=== PATIENT | female | born 1940 | race Two or more races ===

== ENCOUNTER 2020-02-27 10:01 | Outpatient (REF) | payer MEDICARE, SELFPAY ==
[2020-02-27 10:39] LABS: COVID-19 Test Negative (Negative)
== END 2020-02-27 10:02 | disposition home or self-care (01) ==
LOC: HO.LAB 10:01
PROVIDERS: PCP Internal Medicine; Visit Provider Internal Medicine
DX: Z20.828 Contact with and (suspected) exposure to other viral communicable diseases (principal)
CPT/HCPCS: 87635

== ENCOUNTER → 2020-04-20 08:21 | Outpatient (BNVA) | payer MEDICARE, SELFPAY | PROVIDERS: PCP Internal Medicine; Visit Provider Physician Assistant | DX: K21.9 Gastro-esophageal reflux disease without esophagitis (principal) | CPT/HCPCS: 99212 ==

== ENCOUNTER → 2020-04-23 10:04 | Outpatient (BNVA) | payer MEDICARE, SELFPAY | PROVIDERS: PCP Internal Medicine; Visit Provider Hospitalist | DX: J45.909 Unspecified asthma, uncomplicated (principal); G47.33 Obstructive sleep apnea (adult) (pediatric); K44.9 Diaphragmatic hernia without obstruction or gangrene; Z99.89 Dependence on other enabling machines and devices | CPT/HCPCS: 99212 ==

== ENCOUNTER 2020-05-01 11:32 | Outpatient (REF) | payer MEDICARE, SELFPAY | END 2020-05-01 11:33 | disposition home or self-care (01) | LOC: HO.LAB 11:32 | PROVIDERS: Visit Provider Internal Medicine | DX: Z20.828 Contact with and (suspected) exposure to other viral communicable diseases (principal) | CPT/HCPCS: C9803; U0003 ==

== ENCOUNTER 2020-06-09 09:08 | Outpatient (REF) | payer MEDICARE, SELFPAY ==
--- NOTE | 2020-06-09 09:17 | FL_ITS ---
EXAMINATION: FL BARIUM SWALLOW CLINICAL INFORMATION: Dysphagia. Gastroesophageal reflux. COMPARISON: None TECHNIQUE: Barium swallow examination is performed using fluoroscopic evaluation in addition to multiple fluoroscopic spot views. The patient is imaged both upright and prone and using both thick and thin sulfate along with effervescent granules. Fluoroscopy time: 1.9 minutes DAP: 10.89 Gycm2 Images: 55 FINDINGS: Following oral administration of thick barium, barium coated turkey in upright view and thin barium in prone lying position, there is normal propagation of bolus from the oral cavity through the pharynx, esophagus into stomach without any evidence of obstruction, narrowing, or stricture. There is a small indentation seen along the anterior cervical esophagus likely is a small web without any obstruction. Suspect a small hiatal hernia. There is no gastroesophageal reflux seen. 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 No hiatal hernia. The rest of the barium swallow is unremarkable.
== END 2020-06-09 09:09 | disposition home or self-care (01) ==
LOC: HO.XRAY 09:08
PROVIDERS: Visit Provider Physician Assistant
DX: K21.9 Gastro-esophageal reflux disease without esophagitis (principal)
CPT/HCPCS: 74220

== ENCOUNTER 2020-07-09 13:21 | Outpatient (REF) | payer MEDICARE, SELFPAY ==
--- NOTE | ~2020-07-09 | XR_ITS ---
EXAMINATION: XR CHEST CLINICAL INFORMATION: Asthma COMPARISON: 07/17/2019 TECHNIQUE: 2 views of the chest were obtained. FINDINGS: Stable cardiac and mediastinal silhouette. Mild central bronchial wall thickening. No focal consolidation, effusion, edema or pneumothorax. Thoracic spine degeneration. XR/XR chest 2V IMPRESSION: Mild bronchial wall thickening. No focal consolidation.
== END 2020-07-09 13:22 | disposition home or self-care (01) ==
LOC: HO.XRAY 13:21
PROVIDERS: PCP Internal Medicine; Visit Provider Hospitalist
DX: J45.909 Unspecified asthma, uncomplicated (principal)
CPT/HCPCS: 71046

== ENCOUNTER 2020-07-15 13:23 | Outpatient (REF) | payer MEDICARE, SELFPAY | END 2020-07-15 13:24 | disposition home or self-care (01) | LOC: HO.LAB 13:23 | PROVIDERS: Visit Provider Internal Medicine | DX: Z20.822 Contact with and (suspected) exposure to COVID-19 (principal) | CPT/HCPCS: 36415; C9803; U0003; U0005 ==

== ENCOUNTER → 2020-07-23 10:52 | Outpatient (BNVA) | payer MEDICARE, SELFPAY | PROVIDERS: PCP Internal Medicine; Visit Provider Hospitalist | DX: K44.9 Diaphragmatic hernia without obstruction or gangrene (principal); K21.9 Gastro-esophageal reflux disease without esophagitis; G47.33 Obstructive sleep apnea (adult) (pediatric); J45.40 Moderate persistent asthma, uncomplicated; Z91.09 Other allergy status, other than to drugs and biological substances; Z99.89 Dependence on other enabling machines and devices | CPT/HCPCS: 99212 ==

== ENCOUNTER → 2020-08-05 14:10 | Outpatient (BNVA) | payer MEDICARE, SELFPAY | PROVIDERS: PCP Internal Medicine; Visit Provider Physician Assistant | DX: R13.10 Dysphagia, unspecified (principal); D64.9 Anemia, unspecified | CPT/HCPCS: 99212 ==

== ENCOUNTER 2020-08-06 14:02 | Outpatient (REF) | payer MEDICARE, SELFPAY ==
[2020-08-06 14:40] LABS: MANUAL DIFF FLAG NO
[2020-08-06 14:45] LABS: Basophils Absolute Auto 0.1 X10*3/uL (0.0-0.2); Basophils Percent Auto 0.8 % (0-2); Eosinophils Absolute Auto 0.4 X10*3/uL (0.0-0.4); Eosinophils Percent Auto 5.7 % (0-4); Imm Gran Abs Auto 0.02 X10*3/uL (0.00-0.03); Imm Gran Pct Auto 0.3 % (0.0-0.4); Lymphocytes Absolute Auto 2.6 X10*3/uL (1.2-4.9); Lymphocytes Percent Auto 35.2 % (20-40); Mean Corpuscular HGB Conc 30.3 g/dl (31.0-35.0); Mean Corpuscular Hemoglobin 26.3 pg (27.0-33.0); Mean Corpuscular Volume 86.8 fL (80-98); Mean Platelet Volume 10.8 fL (9.4-12.3); Monocytes Absolute Auto 0.7 X10*3/uL (0.1-1.2); Monocytes Percent Auto 9.2 % (2-11); Neutrophils Absolute Auto 3.6 X10*3/uL (2.0-8.3); Neutrophils Percent Auto 48.8 % (45-73); Platelet Count 303 X10*3/uL (160-400); Red Cell Distribution Width 13.6 % (11.0-16.0); White Blood Count 7.4 X10*3/uL (4.8-10.8)
[2020-08-06 15:07] LABS: Iron 37 mcg/dL (30-160); Percent Iron Saturation 9 % (15-50); Total Iron Binding Capacity 434 mcg/dL (228-428); Unsaturated Iron Binding 397 ug/dL
[2020-08-06 15:29] LABS: Ferritin 14 ng/mL (10-250)
== END 2020-08-06 14:03 | disposition home or self-care (01) ==
LOC: HO.LAB 14:02
PROVIDERS: PCP Internal Medicine; Visit Provider Physician Assistant
DX: R74.01 Elevation of levels of liver transaminase levels (principal); D64.9 Anemia, unspecified
CPT/HCPCS: 36415; 82728; 83540; 85025

== ENCOUNTER → 2020-08-12 14:04 | Outpatient (REF) | payer MEDICARE, SELFPAY | LOC: HO.SL 14:04 | PROVIDERS: PCP Internal Medicine; Visit Provider Hospitalist | DX: G47.33 Obstructive sleep apnea (adult) (pediatric) (principal); Z99.89 Dependence on other enabling machines and devices | CPT/HCPCS: 95806 ==

== ENCOUNTER → 2020-08-24 15:12 | Outpatient (BNVA) | payer MEDICARE, SELFPAY | PROVIDERS: PCP Internal Medicine; Visit Provider Hospitalist | DX: J45.40 Moderate persistent asthma, uncomplicated (principal); K55.9 Vascular disorder of intestine, unspecified; G47.33 Obstructive sleep apnea (adult) (pediatric); Z99.89 Dependence on other enabling machines and devices; Z91.09 Other allergy status, other than to drugs and biological substances | CPT/HCPCS: 99212 ==

== ENCOUNTER 2020-09-08 11:37 | Day surgery (SDC) | payer MEDICARE, SELFPAY ==
[2020-09-08 12:19] VITALS: BP 138/63; PULSE 62; RESP 18; TEMP 36.2; O2SAT 98; BMI 35.6
[2020-09-08] MEDS: Lactated Ringers 1,000 ML 50 ML IV (12:39)
--- NOTE | 2020-09-08 12:52 | MHC.SHP ---
Pre-Procedural Eval Section B Chief Complaint: Anemia Details of Present Illness: TROUBLE SWALLOWING, ? CERVICAL WEB. Relevant Family History (Specify if Yes): No Relevant Social History: None Present Medications: see Short Stay Collaborative assessment Medical History: Significant History (ASTHMA, KERON,ALLERGIES, ANEMIA) History of Previous Operations: Relevant previous surgery/procedure and date(s) (EGD--2011--iNCREASED PERIGLOTTIC TISSUE--HH; 2019-MULTIPLE POLYPS:SERRATED/TUBULAR ADEMONAS) Allergies: Allergies Allergy/AdvReac Type Severity Reaction Status Date / Time latex [Latex] Allergy Severe DIFFICULTY Verified 09/08/20 12:15 BREATHING RELATED TO EXACERBATION OF ASTHMA Cameron Inhibitors Allergy Severe cough Uncoded 08/05/20 14:25 From PERCOCET Allergy Severe RASH Uncoded 08/05/20 14:25 Review of Systems Sugical H&P ROS: Negative: Constitution and Cardiovascular and Yes, Specify: Respiratory (FOLLOWS WITH VIOLET. KERON USES CPAP), Neurological (SMALL CVA>10 YR-NO RSIDUAL) and Gastrointestinal (SEE hpi) Exam Surgical H&P Exam: Normal: HEENT, Normal: Lungs and Normal: Abdomen Plan Diagnosis/Plan: Unchanged I have reviewed the history and physical and performed a pertinent physical examination on my patient. No changes have occurred unless specified.YES
--- NOTE | 2020-09-08 13:21 | PM.OP ---
Brief Operative Note Date of Service: 09/08/20 Pre-op diagnosis: DYSPHAGIA WITH LIQUIDS--NO WEIGHT CHANGE Post-op diagnosis: other (SMALL HIATAL HERNIA) Procedure: EGD NO BX, NO DILATION Implants: NONE Surgeon: Tatiana English MD Anesthesia: MAC (MD SADE/Kofi MUKHERJEE MD) Estimated blood loss (mL): 0 Pathology: none sent Condition: stable Disposition: PACU
[2020-09-08 13:22] VITALS: BP 123/68; PULSE 67; RESP 16; TEMP 36.3; O2SAT 96
--- NOTE | 2020-09-08 13:27 | W.PM.OPN ---
Operative Note Operative Note Date of Service: 09/08/20 Narrative: PRE-op diagnosis: DYSPHAGIA WITH LIQUIDS--NO WEIGHT CHANGE Post-op diagnosis: SMALL HIATAL HERNIA; Hx of dysphagia Procedure: EGD NO BX, NO DILATION Implants: NONE Surgeon: Tatiana English MD Anesthesia: MAC (MD SADE/Kofi MUKHERJEE MD) FINDINGS: Videoendoscope was introduced with out difficulty and entered esophagus easily. Esophageal mucosa was normal. Small hiatal hernia. Stomach: Normal looking mucosa, no erythema. Duodenal bulb and duodenum were normal. Scope withdrawn Brief view of Arytenoid cartilages showed some flattening and edema. No involvement of the cords. There was not a good look @ the posterior pharynx due to increased secretions. Estimated blood loss (mL): 0 Pathology: none sent Condition: stable Disposition: PACU Plan--Patient to be reseen in the office. Might benefit BID dosing for acid blockade--May have some oropharyngeal motility issue or coordination problem.
[2020-09-08 13:37] VITALS: BP 132/64; PULSE 63; RESP 17; TEMP 36.6; O2SAT 99
== END 2020-09-08 14:49 | disposition home or self-care (01) ==
PROVIDERS: PCP Internal Medicine; Visit Provider Internal Medicine Gastroenterology
PROC: 0DJ08ZZ Inspection of Upper Intestinal Tract, Via Natural or Artificial Opening Endoscopic (ICD-10-PCS; CPT 43235; principal; 2020-09-08 11:20)
DX: R13.10 Dysphagia, unspecified (principal); D64.9 Anemia, unspecified; K21.9 Gastro-esophageal reflux disease without esophagitis; K44.9 Diaphragmatic hernia without obstruction or gangrene; J45.909 Unspecified asthma, uncomplicated; I10 Essential (primary) hypertension; G47.33 Obstructive sleep apnea (adult) (pediatric); Z79.51 Long term (current) use of inhaled steroids; Z79.82 Long term (current) use of aspirin; Z79.899 Other long term (current) drug therapy; Z99.89 Dependence on other enabling machines and devices; Z90.49 Acquired absence of other specified parts of digestive tract; Z88.8 Allergy status to other drugs, medicaments and biological substances; Z91.040 Latex allergy status
CPT/HCPCS: 43235

== ENCOUNTER 2020-10-08 13:26 | Outpatient (REF) | payer MEDICARE, SELFPAY ==
--- NOTE | ~2020-10-08 | XR_ITS ---
EXAMINATION: XR CERVICAL SPINE CLINICAL INFORMATION: Cervical degenerative COMPARISON: None TECHNIQUE: 6 views of the cervical spine, inclusive of flexion and extension views, were obtained. FINDINGS: There is normal cervical lordosis. The vertebral heights, alignment and disc heights are normal. The neural foramina are patent bilaterally. No visible acute fracture, dislocation or lytic process seen. XR/XR cervical spine min 6V IMPRESSION: Unremarkable cervical spine exam.
== END 2020-10-08 13:27 | disposition home or self-care (01) ==
LOC: HO.XRAY 13:26
PROVIDERS: PCP Internal Medicine; Visit Provider Internal Medicine
DX: M54.2 Cervicalgia (principal)
CPT/HCPCS: 72052

== ENCOUNTER 2020-11-06 15:04 | Outpatient (REF) | payer MEDICARE, SELFPAY ==
--- NOTE | ~2020-11-06 | MM_ITS ---
EXAMINATION: MM SCREENING DIGITAL BREAST TOMOSYNTHESIS, BILATERAL CLINICAL INFORMATION: Screening. Asymptomatic. The lifetime risk of breast cancer based on the Tyrer-Cuzick Model is 1.4%. COMPARISON: Mammography: March 07, 2019 and studies dating back to April 09, 2013 TECHNIQUE: Digital breast tomosynthesis is performed in both the craniocaudal and mediolateral oblique views along with computer-aided detection (CAD). Synthesized 2D images are generated from the tomosynthesis. FINDINGS: There are scattered areas of fibroglandular density (ACR BI-RADS breast composition Category b). There are no significant masses, abnormal calcifications, or other abnormalities. MM/MM tomosynthesis screening BI IMPRESSION: There are no significant changes from prior study. ASSESSMENT: BI-RADS 1: Negative RECOMMENDATION: Routine annual mammography screening. This patient's information was entered into a reminder system with a target due date for their next mammogram.
== END 2020-11-06 15:05 | disposition home or self-care (01) ==
LOC: HO.MAMMO 15:04
PROVIDERS: Visit Provider Internal Medicine
DX: Z12.31 Encounter for screening mammogram for malignant neoplasm of breast (principal)
CPT/HCPCS: 77063; 77067

== ENCOUNTER 2020-11-11 07:55 | Outpatient (REF) | payer MEDICARE, SELFPAY ==
--- NOTE | ~2020-11-11 | XR_ITS ---
EXAMINATION: XR SHOULDER, RIGHT CLINICAL INFORMATION: Right shoulder pain. COMPARISON: 11/30/2017 TECHNIQUE: Three views of the right shoulder. FINDINGS: No acute fracture or dislocation is evident. Previously noted calcific tendinitis is not definitely identified on the provided images. There is some mild elevation of the humeral head consistent with rotator cuff injury. There is some spurring about the acromioclavicular joint. Glenohumeral joint appears unremarkable. XR/XR shoulder RT min 2V IMPRESSION: Previous calcification of calcific tendinitis not definitely identified on today's study. No acute fracture or dislocation.
== END 2020-11-11 07:56 | disposition home or self-care (01) ==
LOC: HO.HOSX 07:55
PROVIDERS: Visit Provider Physician Assistant
DX: M19.011 Primary osteoarthritis, right shoulder (principal); M75.101 Unspecified rotator cuff tear or rupture of right shoulder, not specified as traumatic
CPT/HCPCS: 20610; 73030; 99212; J1040

== ENCOUNTER → 2020-11-27 12:46 | Outpatient (BNVA) | payer MEDICARE, SELFPAY | PROVIDERS: PCP Internal Medicine; Visit Provider Hospitalist | DX: J45.40 Moderate persistent asthma, uncomplicated (principal); K44.9 Diaphragmatic hernia without obstruction or gangrene; G47.33 Obstructive sleep apnea (adult) (pediatric); Z99.89 Dependence on other enabling machines and devices; Z91.09 Other allergy status, other than to drugs and biological substances | CPT/HCPCS: 99212 ==

== ENCOUNTER → 2021-02-23 13:11 | Outpatient (BNVA) | payer MEDICARE, SELFPAY | PROVIDERS: PCP Internal Medicine; Visit Provider Hospitalist | DX: J45.40 Moderate persistent asthma, uncomplicated (principal); G47.33 Obstructive sleep apnea (adult) (pediatric); R41.3 Other amnesia; K44.9 Diaphragmatic hernia without obstruction or gangrene; Z99.89 Dependence on other enabling machines and devices; Z91.09 Other allergy status, other than to drugs and biological substances | CPT/HCPCS: 99212 ==

== ENCOUNTER → 2021-07-27 12:50 | Outpatient (BNVA) | payer MEDICARE, SELFPAY | PROVIDERS: PCP Internal Medicine; Visit Provider Hospitalist | DX: J45.40 Moderate persistent asthma, uncomplicated (principal); K44.9 Diaphragmatic hernia without obstruction or gangrene; Z91.09 Other allergy status, other than to drugs and biological substances | CPT/HCPCS: 99212 ==

== ENCOUNTER 2021-08-09 15:06 | Emergency (ER) | payer MEDICARE, SELFPAY | END 2021-08-09 22:31 | disposition left against medical advice (07) | PROVIDERS: Emergency Provider Emergency Medicine; PCP Internal Medicine | DX: M54.2 Cervicalgia (principal) ==

== ENCOUNTER 2021-08-10 07:56 | Outpatient (REF) | payer MEDICARE, SELFPAY | END 2021-08-10 07:57 | disposition home or self-care (01) | LOC: HO.MDS 07:56 | PROVIDERS: PCP Internal Medicine; Visit Provider Internal Medicine Medical Oncology | DX: D50.9 Iron deficiency anemia, unspecified (principal) | CPT/HCPCS: 96365; 96366; J1200; J1750; Q0163 ==

== ENCOUNTER → 2021-09-13 08:47 | Outpatient (BNVA) | payer MEDICARE, SELFPAY | PROVIDERS: PCP Internal Medicine; Visit Provider Physician Assistant | DX: S46.812A Strain of other muscles, fascia and tendons at shoulder and upper arm level, left arm, initial encounter (principal) | CPT/HCPCS: 99212 ==

== ENCOUNTER 2021-11-01 12:57 | Outpatient (REF) | payer OTHER, SELFPAY ==
--- NOTE | ~2021-11-01 | XR_ITS ---
EXAMINATION: XR SHOULDER, LEFT CLINICAL INFORMATION: Left shoulder pain COMPARISON: Left shoulder x-ray on 11/30/2017 TECHNIQUE: AP external rotation, Grashey, scapular Y, and axillary views of the left shoulder. FINDINGS: There is moderate acromioclavicular osteoarthritis. Glenohumeral joint is well preserved. No fracture. Alignment is anatomic. Mild calcific tendinopathy. XR/XR shoulder LT min 2V IMPRESSION: Moderate left shoulder arthritis.
== END 2021-11-01 12:58 | disposition home or self-care (01) ==
LOC: HO.XRAY 12:57
PROVIDERS: PCP Internal Medicine; Visit Provider Internal Medicine
DX: M25.512 Pain in left shoulder (principal)
CPT/HCPCS: 73030

== ENCOUNTER 2022-01-07 08:27 | Outpatient (REF) | payer OTHER, SELFPAY ==
--- NOTE | ~2022-01-07 | XR_ITS ---
EXAMINATION: XR BOTH KNEES AP STANDING XR RIGHT KNEE, 2 VIEWS CLINICAL INFORMATION: Pain in the right knee. COMPARISON: 01/19/2017. TECHNIQUE: Standing AP view of both knees and lateral and sunrise views of the right knee. FINDINGS: LEFT KNEE: Cmtf-wn-[id number] medial compartment osteoarthritis with nonuniform joint space narrowing and marginal osteophytes. Slight varus angulation at the knee. Calcified densities overlying the medial femoral condyle/medial metaphysis may correspond to loose bodies in the posterior recess. These measure up to 1.5 cm in diameter. Soft tissues are unremarkable. RIGHT KNEE: Constrained right total knee arthroplasty is unchanged in alignment as compared to prior. No periprosthetic fracture or lucency. Previously seen effusion or synovitis in the suprapatellar pouch is improved as compared to prior. A small amount of heterotopic bone is noted in the region of the quadriceps tendon insertion. Mild soft tissue swelling in the prepatellar soft tissues, more pronounced medially. No acute osseous abnormalities are identified. XR/XR knee RT 2V IMPRESSION: Appropriate alignment of the right total knee arthroplasty without evidence of complications. 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 [id number] medial compartment osteoarthritis in the left knee with probable osseous loose bodies.
--- NOTE | ~2022-01-07 | XR_ITS ---
EXAMINATION: XR BOTH KNEES AP STANDING XR RIGHT KNEE, 2 VIEWS CLINICAL INFORMATION: Pain in the right knee. COMPARISON: 01/19/2017. TECHNIQUE: Standing AP view of both knees and lateral and sunrise views of the right knee. FINDINGS: LEFT KNEE: [id number] medial compartment osteoarthritis with nonuniform joint space narrowing and marginal osteophytes. Slight varus angulation at the knee. Calcified densities overlying the medial femoral condyle/medial metaphysis may correspond to loose bodies in the posterior recess. These measure up to 1.5 cm in diameter. Soft tissues are unremarkable. RIGHT KNEE: Constrained right total knee arthroplasty is unchanged in alignment as compared to prior. No periprosthetic fracture or lucency. Previously seen effusion or synovitis in the suprapatellar pouch is improved as compared to prior. A small amount of heterotopic bone is noted in the region of the quadriceps tendon insertion. Mild soft tissue swelling in the prepatellar soft tissues, more pronounced medially. No acute osseous abnormalities are identified. XR/XR knee standing BI IMPRESSION: Appropriate alignment of the right total knee arthroplasty without evidence of complications. 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 [id number] medial compartment osteoarthritis in the left knee with probable osseous loose bodies.
== END 2022-01-07 08:28 | disposition home or self-care (01) ==
LOC: HO.HOSX 08:27
PROVIDERS: Visit Provider Physician Assistant
DX: M19.012 Primary osteoarthritis, left shoulder (principal); Z96.651 Presence of right artificial knee joint; M25.562 Pain in left knee
CPT/HCPCS: 20610; 73560; 73565; 99212; J1040

== ENCOUNTER 2022-01-13 13:31 | Outpatient (REF) | payer OTHER, SELFPAY ==
--- NOTE | ~2022-01-13 | XR_ITS ---
EXAMINATION: XR HIP, LEFT CLINICAL INFORMATION: Pain COMPARISON: Previous x-ray May 2007 TECHNIQUE: Two views of the left hip. FINDINGS: Bone alignment is normal. No fracture or dislocation is seen. The left hip joint is normal. There is faint soft tissue calcification or ossification adjacent to the lateral left inferior pubic ramus new from 2008 exam. There is mild atherosclerotic disease. XR/XR hip LT min 2V IMPRESSION: Normal left hip. New faint soft tissue calcification or ossification adjacent to the lateral left inferior pubic ramus.
--- NOTE | ~2022-01-13 | XR_ITS ---
EXAMINATION: XR SHOULDER, LEFT CLINICAL INFORMATION: Pain COMPARISON: Previous x-ray most recent October 2021 TECHNIQUE: AP external rotation, Grashey, scapular Y, and axillary views of the left shoulder. FINDINGS: Bone alignment is normal. No fracture or dislocation is seen. The glenohumeral joint is normal. There is arthritis at the acromioclavicular joint. There are degenerative changes of the greater tuberosity and faint adjacent soft tissue calcification. XR/XR shoulder LT min 2V IMPRESSION: Stable degenerative changes.
== END 2022-01-13 13:32 | disposition home or self-care (01) ==
LOC: HO.XRAY 13:31
PROVIDERS: Absent Provider Internal Medicine; PCP Internal Medicine; Visit Provider Family Medicine
DX: M25.512 Pain in left shoulder (principal); M25.552 Pain in left hip
CPT/HCPCS: 73030; 73502

== ENCOUNTER 2022-01-24 13:26 | Outpatient (REF) | payer OTHER, SELFPAY ==
--- NOTE | ~2022-01-24 | XR_ITS ---
EXAMINATION: XR PELVIS CLINICAL INFORMATION: Pain COMPARISON: Previous x-ray most recent 01/13/2022 TECHNIQUE: AP view of the pelvis. FINDINGS: Bone alignment is normal. No acute fracture or dislocation is seen. There is faint soft tissue calcification adjacent to the lateral left inferior pubic ramus. This is similar to recent exam. Bones of the pelvis are otherwise normal. The right hip joint is normal. XR/XR pelvis 1-2V IMPRESSION: Stable faint soft tissue calcification or ossification adjacent to the lateral left inferior pubic ramus from recent exam.
== END 2022-01-24 13:27 | disposition home or self-care (01) ==
LOC: HO.XRAY 13:26
PROVIDERS: Absent Provider Internal Medicine; PCP Internal Medicine; Visit Provider Family Medicine
DX: M25.552 Pain in left hip (principal)
CPT/HCPCS: 72170

== ENCOUNTER 2022-02-23 10:31 | Outpatient (REF) | payer OTHER, SELFPAY ==
--- NOTE | ~2022-02-23 | CT_ITS ---
EXAMINATION: CT PELVIS WITHOUT CONTRAST CLINICAL INFORMATION: Soft tissue calcification COMPARISON: None TECHNIQUE: Helical scanning was performed with submillimeter collimation through the pelvis. Sagittal and coronal multiplanar 2-D reconstructions were obtained. This CT examination was performed using dose optimization techniques as appropriate, variously including the following: *Automated exposure control *Adjustment of mA and/or kV according to patient size (this includes techniques or standardized protocols for targeted exams where dose is matched to indication/reason for exam; i.e. extremities or head) *Use of iterative reconstruction technique DLP: 756 mGy-cm FINDINGS: PELVIS: There is scattered stool, diverticula and gas seen throughout the colon without distention. Appendix and ileocecal junction are normal. No free air or free fluid seen. The urinary bladder is nondistended. The uterus is not visualized likely surgically removed. OSSEOUS STRUCTURES: Degenerative changes with vacuum disc phenomena L4-L5 disc level. No aggressive lytic or sclerotic process seen. CT/CT pelvis wo IV con IMPRESSION: Unremarkable CT pelvis.
== END 2022-02-23 10:32 | disposition home or self-care (01) ==
LOC: HO.CT 10:31
PROVIDERS: PCP Internal Medicine; Visit Provider Family Medicine
DX: R93.7 Abnormal findings on diagnostic imaging of other parts of musculoskeletal system (principal)
CPT/HCPCS: 72192

== ENCOUNTER 2022-03-21 14:24 | Emergency (ER) | payer OTHER, SELFPAY ==
--- NOTE | 2022-03-21 15:07 | ED_ITS ---
HPI - Chest Pain General Chief Complaint: Abdominal Pain Stated Complaint: chest pain sob Related Data Home Medications Medication Instructions Recorded Confirmed loratadine 10 mg tablet (Claritin) 10 mg PO DAILY PRN Allergies 04/20/20 07/22/21 omeprazole 20 mg capsule,delayed 20 mg PO DAILY 04/20/20 07/22/21 release aspirin 81 mg tablet,delayed 81 mg PO DAILY 04/23/20 07/22/21 release verapamil 120 mg 24 hr 120 mg PO DAILY 11/27/20 07/22/21 capsule,extended release acetaminophen 325 mg PO Q6-8H PRN pain/fever 07/22/21 07/22/21 docusate sodium 100 mg tablet 100 mg PO BID 07/22/21 07/22/21 dorzolamide 22.3 mg-timolol 6.8 ml ophthalmic (eye) 07/27/21 mg/mL eye drops azithromycin 250 mg tablet 250 mg PO DIRECTED 09/13/21 Previous Rx's Medication Instructions Recorded albuterol sulfate 90 mcg/actuation 2 inh inhalation Q6H PRN shortness 08/21/20 aerosol inhaler of breath or wheezing 30 days #18 grams compr.stocking,thigh,reg,x-lrg #2 ea 11/27/20 gabapentin 300 mg capsule 600 mg PO BEDTIME 30 days #60 caps 07/27/21 Breo Ellipta 200 mcg-25 mcg/dose 1 ea inhalation DAILY #60 ea 08/12/21 powder for inhalation (fluticasone furoate-vilanterol) montelukast 10 mg tablet 10 mg PO QPM #30 tabs 08/12/21 celecoxib 200 mg capsule (Celebrex) 200 mg PO BID 30 days #60 caps 01/07/22 Allergies Allergy/AdvReac Type Severity Reaction Status Date / Time latex [Latex] Allergy Severe DIFFICULTY Verified 03/21/22 13:26 BREATHING RELATED TO EXACERBATION OF ASTHMA Cameron Inhibitors Allergy Severe cough Uncoded 07/27/21 13:00 From PERCOCET Allergy Severe RASH Uncoded 07/27/21 13:00 PMFSH Past Medical History Medical History Abnormal colonoscopy (~01/2019) Acid reflux Anemia Asthma Dysphagia Environmental allergies Hiatal hernia History of eye prosthesis HTN (hypertension) Limb swelling Memory loss Murmur KERON on CPAP Surgical History History of cholecystectomy History of colonoscopy History of hysterectomy History of throat surgery History of total right knee replacement (TKR) Social History Social History Household Members: Spouse, Family and Children Alcohol intake: never Patient Tobacco Use Status: Never used Tobacco Advance Directives: No Advance Directives Information Provided: No Current occupational status: retired 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 handed Physical Exam Vital Signs: Vital Signs: Last Vital Signs Temp 98.3 F 03/21/22 15:09 Pulse 70 03/21/22 15:09 Resp 18 03/21/22 15:09 BP 124/73 03/21/22 15:09 Pulse Ox 99 03/21/22 15:09 O2 Del Method 03/21/22 15:09 BMI result Body Mass Index 34.4 Course Course Course Narrative: Patient had a RME by me but was never seen Reevaluation(s) Reevaluation #1: During a primary care visit she developed chest and epigastric pain. patient with fatigue and abdominal pain. Patient with fatty liver disease. She was sent to the ED for fatigue and weakness. Elderly female in no acute distress. Time: 15:12 MDM - Chest Pain Lab Data Result diagrams: 03/21/22 15:41 03/21/22 15:41 Labs: Lab Results 03/21/22 03/21/22 03/21/22 Range/Units 15:41 15:41 15:41 WBC 9.7 (4.8-10.8) X10*3/uL RBC 3.89 L (4.20-5.50) X10*6/uL Hgb 11.3 L D (12.0-16.0) g/dl Hct 35.6 L (37.0-47.0) % MCV 91.5 (80.0-98.0) fL MCH 29.0 (27.0-33.0) pg MCHC 31.7 (31.0-35.0) g/dl RDW 12.5 (11.0-16.0) % Plt Count 251 (160-400) X10*3/uL MPV 11.1 (9.4-12.3) fL Immature Gran % (Auto) 0.4 (0.0-0.4) % Neut % (Auto) 65.0 (45-73) % Lymph % (Auto) 25.8 (20-40) % [place] % (Auto) 6.4 (2-11) % Eos % (Auto) 1.7 (0-4) % Baso % (Auto) 0.7 (0-2) % Lymph # (Auto) 2.5 (1.2-4.9) X10*3/uL [place] # (Auto) 0.6 (0.1-1.2) X10*3/uL Eos # (Auto) 0.2 (0.0-0.4) X10*3/uL Baso # (Auto) 0.1 (0.0-0.2) X10*3/uL Abs Immat Gran (auto) 0.04 H (0.00-0.03) X10*3/uL Absolute Neuts (auto) 6.3 (2.0-8.3) x10*3/uL Absolute Nucleated RBC 0.000 (0.0-0.012) X10*3/uL Nucleated RBC % (auto) 0.0 (0.0-0.2) /100WBC Sodium 143 (135-145) mmol/L Potassium 4.3 (3.3-5.1) mmol/L Chloride 104 (96-108) mmol/L Carbon Dioxide 27 (22-29) mmol/L Anion Gap 16 (12-20) BUN 17 H (9-16) mg/dL Creatinine 0.80 (0.5-1.4) mg/dL Estim Creat Clear Calc 53.7 Estimated GFR > 60 Random Glucose 95 (60-115) mg/dL Calcium 9.6 (8.4-10.2) mg/dL Total Bilirubin 0.9 (0.0-1.0) mg/dL Direct Bilirubin 0.3 (0.0-0.5) mg/dL AST 19 (5-31) U/L ALT 20 (0-31) U/L Alkaline Phosphatase 108 (39-117) U/L Troponin I High Sens < 3.5 (<3.5-17.0) ng/L Total Protein 7.8 (6.5-8.0) g/dL Albumin 4.5 (3.5-5.0) g/dL Lipase < 4 L (8-78) U/L Urine Color Urine Appearance Urine pH (5.0-9.0) Ur Specific [place] (1.005-1.025) Urine Protein (Neg-Trace) mg/dL Urine Glucose (UA) (Negative) mg/dL Urine Ketones (Negative) mg/dL Urine Blood (Negative) Urine Nitrite (Negative) Ur Leukocyte Esterase (Negative) Urine RBC (0-2) /HPF Urine WBC (0-5) /HPF Ur Squamous Epith Cells (0-2) /HPF Urine Bacteria (None Seen) Hyaline Casts (0-2) /LPF 03/21/22 Range/Units 15:41 WBC (4.8-10.8) X10*3/uL RBC (4.20-5.50) X10*6/uL Hgb (12.0-16.0) g/dl Hct (37.0-47.0) % MCV (80.0-98.0) fL MCH (27.0-33.0) pg MCHC (31.0-35.0) g/dl RDW (11.0-16.0) % Plt Count (160-400) X10*3/uL MPV (9.4-12.3) fL Immature Gran % (Auto) (0.0-0.4) % Neut % (Auto) (45-73) % Lymph % (Auto) (20-40) % [place] % (Auto) (2-11) % Eos % (Auto) (0-4) % Baso % (Auto) (0-2) % Lymph # (Auto) (1.2-4.9) X10*3/uL [place] # (Auto) (0.1-1.2) X10*3/uL Eos # (Auto) (0.0-0.4) X10*3/uL Baso # (Auto) (0.0-0.2) X10*3/uL Abs Immat Gran (auto) (0.00-0.03) X10*3/uL Absolute Neuts (auto) (2.0-8.3) x10*3/uL Absolute Nucleated RBC (0.0-0.012) X10*3/uL Nucleated RBC % (auto) (0.0-0.2) /100WBC Sodium (135-145) mmol/L Potassium (3.3-5.1) mmol/L Chloride (96-108) mmol/L Carbon Dioxide (22-29) mmol/L Anion Gap (12-20) BUN (9-16) mg/dL Creatinine (0.5-1.4) mg/dL Estim Creat Clear Calc Estimated GFR Random Glucose (60-115) mg/dL Calcium (8.4-10.2) mg/dL Total Bilirubin (0.0-1.0) mg/dL Direct Bilirubin (0.0-0.5) mg/dL AST (5-31) U/L ALT (0-31) U/L Alkaline Phosphatase (39-117) U/L Troponin I High Sens (<3.5-17.0) ng/L Total Protein (6.5-8.0) g/dL Albumin (3.5-5.0) g/dL Lipase (8-78) U/L Urine Color Yellow Urine Appearance Clear Urine pH 7.0 (5.0-9.0) Ur Specific [place] 1.015 (1.005-1.025) Urine Protein Negative (Neg-Trace) mg/dL Urine Glucose (UA) Negative (Negative) mg/dL Urine Ketones Negative (Negative) mg/dL Urine Blood Negative (Negative) Urine Nitrite Negative (Negative) Ur Leukocyte Esterase Small (1+) H (Negative) Urine RBC 0-2 (0-2) /HPF Urine WBC 6-10 H (0-5) /HPF Ur Squamous Epith Cells 0-2 (0-2) /HPF Urine Bacteria None Seen (None Seen) Hyaline Casts 0-2 (0-2) /LPF Discharge Plan Discharge Clinical Impression: Abdominal pain Patient Disposition: Elopement Prescriptions: No Action albuterol sulfate 90 mcg/actuation HFA aerosol inhaler 2 inh inhalation Q6H PRN (Reason: shortness of breath or wheezing) 30 Days Qty: 18 12RF Breo Ellipta 200-25 mcg/dose blister with device 1 ea inhalation DAILY Qty: 60 9RF montelukast 10 mg tablet 10 mg PO QPM Qty: 30 10RF docusate sodium 100 mg Tablet 100 mg PO BID acetaminophen 325 mg PO Q6-8H PRN (Reason: pain/fever) omeprazole 20 mg capsule,delayed release(DR/EC) 20 mg PO DAILY loratadine [Claritin] 10 mg tablet 10 mg PO DAILY PRN (Reason: Allergies) (DME) compr.stocking,thigh,reg,x-lrg Misc See Rx Instructions .ROUTE .MEDSUPPLY Qty: 2 0RF Rx Instructions: 15-20cm dorzolamide-timolol 22.3-6.8 mg/mL drops ophthalmic (eye) gabapentin 300 mg capsule 600 mg PO BEDTIME 30 Days Qty: 60 11RF aspirin 81 mg tablet,delayed release (DR/EC) 81 mg PO DAILY verapamil 120 mg capsule,ext rel. pellets 24 hr 120 mg PO DAILY azithromycin 250 mg tablet 250 mg PO DIRECTED celecoxib [Celebrex] 200 mg capsule 200 mg PO BID 30 Days Qty: 60 3RF Discharge Date/Time: 03/21/22 21:14
[2022-03-21 15:09] VITALS: BP 124/73; PULSE 70; RESP 18; TEMP 36.8; O2SAT 99; BMI 34.4
--- NOTE | 2022-03-21 15:12 | ECG_ITS ---
Test Reason : CHEST PAIN Blood Pressure : / mmHG Vent. Rate : 063 BPM Atrial Rate : 063 BPM P-R Int : 186 ms QRS Dur : 102 ms QT Int : 436 ms P-R-T Axes : 033 -48 042 degrees QTc Int : 446 ms Normal sinus rhythm Left anterior fascicular block Moderate voltage criteria for LVH, may be normal variant ( R in aVL , Martin product ) Nonspecific T wave abnormality Abnormal ECG When compared with ECG of 15-JUN-2019 01:55, Premature atrial complexes are no longer Present Nonspecific T wave abnormality has replaced inverted T waves in Inferior leads Referred By: Goldy Gomez Electronically Signed By:ERNIE MOSS MD
[2022-03-21 15:52] LABS: MANUAL DIFF FLAG NO
[2022-03-21 15:57] LABS: Basophils Absolute Auto 0.1 X10*3/uL (0.0-0.2); Basophils Percent Auto 0.7 % (0-2); Eosinophils Absolute Auto 0.2 X10*3/uL (0.0-0.4); Eosinophils Percent Auto 1.7 % (0-4); Hematocrit 35.6 % (37.0-47.0); Hemoglobin 11.3 g/dl (12.0-16.0); Imm Gran Abs Auto 0.04 X10*3/uL (0.00-0.03); Imm Gran Pct Auto 0.4 % (0.0-0.4); Lymphocytes Absolute Auto 2.5 X10*3/uL (1.2-4.9); Lymphocytes Percent Auto 25.8 % (20-40); Mean Corpuscular HGB Conc 31.7 g/dl (31.0-35.0); Mean Corpuscular Volume 91.5 fL (80.0-98.0); Mean Platelet Volume 11.1 fL (9.4-12.3); Monocytes Absolute Auto 0.6 X10*3/uL (0.1-1.2); Monocytes Percent Auto 6.4 % (2-11); Neutrophils Absolute Auto 6.3 x10*3/uL (2.0-8.3); Platelet Count 251 X10*3/uL (160-400); Red Blood Count 3.89 X10*6/uL (4.20-5.50); Red Cell Distribution Width 12.5 % (11.0-16.0); White Blood Count 9.7 X10*3/uL (4.8-10.8)
[2022-03-21 15:58] LABS: Appearance Urine Clear; Color Urine Yellow; Glucose Urine UA Negative (Negative); Leukocyte Esterase Urine Small (1+) (Negative); Nitrite Urine Negative (Negative); Specific Gravity - Urine 1.015 (1.005-1.025); UMIC TRIGGER UACC YES; Urine Blood Negative (Negative); Urine Ketones Negative (Negative); Urine Protein Negative (Neg-Trace)
[2022-03-21 16:00] LABS: Bacteria Urine None Seen (None Seen); Hyaline Casts Urine 0-2 /LPF (0-2); RBC Urine 0-2 /HPF (0-2); Squamous Epithelial Cell Urine 0-2 /HPF (0-2); UACC Culture Trigger YES
[2022-03-21 16:18] LABS: Alanine Aminotransferase 20 U/L (0-31); Albumin Level 4.5 g/dL (3.5-5.0); Alkaline Phosphatase 108 U/L (39-117); Anion Gap 16 (12-20); Aspartate Amino Transferase 19 U/L (5-31); Bilirubin Direct 0.3 mg/dL (0.0-0.5); Bilirubin Total 0.9 mg/dL (0.0-1.0); Blood Urea Nitrogen 17 mg/dL (9-16); Calcium 9.6 mg/dL (8.4-10.2); Carbon Dioxide 27 mmol/L (22-29); Chloride 104 mmol/L (96-108); Creatinine Clr Calc Pharmacy 53.7; Estimated Glomerular Filt Rate > 60; Glucose Random 95 mg/dL (60-115); Lipase < 4 U/L (8-78); Potassium 4.3 mmol/L (3.3-5.1); Sodium 143 mmol/L (135-145); Total Protein 7.8 g/dL (6.5-8.0); Troponin-I High Sensitivity < 3.5 ng/L (<3.5-17.0)
--- OUTSIDE RECORDS SUMMARY | 2022-03-21 21:16 | XMS_ITS ---
:1940 External Reference #:[id number] Author Care Team Providers Name Role Phone EUSEBIO BELCHER MD Primary Care Provider [phone] Allergies Code Code System Name Reaction Severity Status Onset NKDA ? Medications Name Status Start Date Stop Date ? ? acetaminophen 325 mg tablet Active ? Not available TAKE 2 TABLETS BY MOUTH EVERY 6 HOURS NEEDED FOR PAIN OR FOR FEVER albuterol sulfate 2.5 mg/3 mL (0.083 %) solution for Completed ? 12/20/2018 nebulization amoxicillin 500 mg capsule Completed ? 02/12 amoxicillin 500 mg tablet Completed ? 2018 amoxicillin 875 mg tablet Completed ? 2020 aspirin 81 mg tablet,delayed release Active ? Not available TAKE 1 TABLET BY MOUTH EVERY MORNING atorvastatin 20 mg tablet Active ? Not av ailable azithromycin 250 mg tablet Completed ? 03/21 azithromycin 500 mg tablet Completed ? 12/20 bisacodyl 5 mg tablet,delayed release Completed ? 12/09/2020 Breo Ellipta 100 mcg-25 mcg/dose powder for inhalation Completed ? 12/09/2020 Breo Ellipta 200 mcg-25 mcg/dose powder for inhalation Active ? Not available cephalexin 500 mg capsule Active ? Not av ailable cetirizine 10 mg tablet Completed ? 12/10/19 21 dextromethorphan-guaifenesin 10 mg-100 mg/5 mL oral Active ? Not available syrup Diovan 80 mg tablet Completed ? 12/09/2020 docusate sodium 100 mg capsule Active ? N ot available dorzolamide 22.3 mg-timolol 6.8 mg/mL eye drops Active ? Not available erythromycin 5 mg/gram (0.5 %) eye ointment Completed ? 12/20/2018 fluticasone propionate 50 mcg/actuation nasal Active ? Not available spray,suspension gabapentin 300 mg capsule Active ? Not av ailable Gavilax 17 gram/dose oral powder Completed ? 12/09/2020 GaviLyte-N 420 gram oral solution Completed ? 12/20/2018 ibuprofen 800 mg tablet Completed ? 03/21/20 19 loratadine 10 mg tablet Active ? Not avai lable TAKE 1 TABLET BY MOUTH DAILY losartan 50 mg tablet Active ? Not availa ble methylprednisolone 4 mg tablets in a dose pack Completed ? 12/09/2020 Mi-Acid Gas Relief (simethicone) 80 mg chewable tablet Active ? Not available CHEW 1 TABLET BY MOUTH THREE TIMES DAILY BEFORE MEALS NEEDED FOR GAS montelukast 10 mg tablet Active ? Not derek ilable naproxen 375 mg tablet Completed ? 1 naproxen 500 mg tablet Completed ? 9 omeprazole 20 mg capsule,delayed release Active ? Not available oseltamivir 75 mg capsule Completed ? 2020 oxycodone-acetaminophen 5 mg-325 mg tablet Completed ? 12/09/2020 prednisolone sodium phosphate 5 mg base/5 mL (6.7 mg/5 mL) o ral soln Completed ? 12/09/2020 TAKE 5ML BY MOUTH TWICE A DAY,GARGLE AND SWALLOW prednisone 20 mg tablet Completed ? 12/10/19 21 Robafen 100 mg/5 mL oral liquid Completed ? 12/20/2018 Senna Laxative 8.6 mg tablet Active ? Not available tramadol 50 mg tablet Completed ? 12/09/2020 TAKE 1 TO 2 TABLETS BY MOUTH EVERY TWEL VE HOURS NEEDED FOR SEVERE PAIN (7-10 PAIN SCALE) Ventolin HFA 90 mcg/actuation aerosol inhaler Active ? Not available INHALE 2 PUFFS EVERY 6 HOURS NEEDED FOR WHEEZING OR SHORTNES S OF BREATH verapamil ER (SR) 120 mg tablet,extended release Active ? Not available Problems Name Status Onset Date Source ? Onychomycosis Active 06/07/2016 ? Corns and Callus Active 06/07/2016 ? Pain in Toe Active 06/07/2016 ? Pain in Both Feet Active 06/07/2016 ? Tibialis Posterior Tendinitis Active 12/06/2016 ? Peroneal Tendinitis Active 12/06/2016 ? Procedures Date Name Performed by ? 08/30/2016 XR, Ankle, 3 or More View [facility] [address] [address] (Work Place) Results Lab Results None recorded. Past Encounters 12/09/2020 Corns and Callus; Pain in Toe; Onychomyc osis Lester Jc Ortega, DPM: [address], [place] [address], Ph. 09/23/2020 Corns and Callus; Pain in Toe; Onychomyc osis Lester Hosea Ortega, DPM: [address], [place] [address], Ph. Social History Tobacco Smoking Status Never Smoker Vaccine List Vaccine Type influenza, injectable, quadrivalent 01/25/2016 Plan of Care Reminders Provider Appointments None recorded. ? ? Lab None recorded. ? ? Referral None recorded. ? ? Procedures None recorded. ? ? Surgeries None recorded. ? ? Imaging None recorded. ? ? Vitals 12/09/2020 10:30AM ESTABLISHED PATIENT 15 Height 5 ft 2 in 09/23/2020 10:30AM ESTABLISHED PATIENT 15 Height Weight BMI Blood Pressure 5 ft 2 in 186 lbs 34 kg/m2 118/62 mm[Hg] 07/16/2020 02:30PM ESTABLISHED PATIENT 15 Height Weight BMI Blood Pressure 5 ft 2 in 186 lbs 34 kg/m2 122/64 mm[Hg] 04/27/2020 11:15AM ESTABLISHED PATIENT 15 Height Weight BMI Blood Pressure 5 ft 2 in 186 lbs 34 kg/m2 120/64 mm[Hg] 02/13/2020 11:15AM ESTABLISHED PATIENT 15 Height Weight BMI 5 ft 2 in 186 lbs 34 kg/m2 11/28/2019 11:30AM ESTABLISHED PATIENT 15 Height Weight BMI 5 ft 2 in 186 lbs 34 kg/m2 08/29/2019 11:30AM ESTABLISHED PATIENT 15 Height Weight BMI 5 ft 2 in 186 lbs 34 kg/m2 06/13/2019 01:15PM ESTABLISHED PATIENT 15 Height Weight BMI 5 ft 2 in 186 lbs 34 kg/m2 03/21/2019 01:30PM ESTABLISHED PATIENT 15 Height Weight BMI 5 ft 2 in 186 lbs 34 kg/m2 12/20/2018 01:15PM ESTABLISHED PATIENT 15 Height Weight BMI 5 ft 2 in 186 lbs 34 kg/m2 10/04/2018 01:30PM ESTABLISHED PATIENT 15 Height Weight BMI 5 ft 2 in 186 lbs 34 kg/m2 07/26/2018 09:00AM ESTABLISHED PATIENT 15 Height Weight BMI 5 ft 2 in 186 lbs 34 kg/m2 05/03/2018 09:00AM ESTABLISHED PATIENT 15 Height Weight BMI 5 ft 2 in 186 lbs 34 kg/m2 02/12/2018 09:00AM ESTABLISHED PATIENT 15 Height Weight BMI 5 ft 2 in 186 lbs 34 kg/m2 08/15/2017 02:00PM ESTABLISHED PATIENT 15 Height Weight BMI 5 ft 2 in 186 lbs 34 kg/m2 05/23/2017 02:15PM ESTABLISHED PATIENT 15 Height Weight BMI Blood Pressure 5 ft 2 in 186 lbs 34 kg/m2 122/64 mm[Hg] 02/28/2017 02:00PM ESTABLISHED PATIENT 15 Height Weight BMI Blood Pressure 5 ft 2 in 186 lbs 34 kg/m2 122/60 mm[Hg] 12/06/2016 01:30PM ESTABLISHED PATIENT 15 Height Weight BMI Blood Pressure 5 ft 2 in 186 lbs 34 kg/m2 124/84 mm[Hg] 08/30/2016 02:00PM FOLLOW UP 15 Height Weight BMI Blood Pressure 5 ft 2 in 186 lbs 34 kg/m2 122/60 mm[Hg] 06/07/2016 02:00PM FOLLOW UP 15 Height Weight BMI Blood Pressure 5 ft 2 in 186 lbs 34 kg/m2 120/60 mm[Hg]
--- OUTSIDE RECORDS SUMMARY | 2022-03-21 21:16 | XMS_ITS ---
:1940 Author Care Team Providers Name Role Phone JUSTEN RAJPUT - 2ND FLOOR OTHER [phone] Allergies Code Code System Name Reaction Severity Status Onset 0790422 RxNorm Latex Wheezing ? Active ? 7804 RxNorm Oxycodone Rash ? Active ? Medications Notes: Medications reviewed in note. R efer to MAR for complete list Problems Name Status Onset Date Source ? Hypercholesterolemia Active 10/31/2016 ? Mixed Hyperlipidemia Unknown 10/31/2016 ? Anemia Due to Blood Loss Active 10/31/2016 ? Obstructive Sleep Apnea Syndrome Active 10/31/2016 ? Glaucoma Active 10/31/2016 ? Blindness of One Eye Active 10/31/2016 ? Essential Hypertension Active 10/31/2016 ? Chronic Bronchitis Active 10/31/2016 ? Asthma Active 10/31/2016 ? Gastroesophageal Reflux Disease Active 10/31/2016 ? Osteoarthritis of Knee Active 10/31/2016 ? Headache Active 10/31/2016 ? Murmur Active 10/31/2016 ? Environmental Allergy Active 11/01/2016 ? Generalized Anxiety Disorder Active 11/02/2016 ? Procedures Notes: Excision skin lesions on neck, cholecystedctomy, Bilateral oophorectomy, excision cyst right hand, EGD, Right TKR Results Lab Results None recorded. Past Encounters None recorded. Social History Tobacco Smoking Status Never Smoker Vaccine List Vaccine Type influenza, unspecified formulation 03/09/2018 Plan of Care Reminders Provider Appointments None recorded. ? ? Lab None recorded. ? ? Referral None recorded. ? ? Procedures None recorded. ? ? Surgeries None recorded. ? ? Imaging None recorded. ? ? Vitals None recorded.
== END 2022-03-21 21:14 | disposition left against medical advice (07) ==
PROVIDERS: Emergency Provider Emergency Medicine; PCP Internal Medicine
DX: R10.13 Epigastric pain (principal); R53.1 Weakness; R53.83 Other fatigue
CPT/HCPCS: 36415; 80048; 80076; 81001; 83690; 84484; 85025; 87086; 93005; 99212; 99283

== ENCOUNTER → 2022-09-22 13:54 | Outpatient (BNVA) | payer OTHER, SELFPAY | PROVIDERS: PCP Internal Medicine; Visit Provider Hospitalist | DX: J45.40 Moderate persistent asthma, uncomplicated (principal); J01.90 Acute sinusitis, unspecified; K44.9 Diaphragmatic hernia without obstruction or gangrene; Z91.09 Other allergy status, other than to drugs and biological substances | CPT/HCPCS: 99212 ==

== ENCOUNTER 2022-12-26 08:39 | Outpatient (REF) | payer OTHER, SELFPAY ==
[2022-12-26 11:46] LABS: MANUAL DIFF FLAG NO
[2022-12-26 12:03] LABS: Basophils Absolute Auto 0.1 X10*3/uL (0.0-0.2); Basophils Percent Auto 0.9 % (0-2); Eosinophils Absolute Auto 0.2 X10*3/uL (0.0-0.4); Eosinophils Percent Auto 3.5 % (0-4); Hematocrit 35.4 % (37.0-47.0); Hemoglobin 10.8 g/dl (12.0-16.0); Imm Gran Abs Auto 0.01 X10*3/uL (0.00-0.03); Imm Gran Pct Auto 0.1 % (0.0-0.4); Lymphocytes Absolute Auto 2.2 X10*3/uL (1.2-4.9); Lymphocytes Percent Auto 31.3 % (20-40); Mean Corpuscular HGB Conc 30.5 g/dl (31.0-35.0); Mean Corpuscular Hemoglobin 27.6 pg (27.0-33.0); Mean Corpuscular Volume 90.5 fL (80.0-98.0); Mean Platelet Volume 11.9 fL (9.4-12.3); Monocytes Absolute Auto 0.5 X10*3/uL (0.1-1.2); Monocytes Percent Auto 7.7 % (2-11); Neutrophils Absolute Auto 3.9 x10*3/uL (2.0-8.3); Neutrophils Percent Auto 56.5 % (45-73); Platelet Count 303 X10*3/uL (160-400); Red Blood Count 3.91 X10*6/uL (4.20-5.50); Red Cell Distribution Width 13.3 % (11.0-16.0); White Blood Count 6.9 X10*3/uL (4.8-10.8)
[2022-12-26 12:48] LABS: Cholesterol 142 mg/dL; HDL Cholesterol 55 mg/dL; LDL Cholesterol Calculated 65 mg/dl; Triglycerides 112 mg/dL
[2022-12-26 12:51] LABS: Alanine Aminotransferase 13 U/L (0-31); Alkaline Phosphatase 101 U/L (39-117); Anion Gap 11 (12-20); Aspartate Amino Transferase 16 U/L (5-31); Bilirubin Direct 0.3 mg/dL (0.0-0.5); Bilirubin Total 0.8 mg/dL (0.0-1.0); Blood Urea Nitrogen 13 mg/dL (9-16); Calcium 9.6 mg/dL (8.4-10.2); Carbon Dioxide 27 mmol/L (22-29); Chloride 109 mmol/L (96-108); Estimated Glomerular Filt Rate > 60; Glucose Random 103 mg/dL (60-115); Sodium 143 mmol/L (135-145); Total Protein 7.8 g/dL (6.5-8.0)
[2022-12-26 18:04] LABS: Reflex LDLD? No
== END 2022-12-26 08:40 | disposition home or self-care (01) ==
LOC: HO.HHCL 08:39
PROVIDERS: Visit Provider Internal Medicine
DX: I10 Essential (primary) hypertension (principal)
CPT/HCPCS: 36415; 80048; 80061; 80076; 85025

== ENCOUNTER 2023-04-25 05:53 | Emergency (ER) | payer OTHER, SELFPAY ==
--- NOTE | ~2023-04-25 | XR_ITS ---
EXAMINATION: XR CHEST CLINICAL INFORMATION: Shortness of breath COMPARISON: 07/09/2020 TECHNIQUE: 2 views of the chest were obtained. FINDINGS: Normal symmetric lung volumes. No parenchymal consolidation. No pleural effusion. No pneumothorax. Cardiomediastinal silhouette and pulmonary vascularity are within normal limits. Aorta is tortuous and atherosclerotic. No acute osseous abnormalities. XR/XR chest 2V IMPRESSION: Diffuse mild bronchial thickening as can be seen with bronchitis, chronic airways disease and asthma. No focal consolidation.
[2023-04-25 06:05] VITALS: BP 165/68; PULSE 69; RESP 20; TEMP 36.1; O2SAT 98; BMI 34.8
[2023-04-25 06:32] LABS: Hematocrit 31.7 % (37.0-47.0); Mean Corpuscular HGB Conc 31.5 g/dl (31.0-35.0); Mean Corpuscular Hemoglobin 28.3 pg (27.0-33.0); Mean Corpuscular Volume 89.8 fL (80.0-98.0); Platelet Count 269 X10*3/uL (160-400); Red Blood Count 3.53 X10*6/uL (4.20-5.50); Red Cell Distribution Width 12.7 % (11.0-16.0)
--- NOTE | 2023-04-25 06:34 | ED.URI ---
HPI - URI/Sore Throat General Chief Complaint: Upper Respiratory Symptoms Stated Complaint: Cough Time Seen by Provider: 04/25/23 06:34 Source: patient and RN notes reviewed Mode of arrival: ambulatory Limitations: no limitations History of Present Illness HPI Narrative: This is an 82-year-old female, with a history of anemia, asthma, hypertension, murmur, history of KERON no longer on CPAP, who presents to the emergency department with complaints of headache, cough, chills, body aches x 1 week. Patient reports that, the course of this last week, patient has had a productive cough with yellow-colored sputum, and the cough has been keeping her up at night. She also endorses headaches, nasal congestion. She has been using her albuterol inhaler which has provided her without any relief. No recent sick contacts. She has been using her albuterol inhaler which has provided her without any relief. No fevers or chills. Denies any chest pain or shortness of breath.No other complaints or concerns at this time. MD elicited complaint: cough and nasal congestion Pertinent past history: asthma Onset (ago): week(s) Consistency: constant Description of mucous: yellow Able to tolerate fluids by mouth: Yes Exacerbating factors: nothing Relieving factors: nothing Associated symptoms: headache, rhinorrhea, nasal congestion and cough Treatments prior to arrival: none Related Data Home Medications Medication Instructions Recorded Confirmed loratadine 10 mg tablet (Claritin) 10 mg PO DAILY PRN Allergies 04/20/20 07/22/21 omeprazole 20 mg capsule,delayed 20 mg PO DAILY 04/20/20 07/22/21 release aspirin 81 mg tablet,delayed 81 mg PO DAILY 04/23/20 07/22/21 release verapamil 120 mg 24 hr 120 mg PO DAILY 11/27/20 07/22/21 capsule,extended release acetaminophen 325 mg PO Q6-8H PRN pain/fever 07/22/21 07/22/21 docusate sodium 100 mg tablet 100 mg PO BID 07/22/21 07/22/21 dorzolamide 22.3 mg-timolol 6.8 ml ophthalmic (eye) 07/27/21 mg/mL eye drops Previous Rx's Medication Instructions Recorded albuterol sulfate 90 mcg/actuation 2 inh inhalation Q6H PRN shortness 08/21/20 aerosol inhaler of breath or wheezing 30 days #18 grams compr.stocking,thigh,reg,x-lrg #2 ea 11/27/20 montelukast 10 mg tablet 10 mg PO QPM #30 tabs 07/07/22 gabapentin 300 mg capsule 600 mg (2 x 300 mg) PO BEDTIME #60 08/04/22 caps doxycycline hyclate 100 mg capsule 100 mg PO BID 10 days #20 caps 09/22/22 celecoxib 200 mg capsule 200 mg PO Q12H #60 caps 11/30/22 fluticasone furoate 200 1 ea inhalation DAILY #60 ea 03/22/23 mcg-vilanterol 25 mcg/dose inhalation powder (Breo Ellipta) benzonatate 200 mg capsule 200 mg PO TID PRN cough 5 days #15 04/25/23 caps guaifenesin 200 mg tablet 200 mg PO Q4H PRN cough 3 days #20 04/25/23 tabs prednisone 20 mg tablet 40 mg (2 x 20 mg) PO DAILY 5 days 04/25/23 #10 tabs Allergies Allergy/AdvReac Type Severity Reaction Status Date / Time latex [Latex] Allergy Severe DIFFICULTY Verified 09/22/22 14:03 BREATHING RELATED TO EXACERBATION OF ASTHMA Cameron Inhibitors Allergy Severe cough Uncoded 09/22/22 14:03 From PERCOCET Allergy Severe RASH Uncoded 09/22/22 14:03 Review of Systems Review of Systems: Yes all other systems are reviewed and are negative Constitutional: Constitutional: Reports as per [facility] Past Medical History Medical History Abnormal colonoscopy (~01/2019) Acid reflux Anemia Asthma Dysphagia Environmental allergies Hiatal hernia History of eye prosthesis HTN (hypertension) Limb swelling Memory loss Murmur KERON on CPAP Surgical History History of cholecystectomy History of colonoscopy History of hysterectomy History of throat surgery History of total right knee replacement (TKR) Social History Social History Household Members: Spouse, Family and Children Alcohol intake: never Patient Tobacco Use Status: Never used Tobacco Smoked in Last 30 Days: No Use of substances other than those prescribed or required for medical reasons: No Advance Directives: No Advance Directives Information Provided: Yes Current occupational status: retired 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 handed Physical Exam Vital Signs: Vital Signs: Last Vital Signs Temp 97.0 F 04/25/23 06:05 Pulse 69 04/25/23 06:05 Resp 20 04/25/23 06:05 BP 165/68 H 04/25/23 06:05 Pulse Ox 98 04/25/23 06:05 O2 Del Method Room Air 04/25/23 06:05 BMI result Body Mass Index 34.8 Const: General: cooperative, comfortable and no acute distress Orientation/consciousness: patient oriented x3 Limitations: no limitations HEENT: Head: Yes normal to inspection, Yes normocephalic and Yes atraumatic Ears: hearing grossly normal bilaterally General nose exam: Normal external nose present Face and sinus: Yes normal facial exam Mouth: Normal oral and palatal mucosa present, oropharynx normal and moist mucous membranes Throat: Yes posterior oropharynx normal Eyes: General: appearance normal, both eyes and all related structures Eyelids: Yes eyelids normal Conjunctivae: conjunctivae normal Sclerae: sclerae normal Pupils: Equal, round and reactive pupils present EOM: EOMs intact bilaterally Neck: Neck: Yes normal visual inspection, Yes full ROM and Yes no lymphadenopathy Lymphatic: no lymphadenopathy noted Chest: Chest palpation & inspection: normal inspection of the chest Resp: Effort & Inspection: normal respiratory effort and able to speak in complete sentences Auscultation: clear to auscultation bilaterally, no crackles, no rales, no rhonchi and no wheezes Cardio: Rate: regular rate Rhythm: regular rhythm Heart sounds: S1 normal heart sound present and S2 normal heart sound present GI: Inspection: Yes normal to inspection Skin: General skin exam: no rashes or lesions noted Trauma: no lacerations or abrasions Wounds: no wounds Neuro: General: patient oriented x3 and moves all extremities Cranial nerves: Yes Equal, round and reactive pupils present Extrem: General: Yes normal to inspection Right upper extremity: normal to inspection Left upper extremity: normal to inspection Right lower extremity: normal to inspection Left lower extremity: normal to inspection Course Reevaluation(s) Reevaluation #1: Patient tested negative for COVID, RSV, and flu. Symptoms consistent with bronchitis. Will treat with prednisone, Tessalon and guafenisen. Advised to follow-up with modern languages professor as needed. Given patient has been afebrile, vital signs within normal limits, no evidence or indication for antibiotics at this time. Given return precautions. Patient understands agrees with plan. Patient stable for discharge. Time: 07:24 Medical Decision Making Medical Decision Making [facility] Narrative: This is a 82-year-old female, history of anemia, asthma, hypertension, murmur, history of KERON no longer on CPAP, department for evaluation of productive cough x 1 week. On arrival, blood pressure 165/68, patient is nontoxic appearing, lungs clear to auscultation bilaterally, vital signs within normal limits. Patient has no lower extremity edema. Differential diagnoses includes bronchitis, pneumonia, upper respiratory infection, sinusitis, COVID, viral illness. Lungs are clear to auscultation bilaterally. Heart regular rate and rhythm. Chest x-ray with findings concerning for bronchitis. Laboratory workup revealing normocytic anemia with a hemoglobin and hematocrit at 10/31.7, consistent with her chronic anemia, this is around her baseline. Plan: Labs, chest x-ray, viral swabs Differential Diagnosis Differential Diagnoses: The differential diagnosis associated with the presentation includes Bronchitis, pneumonia, upper respiratory infection, sinusitis, COVID Admission/Observation Consideration of admission/observation: Escalation of care including admission/observation considered Patient would have been admitted to the hospital had her work up had any findings where hospital admission was appropriate and her clinical presentation warranted hospital admission. Lab Data [facility] Lab Attestation statement: I reviewed the patient's lab results. See [facility] 04/25/23 06:22 04/25/23 06:22 Labs: Lab Results 04/25/23 04/25/23 Range/Units 06:21 06:22 WBC 9.0 (4.8-10.8) X10*3/uL RBC 3.53 L (4.20-5.50) X10*6/uL Hgb 10.0 L (12.0-16.0) g/dl Hct 31.7 L (37.0-47.0) % MCV 89.8 (80.0-98.0) fL MCH 28.3 (27.0-33.0) pg MCHC 31.5 (31.0-35.0) g/dl RDW 12.7 (11.0-16.0) % Plt Count 269 (160-400) X10*3/uL MPV 11.0 (9.4-12.3) fL Absolute Nucleated RBC 0.000 (0.0-0.012) X10*3/uL Nucleated RBC % (auto) 0.0 (0.0-0.2) /100WBC Sodium 143 (135-145) mmol/L Potassium 4.1 (3.3-5.1) mmol/L Chloride 109 H (96-108) mmol/L Carbon Dioxide 26 (22-29) mmol/L Anion Gap 12 (12-20) BUN 14 (9-16) mg/dL Creatinine 0.80 (0.5-1.4) mg/dL Estim Creat Clear Calc 53.0 Estimated GFR > 60 Random Glucose 114 (60-115) mg/dL Calcium 9.8 (8.4-10.2) mg/dL Total Bilirubin 0.6 (0.0-1.0) mg/dL AST 17 (5-31) U/L ALT 13 (0-31) U/L Alkaline Phosphatase 103 (39-117) U/L Total Protein 7.8 (6.5-8.0) g/dL Albumin 4.1 (3.5-5.0) g/dL Influenza Type A (PCR) NEGATIVE (Negative) Influenza Type B (PCR) NEGATIVE (Negative) RSV RNA Qual (PCR) NEGATIVE (Negative) SARS-CoV-2 RNA (RT-PCR) NEGATIVE (Negative) Radiology Impression Discussion of test interpretation with radiology: I have reviewed the radiologist's reading. Radiologist Impression: EXAMINATION: XR CHEST CLINICAL INFORMATION: Shortness of breath COMPARISON: 07/09/2020 TECHNIQUE: 2 views of the chest were obtained. FINDINGS: Normal symmetric lung volumes. No parenchymal consolidation. No pleural effusion. No pneumothorax. Cardiomediastinal silhouette and pulmonary vascularity are within normal limits. Aorta is tortuous and atherosclerotic. No acute osseous abnormalities. XR/XR chest 2V IMPRESSION: Diffuse mild bronchial thickening as can be seen with bronchitis, chronic airways disease and asthma. No focal consolidation. Dictated By: Rene Lester MD Discharge Plan Discharge Clinical Impression: Bronchitis Patient Disposition: Home, Self-Care Instructions: Acute Bronchitis (ED) Additional Instructions: You presented to the emergency department due to a cough. You tested negative for flu, RSV, and COVID. Chest x-ray revealed evidence of bronchitis. Please take prescribed medication as directed. Prednisone is a steroid that helps with the inflammation in your lungs. Tessalon Perles help suppress the cough. Guaifenesin to help thin the mucus that your coughing up. It is very important to stay well hydrated. If you develop dizziness, discontinue this medication. It is very important to stay well hydrated and get plenty of rest. Hot tea with honey, throat lozenges, and warm soups can also help with your symptoms. Continue taking nebulizer and albuterol as needed for shortness of breath. Follow-up with modern languages professor. If any new or worsening symptoms occur including but not limited to chest pain, shortness a breath, fevers, chills, please return for re-evaluation. Se present? en urgencias por tos. Las pruebas de gripe, VRS y COVID dieron negativo. La radiograf?a de t?rax revel? evidencia de bronquitis. [place] los medicamentos recetados seg?n las indicaciones. Guaifenesina para ayudar a diluir la mucosidad que expulsa la tos. Es muy importante mantenerse joanna hidratado. Si presenta mareos, suspenda alysha medicamento. La prednisona es un esteroide que ayuda con la inflamaci?n de los pulmones. Tessalon Perles ayuda a suprimir la tos. Es muy importante mantenerse joanna hidratado y descansar lo suficiente. El t? caliente con miel, pastillas para la garganta y sopas calientes tambi?n pueden ayudar con david s?ntomas. Contin?e tomando el nebulizador y el albuterol seg?n sea necesario para la dificultad para respirar. Seguimiento con neum?logo. Si se presenta alg?n s?ntoma nuevo o que empeora, incluidos, entre otros, dolor en el pecho, dificultad para respirar, fiebre, escalofr?os, regrese para alina nueva evaluaci?n. Prescriptions: New prednisone 20 mg tablet 40 mg PO DAILY 5 Days Qty: 10 0RF benzonatate 200 mg capsule 200 mg PO TID PRN (Reason: cough) 5 Days Qty: 15 0RF guaifenesin 200 mg tablet 200 mg PO Q4H PRN (Reason: cough) 3 Days Qty: 20 0RF No Action albuterol sulfate 90 mcg/actuation HFA aerosol inhaler 2 inh inhalation Q6H PRN (Reason: shortness of breath or wheezing) 30 Days Qty: 18 12RF montelukast 10 mg tablet 10 mg PO QPM Qty: 30 10RF gabapentin 300 mg capsule 600 mg PO BEDTIME Qty: 60 11RF celecoxib 200 mg capsule 200 mg PO Q12H Qty: 60 3RF Breo Ellipta 200-25 mcg/dose blister with device 1 ea inhalation DAILY Qty: 60 9RF docusate sodium 100 mg Tablet 100 mg PO BID acetaminophen 325 mg PO Q6-8H PRN (Reason: pain/fever) omeprazole 20 mg capsule,delayed release(DR/EC) 20 mg PO DAILY loratadine [Claritin] 10 mg tablet 10 mg PO DAILY PRN (Reason: Allergies) (DME) compr.stocking,thigh,reg,x-lrg Misc See Rx Instructions .ROUTE .MEDSUPPLY Qty: 2 0RF Rx Instructions: 15-20cm dorzolamide-timolol 22.3-6.8 mg/mL drops ophthalmic (eye) aspirin 81 mg tablet,delayed release (DR/EC) 81 mg PO DAILY verapamil 120 mg capsule,ext rel. pellets 24 hr 120 mg PO DAILY doxycycline hyclate 100 mg capsule 100 mg PO BID 10 Days Qty: 20 0RF Referrals: [facility] [place] Pulmonology Services [Provider Group] Interventions: ED Discharge Assessment Last Done: 04/25/23 07:51 Discharge Date/Time: 04/25/23 07:53 Print Language: Ukrainian
--- OUTSIDE RECORDS SUMMARY | 2023-04-25 06:39 | XMS_ITS | Continuity of Care Document ---
Author Name Unknown Organization [facility] Address [address] [place] [address]- Care Team Providers Care Histotechnologist Name Role Phone Pedro Ingram MD Primary Care Physi bruce Encounter [facility] Date(s): 12/11/22 - 12/12/[address] [address]- Discharge Disposition: A-D/C Home Attending Physician: Mk Painter DO Admitting Physician: Mk Painter DO Referring Physician: Not on Staff, Referring MD Allergies, Adverse Reactions, Alerts No Known Allergies Medications Aspir 81 = 81 mg, By Mouth, Daily, 0 Refills, Maintenance, 03/07/14 22:20:20 Start Date: 03/07/14 Status: Ordered Breo Ellipta 200 mcg-25 mcg/inh inhalation powder 1 puffs, Inhalation, Daily, 0 Refills, Maintenance, 06/20/19 9:17:00 EST, Powder Start Date: 06/20/19 Status: Ordered Breo Ellipta 200 mcg-25 mcg/inh inhalation powder INHALE 1 PUFF EVERY DAY Start Date: 06/20/19 Status: Ordered Colace Capsule 100 mg, By Mouth, 2 times a day, Maintenance, 04/30/15 10:32:09 Start Date: 04/30/15 Status: Ordered Cosopt 2.23%-0.68% ophthalmic solution See Instructions, 1 drops Eye, left 2 times a day, 0 Refills, Maintenance, 04/30/15 10:32:37, Solution Start Date: 04/30/15 Status: Ordered Diovan 80 mg oral tablet 1 tablet = 80 mg, By Mouth, Daily, # 30 tablet, 0 Refills, Maintenance, 04/30/15 10:30:36, Tablet Start Date: 04/30/15 Status: Ordered Lipitor 20 mg oral tablet 1 tablet = 20 mg, By Mouth, Daily, # 30 tablet, 0 Refills, Maintenance, 04/30/15 10:31:58, Tablet Start Date: 04/30/15 Status: Ordered omeprazole 20 mg oral enteric coated capsule TAKE 1 CAPSULE TWICE DAILY IN THE MORNING AND IN THE EVENING BEFORE MEALS Start Date: 06/20/19 Status: Ordered Prilosec 20 mg oral enteric coated capsule 1 capsule = 20 mg, By Mouth, Daily, # 30 capsule, 0 Refills, Maintenance, 04/30/15 10:30:51, EC Capsule Start Date: 04/30/15 Status: Ordered Senna-gen 8.6 mg oral tablet 2 tablet = 17.2 mg, By Mouth, Daily at bedtime, PRN for constipation, # 100 tablet, 0 Refills, Maintenance, 04/30/15 10:31:02, Tablet Start Date: 04/30/15 Status: Ordered verapamil 120 mg oral capsule, extended release 1 capsule = 120 mg, By Mouth, Daily, # 30 capsule, 0 Refills, Maintenance, 03/07/14 22:20:12, CR Capsule Start Date: 03/07/14 Status: Ordered ZyrTEC 10 mg oral tablet 1 tablet = 10 mg, By Mouth, Daily, # 30 tablet, 0 Refills, Maintenance, 04/30/15 10:31:38, Tablet Start Date: 04/30/15 Status: Ordered Problem List Condition Confirmation Course Effective Dates Status Health St atus Informant Obese class I Confirmed Active Results Radiology Reports * Exam Date Time Procedure Performing Provider Status 12/12/22 12:[address] Head/Brain W/O Contrast Terrie Hudson; Auth (Verified) Notes: (CT Head/Brain W/O Contrast) Reason For Exam: Neuro deficit, acute, stroke suspected;Other: RESULT: CT Head/Brain W/O Contrast CT Head/Brain W/O Contrast CLINICAL INDICATION: Headache. PRIOR EXAMS: No prior examination. TECHNIQUE: Head CT was performed without intravenous contrast, using axial technique and reconstructed in axial and coronal plane. Iterative reconstruction techniques are used to optimize dose and image quality. CTDIvol Head: 48.37 mGy, DLP Head: 793 mGy*cm. FINDINGS: BRAIN: There is no infarct. There is no intracerebral hemorrhage. There is no mass. VENTRICLES, SULCI, AND CISTERNS: The ventricles and sulci are symmetrical and normal for age. WHITE MATTER: Moderate white matter abnormality to be due to small vessel disease. EXTRA AXIAL SPACES: There is no abnormal epidural, subdural, or subarachnoid blood or fluid. SKULL: There is no skull fracture.. PARANASAL SINUSES: Clear. TEMPORAL BONES: The mastoid air cells are clear, as are the middle ear cavities. IMPRESSION: 1. No acute intracranial abnormality. 2. No explanation for the patient's headache. WSN: [id number] Ordering Physician: Mk Painter Dictated By: Christoph Celestin MD Dictated Date/Time: 12/12/22 11:59 a Reviewed By: Christoph Celestin MD Signed By: Christoph Celestin MD Signed Date/Time: 12/12/22 11:59 am Transcribed By: JENNIFER Transcribed Date/Time: 12/12/22 11:56 am * Exam Date Time Procedure Performing Provider Status 12/12/22 12:[address] Angio Neck Terrie Hudson; Auth (Verified) Notes: (CT Angio Neck) Reason For Exam: Aneurysm, neck vessel(s);Other: RESULT: CT Angio Neck CT Angio Head, CT Angio Neck Hx of Present Illness: Pt c o headache x4 days that radiates down to neck shoulders and down back. Pt denies injury trauma. Pt took OTC pain medication that helped a little, pt states that she has been told she has arthritis.; Reason: Other:; Neuro deficit, acute, stroke suspected; Clinical Question(s): Other:; Hematoma Aneurysm / Other: TECHNIQUE: CT angiogram of the head and neck was performed after bolus administration of intravenous contrast. 100 mL of Omnipaque 300 was administered intravenously. Coronal and sagittal MIP reformatted images were obtained. Additional 3-D images were created on a separate workstation under concurrent supervision by the attending radiologist. All stenoses are measured using NASCET criteria. Weight-based protocol using automatic tube modulation was used to optimize exposure parameters. RADIATION DOSE PARAMETERS: CTDIvol Body: 11.61 mGy, DLP Body: 489 mGy*cm. COMPARISON: Noncontrast CT head performed concurrently. FINDINGS: CTA OF THE NECK: Arch: There is a three vessel aortic arch. The origins of the supra aortic vessels are patent. Right carotid system: The common carotid and cervical internal carotid arteries are patent. No stenosis (0%) by NASCET criteria. There is no dissection or aneurysm. Left carotid system: Minimal calcified plaque is present at the bifurcation without stenosis. There is a right-dominant vertebral artery system. Right vertebral: There is limited visualization of the right vertebral artery origin due to streak artifact but the remainder of the vessel is normal. Left vertebral: No significant stenosis. No evidence of dissection or aneurysm. Other: Soft tissues and bones: No evidence of lymphadenopathy or mass. CTA OF THE HEAD: Anterior circulation: There is minor calcification of the intracranial internal carotid arteries without significant stenosis. The anterior middle cerebral arteries are normal. Posterior circulation: The vertebral, basilar, superior cerebellar and posterior cerebral arteries are normal. Veins: Major dural venous sinuses are patent. Other: Soft tissues and bones: No midline shift or effacement of the basal cisterns. No space-occupying hemorrhage. No territorial loss of kaiser-white matter differentiation. An apparent prosthesis is present in the right orbit. IMPRESSION: No evidence of occlusion or significant stenosis involving the arteries of the head or neck. A similar preliminary report was provided by [facility]. WSN: [id number] Ordering Physician: Mk Painter Dictated By: Kenny Gallo MD Dictated Date/Time: 12/12/22 9:36 am Reviewed By: Kenny Gallo MD Signed By: Kenny Gallo MD Signed Date/Time: 12/12/22 9:36 am Transcribed By: JENNIFER Transcribed Date/Time: 12/12/22 9:23 am * Exam Date Time Procedure Performing Provider Status 12/12/22 12:[address] Angio Head Terrie Hudson; Auth (Verified) Notes: (CT Angio Head) Reason For Exam: Neuro deficit, acute, stroke suspected;Other: RESULT: CT Angio Head CT Angio Head, CT Angio Neck Hx of Present Illness: Pt c o headache x4 days that radiates down to neck shoulders and down back. Pt denies injury trauma. Pt took OTC pain medication that helped a little, pt states that she has been told she has arthritis.; Reason: Other:; Neuro deficit, acute, stroke suspected; Clinical Question(s): Other:; Hematoma Aneurysm / Other: TECHNIQUE: CT angiogram of the head and neck was performed after bolus administration of intravenous contrast. 100 mL of Omnipaque 300 was administered intravenously. Coronal and sagittal MIP reformatted images were obtained. Additional 3-D images were created on a separate workstation under concurrent supervision by the attending radiologist. All stenoses are measured using NASCET criteria. Weight-based protocol using automatic tube modulation was used to optimize exposure parameters. RADIATION DOSE PARAMETERS: CTDIvol Body: 11.61 mGy, DLP Body: 489 mGy*cm. COMPARISON: Noncontrast CT head performed concurrently. FINDINGS: CTA OF THE NECK: Arch: There is a three vessel aortic arch. The origins of the supra aortic vessels are patent. Right carotid system: The common carotid and cervical internal carotid arteries are patent. No stenosis (0%) by NASCET criteria. There is no dissection or aneurysm. Left carotid system: Minimal calcified plaque is present at the bifurcation without stenosis. There is a right-dominant vertebral artery system. Right vertebral: There is limited visualization of the right vertebral artery origin due to streak artifact but the remainder of the vessel is normal. Left vertebral: No significant stenosis. No evidence of dissection or aneurysm. Other: Soft tissues and bones: No evidence of lymphadenopathy or mass. CTA OF THE HEAD: Anterior circulation: There is minor calcification of the intracranial internal carotid arteries without significant stenosis. The anterior middle cerebral arteries are normal. Posterior circulation: The vertebral, basilar, superior cerebellar and posterior cerebral arteries are normal. Veins: Major dural venous sinuses are patent. Other: Soft tissues and bones: No midline shift or effacement of the basal cisterns. No space-occupying hemorrhage. No territorial loss of kaiser-white matter differentiation. An apparent prosthesis is present in the right orbit. IMPRESSION: No evidence of occlusion or significant stenosis involving the arteries of the head or neck. A similar preliminary report was provided by [facility]. WSN: [id number] Ordering Physician: Mk Painter Dictated By: Kenny Gallo MD Dictated Date/Time: 12/12/22 9:36 am Reviewed By: Kenny Gallo MD Signed By: Kenny Gallo MD Signed Date/Time: 12/12/22 9:36 am Transcribed By: JENNIFER Transcribed Date/Time: 12/12/22 9:23 am Vital Signs Most recent to oldest [Reference Range]: 1 2 3 Height 163 cm (12/11/22 11:57 PM) 163 cm (12/11/22 8:33 PM) 163 cm (12/11/22 5:21 PM) Weight 82 kg (12/11/22 11:57 PM) 82 kg (12/11/22 8:33 PM) 82 kg (12/11/22 5:21 PM) Oxygen Saturation [94-100 %] 95 % (12/12/22 1:53 AM) 95 % (12/11/22 11:57 PM) 97 % (12/11/22 8:33 PM) Pulse Rate [55-90 bpm] 62 bpm (12/12/22 1:53 AM) 56 bpm (12/11/22 11:57 PM) 51 bpm *L* (12/11/22 8:33 PM) Body Mass Index [18.5-24.99 kg/m2] 30.86 kg/m2 *>HHI* (12/11/22 11:57 PM) 30.86 kg/m2 *>HHI* (12/11/22 8:33 PM) Blood Pressure [90-138/55-84 mm Hg] 144/66mm Hg *H* (12/12/22 1:53 AM) 137/67mm Hg (12/11/22 11:57 PM) 163/80mm Hg *H* (12/11/22 8:33 PM) Respiratory Rate [16-30 br/min] 18 br/min (12/12/22 1:53 AM) 18 br/min (12/11/22 11:57 PM) 22 br/min (12/11/22 8:33 PM) Temperature [96.8-100.4 DegF] 97.2 DegF (12/11/22 5:21 PM) Liters per Minute 0 L/min (12/11/22 11:57 PM) 0 L/min (12/11/22 8:33 PM) Mode of Delivery (Oxygen) Room air (12/12/22 1:53 AM) Room air (12/11/22 11:57 PM) Room air (12/11/22 8:33 PM) Blood pressure sites Arm, left (12/11/22 11:57 PM) Arm, left (12/11/22 8:33 PM) Arm, right (12/11/22 5:21 PM) Temperature Route Temporal (12/11/22 5:21 PM) Dry Weight 82 kg (12/11/22 11:57 PM) 82 kg (12/11/22 8:33 PM) 82 kg (12/11/22 5:21 PM) Dry Weight Obtained Via Patient/family s tated (12/11/22 5:21 PM) Note * Mk Painter DO: PERFORM Event Display: Patient Education Leaflets Authored Date: [id number] Headache, Unspecified ?? [id number] Dolor de jef no espec??fico Hay muchas cosas que pueden causar allegra de jef. La causa de alonzo dolor de jef no es sierra. Trevon, no parece ser alina se??al de ninguna enfermedad grave. El dolor de jef afecta a julissa todas las personas en alg??n momento de alonzo mariah. Es el motivo m??s com??n por el que las personas faltan al trabajo o a la escuela. Puede que tenga un dolor de jef tensional o un dolor de jef por migra??a. El estr??s puede causar un dolor de jef tensional. [place] puede ocurrir si tensa los m??sculos de los hombros, del john y el cuero cabelludo sin darse cuenta. Si el estr??s dura el tiempo suficiente, puede desarrollar un dolor de jef tensional. No est?? osmel por qu?? ocurren las migra??as, trevon existen determinadas cosas llamadas ???desencadenantes?? que pueden aumentar el riesgo de sufrir un ataque de migra??a. Los desencadenantes de migra??as pueden incluir el estr??s emocional o la depresi??n, o los cambios hormonales que se producendurante el ciclo menstrual. Otros desencadenantes incluyen las pastillas anticonceptivas y otros medicamentos, las bebidas alcoh??licas o la cafe??na, los alimentos con tiramina (yasir el queso o el vino estacionados), la fatiga ocular, los cambios clim??ticos, saltearse comidas y la falta de maximiilano??oo dormir demasiadas horas. Otras cosas que pueden causar un dolor de jef son las siguientes: ??? Enfermedad viral con fiebre livia ??? Lesi??n en la jef con conmoci??n ??? Infecci??n de los senos paranasales, de los o??dos o de la garganta ??? Dolor dental y mandibular (JONATHAN) Otras causas m??s graves, trevon menos comunes que producen dolor de jef incluyen ataques o derrames cerebrales, hemorragias cerebrales, tumores cerebrales, meningitis y encefalitis. Cuidados en el hogar Siga estos consejos para cuidarse en el hogar: ??? No conduzca hasta alonzo casa si le dieron medicamentos analg??sicos para alonzo dolor de jef. Coordine para que otra persona lo lleve a casa. Cuando llegue a casa, intente dormir. Se sentir?? mucho mejor cuando despierte. ??? Aplique calor en la parte posterior de alonzo john para aliviar un espasmo muscular del john. En nika de dolor de jef por migra??a, p??ngase alina compresa de hielo sobre la frente o en la base del cr??naresh. ??? Si tiene n??useas o v??mitos, siga alina dieta liviana hasta tanto el dolor de jef se alivie. ??? Si tiene un dolor de jef por migra??a, use lentes de carmelo cuando salga a la shena del d??a o se encuentre en lugares interiores con iluminaci??n brillante, hasta que david s??ntomas se alivien. La shena sierra y muy brillante puede empeorar alysha tipo de dolor de jef. ?? Seguimiento Asista a los controles con alonzo proveedor de atenci??n m??dica o mitch lo que le hayan indicado. Hablecon alonzo proveedor si tiene allegra de jef frecuentes. El proveedor puede ayudarle con un plan de tratamiento. Si conoce los primeros signos del dolor de jef y comienza el tratamiento de inmediato, quiz??s pueda detener el dolor usted mismo. ?? Cu??ndo buscar atenci??n m??dica Llame a alonzo proveedor de atenci??n m??dica de inmediato ante cualquiera de las siguientes situaciones: ??? Alonzo dolor de jef empeora repentinamente despu??s de las relaciones sexuales o las actividades extenuantes. ??? Alonzo dolor de jef no se kamlesh en un plazo de 24??horas ??? No puede retener los l??quidos en el est??kyra (tiene v??jaison persistente) ??? Fiebre de 100.4?F??(38?C) o m??s livia, o seg??n se lo indique alonzo proveedor de atenci??n m??dica ??? John r??gido ??? Miguelina somnolencia, confusi??n o desmayos ??? Mareos o mareos con sensaci??n de que todo da vueltas (v??rtigo) ??? Debilidad en un brazo o alina pierna, o en un lado de la thom ??? Tiene dificultades para hablar o rikki ?? Last Reviewed Date: 2015 ?? 8008-1540 [employer]. All rights reserved. This information is not intended as a substitute for professional medical care. Always follow your healthcare professional's instructions. ?? Patient Care team information Care Team Personnel Name: Paula Tony RN Position: [facility] RN Supv Member Role: Primary Care Nurse Name: Nataly NAILS, Pedro Farias Position: [facility] Outreach Member Role: PCP Address: Address: [address] [place] [place] [id number]- Name: Kavon RN, Garrett Lutz Position: [facility] RN Member Role: Primary Care Nurse Name: Jayden Galarza RN Position: [facility] ED RN W/OE and Tasks Member Role: Patient Care Provider Name: Mk Painter DO Position: [facility] ED Medicine MD Member Role: ED Attending Physician Address: Address: [address] [place] [address] [place] [address]- [place] Name: Shaye Reyez Position: [facility] ED TA [facility] Member Role: Vocational Rehabilitation Counselor Care Team Related Persons Name: OTTONIEL SCHNEIDER Address: [address] [address]
[2023-04-25 06:42] LABS: Alanine Aminotransferase 13 U/L (0-31); Albumin Level 4.1 g/dL (3.5-5.0); Alkaline Phosphatase 103 U/L (39-117); Anion Gap 12 (12-20); Aspartate Amino Transferase 17 U/L (5-31); Bilirubin Total 0.6 mg/dL (0.0-1.0); Blood Urea Nitrogen 14 mg/dL (9-16); Calcium 9.8 mg/dL (8.4-10.2); Carbon Dioxide 26 mmol/L (22-29); Chloride 109 mmol/L (96-108); Estimated Glomerular Filt Rate > 60; Glucose Random 114 mg/dL (60-115); Potassium 4.1 mmol/L (3.3-5.1); Sodium 143 mmol/L (135-145); Total Protein 7.8 g/dL (6.5-8.0)
[2023-04-25 07:04] LABS: Influenza A PCR NEGATIVE (Negative); Influenza B PCR NEGATIVE (Negative); Resp Syncy Virus RNA Qual PCR NEGATIVE (Negative); SARS COV2 PCR INHOUSE NEGATIVE (Negative)
== END 2023-04-25 07:53 | disposition home or self-care (01) ==
PROVIDERS: Emergency Provider Internal Medicine; PCP Internal Medicine
DX: J40 Bronchitis, not specified as acute or chronic (principal); Z20.822 Contact with and (suspected) exposure to COVID-19; Z20.828 Contact with and (suspected) exposure to other viral communicable diseases; Z79.899 Other long term (current) drug therapy
CPT/HCPCS: 0241U; 71046; 80053; 85027; 99283; 99284

== ENCOUNTER 2023-06-19 22:55 | Emergency (ER) | payer OTHER, SELFPAY ==
--- NOTE | ~2023-06-19 | XR_ITS ---
EXAMINATION: XR CHEST CLINICAL INFORMATION: Cough for one month. COMPARISON: 04/25/2023. TECHNIQUE: 2 views of the chest were obtained. FINDINGS: The cardiomediastinal silhouette is stable. There is no focal lung consolidation or pleural effusion. The bony structures and soft tissues are unremarkable XR/XR chest 2V IMPRESSION: No acute cardiopulmonary process.
[2023-06-19 22:57] VITALS: BP 141/56; PULSE 63; RESP 18; TEMP 36.9; O2SAT 97; BMI 34.2
[2023-06-19 23:39] LABS: IDNOW Serial# 6674DD1D; Strep A Nucleic Acid Negative (Negative)
[2023-06-19 23:49] LABS: COVID-19 Test Negative (Negative); IDNOW Serial# 08D9AD1C; IDNOW Serial# 152EDE1D; Influenza A Negative (Negative); Influenza B2 Negative (Negative)
--- NOTE | 2023-06-19 23:59 | ED_ITS ---
HPI - URI/Sore Throat General Chief Complaint: Upper Respiratory Symptoms Stated Complaint: Cough Time Seen by Provider: 06/19/23 23:58 Source: patient and family Mode of arrival: ambulatory Limitations: no limitations History of Present Illness HPI Narrative: Patient has been coughing with body aches low-grade fever nausea for last 1 month, getting worse with mucopurulent phlegm no other family member sick does have history of asthma Related Data Home Medications Medication Instructions Recorded Confirmed loratadine 10 mg tablet (Claritin) 10 mg PO DAILY PRN Allergies 04/20/20 07/22/21 omeprazole 20 mg capsule,delayed 20 mg PO DAILY 04/20/20 07/22/21 release aspirin 81 mg tablet,delayed 81 mg PO DAILY 04/23/20 07/22/21 release verapamil 120 mg 24 hr 120 mg PO DAILY 11/27/20 07/22/21 capsule,extended release acetaminophen 325 mg PO Q6-8H PRN pain/fever 07/22/21 07/22/21 docusate sodium 100 mg tablet 100 mg PO BID 07/22/21 07/22/21 dorzolamide 22.3 mg-timolol 6.8 ml ophthalmic (eye) 07/27/21 mg/mL eye drops Previous Rx's Medication Instructions Recorded albuterol sulfate 90 mcg/actuation 2 inh inhalation Q6H PRN shortness 08/21/20 aerosol inhaler of breath or wheezing 30 days #18 grams compr.stocking,thigh,reg,x-lrg #2 ea 11/27/20 gabapentin 300 mg capsule 600 mg (2 x 300 mg) PO BEDTIME #60 08/04/22 caps doxycycline hyclate 100 mg capsule 100 mg PO BID 10 days #20 caps 09/22/22 celecoxib 200 mg capsule 200 mg PO Q12H #60 caps 11/30/22 fluticasone furoate 200 1 ea inhalation DAILY #60 ea 03/22/23 mcg-vilanterol 25 mcg/dose inhalation powder (Breo Ellipta) benzonatate 200 mg capsule 200 mg PO TID PRN cough 5 days #15 04/25/23 caps guaifenesin 200 mg tablet 200 mg PO Q4H PRN cough 3 days #20 04/25/23 tabs prednisone 20 mg tablet 40 mg (2 x 20 mg) PO DAILY 5 days 04/25/23 #10 tabs montelukast 10 mg tablet 10 mg PO QPM #30 tabs 06/02/23 albuterol sulfate 90 mcg/actuation 2 puff inhalation Q4-6H PRN 06/20/23 aerosol inhaler (ProAir HFA) shortness of breath or wheezing #8.5 grams cefuroxime axetil 500 mg tablet 500 mg PO BID 10 days #20 tabs 06/20/23 codeine 10 mg-guaifenesin 100 mg/5 10 ml PO Q6H PRN cough #237 mL 06/20/23 mL oral liquid prednisone 20 mg tablet 40 mg (2 x 20 mg) PO DAILY #10 tabs 06/20/23 Allergies Allergy/AdvReac Type Severity Reaction Status Date / Time latex [Latex] Allergy Severe DIFFICULTY Verified 09/22/22 14:03 BREATHING RELATED TO EXACERBATION OF ASTHMA Cameron Inhibitors Allergy Severe cough Uncoded 09/22/22 14:03 From PERCOCET Allergy Severe RASH Uncoded 09/22/22 14:03 Review of Systems Review of Systems: Yes all other systems are reviewed and are negative [facility] Past Medical History Medical History Memory loss Limb swelling History of eye prosthesis Murmur Anemia Dysphagia Hiatal hernia KERON on CPAP Asthma Abnormal colonoscopy (~01/2019) Environmental allergies HTN (hypertension) Acid reflux Surgical History History of throat surgery History of total right knee replacement (TKR) History of colonoscopy History of cholecystectomy History of hysterectomy Social History Social History Household Members: Spouse, Family and Children Alcohol intake: never Patient Tobacco Use Status: Never used Tobacco Advance Directives: No Advance Directives Information Provided: No Current occupational status: retired 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 handed Physical Exam Vital Signs: Vital Signs: Last Vital Signs Temp 98.4 F 06/19/23 22:57 Pulse 64 06/20/23 00:42 Resp 14 06/20/23 00:42 BP 141/56 H 06/19/23 22:57 Pulse Ox 97 06/19/23 22:57 O2 Del Method Room Air 06/19/23 22:57 BMI result Body Mass Index 34.2 Appearance: Alert. Oriented X3. No acute distress. ENT: Pharynx normal. Oral Mucosa moist Neck: Normal inspection. Neck supple. CVS: Normal heart rate and rhythm. Pulses normal. Respiratory: No respiratory distress. Equal air entry bilateral, prolonged expiration with bilateral rhonchi Abdomen: Soft and nontender. Bowel sounds are present, Skin: Skin warm and dry. Normal skin color. Normal skin turgor. Extremities: No lower extremity edema. No calf tenderness Neuro: Oriented X 3. Medications Administered Discontinued Medications Generic Name Dose Route Start Last Admin Trade Name Freq PRN Reason Stop Dose Admin Amoxicillin/Clavulanate Potassium 875 mg 06/20/23 00:30 06/20/23 00:50 Amoxicillin/Potassium Clav 875 Mg Tablet PO 06/20/23 00:31 875 mg ONCE ONE Administration Albuterol Sulfate 2.5 mg/ 0 mg 06/20/23 00:29 06/20/23 00:41 Albuterol/Ipratropium 3 ml INHALE 06/20/23 00:30 5 dose ONCE ONE Administration Dexamethasone 10 mg 06/20/23 00:29 06/20/23 00:50 Dexamethasone 2 Mg Tablet PO 06/20/23 00:30 10 mg ONCE ONE Administration Guaifenesin/Codeine Phosphate 10 ml 06/20/23 00:29 06/20/23 00:50 Guaifen/Codeine Sf 200/20/10ml 10 Ml Liquid PO 06/20/23 00:30 10 ml ONCE ONE Administration Medical Decision Making Medical Decision Making [facility] Narrative: Patient's asthma with increased cough chest x-ray negative COVID flu strep negative as patient has been sick for a month will give a course of prednisone antibiotics and rescue inhaler Differential Diagnosis Differential Diagnoses: The differential diagnosis associated with the presentation includes Bronchitis/asthma/viral pneumonia Lab Data [facility] Lab Attestation statement: I reviewed the patient's lab results. Labs: Lab Results 06/19/23 Range/Units 23:27 COVID-19 (MADI) Negative (Negative) COVID-19 Clin Com See Note Influenza Type A (NANCY) Negative (Negative) Influenza Type B (NANCY) Negative (Negative) Influenza A & B Note See Note S. pyogenes GrpA NANCY Negative (Negative) Independent Interpretation I performed an independent interpretation of an: Plain X-Ray Radiology Impression Discussion of test interpretation with radiology: I have reviewed the radiologist's reading. Discharge Plan Discharge Clinical Impression: Acute asthmatic bronchitis Patient Disposition: Home, Self-Care Instructions: Acute Bronchitis (ED) Additional Instructions: Continue Breo inhaler Albuterol 2 puffs every 4-6 hours as needed Cough drops and antibiotics as prescribed Follow-up with PCP if not better Continuar inhalador Breo Albuterol 2 inhalaciones cada 4-6 horas seg?n sea necesario Pastillas para la tos y antibi?ticos seg?n lo prescrito Seguimiento con PCP si no mejora Prescriptions: New prednisone 20 mg tablet 40 mg PO DAILY Qty: 10 0RF codeine-guaifenesin 10-100 mg/5 mL liquid 10 ml PO Q6H PRN (Reason: cough) Qty: 237 0RF cefuroxime axetil 500 mg tablet 500 mg PO BID 10 Days Qty: 20 0RF albuterol sulfate [ProAir HFA] 90 mcg/actuation HFA aerosol inhaler 2 puff inhalation Q4-6H PRN (Reason: shortness of breath or wheezing) Qty: 8.5 0RF No Action albuterol sulfate 90 mcg/actuation HFA aerosol inhaler 2 inh inhalation Q6H PRN (Reason: shortness of breath or wheezing) 30 Days Qty: 18 12RF gabapentin 300 mg capsule 600 mg PO BEDTIME Qty: 60 11RF celecoxib 200 mg capsule 200 mg PO Q12H Qty: 60 3RF Breo Ellipta 200-25 mcg/dose blister with device 1 ea inhalation DAILY Qty: 60 9RF montelukast 10 mg tablet 10 mg PO QPM Qty: 30 10RF docusate sodium 100 mg Tablet 100 mg PO BID acetaminophen 325 mg PO Q6-8H PRN (Reason: pain/fever) prednisone 20 mg tablet 40 mg PO DAILY 5 Days Qty: 10 0RF benzonatate 200 mg capsule 200 mg PO TID PRN (Reason: cough) 5 Days Qty: 15 0RF guaifenesin 200 mg tablet 200 mg PO Q4H PRN (Reason: cough) 3 Days Qty: 20 0RF omeprazole 20 mg capsule,delayed release(DR/EC) 20 mg PO DAILY loratadine [Claritin] 10 mg tablet 10 mg PO DAILY PRN (Reason: Allergies) (DME) compr.stocking,thigh,reg,x-lrg Misc See Rx Instructions .ROUTE .MEDSUPPLY Qty: 2 0RF Rx Instructions: 15-20cm dorzolamide-timolol 22.3-6.8 mg/mL drops ophthalmic (eye) aspirin 81 mg tablet,delayed release (DR/EC) 81 mg PO DAILY verapamil 120 mg capsule,ext rel. pellets 24 hr 120 mg PO DAILY doxycycline hyclate 100 mg capsule 100 mg PO BID 10 Days Qty: 20 0RF Discharge Date/Time: 06/20/23 01:00 Print Language: Italian
[2023-06-20] MEDS: Albuterol Sulfate 2.5 MG, Albuterol/Iprat 2.5/0.5MG 3 ML 3 ML INHALE (00:41)
[2023-06-20 00:42] VITALS: PULSE 64; RESP 14; O2SAT 97
[2023-06-20] MEDS: Amoxicillin/Potassium Clav 875 MG TABLET PO (00:50)
[2023-06-20] MEDS: dexAMETHasone 2 MG TABLET 10 MG PO (00:50)
[2023-06-20] MEDS: guaiFEN/Codeine SF 200/20/10ML 10 ML LIQUID PO (00:50)
== END 2023-06-20 01:00 | disposition home or self-care (01) ==
PROVIDERS: Emergency Provider Internal Medicine; PCP Internal Medicine
DX: J45.909 Unspecified asthma, uncomplicated (principal); R05.9 Cough, unspecified; R11.2 Nausea with vomiting, unspecified; Z79.899 Other long term (current) drug therapy; Z11.52 Encounter for screening for COVID-19
CPT/HCPCS: 71046; 87502; 87635; 87651; 94640; 99283; 99284; J8540

== ENCOUNTER 2023-09-08 12:03 | Outpatient (REF) | payer OTHER, SELFPAY ==
--- NOTE | ~2023-09-08 | XR_ITS ---
EXAMINATION: XR CHEST CLINICAL INFORMATION: Cough COMPARISON: Previous chest x-ray most recent June 2023 TECHNIQUE: 2 views of the chest were obtained. FINDINGS: The cardiac and mediastinal contours are stable. The lungs are clear. No pleural effusion or pneumothorax. Degenerative changes of the spine. XR/XR chest 2V IMPRESSION: No evidence for acute disease in the chest.
== END 2023-09-08 12:04 | disposition home or self-care (01) ==
LOC: HO.HHCX 12:03
PROVIDERS: Visit Provider Family Medicine
DX: R05.3 Chronic cough (principal)
CPT/HCPCS: 71046

== ENCOUNTER 2023-09-18 13:53 | Outpatient (REF) | payer OTHER, SELFPAY ==
--- NOTE | ~2023-09-18 | MM_ITS ---
EXAMINATION: MM DIAGNOSTIC DIGITAL BREAST TOMOSYNTHESIS, BILATERAL US BREAST LIMITED, RIGHT MAMMOGRAPHY: CLINICAL INFORMATION: 82-year-old female complaining of palpable abnormality in lower lateral right axilla, which has been marked by the technologist. Patient also due for bilateral screening. COMPARISON: Mammography: 11/06/2020, 03/07/2019, 03/01/2018, 08/15/2016, and dating back to 2012. TECHNIQUE: Digital breast tomosynthesis is performed in both the craniocaudal and mediolateral oblique views along with computer-aided detection (CAD). Synthesized 2D images are generated from the tomosynthesis. In addition, full-field right ML views were obtained x2, as well as a full-field right exaggerated lateral CC 3-D projection. FINDINGS: There are scattered areas of fibroglandular density (ACR BI-RADS breast composition Category b). BB marker has been placed in the far outer upper right breast by the technologist, indicating the area of palpable concern. There is no underlying mammographic mass or other abnormality. There are bilateral dense vascular calcifications. There are a few small parenchymal nodules which have been stable for several years in both breasts. There are bilateral dermal lesions again seen overlying the posterior inferior medial breasts. There are no suspicious masses, suspicious grouped calcifications, or areas of architectural distortion in either breast. The parenchymal pattern is stable from prior exams. ULTRASOUND: CLINICAL INFORMATION: As above. COMPARISON: No prior relevant ultrasound. TECHNIQUE: Targeted sonographic evaluation was performed using a high frequency linear transducer. Attention to the upper outer quadrant right breast was given. Selected archived documentation. FINDINGS: RIGHT BREAST: There is a mixture of fatty and fibroglandular tissue. No suspicious mass is seen. There is no pathologic acoustic shadowing. No cystic abnormalities. In the right axilla there are 4-5 normal-appearing axillary lymph nodes without evidence of cortical thickening, hyperemia, or loss of fatty haley. They have normal toy morphology. These may be what the patient is palpating. MM/MM tomosynthesis diagnostic BI IMPRESSION: -There are no findings suspicious for malignancy in either breast. -Area of palpable concern in the right axillary region likely relates to 4-5 small benign-appearing lymph nodes, none with pathologic characteristics. -There are stable benign findings in both breasts. OVERALL ASSESSMENT: Mammography: BI-RADS 2 - Benign Findings Ultrasound: BI-RADS 2 - Benign Findings RECOMMENDATION: 1 year F/U This patient's information was entered into a reminder system with a target due date for their next mammogram.
== END 2023-09-18 13:54 | disposition home or self-care (01) ==
LOC: HO.MAMMO 13:53
PROVIDERS: PCP Internal Medicine; Visit Provider Family Medicine
DX: R22.31 Localized swelling, mass and lump, right upper limb (principal); R92.1 Mammographic calcification found on diagnostic imaging of breast
CPT/HCPCS: 76642; 77062; 77063; 77066; 77067

== ENCOUNTER → 2023-09-18 14:30 | Outpatient (BNV) | payer OTHER, SELFPAY | PROVIDERS: PCP Internal Medicine; Visit Provider Radiology Diagnostic Radiology | DX: Z12.31 Encounter for screening mammogram for malignant neoplasm of breast (principal); N63.31 Unspecified lump in axillary tail of the right breast | CPT/HCPCS: 76642; 77063; 77067 ==

== ENCOUNTER 2023-09-28 08:51 | Outpatient (AMB) | payer OTHER, SELFPAY ==
--- NOTE | 2023-09-28 08:52 | MHC.OFFVIS ---
Vital Signs 09/28/23 08:58 Height 5 ft 1 in Weight 181 lb BMI 34.2 BP 122/70 Blood Pressure Location Lt brachial Pulse 75 Pulse Oximetry (%) 98 Oxygen Delivery Method Room Air Intake Visit Reasons: Axillary Lump on rt Intake Note: This patient presents for an assessment for right axillary lump. Patient c/o; reports right axillary lump, reports no pain. Instructional Technology Facilitator Required: Yes Instructional Technology Facilitator Language: Avionics Systems Technician Name: Jose Elias Information Interpreted: non-clinical & clinical Accompanied by: Self / Same As Patient Allergies latex [Latex] Allergy (Severe, Verified 09/28/23 08:59) DIFFICULTY BREATHING RELATED TO EXACERBATION OF ASTHMA Cameron Inhibitors Allergy (Severe, Uncoded 09/28/23 08:59) cough From PERCOCET Allergy (Severe, Uncoded 09/28/23 08:59) RASH Medication List - Last Reconciled 09/28/23 by Bandar Lopez MD [acetaminophen 325 mg PO Q6-8H PRN] albuterol sulfate 90 mcg/actuation (ProAir HFA) 2 puffs inhalation Q4-6H PRN albuterol sulfate 90 mcg/actuation 2 inhalations inhalation Q6H PRN 30 days aspirin 81 mg PO DAILY benzonatate 200 mg PO TID PRN 5 days cefuroxime axetil 500 mg PO BID 10 days celecoxib 200 mg PO Q12H codeine-guaifenesin 10-100 mg/5 mL 10 mL PO Q6H PRN compr.stocking,thigh,reg,x-lrg 15-20cm docusate sodium 100 mg PO BID dorzolamide-timolol 22.3-6.8 mg/mL mL ophthalmic (eye) doxycycline hyclate 100 mg PO BID 10 days fluticasone furoate-vilanterol 200-25 mcg/dose (Breo Ellipta) 1 ea inhalation DAILY gabapentin 600 mg (2 x 300 mg) PO BEDTIME guaifenesin 200 mg PO Q4H PRN 3 days loratadine (Claritin) 10 mg PO DAILY PRN montelukast 10 mg PO QPM omeprazole 20 mg PO DAILY prednisone 40 mg (2 x 20 mg) PO DAILY prednisone 40 mg (2 x 20 mg) PO DAILY 5 days verapamil ER 120 mg PO DAILY HPI HPI Axillary Lump on rt: Details: 83-year-old female referred for a question of an axillary lump. She says that she thinks she has a lump on her right armpit. She had a mammogram last week showing small nonpathologic lymph nodes in the axilla but no mass. She has chronic pain on the right upper arm and shoulder and worried that this is secondary to a ?mass?. She denies any other new complaints otherwise. She says she has asthma and is being followed closely by a laminating machine operator helper. [facility], [facility] Medical History (Updated 09/28/23 @ 09:29 by Bandar Lopez MD) Axillary mass Memory loss Limb swelling History of eye prosthesis Murmur Anemia Dysphagia Hiatal hernia KERON on CPAP Asthma Abnormal colonoscopy (~01/2019) Environmental allergies HTN (hypertension) Acid reflux Surgical History History of throat surgery History of total right knee replacement (TKR) History of colonoscopy History of cholecystectomy History of hysterectomy Social History Household Members: Spouse, Family and Children Alcohol intake: never Patient Tobacco Use Status: Never used Tobacco Current occupational status: retired 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 handed Review of Systems Const Denies chills and Denies fever(s) Card Denies chest pain, Denies dyspnea and Denies dyspnea on exertion Resp Details: Has asthma Denies cough, Denies dyspnea and Denies dyspnea on exertion GI Denies hematochezia and Denies change in bowel habits Denies hematuria Musc Reports abnormal gait, Reports back pain, Reports arthralgias and Reports limited range of motion Neuro Reports abnormal gait, Denies focal weakness and Denies convulsions Psych Denies depression and Denies mood swings Physical Exam Vital Signs: Last Vital Signs Pulse 75 09/28/23 08:58 BP 122/70 09/28/23 08:58 Pulse Ox 98 09/28/23 08:58 Oxygen Delivery Method Room Air 09/28/23 08:58 BMI result Body Mass Index 34.2 Const Other: Walks with a cane General: comfortable and no acute distress Orientation/consciousness: patient oriented x3 Neck Neck: Yes no lymphadenopathy Chest Other: No palpable mass on the axilla even on the right side. She points to the lateral border of the latissimus has the ?mass?; there were no palpable lymph nodes; there were no breast masses Resp Auscultation: clear to auscultation bilaterally Cardio Rhythm: regular rhythm GI Palpation (GI): Soft to palpation, nontender and no guarding Neuro General: patient oriented x3 Assessment & Plan Assessment & Plan (1) Axillary mass: Code(s): R22.30 - Localized swelling, mass and lump, unspecified upper limb Category: Medical Plan: She actually points to the lateral edge of the latissimus dorsi muscle as the ?mass?. I do not feel any actual mass in the area. There were no large lymph nodes I assured her that at this time, there is no mass seen on her mammogram or with examination. She does not require any surgical intervention. I told her that her pain on the upper arm is likely due to other etiologies including arthritis. Coding Level of Care Code New Pt Level 3 (73608) Diagnoses Axillary mass R22.30
[2023-09-28 08:58] VITALS: BP 122/70; PULSE 75; O2SAT 98; BMI 34.2
== END 2023-09-28 09:31 | disposition home or self-care (01) ==
PROVIDERS: PCP Internal Medicine; Visit Provider Surgery
DX: R22.30 Localized swelling, mass and lump, unspecified upper limb (principal)
CPT/HCPCS: 99203

== ENCOUNTER → 2023-09-28 08:51 | Outpatient (BNVA) | payer OTHER, SELFPAY | PROVIDERS: PCP Internal Medicine; Visit Provider Surgery | DX: R22.30 Localized swelling, mass and lump, unspecified upper limb (principal) | CPT/HCPCS: 99202 ==

== ENCOUNTER 2023-12-04 10:27 | Outpatient (REF) | payer OTHER, SELFPAY ==
[2023-12-04 11:47] LABS: Alanine Aminotransferase 15 U/L (0-31); Albumin Level 4.1 g/dL (3.5-5.0); Alkaline Phosphatase 104 U/L (39-117); Anion Gap 13 (12-20); Aspartate Amino Transferase 17 U/L (5-31); Bilirubin Total 0.9 mg/dL (0.0-1.0); Blood Urea Nitrogen 11 mg/dL (9-16); Calcium 9.5 mg/dL (8.4-10.2); Carbon Dioxide 26 mmol/L (22-29); Chloride 108 mmol/L (96-108); Estimated Glomerular Filt Rate > 60; Glucose Random 103 mg/dL (60-115); Potassium 3.9 mmol/L (3.3-5.1); Sodium 143 mmol/L (135-145); Total Protein 7.4 g/dL (6.5-8.0)
== END 2023-12-04 10:28 | disposition home or self-care (01) ==
LOC: HO.HHCL 10:27
PROVIDERS: Visit Provider Internal Medicine
DX: I10 Essential (primary) hypertension (principal)
CPT/HCPCS: 36415; 80053

== ENCOUNTER 2024-02-04 22:06 | Emergency (ER) | payer OTHER, SELFPAY ==
--- NOTE | ~2024-02-04 | XR_ITS ---
EXAMINATION: XR CHEST, 2 VIEWS CLINICAL INFORMATION: Shortness of breath, cough. Right upper back pain. COMPARISON: 02/04/2024 TECHNIQUE: PA and lateral views of the chest were obtained. FINDINGS: Lungs are clear. No consolidation, pneumothorax, or pleural effusion. Mild tortuosity of the thoracic aorta. Cardiac and mediastinal contours are otherwise normal. Pulmonary vasculature is unremarkable. Trachea is midline. 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 Surgical clips in the upper abdomen. XR/XR chest 2V IMPRESSION: No acute pulmonary findings. Electronically signed by: Jacoby Kay MD 02/04/2024 10:40 PM EDT
[2024-02-04 22:15] VITALS: BP 149/63; PULSE 67; RESP 20; TEMP 36.3; O2SAT 97; BMI 33.6
[2024-02-04 22:47] LABS: Hematocrit 32.9 % (37.0-47.0); Hemoglobin 10.2 g/dl (12.0-16.0); Mean Corpuscular Hemoglobin 26.8 pg (27.0-33.0); Mean Corpuscular Volume 86.4 fL (80.0-98.0); Mean Platelet Volume 10.5 fL (9.4-12.3); Platelet Count 262 X10*3/uL (160-400); Red Blood Count 3.81 X10*6/uL (4.20-5.50); Red Cell Distribution Width 13.7 % (11.0-16.0); White Blood Count 8.2 X10*3/uL (4.8-10.8)
[2024-02-04 23:01] LABS: Alanine Aminotransferase 16 U/L (0-31); Albumin Level 4.3 g/dL (3.5-5.0); Alkaline Phosphatase 119 U/L (39-117); Anion Gap 14 (12-20); Aspartate Amino Transferase 19 U/L (5-31); Bilirubin Total 0.7 mg/dL (0.0-1.0); Blood Urea Nitrogen 14 mg/dL (9-16); Calcium 9.7 mg/dL (8.4-10.2); Carbon Dioxide 25 mmol/L (22-29); Chloride 108 mmol/L (96-108); Estimated Glomerular Filt Rate 53; Glucose Random 110 mg/dL (60-115); Potassium 3.9 mmol/L (3.3-5.1); Sodium 143 mmol/L (135-145); Total Protein 7.9 g/dL (6.5-8.0)
[2024-02-04 23:23] LABS: Influenza A PCR NEGATIVE (Negative); Influenza B PCR NEGATIVE (Negative); Resp Syncy Virus RNA Qual PCR NEGATIVE (Negative); SARS COV2 PCR INHOUSE NEGATIVE (Negative)
--- NOTE | 2024-02-04 23:24 | PC.NURSE ---
Pt a&ox4, no signs of distress. Pt reports pain with urination x1 wk. and LUQ pain that started yesterday. Pt reports a cough d/u asthma Family at bedside. Plan of care ongoing.
--- NOTE | 2024-02-04 23:56 | PC.NURSE ---
Provider with pt Plan of care ongoing.
--- NOTE | 2024-02-05 00:10 | ED_ITS ---
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 ? Patient reports a dry cough, generalized body, right flank pain, burning with urination. She states that her symptoms have been present for ?a long time. ? She denies any fevers, chills She reports she is status post cholecystectomy. She states that her right side hurts if she raises her arm over her head During my evaluation the patient states ?I just want to go home now. Related Data Home Medications ?Medication ?Instructions ?Recorded ?Confirmed loratadine 10 mg tablet (Claritin) 10 mg PO DAILY PRN Allergies 04/20/20 09/28/23 omeprazole 20 mg capsule,delayed 20 mg PO DAILY 04/20/20 09/28/23 release aspirin 81 mg tablet,delayed 81 mg PO DAILY 04/23/20 09/28/23 release verapamil 120 mg 24 hr 120 mg PO DAILY 11/27/20 09/28/23 capsule,extended release acetaminophen 325 mg PO Q6-8H PRN pain/fever 07/22/21 09/28/23 docusate sodium 100 mg tablet 100 mg PO BID 07/22/21 09/28/23 dorzolamide 22.3 mg-timolol 6.8 ml ophthalmic (eye) 07/27/21 09/28/23 mg/mL eye drops Previous Rx's ?Medication ?Instructions ?Recorded albuterol sulfate 90 mcg/actuation 2 inh inhalation Q6H PRN shortness 08/21/20 aerosol inhaler of breath or wheezing 30 days #18 grams compr.stocking,thigh,reg,x-lrg #2 ea 11/27/20 doxycycline hyclate 100 mg capsule 100 mg PO BID 10 days #20 caps 09/22/22 celecoxib 200 mg capsule 200 mg PO Q12H #60 caps 11/30/22 benzonatate 200 mg capsule 200 mg PO TID PRN cough 5 days #15 04/25/23 caps guaifenesin 200 mg tablet 200 mg PO Q4H PRN cough 3 days #20 04/25/23 tabs prednisone 20 mg tablet 40 mg (2 x 20 mg) PO DAILY 5 days 04/25/23 #10 tabs montelukast 10 mg tablet 10 mg PO QPM #30 tabs 06/02/23 albuterol sulfate 90 mcg/actuation 2 puff inhalation Q4-6H PRN 06/20/23 aerosol inhaler (ProAir HFA) shortness of breath or wheezing #8.5 grams cefuroxime axetil 500 mg tablet 500 mg PO BID 10 days #20 tabs 06/20/23 codeine 10 mg-guaifenesin 100 mg/5 10 ml PO Q6H PRN cough #237 mL 06/20/23 mL oral liquid prednisone 20 mg tablet 40 mg (2 x 20 mg) PO DAILY #10 tabs 06/20/23 gabapentin 300 mg capsule 600 mg (2 x 300 mg) PO BEDTIME #60 07/31/23 caps fluticasone furoate 200 1 ea inhalation DAILY #60 ea 01/16/24 mcg-vilanterol 25 mcg/dose inhalation powder (Breo Ellipta) Allergies Allergy/AdvReac Type Severity Reaction Status Date / Time latex [Latex] Allergy Severe DIFFICULTY Verified 02/04/24 22:21 BREATHING RELATED TO EXACERBATION OF ASTHMA Caemron Inhibitors Allergy Severe cough Uncoded 02/04/24 22:21 From PERCOCET Allergy Severe RASH Uncoded 02/04/24 22:21 Review of Systems 2 Constitutional: Constitutional: Reports body ache(s), Reports chills, Denies fever(s), Denies frequent falls, Denies headache(s), Reports malaise and Reports weakness Eyes: Eyes: Denies blurry vision and Denies irritation ENT: Denies headache(s) and Denies sore throat Cardiovascular: Cardiovascular: Denies chest pain and Denies dyspnea Respiratory: Respiratory: Reports cough and Denies dyspnea Gastrointestinal: Gastrointestinal: Denies abdominal pain, Denies nausea and Denies vomiting Genitourinary: Genitourinary: Reports dysuria Musculoskeletal: Musculoskeletal: Reports back pain Integumentary/Breasts: Skin/Breast: Denies rash Neurologic: Denies frequent falls, Denies headache(s) and Reports weakness PMFSH Past Medical History Medical History (Updated 09/23/24 @ 00:11 by Jason Livingston) Axillary mass Memory loss Limb swelling History of eye prosthesis Murmur Anemia Dysphagia Hiatal hernia KERON on CPAP Asthma Abnormal colonoscopy (~01/2019) Environmental allergies HTN (hypertension) Acid reflux Surgical History History of throat surgery History of total right knee replacement (TKR) History of colonoscopy History of cholecystectomy History of hysterectomy Social History Social History Household Members: Spouse, Family and Children Alcohol intake: never Patient Tobacco Use Status: Never used Tobacco Smoked in Last 30 Days: No Use of substances other than those prescribed or required for medical reasons: No Advance Directives: No Advance Directives Information Provided: No Current occupational status: retired 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 handed Physical Exam ED Vital Signs: Vital Signs - 24 hr 02/04/24 22:15 Temperature 97.4 F Pulse Rate 67 Respiratory Rate 20 Blood Pressure 149/63 H Pulse Oximetry 97 Oxygen Delivery Method Room Air BMI result Body Mass Index 33.6 Const General: healthy appearing, comfortable, no acute distress, alert and awake Nutritional Appearance: well nourished Orientation/consciousness: patient oriented x3 HENMT Head: Yes normocephalic and Yes atraumatic Throat: Yes posterior oropharynx normal Eyes Eyelids: Yes eyelids normal Conjunctivae: conjunctivae normal Sclerae: sclerae normal Corneas: corneas normal Pupils: Equal, round and reactive pupils present EOM: EOMs intact bilaterally Neck Neck: Yes full ROM Resp Effort & Inspection: normal respiratory effort, able to speak in complete sentences, no audible wheezes and not labored Auscultation: clear to auscultation bilaterally Cardio Rate: regular rate Rhythm: regular rhythm GI Inspection: No distended Palpation (GI): Soft to palpation, not firm, nontender, no guarding and not rigid Skin General skin exam: no rashes or lesions noted and elasticity normal Neuro General: patient oriented x3 Cranial nerves: Yes CN's II-XII intact bilaterally, Yes Equal, round and reactive pupils present and Yes Bilaterally intact EOM present Cognition (Neuro): normal cognition Extrem Other: Moving all extremities well without any obvious deformities Medical Decision Making Medical Decision Making MDM Narrative: 83-year-old male presents for evaluation of multiple complaints. She complains of a cough, shortness of breath, her lungs are clear to auscultation, vital signs are stable, she is not hypoxic, chest x-ray is clear, no evidence of pneumonia or CHF. Her right flank pain is reproducible on exam, most likely musculoskeletal in origin. The patient has thus far not given us a urinalysis. She requested to be discharged. I encouraged her to wait for 30 minutes she is able to give us a urine sample and she is unwilling to do so. She states that she will call her primary doctor tomorrow to schedule an outpatient urinalysis. The patient is not septic, she is well-appearing, I feel this is appropriate at this time. Differential Diagnosis Differential Diagnoses: The differential diagnosis associated with the presentation includes Abdominal pain Constipation UTI Pyelonephritis Viral Obstructive uropathy Pneumonia CHF Lab Data MDM Lab Attestation statement: I reviewed the patient's lab results. No leukocytosis. The patient does have a chronic anemia consistent with a baseline. Normal platelet count. No electrolyte abnormalities. 02/04/24 22:43 02/04/24 22:43 Labs: Lab Results 02/04/24 Range/Units 22:43 WBC 8.2 (4.8-10.8) X10*3/uL RBC 3.81 L (4.20-5.50) X10*6/uL Hgb 10.2 L (12.0-16.0) g/dl Hct 32.9 L (37.0-47.0) % MCV 86.4 (80.0-98.0) fL MCH 26.8 L (27.0-33.0) pg MCHC 31.0 (31.0-35.0) g/dl RDW 13.7 (11.0-16.0) % Plt Count 262 (160-400) X10*3/uL MPV 10.5 (9.4-12.3) fL Absolute Nucleated RBC 0.000 (0.0-0.012) X10*3/uL Nucleated RBC % (auto) 0.0 (0.0-0.2) /100WBC Sodium 143 (135-145) mmol/L Potassium 3.9 (3.3-5.1) mmol/L Chloride 108 (96-108) mmol/L Carbon Dioxide 25 (22-29) mmol/L Anion Gap 14 (12-20) BUN 14 (9-16) mg/dL Creatinine 1.00 (0.5-1.4) mg/dL Estim Creat Clear Calc 41.0 Estimated GFR 53 Random Glucose 110 (60-115) mg/dL Calcium 9.7 (8.4-10.2) mg/dL Total Bilirubin 0.7 (0.0-1.0) mg/dL AST 19 (5-31) U/L ALT 16 (0-31) U/L Alkaline Phosphatase 119 H (39-117) U/L Total Protein 7.9 (6.5-8.0) g/dL Albumin 4.3 (3.5-5.0) g/dL Influenza Type A (PCR) NEGATIVE (Negative) Influenza Type B (PCR) NEGATIVE (Negative) RSV RNA Qual (PCR) NEGATIVE (Negative) SARS-CoV-2 RNA (RT-PCR) NEGATIVE (Negative) Independent Interpretation I performed an independent interpretation of an: Plain X-Ray Interpretation: Agree with Radiology interpretation, no focal infiltrates Radiology Impression Discussion of test interpretation with radiology: I have reviewed the radiologist's reading. Radiologist Impression: FINDINGS: Lungs are clear. No consolidation, pneumothorax, or pleural effusion. Mild tortuosity of the thoracic aorta. Cardiac and mediastinal contours are otherwise normal. Pulmonary vasculature is unremarkable. Trachea is midline. 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 Surgical clips in the upper abdomen. XR/XR chest 2V IMPRESSION: No acute pulmonary findings. Discharge Plan Discharge Clinical Impression: Acute right flank pain Patient Disposition: Home, Self-Care Instructions: Flank Pain (ED) Additional Instructions: Your pain is reproducible and may be musculoskeletal in origin. Use ibuprofen/Tylenol as needed for pain However you did not wish to stay to give a urine sample to check for urinary tract infection I recommend you call your doctor to schedule a urinalysis assessment Return for new or worsening symptoms Prescriptions: No Action albuterol sulfate 90 mcg/actuation HFA aerosol inhaler 2 inh inhalation Q6H PRN (Reason: shortness of breath or wheezing) 30 Days Qty: 18 12RF celecoxib 200 mg capsule 200 mg PO Q12H Qty: 60 3RF montelukast 10 mg tablet 10 mg PO QPM Qty: 30 10RF gabapentin 300 mg capsule 600 mg PO BEDTIME Qty: 60 11RF Breo Ellipta 200-25 mcg/dose blister with device 1 ea inhalation DAILY Qty: 60 9RF docusate sodium 100 mg Tablet 100 mg PO BID acetaminophen 325 mg PO Q6-8H PRN (Reason: pain/fever) prednisone 20 mg tablet 40 mg PO DAILY Qty: 10 0RF codeine-guaifenesin 10-100 mg/5 mL liquid 10 ml PO Q6H PRN (Reason: cough) Qty: 237 0RF cefuroxime axetil 500 mg tablet 500 mg PO BID 10 Days Qty: 20 0RF albuterol sulfate [ProAir HFA] 90 mcg/actuation HFA aerosol inhaler 2 puff inhalation Q4-6H PRN (Reason: shortness of breath or wheezing) Qty: 8.5 0RF prednisone 20 mg tablet 40 mg PO DAILY 5 Days Qty: 10 0RF benzonatate 200 mg capsule 200 mg PO TID PRN (Reason: cough) 5 Days Qty: 15 0RF guaifenesin 200 mg tablet 200 mg PO Q4H PRN (Reason: cough) 3 Days Qty: 20 0RF omeprazole 20 mg capsule,delayed release(DR/EC) 20 mg PO DAILY loratadine [Claritin] 10 mg tablet 10 mg PO DAILY PRN (Reason: Allergies) (DME) compr.stocking,thigh,reg,x-lrg Misc See Rx Instructions .ROUTE .MEDSUPPLY Qty: 2 0RF Rx Instructions: 15-20cm dorzolamide-timolol 22.3-6.8 mg/mL drops ophthalmic (eye) aspirin 81 mg tablet,delayed release (DR/EC) 81 mg PO DAILY verapamil 120 mg capsule,ext rel. pellets 24 hr 120 mg PO DAILY doxycycline hyclate 100 mg capsule 100 mg PO BID 10 Days Qty: 20 0RF Print Language: Brazilian
[2024-02-05 00:25] VITALS: BP 0/0; PULSE 0; RESP 16; TEMP -17.7; TEMP 0
--- NOTE | 2024-02-05 00:25 | PC.NURSE ---
T/w at bedside for discharge. Pt refusing to give a UA at this time, plans to go to the clinic to have her urine evaluated.
== END 2024-02-05 00:30 | disposition home or self-care (01) ==
PROVIDERS: Emergency Provider Emergency Medicine; PCP Internal Medicine
DX: M79.10 Myalgia, unspecified site (principal); K59.00 Constipation, unspecified; M79.601 Pain in right arm; R10.9 Unspecified abdominal pain; Z79.899 Other long term (current) drug therapy; Z03.818 Encounter for observation for suspected exposure to other biological agents ruled out
CPT/HCPCS: 0241U; 71046; 80053; 85027; 99284

== ENCOUNTER 2024-04-05 09:47 | Outpatient (REF) | payer OTHER, SELFPAY ==
--- NOTE | ~2024-04-05 | XR_ITS ---
EXAMINATION: XR CHEST CLINICAL INFORMATION: R/o consolidation COMPARISON: Most recent chest radiograph dated 02/04/2024. TECHNIQUE: 2 views of the chest were obtained. FINDINGS: No airspace consolidation. No pleural effusion or pneumothorax. Stable cardiomediastinal silhouette. Right upper quadrant surgical clips. XR/XR chest 2V IMPRESSION: No acute cardiopulmonary findings. Electronically signed by: Michael Fleming MD 04/05/2024 12:03 PM [facility] [place]
[2024-04-05 13:07] LABS: MANUAL DIFF FLAG NO
[2024-04-05 13:15] LABS: Basophils Percent Auto 0.4 % (0-2); Eosinophils Absolute Auto 0.1 X10*3/uL (0.0-0.4); Eosinophils Percent Auto 0.6 % (0-4); Hematocrit 33.1 % (37.0-47.0); Hemoglobin 10.2 g/dl (12.0-16.0); Imm Gran Abs Auto 0.14 X10*3/uL (0.00-0.03); Imm Gran Pct Auto 1.4 % (0.0-0.4); Lymphocytes Absolute Auto 4.1 X10*3/uL (1.2-4.9); Mean Corpuscular HGB Conc 30.8 g/dl (31.0-35.0); Mean Corpuscular Hemoglobin 26.6 pg (27.0-33.0); Mean Corpuscular Volume 86.4 fL (80.0-98.0); Mean Platelet Volume 11.4 fL (9.4-12.3); Monocytes Absolute Auto 0.9 X10*3/uL (0.1-1.2); Monocytes Percent Auto 9.2 % (2-11); Neutrophils Absolute Auto 4.7 x10*3/uL (2.0-8.3); Neutrophils Percent Auto 47.4 % (45-73); Platelet Count 323 X10*3/uL (160-400); Red Blood Count 3.83 X10*6/uL (4.20-5.50); Red Cell Distribution Width 13.7 % (11.0-16.0); White Blood Count 9.9 X10*3/uL (4.8-10.8)
[2024-04-05 13:57] LABS: Ferritin 23 ng/mL (10-250)
== END 2024-04-05 09:48 | disposition home or self-care (01) ==
LOC: HO.HHCX 09:47
PROVIDERS: Visit Provider Registered Nurse
DX: D64.9 Anemia, unspecified (principal); R05.1 Acute cough
CPT/HCPCS: 36415; 71046; 82728; 85025

== ENCOUNTER 2024-04-05 10:49 | Outpatient (REF) | payer OTHER, SELFPAY | END 2024-04-05 10:50 | disposition home or self-care (01) | LOC: HO.HHCL 10:49 | PROVIDERS: Visit Provider Registered Nurse | DX: Z13.89 Encounter for screening for other disorder (principal) ==

== ENCOUNTER 2024-05-02 09:59 | Outpatient (REF) | payer OTHER, SELFPAY ==
[2024-05-02 11:20] LABS: MANUAL DIFF FLAG NO
[2024-05-02 11:29] LABS: Basophils Absolute Auto 0.1 X10*3/uL (0.0-0.2); Eosinophils Absolute Auto 0.2 X10*3/uL (0.0-0.4); Eosinophils Percent Auto 3.5 % (0-4); Hematocrit 30.5 % (37.0-47.0); Hemoglobin 9.4 g/dl (12.0-16.0); Imm Gran Abs Auto 0.07 X10*3/uL (0.00-0.03); Lymphocytes Absolute Auto 2.5 X10*3/uL (1.2-4.9); Mean Corpuscular HGB Conc 30.8 g/dl (31.0-35.0); Mean Corpuscular Hemoglobin 26.5 pg (27.0-33.0); Mean Corpuscular Volume 85.9 fL (80.0-98.0); Mean Platelet Volume 11.4 fL (9.4-12.3); Monocytes Absolute Auto 0.6 X10*3/uL (0.1-1.2); Monocytes Percent Auto 8.5 % (2-11); Neutrophils Absolute Auto 3.5 x10*3/uL (2.0-8.3); Platelet Count 291 X10*3/uL (160-400); Red Blood Count 3.55 X10*6/uL (4.20-5.50); Red Cell Distribution Width 13.8 % (11.0-16.0)
[2024-05-02 12:27] LABS: Alanine Aminotransferase 16 U/L (0-31); Albumin Level 3.7 g/dL (3.5-5.0); Alkaline Phosphatase 110 U/L (39-117); Anion Gap 9 (12-20); Aspartate Amino Transferase 22 U/L (5-31); Bilirubin Total 0.9 mg/dL (0.0-1.0); Blood Urea Nitrogen 9 mg/dL (9-16); Calcium 8.9 mg/dL (8.4-10.2); Carbon Dioxide 29 mmol/L (22-29); Chloride 111 mmol/L (96-108); Cholesterol 127 mg/dL (<200); Estimated Glomerular Filt Rate > 60; Glucose Random 94 mg/dL (60-115); HDL Cholesterol 51 mg/dL (>40); LDL Cholesterol Calculated 58 mg/dL (<100); Potassium 3.9 mmol/L (3.3-5.1); Sodium 145 mmol/L (135-145); Triglycerides 92 mg/dL (<150)
== END 2024-05-02 10:00 | disposition home or self-care (01) ==
LOC: HO.HHCL 09:59
PROVIDERS: Visit Provider Internal Medicine
DX: K21.9 Gastro-esophageal reflux disease without esophagitis (principal); E78.2 Mixed hyperlipidemia; I10 Essential (primary) hypertension
CPT/HCPCS: 36415; 80053; 80061; 85025

== ENCOUNTER 2024-05-24 14:36 | Outpatient (AMB) | payer OTHER, SELFPAY ==
--- NOTE | 2024-05-24 14:52 | A.OFFVIS_ITS ---
Vital Signs 05/24/24 15:07 Height 5 ft 1 in Weight 180 lb BMI 34.0 BP 133/66 Blood Pressure Location Lt radial Position Sitting Pulse 57 Intake Visit Reasons: GERD/Brittani pt Intake Note: Mickie presents in the office as a Brittani patient for GERD. CC: She is here with her daughter. She has constipation at times so she takes her colace. She has some concerns with her acid reflux - she gets pains in her stomach and states she has a hernia as well. Electronics Specialist Required: Yes Electronics Specialist Name: litaer Allergies latex [Latex] Allergy (Severe, Verified 05/24/24 15:07) DIFFICULTY BREATHING RELATED TO EXACERBATION OF ASTHMA Cameron Inhibitors Allergy (Severe, Uncoded 05/24/24 15:07) cough From PERCOCET Allergy (Severe, Uncoded 05/24/24 15:07) RASH HPI Comments Details: 83-year-old female with past medical history of GERD, dysphagia, polyps, who is presenting today to reestablish care. Main complaint are reflux, and worsening constipation. Reports 2-3 bowel movements per week. Has to strain considerably. Takes daily senna and occasional MiraLax. No blood in stool Previous colonoscopy 01/29/2019: Total of 4 polyps removed including 15 mm polyp in transverse colon. x2 SSL, x2 TA. Repeat recommended in 2021, however patient lost to follow-up. Noted on lab is normocytic anemia, which has been gradually worsening over the last 2 years. In addition, patient also reports heartburn and epigastric pain. Happens at least 2 to 3 times a week. Reports no improvement with the omeprazole. Beatrice brandt, on questioning, she has been taking this with food. [facility] Medical History Axillary mass Memory loss Limb swelling History of eye prosthesis Murmur Anemia Dysphagia Hiatal hernia KERON on CPAP Asthma Abnormal colonoscopy (~01/2019) Environmental allergies HTN (hypertension) Acid reflux Surgical History History of throat surgery History of total right knee replacement (TKR) History of colonoscopy History of cholecystectomy History of hysterectomy Social History Household Members: Spouse, Family and Children Alcohol intake: never Patient Tobacco Use Status: Never used Tobacco Current occupational status: retired 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 handed Review of Systems Const All systems reviewed & are unremarkable except as noted in HPI and below Physical Exam Vital Signs: Last Vital Signs Pulse 57 05/24/24 15:07 BP 133/66 05/24/24 15:07 BMI result Body Mass Index 34.0 No apparent distress Multiple seborrheic keratosis noted on neck Nonicteric Abdomen soft, nondistended Alert and oriented x3, uses cane to ambulate Assessment & Plan Assessment & Plan (1) Chronic constipation: Code(s): K59.09 - Other constipation Category: Medical (2) History of colon polyps: Code(s): Z86.010 - Personal history of colon polyps Category: Medical (3) Acid reflux: Code(s): K21.9 - Gastro-esophageal reflux disease without esophagitis Category: Medical Qualifiers: Esophagitis presence: without esophagitis Qualified Code(s): K21.9 - Gastro-esophageal reflux disease without esophagitis (4) Hiatal hernia: Code(s): K44.9 - Diaphragmatic hernia without obstruction or gangrene Category: Medical (5) Normochromic normocytic anemia: Code(s): D64.9 - Anemia, unspecified Category: Medical Plan 1. Chronic idiopathic constipation: Reviewed that likely in the setting of a combination of advancing age with weakness of pelvic floor, lack of fiber and hydration and diet. Plan: -improve hydration -add fiber supplementation -take MiraLax daily -can take senna p.r.n. on top if unable to have a bowel movement for 2 days -elevated legs while having a bowel movement, can use step stool 2. GERD: Reviewed avoidance of trigger food. No dysphagia, regurgitation noted. PPI likely ineffective due to inappropriate administration. Educated on current we of taking this. Plan: -omeprazole 20 mg refilled. To be taken on an empty stomach, avoid eating for 30-40 minutes after -can take Pepcid or Tums p.r.n. for breakthrough symptoms -keep head of the bed elevated at sleep time -avoid laying now within 60 minutes of meals 3. Normocytic anemia Noted on chart review. Has previous history of iron-deficiency, however anemia is normocytic. RDW normal. Plan: -check updated iron, B12 and folate Follow-up in 3 months Orders: Orders Vitamin B12 and Folate Today D64.9 - Anemia, unspecified IRON PROFILE Today D64.9 - Anemia, unspecified Ferritin Today D64.9 - Anemia, unspecified Medications: New psyllium mix into at least 8 oz of water or juice before administering 1 tbsp PO DAILY 300 grams 0RF Discontinued guaifenesin Discontinued Reason: Patient no longer taking 200 mg PO Q4H 3 days PRN 20 tabs 0RF cough prednisone Discontinued Reason: Patient no longer taking 40 mg (2 x 20 mg) PO DAILY 10 tabs 0RF prednisone Discontinued Reason: Duplicate 40 mg (2 x 20 mg) PO DAILY 5 days 10 tabs 0RF codeine-guaifenesin 10-100 mg/5 mL Discontinued Reason: Patient no longer taking 10 mL PO Q6H PRN 237 mL 0RF cough Patient Instructions: for constipation: - improve hydration - add fiber supplementaion - take miralax daily - elevate legs while having BM for reflux: - make sure you take omeprazole 20 daily on EMPTY stomach - wait 30 - 40 mins before you eat something after taking this for blood work: - can be done anytime today or next week. no fasting needed. Coding Level of Care Code New Pt Level 4 (23954) Complex EM visit Add On G2211 Diagnoses Chronic constipation K59.09 History of colon polyps Z86.010 Gastroesophageal reflux disease without esophagitis K21.9 Esophagitis presence: without esophagitis Hiatal hernia K44.9 Normochromic normocytic anemia D64.9
[2024-05-24 15:07] VITALS: BP 133/66; PULSE 57; BMI 34.0
== END 2024-05-24 15:56 | disposition home or self-care (01) ==
PROVIDERS: PCP Internal Medicine; Visit Provider Internal Medicine
DX: K59.09 Other constipation (principal); Z86.0100 Personal history of colon polyps, unspecified; K21.9 Gastro-esophageal reflux disease without esophagitis; K44.9 Diaphragmatic hernia without obstruction or gangrene; D64.9 Anemia, unspecified
CPT/HCPCS: 99204; G2211

== ENCOUNTER → 2024-05-24 14:36 | Outpatient (BNVA) | payer OTHER, SELFPAY | PROVIDERS: PCP Internal Medicine; Visit Provider Internal Medicine | DX: K59.09 Other constipation (principal); K21.9 Gastro-esophageal reflux disease without esophagitis; K44.9 Diaphragmatic hernia without obstruction or gangrene; D64.9 Anemia, unspecified; Z86.0100 Personal history of colon polyps, unspecified | CPT/HCPCS: 99202 ==

== ENCOUNTER 2024-05-27 15:04 | Outpatient (REF) | payer OTHER, SELFPAY ==
[2024-05-27 18:22] LABS: Iron 25 mcg/dL (30-160); Percent Iron Saturation 7 % (15-50); Total Iron Binding Capacity 359 mcg/dL (228-428); Unsaturated Iron Binding 334 ug/dL
[2024-05-27 18:32] LABS: Ferritin 15 ng/mL (10-250)
[2024-05-27 19:25] LABS: Folate 11.8 ng/mL (> or = 4.0); Vitamin B12 580 pg/mL (200-900)
== END 2024-05-27 15:05 | disposition home or self-care (01) ==
LOC: HO.HHCL 15:04
PROVIDERS: Visit Provider Internal Medicine
DX: D64.9 Anemia, unspecified (principal)
CPT/HCPCS: 36415; 82607; 82728; 82746; 83540

== ENCOUNTER 2024-07-01 09:37 | Inpatient (IN) | payer OTHER, SELFPAY ==
[2024-07-01] VITALS (9 sets, daily range): BP systolic 112–150; BP diastolic 58–80; PULSE 56–93; RESP 14–20; TEMP 36.6–38.3; O2SAT 88–98; BMI 33.3
--- NOTE | ~2024-07-01 | XR_ITS ---
CLINICAL HISTORY: cough, fevers 1 view chest x-ray Comparison: 04/05/2024 Findings: No consolidation or effusion. No significant change in cardiomediastinal silhouette. No acute fracture. IMPRESSION: 1. No acute findings. This document has been electronically signed by: Katia Sales MD on 07/01/2024 10:44:24
--- NOTE | 2024-07-01 09:45 | ED.WEAKNESS ---
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 ) History of Present Illness ED Provider: TYREL HPI Narrative: 83 yo female with PMH of arthritis, anemia, KERON on CPAP, asthma, GERD, HLD, HTN here with c/o cough on and off and mucous x 6 months and nothing helps. She denies any recent change or illness. She denies sick contacts. She is very unclear about her medications it looks like she was following with Dr. Multani but then states the office stopped calling her. She states she takes an AM inhaler which I see is Breo filled 07/07/24. She denies change in sputum, no n/v/d, no fevers or chills. Complaint: generalized weakness (cough) Onset (ago): month(s) (6) Duration: progressively worsening Location: generalized Migration: none Severity: moderate Quality: dull Relieving factors: rest Exacerbating factors: movement Associated symptoms: loss of appetite, shortness of breath and other (cough) Related Data Home Medications ?Medication ?Instructions ?Recorded ?Confirmed loratadine 10 mg tablet (Claritin) 10 mg PO DAILY PRN Allergies 04/20/20 09/28/23 omeprazole 20 mg capsule,delayed 20 mg PO DAILY 04/20/20 09/28/23 release aspirin 81 mg tablet,delayed 81 mg PO DAILY 04/23/20 09/28/23 release verapamil 120 mg 24 hr 120 mg PO DAILY 11/27/20 09/28/23 capsule,extended release dorzolamide 22.3 mg-timolol 6.8 ml ophthalmic (eye) 07/27/21 09/28/23 mg/mL eye drops atorvastatin 20 mg tablet 20 mg PO DAILY 05/24/24 docusate sodium 100 mg capsule 100 mg PO BID 05/24/24 losartan 100 mg tablet 100 mg PO DAILY 05/24/24 simethicone 80 mg chewable tablet mg PO 05/24/24 Previous Rx's ?Medication ?Instructions ?Recorded albuterol sulfate 90 mcg/actuation 2 inh inhalation Q6H PRN shortness 08/21/20 aerosol inhaler of breath or wheezing 30 days #18 grams compr.stocking,thigh,reg,x-lrg #2 ea 11/27/20 doxycycline hyclate 100 mg capsule 100 mg PO BID 10 days #20 caps 09/22/22 celecoxib 200 mg capsule 200 mg PO Q12H #60 caps 11/30/22 benzonatate 200 mg capsule 200 mg PO TID PRN cough 5 days #15 04/25/23 caps montelukast 10 mg tablet 10 mg PO QPM #30 tabs 06/02/23 albuterol sulfate 90 mcg/actuation 2 puff inhalation Q4-6H PRN 06/20/23 aerosol inhaler (ProAir HFA) shortness of breath or wheezing #8.5 grams cefuroxime axetil 500 mg tablet 500 mg PO BID 10 days #20 tabs 06/20/23 gabapentin 300 mg capsule 600 mg (2 x 300 mg) PO BEDTIME #60 07/31/23 caps fluticasone furoate 200 1 ea inhalation DAILY #60 ea 01/16/24 mcg-vilanterol 25 mcg/dose inhalation powder (Breo Ellipta) psyllium 1 tbsp PO DAILY #300 grams 05/24/24 ferrous fumarate 325 mg (106 mg 325 mg PO DAILY #90 tabs 05/28/24 iron) tablet Allergies Allergy/AdvReac Type Severity Reaction Status Date / Time latex [Latex] Allergy Severe DIFFICULTY Verified 07/01/24 09:54 BREATHING RELATED TO EXACERBATION OF ASTHMA Cameron Inhibitors Allergy Severe cough Uncoded 07/01/24 09:54 From PERCOCET Allergy Severe RASH Uncoded 07/01/24 09:54 Review of Systems Review of Systems: Constitutional : No Fever, No Chills ENT/Mouth : No Hoarseness, No sore throat, No Rhinorrhea Eyes: No Redness, No Discharge, No Vision Changes Cardiovascular : No Chest Pain, positive SOB, positive Dyspnea on Exertion, No Edema Respiratory : positive Cough, pos Sputum, positive Wheezing, Gastrointestinal : No Nausea, No Vomiting, No Diarrhea, No abdominal Pain Genitourinary : No Dysuria, No Hematuria Musculoskeletal : No joint pain, No Myalgias Skin : No rash Neuro : No Weakness, No Numbness, No Headache Psych : No anxiety, depression All other systems reviewed and are negative PMFSH Past Medical History Attestation statement: The following information was validated with the patient. Source: old records reviewed Medical History Axillary mass Memory loss Limb swelling History of eye prosthesis Murmur Anemia Dysphagia Hiatal hernia KERON on CPAP Asthma Abnormal colonoscopy (~01/2019) Environmental allergies HTN (hypertension) Acid reflux Surgical History History of throat surgery History of total right knee replacement (TKR) History of colonoscopy History of cholecystectomy History of hysterectomy Social History Social History Household Members: Spouse, Family and Children Alcohol intake: never Patient Tobacco Use Status: Never used Tobacco Smoked in Last 30 Days: No Use of substances other than those prescribed or required for medical reasons: No Advance Directives: No Advance Directives Information Provided: Yes Do you have a plan to hurt others: No Plan Current occupational status: retired 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 handed Physical Exam Vital Signs: Vital Signs: Last Vital Signs Temp 100.9 F H 07/01/24 09:52 Pulse 78 07/01/24 10:13 Resp 18 07/01/24 10:13 BP 116/58 L 07/01/24 09:52 Pulse Ox 94 07/01/24 12:12 O2 Del Method Nasal Cannula 07/01/24 12:12 O2 Flow Rate 2 07/01/24 12:12 BMI result Body Mass Index 33.3 Appearance: Alert. Oriented X3. No acute distress. Eyes: L pupils reactive 3mm, R eye is prosthetic ENT: Pharynx normal. Neck: Normal inspection. Neck supple. CVS: Normal heart rate and rhythm. Pulses normal. Respiratory: No respiratory distress. Breath sounds dry cough, productive cough Abdomen: Soft and nontender. Skin: Skin warm and dry. Normal skin color. Normal skin turgor. Extremities: No lower extremity edema. No calf ttp Neuro: Oriented X 3. No motor deficit. No sensory deficit. CN2-12 intact Course Course Course Narrative: started on tamiflu Medications Administered Discontinued Medications Generic Name Dose Route Start Last Admin Trade Name Freq PRN Reason Stop Dose Admin Acetaminophen 650 mg 07/01/24 09:56 07/01/24 10:35 Acetaminophen 325 Mg Tablet PO 07/01/24 09:57 650 mg ONCE ONE Administration Albuterol/Ipratropium 3 ml 07/01/24 10:08 07/01/24 10:13 Albuterol/Iprat 2.5/0.5mg 3 Ml Ampul.Neb INHALE 07/01/24 10:09 3 ml ONCE ONE Administration Azithromycin 500 mg/ Sodium 250 mls @ 125 mls/hr 07/01/24 09:56 07/01/24 10:35 Chloride IV 07/01/24 11:55 125 mls/hr ONCE ONE Administration Methylprednisolone Sodium Succinate 60 mg 07/01/24 09:56 07/01/24 10:35 Methylprednisolone Sod Succ 125 Mg/2 Ml Vial IVPUSH 07/01/24 09:57 60 mg ONCE ONE Administration Medical Decision Making Medical Decision Making [facility] Narrative: 83 yo female with PMH of arthritis, anemia, KERON on CPAP, asthma, GERD, HLD, HTN here with c/o 6 months of asthma/breathing issues along with ?lack of understanding of inhalers. At this time I am going to obtain labs, cultures, CXR, viral panel, start on steroids/azithromycin. Suspect bronchitis, mass, pneumonia, viral syndrome Differential Diagnosis Differential Diagnoses: The differential diagnosis associated with the presentation includes bronchitis, mass, pneumonia, viral syndrome Admission/Observation Consideration of admission/observation: Escalation of care including admission/observation considered hypoxic 88% flu A - at this time given O2 demands will admit for further management Consult Healthcare Provider Management of the patient was discussed with: Hospitalist (will admit) Lab Data [facility] Lab Attestation statement: I reviewed the patient's lab results. 07/01/24 10:26 07/01/24 10:26 Labs: Lab Results 07/01/24 07/01/24 07/01/24 Range/Units 10:26 10:27 10:32 WBC 4.6 L (4.8-10.8) X10*3/uL RBC 3.89 L (4.20-5.50) X10*6/uL Hgb 10.7 L (12.0-16.0) g/dl Hct 33.8 L (37.0-47.0) % MCV 86.9 (80.0-98.0) fL MCH 27.5 (27.0-33.0) pg MCHC 31.7 (31.0-35.0) g/dl RDW 17.0 H (11.0-16.0) % Plt Count 203 D (160-400) X10*3/uL MPV 11.0 (9.4-12.3) fL Immature Gran % (Auto) 0.4 (0.0-0.4) % Neut % (Auto) 65.7 (45-73) % Lymph % (Auto) 14.4 L (20-40) % Sevier % (Auto) 16.6 H (2-11) % Eos % (Auto) 2.0 (0-4) % Baso % (Auto) 0.9 (0-2) % Lymph # (Auto) 0.7 L (1.2-4.9) X10*3/uL Sevier # (Auto) 0.8 (0.1-1.2) X10*3/uL Eos # (Auto) 0.1 (0.0-0.4) X10*3/uL Baso # (Auto) 0.0 (0.0-0.2) X10*3/uL Abs Immat Gran (auto) 0.02 (0.00-0.03) X10*3/uL Absolute Neuts (auto) 3.0 (2.0-8.3) x10*3/uL Absolute Nucleated RBC 0.000 (0.0-0.012) X10*3/uL Nucleated RBC % (auto) 0.0 (0.0-0.2) /100WBC VBG pH 7.41 (7.32-7.43) VBG pCO2 41 mmHg VBG pO2 45 mmHg VBG HCO3 26 (22-26) mmol/L VBG O2 Saturation 70.0 % VBG Base Excess 1.8 mmol/L Sodium 142 (135-145) mmol/L Potassium 3.6 (3.3-5.1) mmol/L Chloride 110 H (96-108) mmol/L Carbon Dioxide 24 (22-29) mmol/L Anion Gap 12 (12-20) BUN 5 L (9-16) mg/dL Creatinine 0.74 (0.5-1.4) mg/dL Estim Creat Clear Calc 55.1 Estimated GFR > 60 Random Glucose 97 (60-115) mg/dL Lactic Acid 1.0 (0.5-2.0) mmol/L Calcium 9.4 (8.4-10.2) mg/dL Magnesium 2.1 (1.6-2.6) mg/dL Total Bilirubin 0.6 (0.0-1.0) mg/dL Direct Bilirubin 0.3 (0.0-0.5) mg/dL AST 38 H (5-31) U/L ALT 22 (0-31) U/L Alkaline Phosphatase 102 (39-117) U/L Troponin I High Sens 17.0 (<3.5-17.0) ng/L B-Natriuretic Peptide 157 H (<100) pg/mL Total Protein 7.7 (6.5-8.0) g/dL Albumin 4.0 (3.5-5.0) g/dL Lipase 6 L (8-78) U/L Influenza Type A (PCR) POSITIVE A (Negative) Influenza Type B (PCR) NEGATIVE (Negative) RSV RNA Qual (PCR) NEGATIVE (Negative) SARS-CoV-2 RNA (RT-PCR) NEGATIVE (Negative) Independent Interpretation I performed an independent interpretation of an: EKG and Plain X-Ray (no pneumonia) Interpretation: Rate: 80 Rhythm: NSR [place]: left, LVH Normal P waves. Normal STEFF. Normal QRS complex. ST T wave : no ARMAAN, artifact lateral leads qTC: 415 prior studies: no acute ischemia The study has been interpreted contemporaneously by me. . Radiology Impression Discussion of test interpretation with radiology: I have reviewed the radiologist's reading. Independent Historian Clinical information obtained from an independent historian. History obtained from or confirmed by: EMS External Record Review External record reviewed: Outpatient record Discharge Plan Discharge Clinical Impression: Asthma, Hypoxia, Influenza A Patient Disposition: Admitted As Inpatient Print Language: Peruvian
--- NOTE | 2024-07-01 09:59 | ECG_ITS ---
Test Reason : DYSPNEA Blood Pressure : */* mmHG Vent. Rate : 80 BPM Atrial Rate : 81 BPM P-R Int : 214 ms QRS Dur : 100 ms QT Int : 360 ms P-R-T Axes : 49 -47 42 degrees QTcB Int : 415 ms Normal sinus rhythm Left anterior fascicular block Moderate voltage criteria for LVH, may be normal variant ( R in aVL , [place] product ) Nonspecific ST and T wave abnormality Abnormal ECG When compared with ECG of 21-Mar-2022 15:28, No significant changes seen Referred By: Hannah Downs Electronically Signed By: NORMAN NGUYỄN
--- OUTSIDE RECORDS SUMMARY | 2024-07-01 10:02 | XMS_ITS | Clinical Summary ---
Author Organization [facility] Address [address] [place] [address] Care Team Providers Care Visitor Services Specialist Name Role Phone Pedro Ingram MD Primary Care Provide r Unavailable Allergies Active Allergy Reactions Severity Noted Date Comments Thsc Lisinopril Cough 07/07/2011 Medications Medication Sig Dispensed Refills Start Date End Date Status simvastatin (ZOCOR) 10 MG tablet Take 10 mg by mouth at bedtime. 0 Active hydrochlorothiazide (MICROZIDE) 12.5 MG capsule Take 12.5 mg by mouth daily. 0 Active Verapamil HCl 100 MG CP24 Take 100 mg by mouth daily. 0 Active aspirin (SB LOW DOSE ASA EC) 81 MG EC tablet Take 81 mg by mouth daily. 0 Active Pantoprazole Sodium (PROTONIX OR) Take by mouth. 0 Active VENTOLIN HFA 108 (90 BASE) MCG/ACT Aero Soln Inhale 2 Puffs into the lungs every 6 hours. 0 2018 Active atorvastatin (LIPITOR) 20 MG tablet Take 1 Tab by mouth at bedtime. 0 09/20/2018 Active cetirizine (ZYRTEC) 10 MG tablet Take 1 Tab by mouth daily. 0 08/22/2018 Active omeprazole (PRILOSEC) 20 MG capsule Take 1 Cap by mouth daily. 0 08/22/2018 Active valsartan (DIOVAN) 80 MG tablet Take 1 Tab by mouth at bedtime. 0 08/22/2018 Active verapamil (CALAN-SR) 120 MG CR tablet Take 1 Tab by mouth daily. 0 08/22/2018 Active montelukast (SINGULAIR) 10 MG tablet Take 1 Tab by mouth at bedtime for 30 days. 30 Tab 11 10/11/2018 Active fluticasone (FLONASE) 50 MCG/ACT nasal spray 2 Sprays by Nasal route daily for 30 days. 1 Bottle 11 10/11/2018 Active dorzolamide-timolol (COSOPT) 22.3-6.8 MG/ML ophthalmic solution apply 1 Drop to the eye 2 times daily. Into affected eye(s) 0 Active Active Problems Problem Noted Date Allergic rhinitis 11/19/2018 Hyperlipidemia 11/19/2018 KERON (obstructive sleep apnea) 11/19/2018 Glaucoma 11/19/2018 GERD (gastroesophageal reflux disease) 0 11/19/2018 CAD (coronary artery disease) 11/19/2018 Fatty liver 11/19/2018 Asthma 10/11/2018 Chronic rhinitis 10/11/2018 Hypertension 07/07/2011 Osteoarthritis 07/07/2011 Anemia 07/07/2011 Cervical radiculopathy 07/07/2011 Resolved Problems Problem Noted Date Resolved Date LBBB (left bundle branch block) 07/07/2011 11/19/2018 Social History Tobacco Use Types Packs/Day Years Used Date Smoking Tobacco: Never Smokeless Tobacco: Never Alcohol Use Standard Drinks/Week Comments No 0 (1 standard drink = 0.6 oz pur e alcohol) Sex Assigned at Date Recorded Not on file Last Filed Vital Signs Vital Sign Reading Time Taken Comments Blood Pressure 128/74 12/06/2018 2:24 PM EDT Pulse 68 12/06/2018 2:24 PM EDT Temperature - - Respiratory Rate 17 12/06/2018 2:24 PM EDT Oxygen Saturation 98% 12/06/2018 2:24 PM EDT Inhaled Oxygen Concentration - - Weight 83 kg (183 lb) 12/06/2018 2:24 PM EDT Height 154.9 cm (5' 1 ) 12/06/2018 2:24 PM EDT Body Mass Index 34.58 12/06/2018 2:24 PM EDT Plan of Treatment Health Maintenance Due Date Last Done Comments Covid-19 Vaccine (#1) 03/27/1941 DTAP/TDAP/TD (1 - Tdap) 09/25/1959 CHOLESTEROL SCREENING 1960 MAMMOGRAM 1980 SHINGLES VACCINE (1 of 2) 1990 BONE DENSITY SCREENING 2005 PNEUMOCOCCAL VACCINE (1 - PCV) 2005 INFLUENZA (#1) 2024 BMI CHECK/ADVISE 05/15/2024 Care Teams Visitor Services Specialist Relationship Specialty Start Date End Date Pedro Ingram MD PCP - General 11/23/09
--- OUTSIDE RECORDS SUMMARY | 2024-07-01 10:02 | XMS_ITS | Encounter Summary ---
Author Organization [employer] Address [address] [facility] [address] [place] [address] Care Team Providers Care Packing Line Operator Name Role Phone Pedro Braxton MD Primary Care Provide r Encounter Details Date Type Department Care Team (Late Contact Info) Description 12/06/2022 Orders Only [facility] PEDS [address] [place] [address] Sylvia Valentino LPN Social History Tobacco Use Types Packs/Day Years Used Date Smoking Tobacco: Never Passive Smoke Exposure: Never Smokeless Tobacco: Never PHQ-2 Answer Date Recorded Patient Health Questionnaire-2 Score 0 05/24/2022 Depression Answer Date Recorded Patient Health Questionnaire-2 Score 0 05/24/2022 Comments Unknown Sex and Gender Information Value Date Recorded Sex Assigned at Female 03/14/2022 10:14 AM EDT Legal Sex Female 10:14 AM EDT Gender Identity Female 03/14/2022 10:14 AM EDT Sexual Orientation Straight 03/14/2022 10 :14 AM EDT documented as of this encounter Plan of Treatment Upcoming Encounters Date Type Department Care Team (Late Contact Info) Description 07/30/2024 1:15 PM EDT Office Visit [facility] MEDICINE [address] [place] [address] Pedro Braxton MD [address] [place] [address] documented as of this encounter Visit Diagnoses Not on filedocumented in this encounter Care Teams Packing Line Operator Relationship Specialty Start Date End Date Pedro Braxton MD [address] [place] [address] PCP - General Internal Medicine 03/15/13 documented as of this encounter
--- OUTSIDE RECORDS SUMMARY | 2024-07-01 10:02 | XMS_ITS | Clinical Summary ---
Author Organization [employer] Address [address] [facility] [address] [place] [address] Care Team Providers Care Cheese Cook Name Role Phone Pedro Braxton MD Primary Care Provide r Allergies Active Allergy Reactions Criticality Noted Date Comments Cameron Inhibitors Cough 06/02/2010 Medications Fluticasone Furoate-Vilanter ol (Breo Ellipta) 200-25 MCG/ACT aerosol powder Inhale 1 puff at bed time. 03/20/20 20 Active selenium sulfide (Selsun) 2.5 % shampoo Apply topically if needed each day for dandruff. Use twice a week 118 mL 2 01/27/20 23 Active clobetasol (Temovate) 0.05 % ointment Apply topically 2 times daily. 15 g 01/27/20 23 Active losartan (Cozaar) 50 MG tablet TAKE 1 TABLET BY MOUTH AT BEDTIME 90 tablet 3 09/01/19 24 Active Diclofenac Sodium 1 % gelIndications:O ther headache syndrome APPLY 2 GRAMS TOPICALLY TO AFFECTED AREA(S) TWICE DAILY 100 g 2 10/04/19 24 Active Aspirin Adult Low Strength 81 MG EC tablet TAKE 1 TABLET BY MOUTH EVERY MORNING 90 tablet 3 11/28/19 24 Active atorvastatin (Lipitor) 20 MG tablet TAKE 1 TABLET BY MOUTH AT BEDTIME 90 tablet 3 11/28/19 24 Active cetirizine (ZyrTEC) 10 MG tablet Take 1 tablet (10 mg) by mouth Once daily as needed for allergies. 30 tablet 12/22/19 24 Active albuterol 108 (90 Base) MCG/ACT inhalerIndicatio ns:Moderate persistent asthma without complication INHALE 2 PUFFS BY MOUTH EVERY 6 HOURS NEEDED FOR WHEEZING OR SHORTNESS OF BREATH 18 g 01/25/20 24 Active verapamil SR (Calan SR) 120 MG ER tablet TAKE 1 TABLET BY MOUTH EVERY MORNING 90 tablet 1 02/20/20 24 Active simethicone (Mylicon) 80 MG chewable tabletIndication s:Flatulence CHEW AND SWALLOW 1 TABLET THREE TIMES DAILY BEFORE MEALS NEEDED FOR GAS 90 tablet 3 03/14/20 24 Active linaCLOtide (Linzess) 72 MCG capsuleIndicatio ns:Constipation, unspecified constipation type Take 1 capsule (72 mcg) by mouth before breakfast. Do not crush or chew. 14 capsule 03/19/20 24 025 Active glycerin (Adult) 2 g suppositoryIndic ations:Constipat ion, unspecified constipation type Insert 1 suppository (2 g) into the rectum if needed in the morning and at bedtime for constipation. 30 suppository 1 03/19/20 24 Active omeprazole (PriLOSEC) [address] capsuleIndicatio ns:Dyspepsia Take 1 capsule (20 mg) by mouth before breakfast and before evening meal. Do not crush or chew. 60 capsule 11 04/05/20 24 025 Active guaiFENesin (Mucinex) 600 MG 12 hr tabletIndication s:Acute cough Take 1 tablet (600 mg) by mouth 2 times daily. Do not crush, chew, or split. 60 tablet 11 04/05/20 24 025 Active senna (Senokot) 8.6 MG tabletIndication s:Constipation, unspecified constipation type TAKE 2 TABLETS BY MOUTH EVERY DAY AT BEDTIME NEEDED 180 tablet 04/16/20 24 Active docusate sodium (Colace) 100 MG capsuleIndicatio ns:Constipation, unspecified constipation type TAKE 1 CAPSULE BY MOUTH TWICE DAILY IN THE MORNING AND IN THE EVENING NEEDED 60 capsule 5 05/20/19 25 Active fluticasone (Flonase) 50 MCG/ACT nasal spray INSTILL 2 SPRAYS IN EACH NOSTRIL ONCE DAILY ONCE DAILY SHAKE GENTLY 16 g 3 05/20/19 25 Active Active Problems Problem Noted Date Diagnosed Date Constipation 03/19/2024 Assessment & Plan (04/30/2024 2:19 PM EST): Referred to GI Has appointment with GI 05/24/2024 Assessment & Plan (03/19/2024 9:36 AM EST): No BM x4 days. No abdominal pain. Levar stool ball on rectal digital exam. No evidence of SBO. Abdomen soft, non-tender. 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 -ER precautions discussed. Class 1 obesity 01/26/2023 Assessment & Plan (04/30/2024 2:18 PM EST): Patient has been counseled and educated about diet and exercise. 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 Pt was treated with toradol with good results Acquired skin tag 09/20/2022 Assessment & Plan (09/20/2022 2:24 PM EDT): Pt with a small pedunculated skin tag posterior neck Plan: Derm for excision Seasonal allergies 09/20/2022 Assessment & Plan (09/20/2022 2:31 PM EDT): Has done well with Claritin in the past Flatulence 09/20/2022 Assessment & Plan (09/20/2022 2:31 PM EDT): Simethicone prescribed effective in the past Chronic anemia 05/24/2022 Assessment & Plan (05/24/2022 5:16 PM EST): Pt with chronic anemia. Seen by employment law specialist Dr Osiel Ye at [facility] last seen on 07/22/2021. GI work up included a EGD 2020 and Colonoscopy 2006. Moderate persistent asthma without complication 05/24/2022 Assessment & Plan (11/28/2023 2:41 PM EDT): She has chronic cough, described as dry and intermittent wheezing. 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 Pt was unable to complete PFTs under the care of Dr Silva ( Airplane Mechanic Apprentice ) thinks she has Mod persistent asthma On Montelukast, Breo Elipa 100/25 chest x-ray 07/17/2019 Normal pt will continue to follow with him, last seen September 2022 Assessment & Plan (12/22/2022 11:15 AM EDT): She has chronic cough, described as dry and intermittent wheezing. 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 Pt was unable to complete PFTs under the care of Dr Silva ( Airplane Mechanic Apprentice ) thinks she has Mod persistent asthma On Montelukast, Breo Elipa 100/25 chest x-ray 07/17/2019 Normal pt will continue to follow with him, last seen September 2022 Assessment & Plan (05/24/2022 5:15 PM EST): She has chronic cough, described as dry and intermittent wheezing. 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 Pt was unable to complete PFTs under the care of Dr Silva ( Airplane Mechanic Apprentice ) thinks she has Mod persistent asthma On Montelukast, Breo Elipa 100/25 chest x-ray 07/17/2019 Normal pt will continue to follow with him, last seen 07/27/2021 Stress incontinence of urine 05/24/2022 Left hip pain 05/24/2022 Assessment & Plan (05/24/2022 5:08 PM EST): Hx of fall, CT 02/23/2022 was negative for fracture No further work up Pt not complaining at the moment Hx of total knee replacement, right 05/24/2022 Assessment & Plan (05/24/2022 5:17 PM EST): Pt with OA right knee, now s/p Right TKR 10/28/2016 Doing well postoperatively Preventative health care 05/24/2022 Assessment & Plan (04/30/2024 2:19 PM EST): Mammo 09/18/2023 IMPRESSION: -There are no findings suspicious for malignancy in either breast. -Area of palpable concern in the right axillary region likely relates to 4-5 small benign-appearing lymph nodes, none with pathologic characteristics. -There are stable benign findings in both breasts. OVERALL ASSESSMENT: Mammography: BI-RADS 2 - Benign Findings Ultrasound: BI-RADS 2 - Benign Findings RECOMMENDATION: 1 year F/U Paps wnl 2002, 2003 and 2005 with h/o KIRIT/BSO for fibroids and no h/o abnormal paps, no need for further pap screening DEXA wnl October 2009 Colonoscopy 01/29/2019 5 year f/u recommended, Has appointment with GI 05/24/2024 Assessment & Plan (05/24/2022 5:19 PM EST): Mammo 11/06/2020 Normal Paps wnl 2003, 2004 and 2006 with h/o KIRIT/BSO for fibroids and no h/o abnormal paps, no need for further pap screening DEXA wnl October 2009 Colonoscopy 01/29/2019 5 year f/u recommended Senile hyperkeratosis 09/29/2017 Essential hypertension 03/24/2015 Overview (07/05/2022): -Continues with verapamil 120mg QAM -Continues with losartan 50mg at bedtime -Reports home BP readings vary throughout the day, and usually less well controlled during the afternoons Assessment & Plan (04/30/2024 2:09 PM EST): Pt here for a f/u BP is controlled, She is on a regimen of: Verelan ER 120 mg po daily by cardiology and Losartan 50 mg po daily For now will continue with current medical regimen. Most recent electrolytes, Bun and Creatinine done on: Lab Results Component Value Date NA 143 02/04/2024 NA 143 12/04/2023 K 3.9 02/04/2024 K 3.9 12/04/2023 CL 108 02/04/2024 CL 108 12/04/2023 BUN 14 02/04/2024 BUN 11 12/04/2023 CREATININE 1.00 02/04/2024 CREATININE 0.80 12/04/2023 Were wnl. patient advised to adhere to a low sodium diet, encouraged about medication compliance, counseled about weight loss. Assessment & Plan (11/28/2023 2:34 PM EDT): Pt here for a f/u BP is controlled, She is on a regimen of: Verelan ER 120 mg po daily by cardiology and Losartan 50 mg po daily For now will continue with current medical regimen. Most recent electrolytes, Bun and Creatinine done on: 04/25/2023 were wnl.Will repeat. patient advised to adhere to a low sodium diet, encouraged about medication compliance, counseled about weight loss. Assessment & Plan (12/22/2022 11:15 AM EDT): Pt here for a f/u BP is controlled, She is on a regimen of: Verelan ER 120 mg po daily by cardiology and Losartan 50 mg po daily For now will continue with current medical regimen. Most recent electrolytes, Bun and Creatinine done on: 05/31/2022 were wnl. patient advised to adhere to a low sodium diet, encouraged about medication compliance, counseled about weight loss. Assessment & Plan (09/20/2022 2:16 PM EDT): Pt here for a f/u BP is controlled, She is on a regimen of: Verelan ER 120 mg po daily by cardiology and Losartan 50 mg po daily For now will continue with current medical regimen. Most recent electrolytes, Bun and Creatinine done on: 05/31/2022 were wnl. patient advised to adhere to a low sodium diet, encouraged about medication compliance, counseled about weight loss. Assessment & Plan (07/05/2022 10:18 AM EST): -24 hour BP monitor ordered -EKG -Called Hat Braider, will plan for follow up appt in 1-2 months -ED precautions reviewed Assessment & Plan (05/24/2022 4:33 PM EST): Pt here for a f/u BP is controlled, She is on a regimen of: Verelan ER 120 mg po daily by cardiology and Diovan 80 mg po daily (she had been on Hctz before but this was Dced by [facility]) For now will continue with current medical regimen. Most recent electrolytes, Bun and Creatinine done on: 03/21/2022 were wnl. patient advised to adhere to a low sodium diet, encouraged about medication compliance, counseled about weight loss. Allergic rhinitis 09/30/2013 Steatosis of liver 09/30/2013 Obstructive sleep apnea syndrome 06/21/2012 Assessment & Plan (05/24/2022 5:16 PM EST): Reports compliance with cpap machine. Pt's sleep study done on 04/03/12 showed moderate KERON, titration study was done on 07/19/2012 and pt had successfully treatment with cpap device. with a pressure of 11 cm using a full face mask of medium size, and a heated humidification unit Atherosclerosis of coronary artery 02/13/2012 Assessment & Plan (05/24/2022 5:17 PM EST): denies any chest pain cont current med regimen Risk Factor modification f/u with cardiology annually. Last seen 05/11/2018 Cervical radiculopathy 02/13/2012 Gastroesophageal reflux disease 02/13/2012 Assessment & Plan (04/30/2024 2:19 PM EST): Here for a f/u EGD 09/08/2020 showed: Videoendoscope was introduced with out difficulty and entered esophagus easily. Esophageal mucosa was normal. Small hiatal hernia. Stomach: Normal looking mucosa, no erythema. Duodenal bulb and duodenum were normal. Scope withdrawn Brief view of Arytenoid cartilages showed some flattening and edema. No involvement of the cords. Advised to continue PPI BID, Has appointment with GI 05/24/2024 Assessment & Plan (11/28/2023 2:37 PM EDT): Here for a f/u had EGD 09/08/2020 that showed: FINDINGS: Videoendoscope was introduced with out difficulty and entered esophagus easily. Esophageal mucosa was normal. Small hiatal hernia. Stomach: Normal looking mucosa, no erythema. Duodenal bulb and duodenum were normal. Scope withdrawn Brief view of Arytenoid cartilages showed some flattening and edema. No involvement of the cords. Advised to continue PPI BID Assessment & Plan (05/24/2022 5:10 PM EST): Here for a f/u Under the care of GI had EGD 09/08/2020 that showed: FINDINGS: Videoendoscope was introduced with out difficulty and entered esophagus easily. Esophageal mucosa was normal. Small hiatal hernia. Stomach: Normal looking mucosa, no erythema. Duodenal bulb and duodenum were normal. Scope withdrawn Brief view of Arytenoid cartilages showed some flattening and edema. No involvement of the cords. Advised to continue PPI BID Continue to follow with GI, last seen March 2022 Glaucoma 02/13/2012 Assessment & Plan (12/22/2022 11:21 AM EDT): Evaluated in the past by Dr Guardado Hyperlipidemia 02/13/2012 Assessment & Plan (04/30/2024 2:11 PM EST): Pt here for a f/u Patient with elevated lipids. Most recent lipid profile from: Lab Results Component Value Date TRIG 112 12/26/2022 TRIG 100 05/31/2022 CHOL 142 12/26/2022 LDLCHOLCAL 65 12/26/2022 HDL 55 12/26/2022 Currently on a regimen of: Lipitor 20mg po qhs . For now will continue with current regimen, will repeat Lipid profile advised to try to adhere to a low cholesterol diet, counseled and educated about diet and exercise, Patient encouraged to come up with a personal goal for weight loss. Assessment & Plan (05/24/2022 5:14 PM EST): Pt here for a f/u Patient with elevated lipids. Most recent lipid profile from: 02/11/2022 shows a total cholesterol of: 221 triglycerides of: 124 HDL of: 69 and LDL of: 129 Currently on a regimen of: Lipitor 20mg po qhs . For now will continue with current regimen advised to try to adhere to a low cholesterol diet, counseled and educated about diet and exercise, Patient encouraged to come up with a personal goal for weight loss. Osteoarthritis 02/13/2012 Resolved Problems Problem Noted Date Diagnosed Date Resolved Date Ulcer of left ankle 01/26/2023 04/30/20 24 Assessment & Plan (01/26/2023 9:37 AM EDT): No evidence of superinfection. Unclear if it is dermatitis versuse other. Referral to dental laboratory assistant. ER precautions given. Encounters Date Type Department Care Team Description 06/06/2024 Telephone [facility] [address] [place] [phone] Pedro Braxton MD Med Refill 05/17/2024 Refill [facility] [address] [place] [address] Vanessa Amor MD 05/17/2024 Refill [facility] [address] [place] [address] Pedro Braxton MD Constipation, unspecified constipation type 04/30/2024 2:00 PM EST Office Visit [facility] [address] [place] [phone] Pedro Braxton MD Essential hypertension (Primary Dx); Constipation, unspecified constipation type; Gastroesophageal reflux disease without esophagitis; Mixed hyperlipidemia; Preventative health care; Class 1 obesity 04/30/2024 Travel 04/24/2024 Telephone [facility] [address] [place] [address] Pedro Braxton MD Chart Prep 04/14/2024 Refill [facility] [address], [place] [phone] Pedro Braxton MD Constipation, unspecified constipation type 04/09/2024 Telephone [facility] [address] [place] [address] RiceEleonora FNP 04/05/2024 9:00 AM EST Office Visit [facility] [address] [place] [address] [place] [address] Eleonora Mcdonald, TRACK PRODUCTION ENGINEER Acute cough (Primary Dx); Chronic anemia; Melena; Dyspepsia 04/05/2024 Telephone [facility] [address] [place] [address] Elizabeth Neal RN Results 04/03/2024 Telephone [facility] [address] [place] [address] Pedro Braxton MD ER Follow-up 04/01/2024 Orders Only [facility] [address] [place] [address] ProviderZulay MD from Last 3 Months Immunizations Name Administration Dates Next Due Influenza High-dose Quadriva lent Preservative Free 02/03/2022 Influenza injectable quadriv alent IIV4 with preservative 01/25/2016,03/24/2015 Influenza injectable quadriv alent preservative free 05/03/2021,05/29/2018,04/25/2016 Influenza, IIV3, injectable 04/04/2011 Influenza, Split (incl. mike fied surface antigen) 02/21/2013,02/13/2012 Moderna Covid-19 Vaccine 12+ 07/14/2021,07/25/19 21,06/26/2020 Pneumococcal Conjugate PCV 13 03/24/2015 Pneumococcal Polysaccharide PPSV23 06/03/2008 Tdap 12/16/2014 Zoster, live 12/16/2014 Social History Tobacco Use Types Packs/Day Years Used Date Smoking Tobacco: Never Passive Smoke Exposure: Never Smokeless Tobacco: Never Tobacco Cessation:Counseling Given: Not Answered Depression Answer Date Recorded Patient Health Questionnaire-9 Score 3 11/28/2023 Patient Health Questionnaire-9 Score 3 11/28/2023 Last PHQ-9: Questionnaire Data Not on file 0 11/28/2023 Housing Stability Answer Date Recorded What is your housing situation today? I have claire britton 11/17/[address] you li ve. Do you have problems with any of the following? None of the above 11/17/2023 Food Insecurity Answer Date Recorded Within the past 12 months, y ou worried that your food would run out before you got money to buy more: Never True 11/17/2023 Within the past 12 months,th e food you bought just didn't last and you didn't have enough money to get more: Never True 09/2023 Transportation Answer Date Recorded In the past 12 months, has l ack of transportation kept you from medical appts, meetings, work or from getting things needed for daily living? No 11/17/2023 Utilities Answer Date Recorded In the past 12 months, has t he electric, gas, oil or water company threatened to shut off services in your home? No 11/17/2023 Depression Answer Date Recorded Patient Health Questionnaire-2 Score 2 11/28/2023 Internet Access Answer Date Recorded Internet Access Q1 Yes 01/13/2024 Internet Access Q2 Not on file 01/13/2024 Comments Unknown Sex and Gender Information Value Date Recorded Sex Assigned at Female 03/14/2022 10:14 AM EDT Legal Sex Female 10:14 AM EDT Gender Identity Female 03/14/2022 10:14 AM EDT Sexual Orientation Straight 03/14/2022 10 :14 AM EDT Last Filed Vital Signs Vital Sign Reading Time Taken Comments Blood Pressure 138/69 04/30/2024 1:54 PM EST Pulse 57 04/30/2024 1:54 PM EST Temperature 35.9 ??C (96.6 ??F) 04/30/2024 1:54 PM ES T Respiratory Rate 20 04/30/2024 1:54 PM EST Oxygen Saturation 96% 04/30/2024 1:54 PM EST Inhaled Oxygen Concentration - - Weight 77.7 kg (171 lb 6.4 oz) 04/30/2024 1:54 P M EST Height 154.9 cm (5' 1 ) 04/30/2024 1:54 PM EST Body Mass Index 32.39 04/30/2024 1:54 PM EST Plan of Treatment Upcoming Encounters Date Type Department Care Team (Late st Contact Info) Description 07/30/2024 1:15 PM EDT Office Visit [facility] [address] [place] [address] Pedro Braxton MD [address] [place] [address] Health Maintenance Due Date Last Done Comments Hepatitis A Vaccines (1 of 2 - Risk 2-dose series) 09/25/1959 Hepatitis B Vaccines (1 of 3 - Risk 3-dose series) 2000 Zoster Vaccines (2 of 3) 02/10/2015 12/16/2014 RSV Patients and Patients Aged 60 years or older (1 - 1-dose 75+ series) 09/25/2015 COVID-19 Vaccine ( season) 2024 07/14/2021, 07/24/2020, 06/26/2020 Influenza Vaccine (#1) 2024 2, 05/03/2021, 05/29/2018, Additional history exists Mammogram 09/17/2024 09/18/2023, 10/2023, 11/06/2020, Additional history exists SDOH Screening 11/16/2024 11/17/2023 Depression Screening 11/27/2024 11/28/2023, 11/28/19 24 DTaP/Tdap/Td Vaccines (2 - Td or Tdap) 12/16/2024 12/16/2014 Alcohol/Substance Use Screening 04/30/2025 04/30/2024 Tobacco Screening 04/30/2025 04/30/2024 Lipid Panel 05/02/2029 05/02/2024, 12/13, 05/31/2022, Additional history exists Pneumococcal Vaccine: 50+ Years Completed 03/24/2015, 06/03/2008 HIB Vaccines Aged Out No longer eligi ble based on patient's age to complete this topic HPV Vaccines Aged Out No longer eligi ble based on patient's age to complete this topic IPV Vaccines Aged Out No longer eligi ble based on patient's age to complete this topic Meningococcal Vaccine Aged Out No rich brayden eligible based on patient's age to complete this topic RSV under 20 months Aged Out No longe r eligible based on patient's age to complete this topic Rotavirus Vaccines Aged Out No longer eligible based on patient's age to complete this topic Procedures Procedure Name Priority Date/Time Associated Diagnosis Comments CBC WITH AUTO DIFFERENTIAL Routine 05/02/2024 10:01 AM EST Gastroesophageal reflux disease without esophagitis COMPREHENSIVE METABOLIC PANEL Routine 05/02/2024 10:01 AM EST Essential hypertension LIPID PANEL, STANDARD Routine 05/02/2024 10:01 AM EST Mixed hyperlipidemia FERRITIN Routine 04/05/2024 10:52 AM EST Chronic anemia CBC WITH AUTO DIFFERENTIAL Routine 04/05/2024 10:52 AM EST Chronic anemia XR CHEST 2 VIEWS Routine 04/05/2024 9:48 AM EST Acute cough POCT COVID-19 AG KAYE ID NOW Routine 04/05/2024 9:28 AM EST Acute cough POCT INFLUENZA A (ID NOW RAPID MOLECULAR) Routine 04/05/2024 9:28 AM EST Acute cough POCT INFLUENZA B (ID NOW RAPID MOLECULAR) Routine 04/05/2024 9:28 AM EST Acute cough BI MAMMOGRAM SCREENING TOMOSYNTHESIS BILATERAL Routine 09/18/2023 2:30 PM EDT from Last 3 Months or Most Recently Relevant to Health Maintenance Results * (ABNORMAL) CBC auto differential (05/02/2024 10:01 AM EST) Only the most recent of2 resultswithin the time period is included. White Blood Count 7.0 4.8 - 10.8 X10*3/uL [facility] Red Blood Count 3.55(L) 4.20 - 5.50 X10*6/uL [facility] Hemoglobin 9.4(L) 12.0 - 16.0 g/dl [facility] Hematocrit 30.5(L) 37.0 - 47.0 % [facility] Mean Corpuscular Volume 85.9 80.0 - 98.0 fL [facility] Mean Corpuscular Hemoglobin 26.5(L) 27.0 - 33.0 pg [facility] Mean Corpuscular HGB Conc 30.8(L) 31.0 - 35.0 g/dl [facility] Red Cell Distribution Width 13.8 11.0 - 16.0 % [facility] Platelet Count 291 160 - 400 X10*3/uL [facility] Mean Platelet Volume 11.4 9.4 - 12.3 fL [facility] Neutrophils Percent Auto 50.0 45 - 73 % [facility] Imm Gran Pct Auto 1.0(H) 0.0 - 0.4 % [facility] Lymphocytes Percent Auto 36.0 20 - 40 % [facility] Monocytes Percent Auto 8.5 2 - 11 % [facility] Eosinophils Percent Auto 3.5 0 - 4 % [facility] Basophils Percent Auto 1.0 0 - 2 % [facility] NRBC Pct Auto 0.0 0.0 - 0.2 /100WBC [facility] Neutrophils Absolute Auto 3.5 2.0 - 8.3 x10*3/uL [facility] Imm Gran Abs Auto 0.07(H) 0.00 - 0.03 X10*3/uL [facility] Lymphocytes Absolute Auto 2.5 1.2 - 4.9 X10*3/uL [facility] Monocytes Absolute Auto 0.6 0.1 - 1.2 X10*3/uL [facility] Eosinophils Absolute Auto 0.2 0.0 - 0.4 X10*3/uL [facility] Basophils Absolute Auto 0.1 0.0 - 0.2 X10*3/uL [facility] NRBC Abs Auto 0.000 0.0 - 0.012 X10*3/uL [facility] Blood Venous blood specimen / Unknown 05/02/2024 10:01 AM EST 05/02/2024 11:15 AM EST us Pedro Leiva MD LAB BLOOD ORDERABLES Final Result [facility] [address] [place] [phone] [phone] * Lipid Panel, Standard (05/02/2024 10:01 AM EST) Triglycerides 92 <150 mg/dL [facility] Comment:Desirable Triglyceri de: less than 150 mg/dLBorderline High Triglyceride 150-199 mg/dLHigh Triglyceride: 200-499 mg/dLVery High Triglyceride: greater than or equal to 5OO mg/dL Cholesterol 127 <200 mg/dL [facility] Comment:Desirable Cholestero l: less than 200 mg/dLBorderline High Cholesterol: 200-239 mg/dLHigh Cholesterol: greater than 239 mg/dL LDL Cholesterol Calculated 58 <100 mg/dL [facility] Comment:Desirable LDL: less than 100 mg/dLNear Optimal/Above Optimal LDL: 110- 129 mg/dLBorderline High LDL: 130-159 mg/dLHigh LDL: 160-189 mg/dLVery High LDL: greater than or equal to 190 mg/dL HDL Cholesterol 51 >40 mg/dL [facility] Comment:Desirable HDL: great er than 40 mg/dL Note: This HDL assay may give artificially low results in patients with liver disease. Blood Venous blood specimen / Unknown 05/02/2024 10:01 AM EST 05/02/2024 11:15 AM EST us Pedro Leiva MD LAB BLOOD ORDERABLES Final Result [facility] [address], [place] [phone] * (ABNORMAL) Comprehensive Metabolic Panel (05/02/2024 10:01 AM EST) Sodium 145 135 - 145 mmol/L [facility] Potassium 3.9 3.3 - 5.1 mmol/L [facility] Chloride 111(H) 96 - 108 mmol/L [facility] Carbon Dioxide 29 22 - 29 mmol/L [facility] Anion Gap 9(L) 12 - 20 [facility] Urea Nitrogen (BUN) 9 9 - 16 mg/dL [facility] Creatinine, Serum 0.79 0.5 - 1.4 mg/dL [facility] Estimated Glomerular Filt Rate >60 [facility] Comment:Chronic Kidney Disea se: Estimated GFR < 60 mL/min/[id number] Kidney Disease: Estimated GFR < 15 mL/min/1.73m2 Glucose 94 60 - 115 mg/dL [facility] Calcium 8.9 8.4 - 10.2 mg/dL [facility] Bilirubin, Total 0.9 0.0 - 1.0 mg/dL [facility] Aspartate Amino Transferase 22 5 - 31 U/L [facility] Alanine Aminotransferase 16 0 - 31 U/L [facility] Total Protein 7.0 6.5 - 8.0 g/dL [facility] Albumin Level 3.7 3.5 - 5.0 g/dL [facility] Alkaline Phosphatase 110 39 - 117 U/L [facility] Blood Venous blood specimen / Unknown 05/02/2024 10:01 AM EST 05/02/2024 11:15 AM EST Pedro Leiva MD LAB BLOOD ORDERABLES Final Result Performing Organization Address City/[facility]/ZIP Co de Phone Number [facility] [address] [place] [phone] * Ferritin (04/05/2024 10:52 AM EST) Ferritin 23 10 - 250 ng/mL [facility] Blood Venous blood specimen / Unknown 04/05/2024 10:52 AM EST 04/05/2024 1:07 PM EST [facility] TRACK PRODUCTION ENGINEER LAB BLOOD ORDERABLES Final Re sult Performing Organization Address City/[facility] Co de Phone Number [facility] [address] [place] [phone] * XR Chest 2 Views (04/05/2024 9:48 AM EST) Anatomical Region Laterality Modality Chest Radiographic Christina ging 04/05/2024 9:48 AM EST Narrative 04/05/2024 12:06 PM EST ?[facility] ?[address] ?[place] [address] ?XRay Report ? Signed ? Patient: Hopper,Mickie ?MR#: [id number] ?? 27 ? : 1940 ?Acct:[id number] ? Age/Sex: 83 / F ?ADM Date: 04/05/24 ? Loc: HO.HHCX ? Attending Dr: Eleonora Mcdonald TRACK PRODUCTION ENGINEER ? Ordering Physician: Eleonora Mcdonald ?? Date of Service: 04/05/24 ?? Procedure(s): XR chest 2V ?? Accession Number(s): [id number] ? cc: Eleonora Mcdonald TRACK PRODUCTION ENGINEER ? EXAMINATION: ?? XR CHEST ? CLINICAL INFORMATION: ?? R/o consolidation ? COMPARISON: ?? Most recent chest radiograph dated 02/04/2024. ? TECHNIQUE: ?? 2 views of the chest were obtained. ? FINDINGS: ?? No airspace consolidation. No pleural effusion or pneumothorax. Stable ?? cardiomediastinal silhouette. Right upper quadrant surgical clips. ? XR/XR chest 2V ?? IMPRESSION: ?? No acute cardiopulmonary findings. ? Electronically signed by: ??Michael Fleming MD ??04/05/2024 12:03 PM EST ? Dictated By: ?Michael Fleming MD ? Signed By: ?<Electronically signed by Michael Fleming MD in OV> ?04/05/24 1203 ? DD/ 0948 ? TD/TT: 04/05/24 1000 ? Csw: SR ? Procedure Note Jocelyn Juarez - 04/05/[address] [address] XRay Report Signed Patient: Mickie HopperMR#: [id number] [birth year] : 1Acct:[id number] Age/Sex: 83 / FADM Date: 04/05/24 Loc: HO.HHCX Attending Dr: Eleonora Mcdonald TRACK PRODUCTION ENGINEER Ordering Physician: Eleonora Mcdonald Date of Service: 04/05/24 Procedure(s): XR chest 2V Accession Number(s): [id number] cc: [facility] EXAMINATION: XR CHEST CLINICAL INFORMATION: R/o consolidation COMPARISON: Most recent chest radiograph dated 02/04/2024. TECHNIQUE: 2 views of the chest were obtained. FINDINGS: No airspace consolidation. No pleural effusion or pneumothorax. Stable cardiomediastinal silhouette. Right upper quadrant surgical clips. XR/XR chest 2V IMPRESSION: No acute cardiopulmonary findings. Electronically signed by: Michael Fleming MD 04/05/2024 12:03 PM EST RP Dictated By: Michael Fleming MD Signed By: <Electronically signed by Michael Fleming MD in OV> 04/05/24 1203 DD/ 0948 TD/TT: 04/05/24 1000 Csw: SR Result [facility] IMG XR PROCEDURES Final Resul t * Influenza B (ID NOW Rapid Molecular) (04/05/2024 9:28 AM EST) Influenza B Negative Negative, Indeterminate [facility] Swab 04/05/2024 9:28 AM EST Result [facility] POINT OF CARE TEST ENTER/EDIT ORDERABLES Final Result Performing Organization Address [facility] Co de Phone Number [facility] [address] [place] [phone] * Influenza A (ID NOW Rapid Molecular) (04/05/2024 9:28 AM EST) Influenza A Negative Negative, Indeterminate [facility] Swab 04/05/2024 9:28 AM EST Result [facility] POINT OF CARE TEST ENTER/EDIT ORDERABLES Final Result Performing Organization Address [facility] Co de Phone Number [facility] [address] [place] [phone] * POCT COVID-19 Ag Kaye ID NOW (04/05/2024 9:28 AM EST) Coronavirus Antigen PCR Negative Negative, Indeterminate, None Detected, Invalid, Specimen unsatisfactory for evaluation, Weakly Positive Swab 04/05/2024 9:28 AM EST [facility] TRACK PRODUCTION ENGINEER POINT OF CARE TEST ENTER/EDIT ORDERABLES Final Result * BI Mammogram Screening Tomosynthesis Bilateral (09/18/2023 2:30 PM EDT) Anatomical Region Laterality Modality Breast Bilateral Mammography 09/18/2023 2:30 PM EDT Narrative 09/18/2023 4:18 PM EDT ? [facility] [place] ? [address] ?[place] [address] ? Mammography Report ? Signed ? Patient: Hopper,Mickie ?MR#: [id number] ?? 27 ? : 1940 ?Acct:[id number] ? Age/Sex: 82 / F ?ADM Date: 09/18/23 ? Loc: HO.MAMMO ? Attending Dr: Sylvia Lennon DO ? Ordering Physician: Sylvia Lennon DO ?Results: 2B ?? enign Findings ? Date of Service: 09/18/23 ?Follow Up: 1 Year From Orig ?? inal Mammogram ? Procedure(s): MM tomosynthesis screening BI ?? Accession Number(s): [id number] ? cc: Pedro Ingram MD; Sylvia Lennon DO ? EXAMINATION: ?? MM DIAGNOSTIC DIGITAL BREAST TOMOSYNTHESIS, BILATERAL ?? US BREAST LIMITED, RIGHT ? MAMMOGRAPHY: ?? CLINICAL INFORMATION: ? 82-year-old female complaining of palpable abnormality in lower lateral ?? right axilla, which has been marked by the technologist. Patient also ?? due for bilateral screening. ? COMPARISON: ?? Mammography: 11/06/2020, 03/07/2019, 03/01/2018, 08/15/2016, and dating ?? back to 2012. ? TECHNIQUE: ?? Digital breast tomosynthesis is performed in both the craniocaudal and ?? mediolateral oblique views along with computer-aided detection (CAD). ?? Synthesized 2D images are generated from the tomosynthesis. In ?? addition, full-field right ML views were obtained x2, as well as a ?? full-field right exaggerated lateral CC 3-D projection. ? FINDINGS: ?? There are scattered areas of fibroglandular density (ACR BI-RADS breast ?? composition Category b). ? BB marker has been placed in the far outer upper right breast by the ?? technologist, indicating the area of palpable concern. There is no ?? underlying mammographic mass or other abnormality. There are bilateral ?? dense vascular calcifications. There are a few small parenchymal ?? nodules which have been stable for several years in both breasts. There ?? are bilateral dermal lesions again seen overlying the posterior ?? inferior medial breasts. There are no suspicious masses, suspicious ?? grouped calcifications, or areas of architectural distortion in either ?? breast. The parenchymal pattern is stable from prior exams. ? ULTRASOUND: ?? CLINICAL INFORMATION: ?? As above. ? COMPARISON: ?? No prior relevant ultrasound. ? TECHNIQUE: ?? Targeted sonographic evaluation was performed using a high frequency ?? linear transducer. Attention to the upper outer quadrant right breast ?? was given. Selected archived documentation. ? FINDINGS: ? RIGHT BREAST: There is a mixture of fatty and fibroglandular tissue. ?? No suspicious mass is seen. ??There is no pathologic acoustic shadowing. ?? No cystic abnormalities. ? In the right axilla there are 4-5 normal-appearing axillary lymph nodes ?? without evidence of cortical thickening, hyperemia, or loss of fatty ?? haley. They have normal toy morphology. These may be what the patient ?? is palpating. ? MM/MM tomosynthesis screening BI ?? IMPRESSION: ?? -There are no findings suspicious for malignancy in either breast. ? -Area of palpable concern in the right axillary region likely relates ?? to 4-5 small benign-appearing lymph nodes, none with pathologic ?? characteristics. ? -There are stable benign findings in both breasts. ? OVERALL ASSESSMENT: ?? Mammography: BI-RADS 2 - Benign Findings ?? Ultrasound: BI-RADS 2 - Benign Findings ? RECOMMENDATION: ?? 1 year F/U ? This patient's information was entered into a reminder system with a ?? target due date for their next mammogram. ? Dictated By: ?Jacoby Benavides MD ? Signed By: ?<Electronically signed by Jacoby Benavides MD in OV> ?05/06/24 1614 ? DD/ 1430 ? TD/TT: ? Csw: ? Procedure Note Jocelyn Juarez - 09/18/2023 [place] [facility] [address] [place] [address] Mammography Report Signed Patient: Mickie HopperMR#: [id number] [birth year] : 1Acct:[id number] Age/Sex: 82 / FADM Date: 09/18/23 Loc: HO.MAMMO Attending Dr: Sylvia Lennon DO Ordering Physician: Sylvia Lennonults: 2B enign Findings Date of Service: 09/18/23Follow Up: 1 Year From Orig inal Mammogram Procedure(s): MM tomosynthesis screening BI Accession Number(s): [id number] cc: Pedro Ingram MD; Jurcsak,Sylvia A DO EXAMINATION: MM DIAGNOSTIC DIGITAL BREAST TOMOSYNTHESIS, BILATERAL US BREAST LIMITED, RIGHT MAMMOGRAPHY: CLINICAL INFORMATION: 82-year-old female complaining of palpable abnormality in lower lateral right axilla, which has been marked by the technologist. Patient also due for bilateral screening. COMPARISON: Mammography: 11/06/2020, 03/07/2019, 03/01/2018, 08/15/2016, and dating back to 2012. TECHNIQUE: Digital breast tomosynthesis is performed in both the craniocaudal and mediolateral oblique views along with computer-aided detection (CAD). Synthesized 2D images are generated from the tomosynthesis. In addition, full-field right ML views were obtained x2, as well as a full-field right exaggerated lateral CC 3-D projection. FINDINGS: There are scattered areas of fibroglandular density (ACR BI-RADS breast composition Category b). BB marker has been placed in the far outer upper right breast by the technologist, indicating the area of palpable concern. There is no underlying mammographic mass or other abnormality. There are bilateral dense vascular calcifications. There are a few small parenchymal nodules which have been stable for several years in both breasts. There are bilateral dermal lesions again seen overlying the posterior inferior medial breasts. There are no suspicious masses, suspicious grouped calcifications, or areas of architectural distortion in either breast. The parenchymal pattern is stable from prior exams. ULTRASOUND: CLINICAL INFORMATION: As above. COMPARISON: No prior relevant ultrasound. TECHNIQUE: Targeted sonographic evaluation was performed using a high frequency linear transducer. Attention to the upper outer quadrant right breast was given. Selected archived documentation. FINDINGS: RIGHT BREAST: There is a mixture of fatty and fibroglandular tissue. No suspicious mass is seen. There is no pathologic acoustic shadowing. No cystic abnormalities. In the right axilla there are 4-5 normal-appearing axillary lymph nodes without evidence of cortical thickening, hyperemia, or loss of fatty haley. They have normal toy morphology. These may be what the patient is palpating. MM/MM tomosynthesis screening BI IMPRESSION: -There are no findings suspicious for malignancy in either breast. -Area of palpable concern in the right axillary region likely relates to 4-5 small benign-appearing lymph nodes, none with pathologic characteristics. -There are stable benign findings in both breasts. OVERALL ASSESSMENT: Mammography: BI-RADS 2 - Benign Findings Ultrasound: BI-RADS 2 - Benign Findings RECOMMENDATION: 1 year F/U This patient's information was entered into a reminder system with a target due date for their next mammogram. Dictated By: Jacoby Benavides MD Signed By: <Electronically signed by Jacoby Benavides MD in OV> 09/18/23 1614 DD/ 1430 TD/TT: Csw: us Sylvia Lennon DO IMG BI PROCEDURES Final Resu lt from Last 3 Months or Most Recently Relevant to Health Maintenance [place] [address] [place] [address] - [employer] Care Teams Cheese Cook Relationship Specialty Start Date End Date Pedro Braxton MD [address] [place] [phone] PCP - General Internal Medicine 03/15/13
--- OUTSIDE RECORDS SUMMARY | 2024-07-01 10:02 | XMS_ITS | Encounter Summary ---
Author Organization [employer] Address [address] [facility] [address] [place] [address] Care Team Providers Care Plastic Technician Name Role Phone Pedro Braxton MD Primary Care Provide r Encounter Details Date Type Department Care Team ([facility] st Contact Info) Description 04/01/2024 Orders Only [facility] [address] [place] [address] ProviderZulay MD Social History Tobacco Use Types Packs/Day Years Used Date Smoking Tobacco: Never Passive Smoke Exposure: Never Smokeless Tobacco: Never Depression Answer Date Recorded Patient Health Questionnaire-9 [...] Description 07/30/2024 1:15 PM EDT Office Visit [facility] [address] [place], [place] [phone] Pedro Braxton MD [address] [place], [place] [phone] documented as of this encounter Procedures Procedure Name Priority Date/Time Associated Diagnosis Comments CT CHEST ABDOMEN PLEVIS W CONTRAST Routine 03/30/2024 3:[address] HEAD W AND WO CONTRAST Routine 03/30/2024 3:20 PM EST documented in this encounter Results * CT Chest abd pel w con (03/30/2024 3:26 PM EST) Anatomical Region Laterality Modality Body, Chest Computed Tomogra phy Historical Provider MD FELIX CT PROCEDURES Final R esult * CT Head w/ and w/o Contrast (03/30/2024 3:20 PM EST) Anatomical Region Laterality Modality Head, Neck Computed Tomogra phy Historical Provider MD FELIX CT PROCEDURES Final R esult documented in this encounter Visit Diagnoses Not on filedocumented in this encounter Additional Health Concerns Assessment Noted Time PHQ-9 Depression Total Score: 3 11/28/19 24 2:27 PM EDT documented as of this encounter Care Teams Plastic Technician Relationship Specialty Start Date End Date Pedro Braxton MD [address] [place], [place] [phone] PCP - General Internal Medicine 03/15/13 documented as of this encounter
--- OUTSIDE RECORDS SUMMARY | 2024-07-01 10:02 | XMS_ITS | Encounter Summary ---
Author Organization [employer] Address [address] [facility] [address] [place] [address] Care Team Providers Care Male Infertility Specialist Name Role Phone Pedro Braxton MD Primary Care Provide r Encounter Details Date Type Department Care Team ([facility] Contact Info) Description 09/27/2022 Orders Only [facility] [address] [place], [place] [phone] Sylvia Valentino LPN Social History Tobacco Use [...] Orientation Straight 03/14/2022 10 :14 AM EDT COVID-19 Exposure Response Date Recorded In the last 10 days, have yo u been in contact with someone who was confirmed or suspected to have Coronavirus/COVID-19? No / Unsure 09/20/2022 1:57 PM EDT documented as of this encounter Plan of Treatment Upcoming Encounters Date Type Department Care Team ([facility] Contact Info) Description 07/30/2024 1:15 PM EDT Office Visit [facility] MED[facility]INE [address] [place], [place] [phone] Pedro Braxton MD [address] [place], [place] [phone] documented as of this encounter Visit Diagnoses Not on filedocumented in this encounter Care Teams Male Infertility Specialist Relationship Specialty Start Date End Date Pedro Braxton MD [address] [place] [phone] PCP - General Internal Medicine 03/15/13 documented as of this encounter
--- OUTSIDE RECORDS SUMMARY | 2024-07-01 10:02 | XMS_ITS | Continuity of Care Document ---
Author Organization 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 I have reviewed and agree with the Assessment and Plan as documented by the Sports Physical Therapist. We discussed the diagnostic uncertainty of home visits and the risk associated with this. In this case I felt this to be an acceptable and reasonable amount of risk given the benefit of avoiding an ED visit. The patient given the opportunity to ask questions. Advised close follow-up with PCP at the beginning of next week, if develops CP/severe SOB/turning blue/uncontrolle d n/v/d or black/bloody emesis or stool/ AMS/severe headache, new focal weakness or numbness, speech or vision changes or uncontrolled dizziness/syncop e/ hi fever to call 911-she and family verbalized understanding of instructions to the medic [email or web address] Not available 06/08/2024 03:36:06 Plan of Treatment Reminders Order Date Submit Date Provider Last Modified By Organization Details Last Modified Time Details Appointments None recorded. Lab rapid SARS CoV 2 Ag, QL [place], respiratory specimen 2024 025 [email or web address] 0 [facility], [address] [place] [address], [phone], 14:48:13 rapid flu (A+B) 2024 025 [email or web address] 0 [facility], [address] [place] [address], [phone], 5 14:48:13 BMP, serum or plasma 2024 025 [email or web address] 0 [facility], [address] [place] [address], [phone], 5 14:49:41 rapid strep group A, throat 2024 025 [email or web address] 0 [facility], [address] [place] [address], [phone], 5 14:48:13 Referral None recorded. Procedures None recorded. Surgeries None recorded. Imaging None recorded. Medication Orders meclizine 25 mg tablet 2024 025 [email or web address] 0 [id number], [address] [place], [place], [phone], 5 14:48:13 meclizine 12.5 mg tablet 2024 025 [id number], [address] [place], [place], [phone], 5 14:48:21 doxycycline hyclate 100 mg tablet 2024 025 [email or web address] 0 [id number], [address], [place], [id number], 5 14:48:12 doxycycline hyclate 100 mg capsule 2024 025 [id number], [address], [place], [phone], 5 14:48:18 Patient TargetsNo targets recorded. Patient InstructionsNo instructions recorded. Reason for Referral None Reported. Results Created Date Observation Date Name Description Value Unit Range Abnormal Flag Note LastModifiedBy Organization Detail LastModifiedTime 06/07/19 25 06/07/2024 rapid strep group A, throa t Strep negati ve Not Available [facility] ed [address] [place], [phone], 06/07/2024 14:10:26 06/07/19 25 06/07/2024 rapid SARS CoV 2 Ag, QL IA, respi rator y speci men rapid SARS CoV 2 Ag, QL IA, respiratory specimen negati ve Not Available [facility] ed [address] [place] [address], [phone], 06/07/2024 14:10:19 06/07/19 25 06/07/2024 rapid flu (A+B) Flu negati ve Not Available [facility] ed [address] [place] [address], [phone], 06/07/2024 14:10:20 Result Notes None recorded. Medical Equipment None Reported. Allergies No known drug allergies Medications Name Sig Start Date Stop Date Status Note LastModified by Organization Details LastModified Time medbox status USE DIRECTED active Not Available Not Available No t Available mm-pullups [id number] active Not Available Not Available Not Available verapamil ER (SR) 120 mg tablet,exten ded release TAKE 1 TABLET BY MOUTH EVERY MORNING active Not Available Not Available No t Available losartan 50 mg tablet TAKE 1 TABLET BY MOUTH AT BEDTIME active Not Available Not Available No t Available celecoxib 200 mg capsule TAKE 1 CAPSULE BY MOUTH EVERY TWELVE HOURS active Not Available Not Available No t Available doxycycline hyclate 100 mg capsule TAKE 1 CAPSULE BY MOUTH TWICE DAILY FOR 9 DAYS active Not Available Not Available No t Available atorvastatin 20 mg tablet TAKE 1 TABLET BY MOUTH EVERY EVENING active Not Available Not Available No t Available cetirizine 10 mg tablet TAKE 1 TABLET BY MOUTH EVERY MORNING active Not Available Not Available No t Available benzonatate 200 mg capsule TAKE 1 CAPSULE BY MOUTH THREE TIMES DAILY FOR 10 DAYS NEEDED active Not Available Not Available No t Available senna 8.6 mg tablet TAKE 2 TABLETS BY MOUTH EVERY DAY AT BEDTIME NEEDED active Not Available Not Available No t Available prednisone 20 mg tablet TAKE 3 TABLETS BY MOUTH ONE TIME EACH DAY FOR 5 DAYS. SEE INSTRUCTION S active Not Available Not Available No t Available meclizine 12.5 mg tablet TAKE 1 TABLET BY MOUTH THREE TIMES DAILY active Not Available Not Available Not Available aspirin 81 mg tablet,delay ed release TAKE 1 TABLET BY MOUTH EVERY MORNING active Not Available Not Available No t Available acetaminophe n ER 650 mg tablet,exten ded release TAKE 1 TABLET BY MOUTH EVERY 6 HOURS NEEDED active Not Available Not Available No t Available famotidine 20 mg tablet TAKE 1 TABLET BY MOUTH TWICE A DAY NEEDED FOR UPSET STOMACH active Not Available Not Available No t Available meclizine 25 mg tablet Take 0.5 tablets by oral route. 2024 active Not Available Not Available Not Avai lable baclofen 10 mg tablet TAKE 1/2 TABLET BY MOUTH TWICE DAILY NEEDED FOR MUSCLE SPASMS active Not Available Not Available No t Available benzonatate 100 mg capsule TAKE 1 CAPSULE BY MOUTH THREE TIMES DAILY IN THE MORNING, AT NOON, AND AT BEDTIME NEEDED FOR COUGH FOR UP TO 7 DAYS DO NOT BREAK, CRUSH, DISSOLVE OR CHEW active Not Available Not Available No t Available cephalexin 500 mg capsule TAKE 1 CAPSULE BY MOUTH TWICE A DAY FOR 7 DAYS active Not Available Not Available No t Available venlafaxine 37.5 mg tablet TAKE 1 TABLET BY MOUTH DAILY FOR FOURTEEN DAYS THEN INCREASE TO 1 TABLET TWICE DAILY active Not Available Not Available Not Available mirtazapine 30 mg tablet TAKE 1 TABLET BY MOUTH AT BEDTIME active Not Available Not Available No t Available docusate sodium 100 mg capsule TAKE 1 CAPSULE BY MOUTH TWICE DAILY IN THE MORNING AND IN THE EVENING NEEDED active Not Available Not Available No t Available gabapentin 300 mg capsule TAKE 2 CAPSULES BY MOUTH EVERY DAY AT BEDTIME active Not Available Not Available No t Available omeprazole 20 mg capsule,howie yed release TAKE 1 CAPSULE BY MOUTH TWICE DAILY IN THE MORNING AND IN THE EVENING WITH FOOD active Not Available Not Available No t Available dorzolamide 22.3 mg-timolol 6.8 mg/mL eye drops INSTILL 1 DROP IN EACH EYE TWICE DAILY DIRECTED active Not Available Not Available Not Available montelukast 10 mg tablet TAKE 1 TABLET BY MOUTH EVERY EVENING active Not Available Not Available No t Available codeine 10 mg-guaifenes in 100 mg/5 mL oral liquid TAKE 10 ML BY MOUTH EVERY 6 HOURS NEEDED FOR COUGH active Not Available Not Available No t Available clobetasol 0.05 % topical ointment APPLY TO THE AFFECTED AREA(S) TWICE DAILY active Not Available Not Available Not Available cefuroxime axetil 500 mg tablet TAKE 1 TABLET BY MOUTH TWICE DAILY FOR 10 DAYS active Not Available Not Available No t Available albuterol sulfate HFA 90 mcg/actuatio n aerosol inhaler INHALE 2 PUFFS BY MOUTH EVERY 6 HOURS NEEDED FOR WHEEZING OR SHORTNESS OF BREATH active Not Available Not Available No t Available ondansetron 4 mg disintegrati ng tablet DISSOLVE 1 TABLET ON TONGUE EVERY 8 HOURS NEEDED FOR NAUSEA AND VOMITING active Not Available Not Available No t Available losartan 100 mg tablet TAKE 1 TABLET BY MOUTH AT BEDTIME active Not Available Not Available No t Available fluticasone propionate 50 mcg/actuatio n nasal spray,suspen cash INSTILL 2 SPRAYS IN EACH NOSTRIL ONCE DAILY active Not Available Not Available N ot Available doxycycline hyclate 100 mg tablet Take 1 tablet by oral route. 2024 active Not Available Not Available Not Avai lable loratadine 10 mg tablet TAKE 1 TABLET BY MOUTH EVERY MORNING active Not Available Not Available No t Available simethicone 80 mg chewable tablet CHEW AND SWALLOW 1 TABLET BY MOUTH THREE TIMES DAILY BEFORE MEALS NEEDED FOR GAS active Not Available Not Available No t Available neomycin 3.5 mg/g-polymyx in B 10,000 unit/g-dexam eth 0.1 % eye oint APPLY IN THE RIGHT EYE AT BEDTIME NEEDED active Not Available Not Available No t Available azithromycin 500 mg tablet TAKE 1 TABLET BY MOUTH EVERY DAY FOR 3 DAYS active Not Available Not Available No t Available glycerin (adult) rectal suppository INSERT 1 SUPPOSITORY RECTALLY TWICE DAILY ONCE INSTILL EH MORNING AND ONE AT BEDTIME NEEDED FOR CONSTIPATIO N active Not Available Not Available No t Available Ferrocite 324 mg (106 mg iron) tablet TAKE 1 TABLET BY MOUTH DAILY active Not Available Not Available Not Available diclofenac 1 % topical gel APPLY 2 GRAMS TOPICALLY TO AFFECTED AREA(S) TWICE DAILY active Not Available Not Available Not Available guaifenesin ER 600 mg tablet, extended release 12 hr TAKE 1 TABLET BY MOUTH TWICE DAILY DO NOT BREAK, CRUSH, DISSOLVE OR CHEW active Not Available Not Available No t Available Breo Ellipta 200 mcg-25 mcg/dose powder for inhalation INHALE 1 PUFF BY MOUTH EVERY DAY AT THE SAME TIME RINSE MOUTH AFTER USING. active Not Available Not Available No t Available selenium sulfide 2.5 % lotion APPLY TWICE A WEEK NEEDED FOR caspa active Not Available Not Available No t Available Vitals Date Recorded Body temperature Oxygen saturation Oxygen saturation in Arterial blood by Pulse oximetry Body height Heart rate Respiratory rate Body weight Systolic blood pressure Diastolic blood pressure Provider Name and Address Organization Details Last Updated DateTime 99.1 [degF] 96 % 96 % 154.94 cm 77 /min 18 /min 47439.5 6 g 139 mm[Hg] 74 mm[Hg] Not Available [facility] - production 14:03:22 Date Recorded Heart rate Systolic blood pressure Diastolic blood pressure Provider Name and Address Organization Details Last Updated DateTime 06/07/2024 86 /min 123 mm[Hg] 76 mm[Hg] Paula Paulson MD [address] [place] [address],[address], [place], [phone], [place] [facility] 06/07/2024 14:51:00 Social History None recorded. Functional Status None recorded. Mental Status None recorded. Family History Nothing Reported. Medical History No medical history recorded. Gynecological HistoryNo gynecological history recorded. Obstetrics History GPAL:G 0 P 0 0 0 0 Past Encounters Encounter ID Performer Location Encounter Start Date Encounter Closed Date Diagnosis/Indication Diagnosis SNOMED-CT Code Diagnosis ICD10 Code Diagnosis Note [id number] Paula [facility]son MD [facility] [address] [place] [phone] 06/07/2024 14:03:20 06/09/2024 15:01:25 Upper respiratory infection 70266705 J06.9 w/ dizziness ? BPV- trial meclizine/ not truly orthostati c/is able to hydrate p.o. and advised of the need to do so/also advised to change positions slowly-Mad e patient aware meclizine can be sedating so given her age will do 12.5 mg-Possibl e sinusitis/ bronchitis will cover with doxycyclin ehas had doxycyclin e before verified on med list. Advised to use your albuterol 2 puffs 4 times a day and increase her Flonase to 1 puff each nostril twice a day. Continue Breo as directed NKDA/ Pharmacy verified Health Concerns Section Related Observation LastModified by Organization Detai ls LastModified Time None Recorded Concern Status LastModified by Organization Details LastModified Time None Recorded Payers Encounter Date Sequence Insurance Name Policy Number Policy Huagn Covered Member ID Huang Member ID Guarantor Name 06/07/2024 1 [facility] - DOS ON OR AFTER 2022 - DUAL ELIGIBLE - [facility] [employer] AND ONE [employer] (MEDICARE REPLACEMENT/ADV ANTAGE - HMO) Mickie Hopper [id number] Mickie Hopper Notes Date Note Type Note Provider Name and Address Organization Details Recorded Time 5 text/html CRC Nurse Triage Notes (Chaitanya Skinner - RN): Reason For Request: *Pt's granddaughter unable to provide PCP detailsPt's granddaughterJessica reporting a cough, heave white congestion, fever going on 4 days Patient Reports: Increased work of breathing/labored ? with or without fever; Unable to speak in full sentences without distress; Needs to sleep sitting up, can? t catch breath; Shortness of breath in setting of confusion; Cough, fever greater than 2 days ; Lower extremity swelling; History of asthma, increased use of inhaler; COPD; Sputum increase ; Cough; Shortness of breath with exertion; Pain with inspirationDenies: Discoloration of skin -cyanosis Chief Complaints: Cough, Fever/chillsPMH: COPD/Asthma, HypertensionPMH Reviewed at 06/07/2024:15Allergies Reviewed at 06/07/2024:15Comments: [employer] Gatherer verified the Pt.'s name//address and phone number. Education provided on the response time and the Pt. was advised to monitor reported s/s and seek emergency treatment if needed.CG reports the pt is feeling unwell with a cough/cold and congestion - Fever - Productive cough with white phlegm - SOB and speaking short sentences - Unable to get Out of bed. S/S started 4 days ago - Reports taking Pills for coughing. Concerns expressed and ER treatment declined. Sports Physical Therapist Organization Information for [facility] Legal Name: [employer]?Address: [address] [place] [id number], USMedical Director: Valerio Hunter [facility] No.: [id number] Sports Physical Therapist POC Test Results from [facility] Rapid COVID antigen (13:49:17)COVID: - Rapid influenza antigen (13:49:18)Flu: - Rapid strep test (13:49:18)Strep: - iSTAT Chem8+ (14:23:10) Na: 140 mEq/L K: 3.7 mEq/L Cl: 105 mEq/L iCa: 1.17 mmol/L TCO2: 23 mmol/L Glu: 100 mg/dL BUN: 7 mg/dL Crea: 0.8 mg/dL Hct: 29 % Hb: 9.9 g/dL A Attachments uploaded as part of this test result can be found under Documents section. ......................... ......................... ......................... ......................... ......................... ................ Sports Physical Therapist Note From [facility]: Sent to a call for a pt complaining of cough. [facility] arrives on scene, pt is alert and oriented, airway is patent. Pt's primary language is Trinid[place]. Family serves as psychiatric specialist. Pt has history of COPD, Asthma, and Htn. Allergies verified: NKDA; Pt states she was treated at ED for URI/bronchitis approx 3-4 months ago. Pt states she was prescribed Antibiotics, prednisone, and Guaifenesin (which she still takes). Pt complains of productive cough with yellow/white phlegm x 3-4 months. Pt complains of dizziness when standing, sore throat, worsening cough, and feeling warm x 3 days. Pt also complains of decreased PO intake today. Pt denies headache, sinus pain, cp, sob, n/v/d, abd pain, black/bloody stool, hematuria, or loc. Pt has an Albuterol MDI she takes 1-2 times daily, Flonase 1 time daily, and Breo-Ellipta once daily. 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 (sitting) BP:139/74, P:77, RR:18, SpO2:96% RA, T:99.1; (standing) BP:123/76, P:86; Head: no sinus tenderness; Throat: erythema, no edema/exudate noted; Lung sounds: bilateral rhonchi; Abdomen: soft, non-tender, no distention; Back: unremarkable; Extremities: no peripheral edema; Neuro exam: negative; Rapid covid/flu test: neg; Rapid strep test: neg; [facility] orders POC bloodwork. IV access/venous blood draw performed; Chem8+ results: uploaded to [facility]; [facility] orders Meclizine 12.5mg PO and Doxycycline 100mg PO. [facility] sends script to pt's pharmacy. Meclizine 12.5mg P and Doxycycline 100mg PO administered without incident. Pt advised to use Albuterol MDI 2 puffs, 4 times daily, Flonase 1 puff each nostril BID, and Breo Ellipta daily; Pt advised to gargle with warm salt water and change positions slowly. Pt's family advised to follow up with PCP. Red flags discussed. Pt/family have no further questions. ......................... ......................... ......................... ......................... ......................... ................ [facility] Consulted: Paula Paulson ......................... ......................... ......................... ......................... ......................... ................ Disposition: Fulfilled SEG MD: Patient denies headache, focal neuro-deficits, chest pain, palpitations, significant shortness of breath Paula Paulson MD [address] [place] [address],[address], [place], [phone], [employer] 06/08/2024 03:38:49 OBGyn Episode No OBEpisode recorded.
--- OUTSIDE RECORDS SUMMARY | 2024-07-01 10:03 | XMS_ITS | Clinical Summary ---
Author Organization [facility] Address [address] [place] [address] Phone Care Team Providers Care Pharmacy Salesperson Name Role Phone Pedro Ingram MD Primary Care Provi adriana Allergies Active Allergy Reactions Criticality Noted Date Comments Animal Dander 03/30/2024 Pollen Extracts 03/30/2024 Medications atorvastatin (LIPITOR) 20 mg tablet Take 1 tablet (20 mg total) by mouth. 5 Active docusate sodium (COLACE) 100 mg capsule TAKE 1 CAPSULE BY MOUTH TWICE DAILY IN THE MORNING AND IN THE EVENING NEEDED 4 Active aspirin 81 mg EC tablet Take 1 tablet (81 mg total) by mouth 1 (one) time each day in the morning. 4 Active losartan (COZAAR) 50 mg tablet Take 1 tablet (50 mg total) by mouth. 4 Active montelukast (SINGULAIR) 10 mg tablet Take 1 tablet (10 mg total) by mouth. 9 Active ondansetron ODT (ZOFRAN-ODT) 4 mg disintegrating tablet Dissolve 1 tablet (4 mg total) on top of the tongue every 8 (eight) hours if needed. 2 Active senna 8.6 mg tablet TAKE 2 TABLETS BY MOUTH EVERY DAY AT BEDTIME NEEDED 4 Active verapamil SR (CALAN-SR) 120 mg CR tablet Take 1 tablet (120 mg total) by mouth 1 (one) time each day with breakfast. 4 Active Encounters Date Type Department Care Team Description 06/07/2024 9:26 PM EST - 06/07/2024 11:07 PM EST Emergency [facility] Emergency [address] [place] [address] Discharge Disposition: Home or Self Care from Last 3 Months Medical History Medical History Date Comments Hypertension 07/07/2011 DX:Hypertension Osteoarthritis 07/07/2011 DX:Osteoarthriti s Anemia 07/07/2011 DX:Anemia Cervical radiculopathy 07/07/2011 DX:Cervic al radiculopathy Hyperlipidemia 11/19/2018 DX:Hyperlipidemi a KERON (obstructive sleep apnea) 11/19/2018 DX :KERON (obstructive sleep apnea) Glaucoma 11/19/2018 DX:Glaucoma GERD (gastroesophageal reflux disease) 11/19/2018 DX:GERD (gastroesophageal reflux disease) CAD (coronary artery disease) 11/19/2018 DX :CAD (coronary artery disease) Fatty liver 11/19/2018 DX:Fatty liver Asthma 10/11/2018 DX:Asthma Chronic rhinitis 10/11/2018 DX:Chronic rhin itis Allergic rhinitis 11/19/2018 DX:Allergic rh initis History of transfusion Social History Tobacco Use Types Packs/Day Years Used Date Smoking Tobacco: Never Smokeless Tobacco: Never Alcohol Use Standard Drinks/Week Comments No 0 (1 standard drink = 0.6 oz pur e alcohol) Comments Unknown Sex and Gender Information Value Date Recorded Sex Assigned at Not on file Legal Sex Female 8:26 AM EST Gender Identity Not on file Sexual Orientation Not on file Obstetrics History Last Filed Vital Signs Vital Sign Reading Time Taken Comments Blood Pressure 135/70 06/07/2024 9:43 PM EST Pulse 90 06/07/2024 9:43 PM EST Temperature 37.2 ??C (99 ??F) 06/07/2024 9:43 PM EST Respiratory Rate 20 06/07/2024 9:43 PM EST Oxygen Saturation 99% 06/07/2024 9:43 PM EST Inhaled Oxygen Concentration - - Weight 79.4 kg (175 lb) 06/07/2024 9:43 PM EST Height 167.6 cm (5' 6 ) 06/07/2024 9:43 PM EST Body Mass Index 28.25 06/07/2024 9:43 PM EST Plan of Treatment Health Maintenance Due Date Last Done Comments Hepatitis A Vaccines (1 of 2 - Risk 2-dose series) 09[birth year]25/1959 Hepatitis B Vaccines (1 of 3 - Risk 3-dose series) 2000 Zoster Vaccines (1 of 2) 02/10/2015 12/16/2014 RSV Immunization Patients 60+ Years Old (1 - 1-dose 75+ series) 09/25/2015 Falls Risk Assessment 04/27/2022 Medicare Annual Wellness Visit 04/27/2022 Osteoporosis Screening (Bone Density Screening) 04/27/2022 Social Influencers of Health Screening 04/27/2022 COVID-19 Vaccine ( season) 2024 07/14/2021, 07/24/2020, 06/26/2020 Influenza Vaccine (#1) 2024 2, 05/03/2021, 05/29/2018, Additional history exists Depression Screening 11/27/2024 11/28/2023 DTaP,Tdap,and Td Vaccines (2 - Td or Tdap) 12/16/2024 12/16/2014 Hypertension/CHF/CAD Annual BMP Blood Test 05/02/2025 05/02/2024, 03/30/2024, 02/04/2024 Cholesterol Screening (Lipid Panel) 05/02/2029 05/02/2024 Pneumococcal Vaccine: 50+ Years Completed 03/24/2015, 06/03/2008 HIB Vaccines Aged Out No longer eligi ble based on patient's age to complete this topic HPV Vaccines Aged Out No longer eligi ble based on patient's age to complete this topic IPV Vaccines Aged Out No longer eligi ble based on patient's age to complete this topic MMR Vaccines Aged Out No longer eligi ble based on patient's age to complete this topic Meningococcal ACWY Vaccine Aged Out N o longer eligible based on patient's age to complete this topic Meningococcal B Vacine Aged Out No lo nger eligible based on patient's age to complete this topic RSV Immunization Patients Under 20 months Aged Out No longer eligible based on patient's age to complete this topic Varicella Vaccines Aged Out No longer eligible based on patient's age to complete this topic Procedures Procedure Name Priority Date/Time Associated Diagnosis Comments BASIC METABOLIC PANEL STAT 03/30/2024 12:09 PM EST from Last 3 Months or Most Recently Relevant to Health Maintenance Results * Basic metabolic panel (03/30/2024 12:09 PM EST) Sodium 141 133 - 145 mmol/L LAB CHEMISTRY METHOD 03/30/2024 1:04 PM [facility] Potassium 3.6 3.5 - 5.5 mmol/L LAB CHEMISTRY METHOD 03/30/2024 1:04 PM [facility] Chloride 109 96 - 110 mmol/L LAB CHEMISTRY METHOD 03/30/2024 1:04 PM [facility] CO2 27 21 - 32 mmol/L LAB CHEMISTRY METHOD 03/30/2024 1:04 PM [facility] Anion Gap 5 3 - 11 LAB CHEMISTRY METHOD 03/30/2024 1:04 PM [facility] Glucose 98 70 - 100 mg/dL LAB CHEMISTRY METHOD 03/30/2024 1:04 PM [facility] BUN 7 5 - 25 mg/dL LAB CHEMISTRY METHOD 03/30/2024 1:04 PM [facility] Creatinine 0.79 0.50 - 1.10 mg/dL LAB CHEMISTRY METHOD 03/30/2024 1:04 PM [facility] eGFR 74 >=60 mL/min/1. 73m2 LAB CHEMISTRY METHOD 03/30/2024 1:04 PM [facility] Comment:Calculation based on the??Chronic Kidney Disease Epidemiology Collaboration (CKD-EPI) equation refit??without adjustment for race. BUN/Creatinine Ratio 8.9 LAB CHEMISTRY METHOD 03/30/2024 1:04 PM [facility] Calcium 8.9 8.5 - 10.5 mg/dL LAB CHEMISTRY METHOD 03/30/2024 1:04 PM [facility] Blood Venous blood specimen / Unknown Venipuncture / Unknown 03/30/2024 12:09 PM EST 03/30/2024 12:12 PM EST us Zulema Fuentes MD LAB BLOOD ORDERABLES Final Resul t [facility] [address] [place] [address], from Last 3 Months or Most Recently Relevant to Health Maintenance Additional Health Concerns Infection Onset Date Last Indicated Respiratory Rule-Out 06/07/2024 06/07/2024 COVID-19 Rule-Out 06/07/2024 06/07/2024 Insurance [facility] MEDIC[facility] Member Subscriber Plan / Payer (Ef fective 2008-Present) Name:Mickie Hopper Relation to Subscriber:Self Name:HopperErnst dumontia Payer ID:[id number] Group ID:[id number] Type:Not on file Address: [place] [address] [address] [id number] Care Teams Pharmacy Salesperson Relationship Specialty Start Date End Date Pedro Ingram MD [address] [place] [address] [place] [id number] PCP - General 11/23/09
--- OUTSIDE RECORDS SUMMARY | 2024-07-01 10:03 | XMS_ITS | Encounter Summary ---
Author Organization [facility] Address [address] [place] [address] Care Team Providers Care Cable Ferry Operator Name Role Phone Pedro Ingram MD Primary Care Provi adriana Reason for Visit * Reason Comments Shortness of Breath Sob x 4 days Encounter Details Date Type Department Care Team (Late st Contact Info) Description 06/07/2024 9:26 PM EST - 06/07/2024 11:07 PM EST Emergency [facility] Emergency [address] [place] [address] Discharge Disposition: Home or Self Care Social History Tobacco Use Types Packs/Day Years Used Date Smoking Tobacco: Never Smokeless Tobacco: Never Alcohol Use Standard Drinks/Week Comments No 0 (1 standard drink = 0.6 oz pur e alcohol) Comments Unknown Sex and Gender Information Value Date Recorded Sex Assigned at Not on file Legal Sex Female 8:26 AM EST Gender Identity Not on file Sexual Orientation Not on file documented as of this encounter Last Filed Vital Signs Vital Sign Reading [...] Mass Index 28.25 06/07/2024 9:43 PM EST documented in this encounter Medications at Time of Discharge aspirin 81 mg EC tablet Take 1 tablet (81 mg total) by mouth 1 (one) time each day in the morning. 11/28/2023 atorvastatin (LIPITOR) 20 mg tablet Take 1 tablet (20 mg total) by mouth. 04/30/2015 docusate sodium (COLACE) 100 mg capsule TAKE 1 CAPSULE BY MOUTH TWICE DAILY IN THE MORNING AND IN THE EVENING NEEDED 11/22/2023 losartan (COZAAR) 50 mg tablet Take 1 tablet (50 mg total) by mouth. 09/01/2023 montelukast (SINGULAIR) 10 mg tablet Take 1 tablet (10 mg total) by mouth. 10/11/2018 ondansetron ODT (ZOFRAN-ODT) 4 mg disintegrating tablet Dissolve 1 tablet (4 mg total) on top of the tongue every 8 (eight) hours if needed. 12/12/2021 senna 8.6 mg tablet TAKE 2 TABLETS BY MOUTH EVERY DAY AT BEDTIME NEEDED 10/26/2023 verapamil SR (CALAN-SR) 120 mg CR tablet Take 1 tablet (120 mg total) by mouth 1 (one) time each day with breakfast. 02/20/2024 documented as of this encounter Discharge Disposition Disposition Code Departure Means Destination Home or Self Care documented in this encounter Progress Notes * Zulema Brasher RN - 06/07/2024 9:39 PM EST Pt called ems feeling sob x 4 days . Increased cough . No chest pain. Hx asthma . Pt is sob on exertion. Ems reports pt in no acute distress. Pt speaking without difficulity . Recent hx bronchitis and is on antibiotics documented in this encounter Plan of Treatment Scheduled Orders Name Type Priority Associated Diagnoses Orde r Schedule ECG 12 lead ECG STAT Once for 1 Oc currences starting 06/07/2024 until 06/07/2024 documented as of this encounter Visit Diagnoses Not on filedocumented in this encounter Additional Health Concerns Infection Onset Date Last Indicated Resolved Time Respiratory Rule-Out 06/07/2024 06/07/2024 COVID-19 Rule-Out 06/07/2024 06/07/2024 documented as of this encounter Care Teams Cable Ferry Operator Relationship Specialty Start Date End Date Pedro Ingram, MD [address] [place] [address] [place] [phone] PCP - General 11/23/09 documented as of this encounter
--- OUTSIDE RECORDS SUMMARY | 2024-07-01 10:03 | XMS_ITS | Encounter Summary ---
Author Organization [employer] Address [address] [facility] [address] [place] [address] Care Team Providers Care Teacher Physically Impaired Name Role Phone Pedro Braxton MD Primary Care Provide r Reason for Visit * Reason Onset Date Comments Med Refill 06/06/2024 Encounter Details Date Type Department Care Team ([facility] st Contact Info) Description 06/06/2024 Telephone [facility] [address], [place] [phone] Pedro Braxton MD [address] [place], [place] [phone] Med Refill Social History Tobacco Use Types Packs/Day Years [...] AM EDT documented as of this encounter Miscellaneous Notes * Telephone Encounter - Hollie Salvador RN - 06/07/2024 4:20 PM EST TC placed to pt via [email or web address] electric distribution engineer (Rodrigo ID#[id number]) regarding medication request. [facility] that she has not picked up yet. Advised pt to picking belt operator medications prescribed. Pt denies chest pain, dizziness, blurred vision, chills. Pt reports a fever but does not know the number. And states it was ninety something . Pt reports a little SOB, cough, tight chest, but [facility] and has not picked up medications. Pt reports pain in right arm due to arthritis. Advised pt if she gets worse or new symptoms arise to go to [facility] tomorrow or go to ED. Pt agrees to plan and denies any questions or concerns at this time. * Telephone Encounter - Tricia Hernandez - 06/06/2024 12:01 PM EST Pt spouse walked in requesting refill on benzonatate. documented in this encounter Plan of Treatment Upcoming Encounters Date Type Department Care Team ([facility] st Contact Info) Description 07/30/2024 1:15 PM EDT Office Visit [facility] [address] [place] [address] Pedro Braxton MD [address] [place] [address] documented as of this encounter Visit Diagnoses Not on filedocumented in this encounter Additional Health Concerns Assessment Noted Time PHQ-9 Depression Total Score: 3 11/28/19 24 2:27 PM EDT documented as of this encounter Care Teams Teacher Physically Impaired Relationship Specialty Start Date End Date Pedro Braxton MD [address] [place] [address] PCP - General Internal Medicine 03/15/13 documented as of this encounter
--- OUTSIDE RECORDS SUMMARY | 2024-07-01 10:03 | XMS_ITS | Encounter Summary ---
Author Organization [employer] Address [address] [facility] 7 [place] [address] Care Team Providers Care Travel Clerk Name Role Phone Pedro Braxton MD Primary Care Provide r Encounter Details Date Type Department Care Team (Late st Contact Info) Description 06/09/2022 Orders Only [facility] MED & PEDS [address] [place], [place] [phone] Sylvia Valentino LPN Social History Tobacco Use Types Packs/Day Years Used Date Smoking Tobacco: Never Smokeless Tobacco: Never PHQ-2 Answer Date [...] suspected to have Coronavirus/COVID-19? No / Unsure 05/31/2022 10:02 AM EST documented as of this encounter Plan of Treatment Upcoming Encounters Date Type Department Care Team (Late Contact Info) Description 07/30/2024 1:15 PM EDT Office Visit [facility] MEDICINE [address] [place], [place] [phone] Pedro Braxton MD [address] [place], [place] [phone] documented as of this encounter Visit Diagnoses Not on filedocumented in this encounter Care Teams Travel Clerk Relationship Specialty Start Date End Date Pedro Braxton MD [address] [place] [address] PCP - General Internal Medicine 03/15/13 documented as of this encounter
--- OUTSIDE RECORDS SUMMARY | 2024-07-01 10:03 | XMS_ITS | Encounter Summary ---
Author Organization [employer] Address [address] [facility] [address], [place] [address] Care Team Providers Care Meat Stocker Name Role Phone Pedro Braxton MD Primary Care Provide r Encounter Details Date Type Department Care Team (Late st Contact Info) Description 09/05/2022 Orders Only [facility] MED & PEDS [address] [place] [address] Sylvia Valentino LPN Social History Tobacco Use [...] Description 07/30/2024 1:15 PM EDT Office Visit [facility] MEDICINE [address] [place], [place] [phone] Pedro Braxton MD [address] [place] [address] documented as of this encounter Visit Diagnoses Not on filedocumented in this encounter Care Teams Meat Stocker Relationship Specialty Start Date End Date Pedro Braxton MD [address] [place] [id number] PCP - General Internal Medicine 03/15/13 documented as of this encounter
--- OUTSIDE RECORDS SUMMARY | 2024-07-01 10:03 | XMS_ITS | Data Portability ---
Author Organization [employer] [employer] Address [address] [place] [id number] Care Team Providers Care Lamp Tester And Inspector Name Role Phone HIM CCA OTHER Assessment Encounter Date Assessment Date Assessment LastModified by Organization Details LastModified Time 12/08/2022 12/08/2022 I have reviewed and agree with the assessment and plan as documented by the kier operator. I provided real time medical direction for this encounter and was immediately available to provide additional phone based assistance as needed. History as noted by kier operator. Pt reports the onset yesterday evening of myalgias, diffuse headache, and chills. No fever. She also endorses a mild recent non productive cough. Pt denies any focal weakness, vomiting or speech changes with the symptoms last night. Pt reports that she took diclofenac, which she takes for arthritis, and all of her symptoms resolved except that she still has a mild residual headache. No dizziness or vomiting. No nasal congestion or rhinorrhea. No rash. No recent fall or trauma. On exam, pt appears comfortable, no distress. Vitals normal. Speech and neuro exam normal. Rapid Covid and Flu both negative. Impression: Etiology of pt's symptoms not clear, possibly related to mild viral illness. Her symptoms last night have all resolved after she took diclofenac but still has a mild, residual diffuse headache. No concerning neurologic symptoms and her neurologic exam currently is normal. Vitals also normal. Negative Covid and Flu today is also reassuring. Pt is instructed to use tylenol, 2 tabs tid prn any residual SALAS. Primary care team needs to call and follow up with the pt tomorrow to ensure that she continues to improve and feel better. Pt instructed to seek medical attention right away with any worsening or new symptoms, such as speech or vision changes or any focal weakness,, which are reviewed with her. [email or web address] Not available 12/08/2022 15:34:11 02/23/2023 02/23/2023 I provided real -time medical direction via phone for this encounter, and was available for additional phone based assistance as needed. I have reviewed and agree with the Assessment and Plan as documented by the Scuba Dive Training Instructor. Patient given the opportunity to ask questions. Advised through rodent control worker if develops CP/severe SOB/turning blue/uncontrolle d n/v/d / AMS/ syncope/ hi fever unresponsive to APAP to call 911- verbalized understanding of instructions [email or web address] Not available 02/23/2023 22:43:57 04/21/2023 04/21/2023 As noted, we were called to see this patient regarding concerns of headache, fever, chills. Evaluation in the field was performed by my kier operator colleague, as noted above, I provided real-time direction and supervision for this visit. The evaluation revealed has been ill for about four days with what sounds like a typical viral syndrome. she does have a productive cough but no dyspnea. using albuterol nebs prn. Vitals and exam reassuring. Impression: viral syndrome Plan: suggest using albuterol nebs standing three times a day while ill. if symptoms worsne, laura if dyspnea develops, may need steroids/abx. Primary care, consider upgrade to LABA/ICS inhaler + duonebs if worsening dyspnea during this illnes. Disposition: We discussed the diagnostic uncertainty of home visits and the risk associated with this. In this case, the patient and I felt this to be an acceptable and reasonable amount of risk given the benefit of avoiding an ED visit. We discussed the need to seek care urgently/emergen tly in the setting of any new or worsening serious symptoms, particularly worsening shortness of breath [email or web address] Not available 04/21/2023 16:06:08 06/07/2024 06/07/2024 I provided real -time medical direction via phone for this encounter, and was available for additional phone based assistance as needed. I have reviewed and agree with the Assessment and Plan as documented by the Scuba Dive Training Instructor. We discussed the diagnostic uncertainty of home [...] verbalized understanding of instructions to the medic [email or web address] Not available 06/08/2024 03:36:06 Plan of Treatment Reminders Order Date Submit Date Provider Last Modified By Organization Details Last Modified Time Details Appointments None recorded. Lab rapid SARS CoV 2 Ag, QL IA, respiratory specimen 2024 025 [email or web address] [facility], [address] [place] [address], [id number], 5 14:48:13 rapid flu (A+B) 2024 025 [email or web address] 0 [facility], [address] [place] [address], [id number], 5 14:48:13 BMP, serum or plasma 2024 025 [email or web address] 0 [facility], [address] [place] [address], [address], 5 14:49:41 rapid strep group A, throat 2024 025 [email or web address] 0 [facility], [address] [place] [address], [id number], 5 14:48:13 rapid SARS CoV 2 Ag, QL IA, respiratory specimen 2023 024 JONATHAN [facility], [address] [place] [address], [id number], 4 08:26:10 rapid flu (A+B) 2023 024 JONATHAN [facility], [address] [place] [address], [address], 4 08:26:30 rapid SARS CoV 2 Ag, QL IA, respiratory specimen 2022 023 [email or web address] 0 [facility], [address] [place] [address], [address], 3 18:07:47 rapid flu (A+B) 2022 023 [email or web address] 0 [facility], [address] [place] [address], [id number], 3 18:07:47 rapid SARS CoV 2 Ag, QL IA, respiratory specimen 2022 023 btils [facility], [address] [place] [address], [address], 3 14:45:10 rapid flu (A+B) 2022 023 btils [facility], [address] [place] [address], [id number], 14:45:10 Referral None recorded. Procedures None recorded. Surgeries None recorded. Imaging None recorded. Medication Orders meclizine 25 mg tablet 2024 025 [email or web address] 0 [facility], [address], [place], [phone], 5 14:48:13 meclizine 12.5 mg tablet 2024 025 [facility], [address], [place], [phone], 5 14:48:21 doxycycline hyclate 100 mg tablet 2024 025 [email or web address] 0 [facility], [address], [place], [phone], 5 14:48:12 doxycycline hyclate 100 mg capsule 2024 025 [facility], [address], [place], [phone], 14:48:18 benzonatate 200 mg capsule 2022 023 [place], [address], [place], [place], [phone], 18:28:40 Patient TargetsNo targets recorded. Patient InstructionsNo instructions recorded. Reason for Referral None Reported. Results Created Date Observation Date Name Description Value Unit Range Abnormal Flag Note LastModifiedBy Organization Detail LastModifiedTime 12/09/1912/08/2022 rapid flu (A+B) Flu negati ve Not Available [facility] ed [address] [place] [address], [id number], 12/08/2022 14:44:47 12/09/19 23 12/08/2022 rapid SARS CoV 2 Ag, QL IA, respi rator y speci men rapid SARS CoV 2 Ag, QL IA, respiratory specimen negati ve Not Available [facility] [address] [place] [address], [address], 12/08/2022 14:44:46 02/24/20 23 02/23/2023 rapid flu (A+B) Flu negati ve Not Available [facility] [address] [place] [address], [address], 02/23/2023 18:07:27 02/24/20 23 02/23/2023 rapid SARS CoV 2 Ag, QL IA, respi rator y speci men rapid SARS CoV 2 Ag, QL IA, respiratory specimen negati ve Not Available [facility] [address] [place] [address], [address], 02/23/2023 18:07:26 06/07/19 25 06/07/2024 rapid strep group A, throa t Strep negati ve Not Available [facility] [address] [place] [address], [id number], 06/07/2024 14:10:26 06/07/19 25 06/07/2024 rapid SARS CoV 2 Ag, QL IA, respi rator y speci men rapid SARS CoV 2 Ag, QL IA, respiratory specimen negati ve Not Available [facility] [address] [place] [address], [id number], 06/07/2024 14:10:19 06/07/19 25 06/07/2024 rapid flu (A+B) Flu negati ve Not Available [facility] [address] [place] [address], [address], 06/07/2024 14:10:20 Result Notes None recorded. Medical [...] Available No t Available Vitals Date Recorded Respiratory rate Heart rate Oxygen saturation Oxygen saturation in Arterial blood by Pulse oximetry Body temperature Systolic blood pressure Diastolic blood pressure Provider Name and Address Organization Details Last Updated DateTime 3 16 /min 61 /min 99 % 99 % 98.4 [degF] 138 mm[Hg] 66 mm[Hg] Not Available [facility] 3 14:34:54 Date Recorded Oxygen saturation Oxygen saturation in Arterial blood by Pulse oximetry Body temperature Heart rate Respiratory rate Systolic blood pressure Diastolic blood pressure Provider Name and Address Organization Details Last Updated DateTime 3 98 % 98 % 98.1 [degF] 82 /min 18 /min 136 mm[Hg] 88 mm[Hg] Not Available [facility] 3 17:57:56 Date Recorded Body temperature Respiratory rate Oxygen saturation Oxygen saturation in Arterial blood by Pulse oximetry Heart rate Systolic blood pressure Diastolic blood pressure Provider Name and Address Organization Details Last Updated DateTime 3 99.2 [degF] 16 /min 99 % 99 % 75 /min 130 mm[Hg] 82 mm[Hg] Not Available [facility] 3 15:40:47 Date Recorded Oxygen saturation Oxygen saturation in Arterial blood by Pulse oximetry Body temperature Body height Respiratory rate Heart rate Body weight Systolic blood pressure Diastolic blood pressure Provider Name and Address Organization Details Last Updated DateTime 4 97 % 97 % 99.1 [degF] 154.94 cm 18 /min 72 /min 83431.1 52 g 110 mm[Hg] 71 mm[Hg] Not Available [facility] 4 21:28:15 Date Recorded Body temperature Oxygen saturation Oxygen saturation in Arterial blood by Pulse oximetry Body height Heart rate Respiratory rate Body weight Systolic blood pressure Diastolic blood pressure Provider Name and Address Organization Details Last Updated DateTime 5 99.1 [degF] 96 % 96 % 154.94 cm 77 /min 18 /min 16044.5 6 g 139 mm[Hg] 74 mm[Hg] Not Available [facility] 5 14:03:22 Date Recorded Heart rate Systolic blood pressure Diastolic blood pressure Provider Name and Address Organization Details Last Updated DateTime 06/07/2024 86 /min 123 mm[Hg] 76 mm[Hg] Paula Paulson MD [address], [place], [address], [place] [employer] 06/07/2024 14:51:00 Social History None recorded. Functional Status None recorded. Mental Status None recorded. Family History Nothing Reported. Medical History No medical history recorded. Gynecological HistoryNo gynecological history recorded. Obstetrics History GPAL:G 0 P 0 0 0 0 Past Encounters Encounter ID Performer Location Encounter Start Date Encounter Closed Date Diagnosis/Indication Diagnosis SNOMED-CT Code Diagnosis ICD10 Code Diagnosis Note [id number] Manas Swanson MD [facility] [address] [place] [phone] 12/08/2022 14:34:52 12/09/2022 11:10:56 Headache 40306919 R51.9 [id number] Paula Paulson MD [facility] [address] [place] [id number] 02/23/2023 17:57:45 02/26/2023 12:35:10 Viral upper respiratory tract infection 632707820 J06.9 Advised patient likely has COVID but is starting to improve and had rapid that is already negative. Advised to rest and stay well-hydra tacho especially over the next 5 days and if she has to go out to wear a mask-advis ed to call if she feels she is not continuing to improve and needs another visit.BLS medic- cannot do BMP- but is not clinically dehydrated Sending out a confirmato ry PCR would not change treatment because it is too late to start Paxlovid( s/s > 5 d and is improving) . Offered cough medicine for symptomati c relief which she accepted. She is aware that Tessalon/b enzonatate is not covered but she already has a good Rx card for [facility]- [id number] THERESA ANDERSON MD [facility] - [address] [phone] 04/21/2023 15:40:44 04/24/2023 17:03:22 Viral syndrome [id number] B34.9 [id number] Jason Ibrahim MD [facility] [address] [place] [id number] 02/26/2024 21:28:07 02/27/2024 12:02:54 Influenza-like illness [id number] B34.9 As noted, we were called to see this patient regarding concerns of fever and cough. Evaluation in the field was performed by my kier operator colleague, as noted above, I provided real-time direction and supervisio n for this visit. The evaluation revealed reassuring vs and a story c/w typical WAQAR. Testing negative. Impression :WAQAR, negative testing, suspect viral process. Plan:No role for send-out labs given timing and overall stable appearance Reassuranc esupportiv e care Dispositio n:We discussed the diagnostic uncertaint y of home visits and the risk associated with this. In this case, the patient and I felt this to be an acceptable and reasonable amount of risk given the benefit of avoiding an ED visit. We discussed the need to seek care urgently/e mergently in the setting of any new or worsening serious symptoms, particular ly confusion, dyspnea, high fever [id number] Paula Paulson MD [facility] [address] [place] [phone] 06/07/2024 14:03:20 06/09/2024 15:01:25 Upper respiratory infection [id number] J06.9 w/ dizziness ? BPV- trial meclizine/ [...] by Organization Details LastModified Time None Recorded Advance Directives Directive None Recorded Payers Encounter Date Sequence Insurance Name Policy Number Policy Huang Covered Member ID Huang Member ID Guarantor Name 12/08/[address] [facility] [employer] - DOS ON OR AFTER 2022 - DUAL ELIGIBLE - [employer] OPTIONS AND ONE CARE (MEDICARE REPLACEMENT/ADV ANTAGE - HMO) Mickie Hopper [id number] Mickie Hopper 02/23/[address] [facility] [employer] - DOS ON OR AFTER 2022 - DUAL ELIGIBLE - [employer] OPTIONS AND ONE CARE (MEDICARE REPLACEMENT/ADV ANTAGE - HMO) Mickie Hopper [id number] Mickie Hopper 04/21/[address] [facility] - DOS ON OR AFTER 2022 - DUAL ELIGIBLE - [employer] OPTIONS AND ONE CARE (MEDICARE REPLACEMENT/ADV ANTAGE - HMO) Mickie Hopper [id number] Mickie Hopper 02/26/2024 1 [facility] - DOS ON OR AFTER 2022 - DUAL ELIGIBLE - [employer] OPTIONS AND ONE CARE (MEDICARE REPLACEMENT/ADV ANTAGE - HMO) Mickie Hopper [id number] Mickie Hopper 06/07/2024 1 [facility] - DOS ON OR AFTER 2022 - DUAL ELIGIBLE - [employer] OPTIONS AND ONE CARE (MEDICARE REPLACEMENT/ADV ANTAGE - HMO) Mickie Hopper [id number] Mickie Hopper Notes Date Note Type Note Provider Name and Address Organization Details Recorded Time 3 text/html This was a supervised home visit with kier operator Marlon Moulton. CRC Nursing Assessment: Reason For Request: SALAS Chief Complaints: Headache, Weakness/Lethargy PMH: COPD/Asthma, Hypertension, Other Allergies: Unknown Comments: Member c/o Salas / fevers/ chills and body aches , weakness Symptoms started yesterday / Member has neck pain . shoulder pain . Member has not taken any new meds for symptoms Member has a h/o asthma , has sob , has inhalers / nebs no change. Member has a cough with white sputum Identity verified / address ......................... ......................... ......................... ......................... ......................... ................ Scuba Dive Training Instructor Note From Marlon Moulton: Dispatched to the call address for Member c/o Salas / fevers/ chills and body aches , weakness, Symptoms started yesterday / Member has neck pain . shoulder pain . Member has not taken any new meds for symptoms Member has a h/o asthma , has sob , has inhalers / nebs no change. Member has a cough with white sputum Family states Pt felt cold last night and early this morning but now just has a headache. Pt denies n/v/d, body aches, SoB, CP or any other cold/flu like symptoms. Pt stated she has not taken anything for her headache yet and that her biggest concern was she was having another TIA. Pt was found laying in bed CAOx3, airway open and patent, breathing non labored, able to speak in full sentences, -JVD, -HEENT, skin PWD with good turgor, abd soft non tender, +bowel sounds, lung sounds c/e bilaterally, A-febrible, vitals WNL, covid/flu rapid tests negative. Pt was advised that if she feels she is having a stroke or exhibits stroke like symptoms she should call 911 right away. C consulted. Red flags discussed. Pt advised to follow up with PCP. ALL times are approx. ......................... ......................... ......................... ......................... ......................... ................ Disposition: Fulfilled Manas Swanson MD [address], [place], [address], [employer] [facility] 12/08/2022 15:34:32 3 text/html CRC Nursing Assessment: Reason For Request: Spouse reporting pt layne COVID 19 2 weeks ago>spouse believes she might still have it and reporting severe weakness>pt is also anemic>cough + congestion + fever/chills>trouble sleeping at night due to the cough. Takes BP medication + aspirin + stomach medications Chief Complaints: Cough, Weakness/Lethargy, Fever/Chills PMH: COPD/Asthma, Hypertension Allergies: No Known Comments: Verified identity / address Member is taking OTC cough/ tylenol . Member was not given anything for COVID. ......................... ......................... ......................... ......................... ......................... ................ Scuba Dive Training Instructor Note From Hamzah Pereira: PT reports that her daughter administered a Covid swab yesterday which was positive after 1 week of increasing congestion with intermittent productive cough (clear phlegm). PT was normal in appearance and reports that her symptoms are improving since yesterday. PT denies chest and abdominal pain. PT denies lightheadedness and dizziness. PO fluid intake is at 32-40oz daily. PT denies N/V/D. PT denies SOB and L/s were clear and equal bilaterally. Covid and Flu swabs were performed and were negative. contacted and Rx Benzonatate was sent to PT preferred pharmacy and PT is to follow up with PCP in coming days. PT education was provided related to symptom worsening. VG ......................... ......................... ......................... ......................... ......................... ................ Disposition: Rochelle Paulson MD [address], [place], [address], [facility] - [employer] 02/23/2023 22:47:51 3 text/html CRC Nursing Assessment: Reason For Request: Severe cough, ugly congestion, keeping her up at night>reporting fevers>headache>weakness> symptoms going on 4 days. Chief Complaints: Cough, Headache, Fever/Chills, Weakness/Lethargy, URI PMH: COPD/Asthma, Hypertension Allergies: No Known Comments: Referral taken via Radio Electronics Technician. Member calling in to place a referral, identified via /name. Member who has had symptoms for 4 days, denies sick contacts. Member with productive cough lots of phlegm , chest congestion, headache and LEES, unsure fever, but feels hot, no chills. Denies n/v/d. Does use a pump and mask for asthma. Member utilizing Naproxen for headache and fever?. She would like to be evaluated. ......................... ......................... ......................... ......................... ......................... ................ Scuba Dive Training Instructor Note From Marlon Moulton: Dispatched to the call address for the female with cold/flu like symptoms. Pt states she is on day four of not feeling well, complaining of a cough, tiredness and headaches. Pt states she has been taking Nyquil with good effect but nothing during the day. She advises she just doesn't feel well. She denies SoB and CP at this time. She has been using her nebulizer as needed. Pt was found sitting on couch, CAOx4, airway open and patent, breathing non labored, able to speak in full sentences, -JVD, -HEENT, skin PWD with good turgor, abd soft non tender/distended, pupils PERRL, lung sounds clear and equal bilaterally, A-Febrile, +CMSx4, -n/v/d. [facility] consulted. Pt was advised to use her nebulizer 3-4x daily until she starts feeling better. Pt advised to follow up with PCP and red flags discussed. ALL times are approx. ......................... ......................... ......................... ......................... ......................... ................ Disposition: Fulfilled THERESA ANDERSON MD [address] [place] [address],[address] [facility], [place], [address], [employer] 04/21/2023 16:06:33 4 text/html CRC Nurse Triage Notes (Chaitanya Skinner): Chief Complaints: Cough PMH: COPD/Asthma, Hypertension Allergies: Unknown Comments: Mathematics Technician verified the Pt.'s name//address and phone number. Education provided on the response time and the Pt. was advised to monitor reported s/s and seek emergency treatment if needed. CG reports feeling unwell with a cough/cold and congestion - N/V - Decreased PO - Fever last night - SOB - She is not breathing normally. Confused. S/S x 1 day - Pt is refusing ER - Declined Scuba Dive Training Instructor Organization Information for [employer] Legal Name: [employer] Address: [address] [place] [id number], Tipple Repairer: Valerio Hunter MD CLIA No.: [id number] Scuba Dive Training Instructor POC Test Results from [employer] [facility] [facility] Rapid influenza antigen (21:20:51) Flu: - Rapid COVID antigen (21:25:55) COVID: - Jason Ibrahim MD [address] [place] [address],[address] [facility], [place], [address], [facility] - [employer] 02/26/2024 21:45:30 5 text/html CRC Nurse Triage Notes (Chaitanya [...] COPD/Asthma, HypertensionPMH Reviewed at 06/07/2024:15Allergies Reviewed at 06/07/2024 - 12:15Comments: Mathematics Technician verified the Pt.'s name//address and phone number. [...] coughing. Concerns expressed and ER treatment declined. Scuba Dive Training Instructor Organization Information for [facility] [employer] Legal Name: [employer]Address: [address] [place] [id number], USMedical Director: Valerio Hunter [facility] No.: [id number] Scuba Dive Training Instructor POC Test Results from [facility] Rapid COVID antigen (13:49:17)COVID: - Rapid influenza antigen (13:49:18)Flu: - Rapid strep test (:49:18)Strep: - iSTAT Chem8+ (14:23:10) Na: 140 mEq/L K: 3.7 mEq/L Cl: 105 mEq/L iCa: 1.17 mmol/L TCO2: 23 mmol/L Glu: 100 mg/dL BUN: 7 mg/dL Crea: 0.8 mg/dL Hct: 29 % Hb: 9.9 g/dL A Attachments uploaded as part of this test result can be found under Documents section. ......................... ......................... ......................... ......................... ......................... ................ Scuba Dive Training Instructor Note From Jenny Rock: Sent to a call for a pt complaining of cough. SC8 arrives on scene, pt is alert and oriented, airway is patent. Pt's primary language is [place]an. Family serves as rodent control worker. Pt has history of COPD, Asthma, and [...] covid/flu test: neg; Rapid strep test: neg; [facility] [place] bloodwork. IV access/venous blood draw performed; Chem8+ results: uploaded to [facility]; [facility] orders Meclizine 12.5mg PO and Doxycycline 100mg PO. [facility] [place] script to pt's pharmacy. Meclizine 12.5mg [...] questions. ......................... ......................... ......................... ......................... ......................... ................ [facility] Consulted: Paula Paulson ......................... ......................... ......................... ......................... ......................... ................ Disposition: Fulfilled SEG MD: Patient denies headache, focal neuro-deficits, chest pain, palpitations, significant shortness of breath Paula Paulson MD [address] FLOOR, [place], [id number], [employer] 06/08/2024 03:38:49 OBGyn Episode No OBEpisode recorded.
[2024-07-01] MEDS: Albuterol/Iprat 2.5/0.5MG 3 ML AMPUL.NEB INHALE ×3 (10:13→19:46)
--- NOTE | 2024-07-01 10:30 | PC.NURSE ---
Pt. passed swallow eval.
[2024-07-01 10:35] LABS: MANUAL DIFF FLAG NO
[2024-07-01] MEDS: methylPREDNISolone Sod Succ 125 MG/2 ML VIAL 60 MG IVPUSH (10:35)
[2024-07-01] MEDS: Acetaminophen 325 MG TABLET 650 MG PO ×2 (10:35→20:59)
[2024-07-01] MEDS: Azithromycin 500 MG in 0.9 % Sodium Chloride 250 ML 125 MG IV (10:35)
[2024-07-01 10:36] LABS: Basophils Percent Auto 0.9 % (0-2); Eosinophils Absolute Auto 0.1 X10*3/uL (0.0-0.4); Hematocrit 33.8 % (37.0-47.0); Hemoglobin 10.7 g/dl (12.0-16.0); Imm Gran Abs Auto 0.02 X10*3/uL (0.00-0.03); Imm Gran Pct Auto 0.4 % (0.0-0.4); Lymphocytes Absolute Auto 0.7 X10*3/uL (1.2-4.9); Lymphocytes Percent Auto 14.4 % (20-40); Mean Corpuscular HGB Conc 31.7 g/dl (31.0-35.0); Mean Corpuscular Hemoglobin 27.5 pg (27.0-33.0); Mean Corpuscular Volume 86.9 fL (80.0-98.0); Monocytes Absolute Auto 0.8 X10*3/uL (0.1-1.2); Monocytes Percent Auto 16.6 % (2-11); Neutrophils Percent Auto 65.7 % (45-73); Platelet Count 203 X10*3/uL (160-400); Red Blood Count 3.89 X10*6/uL (4.20-5.50); White Blood Count 4.6 X10*3/uL (4.8-10.8)
[2024-07-01 10:40] LABS: Venous Blood Gas Refer to POC result
[2024-07-01 10:41] LABS: VBG Base Excess 1.8 mmol/L; VBG HCO3 26 mmol/L (22-26); VBG pCO2 41 mmHg; VBG pH 7.41 (7.32-7.43); VBG pO2 45 mmHg
[2024-07-01 11:01] LABS: Alanine Aminotransferase 22 U/L (0-31); Alkaline Phosphatase 102 U/L (39-117); Anion Gap 12 (12-20); Aspartate Amino Transferase 38 U/L (5-31); Bilirubin Direct 0.3 mg/dL (0.0-0.5); Bilirubin Total 0.6 mg/dL (0.0-1.0); Blood Urea Nitrogen 5 mg/dL (9-16); Calcium 9.4 mg/dL (8.4-10.2); Carbon Dioxide 24 mmol/L (22-29); Chloride 110 mmol/L (96-108); Creatinine Clr Calc Pharmacy 55.1; Estimated Glomerular Filt Rate > 60; Glucose Random 97 mg/dL (60-115); Lipase 6 U/L (8-78); Magnesium 2.1 mg/dL (1.6-2.6); Potassium 3.6 mmol/L (3.3-5.1); Sodium 142 mmol/L (135-145); Total Protein 7.7 g/dL (6.5-8.0)
[2024-07-01 11:05] LABS: B Type Natriuretic Peptide 157 pg/mL (<100)
[2024-07-01 11:13] LABS: Influenza A PCR POSITIVE (Negative); Influenza B PCR NEGATIVE (Negative); Resp Syncy Virus RNA Qual PCR NEGATIVE (Negative); SARS COV2 PCR INHOUSE NEGATIVE (Negative)
[2024-07-01] MEDS: Oseltamivir Phosphate 75 MG CAPSULE PO (12:25)
[2024-07-01 13:08] LABS: Troponin-I High Sensitivity 19.7 ng/L (<3.5-17.0)
--- NOTE | 2024-07-01 13:37 | PM.IMHP ---
History of Present Illness Date of Service: 07/01/24 Chief Complaint: SOB 83 year old female with PMH of arthritis, anemia, KERON on CPAP, asthma, GERD, HLD, HTN here with c/o cough on and off and mucous x 6 months and nothing helps. She denies any recent change or illness. She denies sick contacts. She is very unclear about her medications it looks like she was following with Dr. Multani but then states the office stopped calling her. She states she takes an AM inhaler which I see is Breo filled 07/07/24. She denies change in sputum, no n/v/d, no fevers or chills. Review of Systems Review of Systems: Denies any recent fever chills or decrease in appetite respiratory denies any shortness of breath cardiovascular denied chest pain gastrointestinal denies any dysphagia abdominal pain nausea vomiting or diarrhea genitourinary denies any dysuria frequency or hematuria musculoskeletal denies any joint pain or swelling neuropsych denies any weakness or seizures all other systems reviewed are negative [facility] Medical History Axillary mass Memory loss Limb swelling History of eye prosthesis Murmur Anemia Dysphagia Hiatal hernia KERON on CPAP Asthma Abnormal colonoscopy (~01/2019) Environmental allergies HTN (hypertension) Acid reflux Surgical History History of throat surgery History of total right knee replacement (TKR) History of colonoscopy History of cholecystectomy History of hysterectomy Social History Household Members: Spouse and Family Housing: House Do you presently have visiting nurse or other home services: Yes ([employer] [facility]) Alcohol intake: never Patient Tobacco Use Status: Never used Tobacco Smoked in Last 30 Days: No Use of substances other than those prescribed or required for medical reasons: No Have you been hit, kicked, punched, or otherwise hurt by someone within the past year? If so, by whom?: No Do you feel safe in your current relationship?: Yes Is there a partner from a previous relationship who is making you feel unsafe now?: No Are you made to feel afraid or neglected: No Spiritual Healthcare Practices: Pentescotal Advance Directives: No Advance Directives Information Provided: Yes Do you have a plan to hurt others: No Plan Recently lost weight without trying: No How much weight loss: 2-13 pounds Eating poorly because of decreased appetite: Yes Nutrition screen score: 2 Nutrition Risks: Poor intake 0-25% >4 days Patient : No : No Current occupational status: retired 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 [employer] Meds Allergies Allergy/AdvReac Type Severity Reaction Status Date / Time latex [Latex] Allergy Severe DIFFICULTY Verified 07/01/24 09:54 BREATHING RELATED TO EXACERBATION OF ASTHMA Cameron Inhibitors Allergy Severe cough Uncoded 07/01/24 09:54 From PERCOCET Allergy Severe RASH Uncoded 07/01/24 09:54 Home Medications ?Medication ?Instructions ?Recorded ?Confirmed ?Last Taken ?Type omeprazole 20 mg capsule,delayed 20 mg PO BID@0630,1630 04/20/20 07/01/24 09/08/20 09:30 History release aspirin 81 mg tablet,delayed 81 mg PO DAILY 04/23/20 07/01/24 09/05/20 History release verapamil 120 mg 24 hr 120 mg PO DAILY 11/27/20 07/01/24 Unknown History capsule,extended release dorzolamide 22.3 mg-timolol 6.8 1 drp ophthalmic (eye) BID 07/27/21 07/01/24 Unknown History mg/mL eye drops atorvastatin 20 mg tablet 20 mg PO BEDTIME 05/24/24 07/01/24 Unknown History docusate sodium 100 mg capsule 100 mg PO BID 05/24/24 07/01/24 Unknown History losartan 100 mg tablet 100 mg PO BEDTIME 05/24/24 07/01/24 Unknown History simethicone 80 mg chewable tablet 80 mg PO TIDAC 05/24/24 07/01/24 Unknown History diclofenac sodium 1 % topical gel 2 g topical BID 07/01/24 07/01/24 Unknown History ferrous fumarate 324 mg (106 mg 324 mg PO DAILY 07/01/24 07/01/24 Unknown History iron) tablet (Ferrocite) fluticasone propionate 50 2 spray intranasal DAILY 07/01/24 07/01/24 Unknown History mcg/actuation nasal spray,suspension meclizine 12.5 mg tablet 12.5 mg PO TID PRN Dizziness 07/01/24 07/01/24 Unknown History montelukast 10 mg tablet 10 mg PO BEDTIME 07/01/24 07/01/24 Unknown History sennosides 8.6 mg tablet (senna) 17.2 mg PO BEDTIME PRN Constipation 07/01/24 07/01/24 Unknown History Physical Exam Vital Signs and Narrative: Vital Signs: Last Vital Signs Temp 99 F 07/01/24 12:27 Pulse 81 07/01/24 12:27 Resp 20 07/01/24 12:27 BP 112/58 L 07/01/24 12:27 Pulse Ox 94 07/01/24 12:27 O2 Del Method Nasal Cannula 07/01/24 12:27 O2 Flow Rate 2 07/01/24 12:27 BMI result Body Mass Index 33.3 Results Labs 07/01/24 10:26 07/01/24 10:26 Labs: Laboratory Results - last 24 hr 07/01/24 07/01/24 07/01/24 10:26 10:27 10:32 MCV 86.9 MCH 27.5 MCHC 31.7 RDW 17.0 H Plt Count 203 D MPV 11.0 Immature Gran % (Auto) 0.4 Neut % (Auto) 65.7 Lymph % (Auto) 14.4 L [place] % (Auto) 16.6 H Eos % (Auto) 2.0 Baso % (Auto) 0.9 Lymph # (Auto) 0.7 L [place] # (Auto) 0.8 Eos # (Auto) 0.1 Baso # (Auto) 0.0 Abs Immat Gran (auto) 0.02 Absolute Neuts (auto) 3.0 Absolute Nucleated RBC 0.000 Nucleated RBC % (auto) 0.0 VBG pH 7.41 VBG pCO2 41 VBG pO2 45 VBG HCO3 26 VBG O2 Saturation 70.0 VBG Base Excess 1.8 Anion Gap 12 Estim Creat Clear Calc 55.1 Estimated GFR > 60 Random Glucose 97 Lactic Acid 1.0 Calcium 9.4 Magnesium 2.1 Total Bilirubin 0.6 Direct Bilirubin 0.3 AST 38 H ALT 22 Alkaline Phosphatase 102 B-Natriuretic Peptide 157 H Total Protein 7.7 Albumin 4.0 Lipase 6 L Influenza Type A (PCR) POSITIVE A Influenza Type B (PCR) NEGATIVE RSV RNA Qual (PCR) NEGATIVE SARS-CoV-2 RNA (RT-PCR) NEGATIVE Assessment and Plan (1) Influenza A: Status: Acute Plan 83-year-old woman admitted for acute asthma exacerbation and influenza A Acute asthma exacerbation MARIEL Lucero Solu-Medrol Continue oxygen supplementation to keep oxygen saturation greater than 90% Antitussives as needed Influenza A Tamiflu for 5 days Hyperlipidemia Continue aspirin and statin Hypertension. Continue losartan and verapamil Peripheral neuropathy. Unspecified Continue gabapentin GERD Continue PPI DVT prophylaxis with heparin Full code Quality Stroke Does the patient have a stroke diagnosis?: No VTE Prior VTE?: No VTE Risk Level:: Medical - moderate - high VTE Device Contraindication: Treatment Not Indicated VTE Drug Contraindication: N/A - Med Ordered
--- NOTE | 2024-07-01 13:59 | PHA.MEDREC ---
Pharmacy Consult ? Medication Reconciliation Pharmacy has completed the medication reconciliation.
[2024-07-01] MEDS: Heparin Sodium,Porcine 5,000 UNIT/ML VIAL 5000 UNIT SUBCUT (16:23)
[2024-07-01] MEDS: Melatonin 3 MG TABLET 6 MG PO (20:59)
--- NOTE | 2024-07-01 21:02 | PC.NURSE ---
this rn assumed care of pt @ 1900. pt reports headache requesting prn tylenol and prn melatonin. pt medicated according to mar
[2024-07-02] VITALS (12 sets, daily range): BP systolic 122–168; BP diastolic 50–74; PULSE 56–71; RESP 15–22; TEMP 36.2–36.9; O2SAT 92–99; BMI 33.3
[2024-07-02 02:40] LABS: Appearance Urine Clear; Color Urine Yellow; Glucose Urine UA Negative (Negative); Leukocyte Esterase Urine Negative (Negative); Nitrite Urine Negative (Negative); PH 6.5 (5.0-9.0); Urine Blood Negative (Negative); Urine Ketones Trace mg/dL (Negative); Urine Protein Negative (Neg-Trace)
[2024-07-02] MEDS: Heparin Sodium,Porcine 5,000 UNIT/ML VIAL 5000 UNIT SUBCUT ×2 (02:40→14:36)
[2024-07-02] MEDS: 0.9 % Sodium Chloride Flush 3 ML SYRINGE IVFLUSH ×4 (02:43→19:48)
[2024-07-02] MEDS: Albuterol/Iprat 2.5/0.5MG 3 ML AMPUL.NEB INHALE ×4 (07:30→20:26)
[2024-07-02] MEDS: Oseltamivir Phosphate 30 MG CAPSULE PO ×2 (08:42→19:45)
--- NOTE | 2024-07-02 11:16 | P.PNIM_ITS ---
Subjective Subjective Date of Service: 07/02/24 Review of Systems Follow up flu doing better today no sob Physical Exam 2 Vital Signs: Vital Signs: Last Vital Signs Temp 98.4 F 07/02/24 08:00 Pulse 57 07/02/24 08:00 Resp 16 07/02/24 08:00 BP 136/63 07/02/24 08:00 Pulse Ox 98 07/02/24 08:00 O2 Del Method Nasal Cannula 07/02/24 08:00 O2 Flow Rate 2.0 07/02/24 08:00 BMI result Body Mass Index 33.3 Appearing in no acute distress lung sounds are clear to auscultation heart regular rate rhythm, clear S1, S2 positive bowel sounds, abdomen is soft, nontender neuro patient is alert x3, no focal deficits Objective Data Active Medications Acetaminophen (Acetaminophen 325 Mg Tablet) 650 mg PO Q6H PRN PRN Reason: Pain, Mild 1-3,fever,headache Last Admin: 07/01/24 20:59 Dose: 650 mg Documented By: TRAY Albuterol/Ipratropium (Albuterol/Iprat 2.5/0.5mg 3 Ml Ampul.Neb) 3 ml INHALE RQ4H WHILE AWAKE [facility] Last Admin: 07/02/24 07:30 Dose: 3 ml Documented By: NITESH Calcium Carbonate (Calcium Carbonate 750 Mg Tab.Chew) 750 mg PO Q4H PRN PRN Reason: Heartburn Heparin Sodium (Porcine) (Heparin Sodium,Porcine 5,000 Unit/Ml Vial) 5,000 unit SUBCUT Q12H [facility] Last Admin: 07/02/24 02:40 Dose: 5,000 unit Documented By: TRAY Magnesium Hydroxide (Milk Of Magnesia 30 Ml Oral.Susp) 30 ml PO DAILY PRN PRN Reason: Constipation Melatonin (Melatonin 3 Mg Tablet) 6 mg PO BEDTIME PRN PRN Reason: Insomnia Last Admin: 07/01/24 20:59 Dose: 6 mg Documented By: TRAY Oseltamivir Phosphate (Oseltamivir Phosphate 30 Mg Capsule) 30 mg PO BID [facility] Stop: 07/06/24 09:01 Last Admin: 07/02/24 08:42 Dose: 30 mg Documented By: GUERO Sodium Chloride (0.9 % Sodium Chloride Flush 3 Ml Syringe) 3 ml IVFLUSH QSHIFT [facility] Last Admin: 07/02/24 08:41 Dose: 3 ml Documented By: GUERO Labs 07/01/24 10:26 07/01/24 10:26 Labs: Laboratory Results - last 24 hr 07/02/24 02:35 Urine Color Yellow Urine Appearance Clear Urine pH 6.5 Ur Specific [place] 1.010 Urine Protein Negative Urine Glucose (UA) Negative Urine Ketones Trace Urine Blood Negative Urine Nitrite Negative Ur Leukocyte Esterase Negative Assessment and Plan (1) Influenza A: Status: Acute Plan 83-year-old woman admitted for acute asthma exacerbation and influenza A Acute asthma exacerbation DuoNebs, IV Solu-Medrol Continue oxygen supplementation to keep oxygen saturation greater than 90% Antitussives as needed Influenza A Tamiflu for 5 days Hyperlipidemia Continue aspirin and statin Hypertension. Continue losartan and verapamil Peripheral neuropathy. Unspecified Continue gabapentin GERD Continue PPI DVT prophylaxis with heparin Full code Quality Stroke Does the patient have a stroke diagnosis?: No VTE Prior VTE?: No VTE Risk Level:: Medical - moderate - high VTE Device Contraindication: Treatment Not Indicated VTE Drug Contraindication: N/A - Med Ordered
[2024-07-02] MEDS: guaiFENesin LA 600 MG TAB.ER.12H PO ×2 (11:41→19:45)
--- NOTE | 2024-07-02 11:41 | MHC.CM.PN ---
PT LIVES [place] AND 2 SONS PT HAS A RIDE HOME WHEN DCD PT HAS 15.75 AURELI[address] HRS DC PLAN HOME
--- NOTE | 2024-07-02 13:57 | MHC.CLN ---
NUTRITION CONSULT FOR POOR APPETITE AND RECENT WEIGHT LOSS. REVIEW OF WEIGHT HX SHOWS WEIGHT LOSS X 30 DAYS -3.7#, 2%, NOT SIGNIFICANT. WEIGHT LOSS X ONE YEAR=-2.7%. WEIGHT HX SHOWS NO SIGNIFICANT WEIGHT CHANGE X ONE YEAR. PATIENT WITH ASTHMA EXACERBATION AND FLU. RD TO MONITOR PO INTAKE.
[2024-07-02] MEDS: Acetaminophen 325 MG TABLET 650 MG PO (16:56)
[2024-07-03] MEDS: Heparin Sodium,Porcine 5,000 UNIT/ML VIAL 5000 UNIT SUBCUT (02:00)
[2024-07-03 03:18] VITALS: BP 135/68; PULSE 65; RESP 18; TEMP 36.1; O2SAT 93
[2024-07-03 07:21] VITALS: BP 124/67; PULSE 78; RESP 16; TEMP 37.1; O2SAT 94
[2024-07-03] MEDS: Fluticasone/Vilanterol 200/25 BLST.W.DEV 1 PUFF INHALE (08:29)
[2024-07-03] MEDS: Albuterol/Iprat 2.5/0.5MG 3 ML AMPUL.NEB INHALE (08:31)
[2024-07-03 08:32] VITALS: PULSE 68; RESP 16; O2SAT 93
--- NOTE | 2024-07-03 08:40 | PM.DS ---
DS: Providers Provider Date of Service: 07/03/24 Date of admission: 07/01/24 14:05 Date of discharge: 07/03/24 Primary care physician: Pedro Ingram MD DS: Diagnosis Discharge Diagnosis (1) Influenza A: Status: Acute DS: Summary Hospital Course Hospital Course: 83 year old female with PMH of arthritis, anemia, KERON on CPAP, asthma, GERD, HLD, HTN here with c/o cough on and off and mucous x 6 months and nothing helps. She denies any recent change or illness. She denies sick contacts. She is very unclear about her medications it looks like she was following with Dr. Multani but then states the office stopped calling her. She states she takes an AM inhaler which I see is Breo filled 07/07/24. She denies change in sputum, no n/v/d, no fevers or chills. 83-year-old woman treated for acute asthma exacerbation with influenza a, did not require oxygen and was never hypoxic. Treated with antitussives, DuoNebs and IV Solu-Medrol as well as Tamiflu. Plan is to discharge patient on short burst of prednisone taper patient may continue her inhalers at home and complete Tamiflu dosing. Hyperlipidemia. Continue aspirin and statin Hypertension. Continue losartan and verapamil Peripheral neuropathy. Continue gabapentin GERD. Continue PPI Time Attestation Discharge Coordination Time (in mins): 40 Quality: Safe Use of Opioids Does Pt have an Active Cancer Diagnosis on the Problem List?: No Quality: Stroke Does the patient have a stroke diagnosis?: No Physical Exam Vital Signs: Vital Signs: Last Vital Signs Temp 98.8 F 07/03/24 07:21 Pulse 68 07/03/24 08:32 Resp 16 07/03/24 08:32 BP 124/67 07/03/24 07:21 Pulse Ox 94 07/03/24 07:21 O2 Del Method Room Air 07/03/24 07:21 O2 Flow Rate 2.0 07/02/24 08:00 BMI result Body Mass Index 33.3 Appearing in no acute distress head is normocephalic atraumatic eyes pupils are PERRLA sclera is anicteric mouth throat mucous membranes are intact and moist neck is supple no lymphadenopathy, no JVD noted lung sounds are clear to auscultation heart regular rate rhythm, clear S1, S2 positive bowel sounds, abdomen is soft, nontender neuro patient is alert x3, no focal deficits DS: Data Data Completed and Pending Labs on day of discharge: Preliminary micro results at discharge 07/01/24 10:27 Blood Culture - Preliminary Blood - Venous No growth after 24 hours. 07/01/24 10:26 Blood Culture - Preliminary Blood - Venous No growth after 24 hours. Discharge Plan Discharge Anticipated Discharge Date/Time: 07/03/24 08:41 Patient Disposition: Home, Self-Care Discharge Diagnosis: Asthma exacerbation Influenza a Referrals: Pedro Ingram MD [Primary Care Provider] - 1 Week Discharge Medications: New oseltamivir 30 mg Capsule 30 mg PO BID Qty: 6 0RF prednisone 10 mg tablet 40 mg PO DIRECTED Qty: 16 0RF Rx Instructions: Take 40 mg daily for 4 days Continued albuterol sulfate 90 mcg/actuation HFA aerosol inhaler 2 inh inhalation Q6H PRN (Reason: shortness of breath or wheezing) 30 Days Qty: 18 12RF gabapentin 300 mg capsule 600 mg PO BEDTIME Qty: 60 11RF Breo Ellipta 200-25 mcg/dose blister with device 1 ea inhalation DAILY Qty: 60 9RF meclizine 12.5 mg tablet 12.5 mg PO TID PRN (Reason: Dizziness) fluticasone propionate 50 mcg/actuation spray,suspension 2 spray INTRANASAL DAILY ferrous fumarate [Ferrocite] 324 mg (106 mg iron) tablet 324 mg PO DAILY diclofenac sodium 1 % gel 2 g topical BID sennosides [senna] 8.6 mg Tablet 17.2 mg PO BEDTIME PRN (Reason: Constipation) montelukast 10 mg tablet 10 mg PO BEDTIME omeprazole 20 mg capsule,delayed release(DR/EC) 20 mg PO BID@0630,1630 (DME) compr.stocking,thigh,reg,x-lrg Misc See Rx Instructions .ROUTE .MEDSUPPLY Qty: 2 0RF Rx Instructions: 15-20cm dorzolamide-timolol 22.3-6.8 mg/mL drops 1 drp ophthalmic (eye) BID aspirin 81 mg tablet,delayed release (DR/EC) 81 mg PO DAILY verapamil 120 mg capsule,ext rel. pellets 24 hr 120 mg PO DAILY docusate sodium 100 mg capsule 100 mg PO BID simethicone 80 mg tablet,chewable 80 mg PO TIDAC losartan 100 mg tablet 100 mg PO BEDTIME atorvastatin 20 mg tablet 20 mg PO BEDTIME psyllium Powder 1 tbsp PO DAILY Qty: 300 0RF Rx Instructions: mix into at least 8 oz of water or juice before administering Discharge Orders: Discharge Order (Routine); Ordered 07/03/24 Ordered By: Nicole Silva Diet: Advance to usual diet Activity on Discharge: As tolerated Stand Alone Forms: Patient Portal Discharge page Print Language: Armenian Care Plan Goals: Complete short steroid taper and Tamiflu Health Concerns: Asthma exacerbation Influenza a Plan of Treatment: Follow-up with primary care provider as needed Take all medications as prescribed Assessment: See discharge summary
--- NOTE | 2024-07-03 08:42 | MHC.CM.PN ---
pt dcd home with family with resumption of dorene
--- NOTE | 2024-07-03 08:48 | P.F2F_ITS ---
Service Date Service Date: 07/03/24 Encounter Date of encounter: 07/03/24 Reasons for Services Signs and symptoms assessed: Influenza A Asthma exacerbation Reason for longterm: CV/CP assess and/or care Reason for physical therapy: home safety and mobility Homebound: Leaving the home is medically contraindicated at this time without the asist of a device and/or another person due th the listed conditions above and below. Reason homebound: weakness related to hospital stay (Influenza a virus) Certification: Based on the above findings, I certify that this patient is confined to the home and needs intermittent longterm care, physical therapy and/or speech therapy, or continues to need occupational therapy. The patient is under my care, and I have initiated the establishment of the plan of care. The patient will be followed by a physician who will periodically review the plan of care. Time Spent With Patient Time: Total time managing care of this patient today ____ minutes.
[2024-07-03] MEDS: Simethicone 80 MG TAB.CHEW PO (09:19)
[2024-07-03] MEDS: Aspirin Enteric Coated 81 MG TABLET.DR PO (09:20)
[2024-07-03] MEDS: Ferrous Sulfate 324 MG TABLET.DR PO (09:20)
[2024-07-03] MEDS: Fluticasone Propionate Nasal 16 GM SPRAY 2 SPRAY NOSTRIL-B (09:20)
[2024-07-03] MEDS: Psyllium seed 3.7 GM PACKET PO (09:20)
[2024-07-03] MEDS: Dorzolamide/Timolo 2.23%/0.68% 10 ML DRBTL 1 DROP EYE-BOTH (09:20)
[2024-07-03] MEDS: Docusate Sodium 100 MG CAPSULE PO (09:20)
[2024-07-03] MEDS: Oseltamivir Phosphate 30 MG CAPSULE PO (09:20)
[2024-07-03] MEDS: 0.9 % Sodium Chloride Flush 3 ML SYRINGE IVFLUSH (09:20)
[2024-07-03] MEDS: guaiFENesin LA 600 MG TAB.ER.12H PO (09:20)
== END 2024-07-03 09:42 | disposition home health service (06) | DRG 194 ==
LOC: HO.ED 12:16 → HO.EDOVER 14:06 → HO.S3 07-02 07:59
PROVIDERS: Admitting Provider Nurse Practitioner Acute Care; Emergency Provider Emergency Medicine; PCP Internal Medicine; Visit Provider Nurse Practitioner Acute Care
DX: J10.1 Influenza due to other identified influenza virus with other respiratory manifestations (principal); J45.901 Unspecified asthma with (acute) exacerbation; G47.33 Obstructive sleep apnea (adult) (pediatric); E78.5 Hyperlipidemia, unspecified; I10 Essential (primary) hypertension; G62.9 Polyneuropathy, unspecified; K21.9 Gastro-esophageal reflux disease without esophagitis; Z20.822 Contact with and (suspected) exposure to COVID-19; Z79.51 Long term (current) use of inhaled steroids; Z79.82 Long term (current) use of aspirin; Z79.899 Other long term (current) drug therapy
CPT/HCPCS: 0241U; 36415; 71045; 80048; 80076; 81003; 82803; 83605; 83690; 83735; 83880; 84484; 85025; 87040; 93005; 94640; 97162; 99285; J0456; J1644; J2919

== ENCOUNTER → 2024-07-01 09:59 | Outpatient (BNV) | payer OTHER, SELFPAY | PROVIDERS: Admitting Provider Nurse Practitioner Acute Care; Emergency Provider Emergency Medicine; PCP Internal Medicine; Visit Provider Internal Medicine | DX: I44.4 Left anterior fascicular block (principal) | CPT/HCPCS: 93010 ==

== ENCOUNTER → 2024-07-01 09:59 | Outpatient (BNV) | payer OTHER, SELFPAY | PROVIDERS: Emergency Provider Emergency Medicine; PCP Internal Medicine; Visit Provider Radiology Diagnostic Radiology | DX: R05.9 Cough, unspecified (principal) | CPT/HCPCS: 71045 ==

== ENCOUNTER → 2024-07-01 14:05 | Outpatient (BNV) | payer OTHER, SELFPAY | PROVIDERS: Admitting Provider Nurse Practitioner Acute Care; Emergency Provider Emergency Medicine; PCP Internal Medicine; Visit Provider Nurse Practitioner Acute Care | DX: J10.1 Influenza due to other identified influenza virus with other respiratory manifestations (principal) | CPT/HCPCS: 99239 ==

== ENCOUNTER 2024-07-09 22:42 | Emergency (ER) | payer OTHER, SELFPAY ==
--- NOTE | ~2024-07-09 | CT_ITS ---
CLINICAL HISTORY: Dizziness, off balance, headache, R O stroke, blee CT head without contrast Comparison: MR - MRI [facility] [id number] - 04/05/11 15:50 EST Findings: No intra-axial mass, midline shift, hydrocephalus, or acute hemorrhage. Periventricular and subcortical white matter hypoattenuation likely chronic small-vessel ischemic changes. Intracranial atherosclerosis. The visualized paranasal sinuses and mastoid air cells are normal. Chronic right globe deformity. There is no acute fracture. IMPRESSION: 1. No acute intracranial findings. This document has been electronically signed by: Jonathan Morris MD on 07/10/2024 01:13:16
[2024-07-09 22:46] VITALS: BP 148/104; PULSE 58; RESP 16; TEMP 36.4; O2SAT 97; BMI 37.8
--- NOTE | 2024-07-09 23:02 | ED_ITS ---
HPI - Neuro Symptoms/Deficit General Chief Complaint: Stroke Stated Complaint: ?Stroke Time Seen by Provider: 07/09/24 23:02 Source: patient and family (Son) Mode of arrival: EMS Limitations: language barrier (Senegalese speaking only, grandson contributed to the history, [facility] [place] rn wellness used) History of Present Illness ED Provider: Dr. 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 The patient developed a left-sided headache which she describes as a pressure-like pain behind her left eye. This occurred at around noon time. The headache as a constant, throbbing sensation. She was had similar headaches in the past and gets them frequently. The patient also developed room spinning dizziness. She states has she developed a room spinning dizziness which has been intermittent and does resolve but seems to be triggered by position change. She was had similar dizziness in the past as well. The grandson visited the patient at noon time at an around 16:30 hours, he felt that the patient was confused and he was concerned that the patient was having a stroke but the patient refused to come to the emergency department. The patient was headache persisted therefore the grandson did bring the patient to the emergency department. At the time my evaluation, the patient was complaining of a left-sided headache which she was 6/10. She had no room spinning dizziness. Patient's neurologic exam was nonfocal. Her NIH stroke scale was 0. The patient was admitted from 04/30/2025 until 05/02/2025 for acute influenza A, asthma exacerbation. Patient was treated with antitussives, DuoNeb, IV Solu- Medrol and Tamiflu with gradual improvement of her symptoms. Related Data Home Medications ?Medication ?Instructions ?Recorded ?Confirmed omeprazole 20 mg capsule,delayed 20 mg PO BID@0630,1630 04/20/20 07/01/24 release aspirin 81 mg tablet,delayed 81 mg PO DAILY 04/23/20 07/01/24 release verapamil 120 mg 24 hr 120 mg PO DAILY 11/27/20 07/01/24 capsule,extended release dorzolamide 22.3 mg-timolol 6.8 1 drp ophthalmic (eye) BID 07/27/21 07/01/24 mg/mL eye drops atorvastatin 20 mg tablet 20 mg PO BEDTIME 05/24/24 07/01/24 docusate sodium 100 mg capsule 100 mg PO BID 05/24/24 07/01/24 losartan 100 mg tablet 100 mg PO BEDTIME 05/24/24 07/01/24 simethicone 80 mg chewable tablet 80 mg PO TIDAC 05/24/24 07/01/24 diclofenac sodium 1 % topical gel 2 g topical BID 07/01/24 07/01/24 ferrous fumarate 324 mg (106 mg 324 mg PO DAILY 07/01/24 07/01/24 iron) tablet (Ferrocite) fluticasone propionate 50 2 spray intranasal DAILY 07/01/24 07/01/24 mcg/actuation nasal spray,suspension meclizine 12.5 mg tablet 12.5 mg PO TID PRN Dizziness 07/01/24 07/01/24 montelukast 10 mg tablet 10 mg PO BEDTIME 07/01/24 07/01/24 sennosides 8.6 mg tablet (senna) 17.2 mg PO BEDTIME PRN Constipation 07/01/24 07/01/24 Previous Rx's ?Medication ?Instructions ?Recorded albuterol sulfate 90 mcg/actuation 2 inh inhalation Q6H PRN shortness 08/21/20 aerosol inhaler of breath or wheezing 30 days #18 grams compr.stocking,thigh,reg,x-lrg #2 ea 11/27/20 gabapentin 300 mg capsule 600 mg (2 x 300 mg) PO BEDTIME #60 07/31/23 caps fluticasone furoate 200 1 ea inhalation DAILY #60 ea 01/16/24 mcg-vilanterol 25 mcg/dose inhalation powder (Breo Ellipta) psyllium 1 tbsp PO DAILY #300 grams 05/24/24 oseltamivir 30 mg capsule 30 mg PO BID #6 caps 07/03/24 prednisone 10 mg tablet 40 mg (4 x 10 mg) PO DIRECTED 07/03/24 #16 tabs meclizine 25 mg tablet (Dramamine 25 mg PO TID PRN dizziness #20 tabs 07/10/24 Less Drowsy) ondansetron 4 mg disintegrating 4 mg PO Q6-8H PRN nausea and 07/10/24 tablet vomiting #14 tabs Allergies Allergy/AdvReac Type Severity Reaction Status Date / Time latex [Latex] Allergy Severe DIFFICULTY Verified 07/09/24 22:49 BREATHING RELATED TO EXACERBATION OF ASTHMA Cameron Inhibitors Allergy Severe cough Uncoded 07/09/24 22:49 From PERCOCET Allergy Severe RASH Uncoded 07/09/24 22:49 Review of Systems 2 Review of Systems: Yes all other systems are reviewed and are negative [facility] Past Medical History Medical History Axillary mass Memory loss Limb swelling History of eye prosthesis Murmur Anemia Dysphagia Hiatal hernia KERON on CPAP Asthma Abnormal colonoscopy (~01/2019) Environmental allergies HTN (hypertension) Acid reflux Surgical History History of throat surgery History of total right knee replacement (TKR) History of colonoscopy History of cholecystectomy History of hysterectomy Social History Social History Household Members: Spouse and Family Housing: House Do you presently have visiting nurse or other home services: Yes ([employer] services) Alcohol intake: never Patient Tobacco Use Status: Never used Tobacco Advance Directives: No Advance Directives Information Provided: Yes Do you have a plan to hurt others: No Plan service: No Current occupational status: retired 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 handed Physical Exam 2 Vital Signs: Vital Signs: Last Vital Signs Temp 98.1 F 07/10/24 03:29 Pulse 57 07/10/24 03:29 Resp 16 07/10/24 03:29 BP 138/64 07/10/24 03:29 Pulse Ox 96 07/10/24 03:29 O2 Del Method Room Air 07/10/24 03:29 BMI result Body Mass Index 37.8 Vital signs revealed an elevated blood pressure of 148/104, low heart rate of 58 otherwise unremarkable Exam: General: Awake, alert, oriented to person, place, answers questions appropriately, appears to be in mild distress secondary to her headache. Head: Normocephalic, atraumatic EENT: Right eye prosthesis, left pupil 4 mm, reactive to light, extraocular muscles are intact on left, Lids garett on left, patient does have some difficulty closing her right eyelid completely over her prosthetic eye l, sclera normal, conjunctiva normal, nose normal , ears normal, throat without erythema or exudates Neck: Supple, no adenopathy Lung: breath sounds symmetric, no wheezing, rales or rhonchi Chest: symmetric movement, nontender Heart: regular rate and rhythm, normal S1, S2 no murmurs or rubs Abdomen: soft, non-tender, nondistended, normal bowel sounds Back: no vertebral tenderness, no CVAT Extremities: no deformities, moves all extremities symmetrically Neuro : General: Awake, alert, oriented, normal speech Cranial nerves: Cranial nerves intact Strength: moves all extremities symmetrically, able to hold her limbs up against gravity with no drift Psych: Pleasant, cooperative Medications Administered Discontinued Medications Generic Name Dose Route Start Last Admin Trade Name Freq PRN Reason Stop Dose Admin Diphenhydramine HCl 12.5 mg 07/09/24 23:23 07/09/24 23:41 Diphenhydramine Hcl 50 Mg/Ml Vial IVPUSH 07/09/24 23:24 12.5 mg ONCE STA Administration Ketorolac Tromethamine 15 mg 07/09/24 23:23 07/09/24 23:41 Ketorolac Tromethamine 15 Mg/Ml Vial IVPUSH 07/09/24 23:24 15 mg ONCE STA Administration Metoclopramide HCl 5 mg 07/09/24 23:23 07/09/24 23:41 Metoclopramide Hcl 10 Mg/2 Ml Vial IVPUSH 07/09/24 23:24 5 mg ONCE STA Administration Medical Decision Making Medical Decision Making MDM Narrative: 83-year-old female with a history of hypertension, anemia, hiatal hernia, hypertension, hyperlipidemia obstructive sleep apnea on CPAP, asthma, GERD, 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 The patient developed a left-sided headache which she describes as a pressure-like pain behind her left eye. This occurred at around noon time. The headache as a constant, throbbing sensation. She was had similar headaches in the past and gets them frequently. The patient also developed room spinning dizziness. She states has she developed a room spinning dizziness which has been intermittent and does resolve but seems to be triggered by position change. She was had similar dizziness in the past as well. The grandson visited the patient at noon time at an around 16:30 hours, he felt that the patient was confused and he was concerned that the patient was having a stroke but the patient refused to come to the emergency department. The patient was headache persisted therefore the grandson did bring the patient to the emergency department. At the time my evaluation, the patient was complaining of a left-sided headache which she was 6/10. She had no room spinning dizziness. Patient's neurologic exam was nonfocal. Her NIH stroke scale was 0. Differential diagnosis: ?Includes but is not limited to headache, migraine headache, intracranial bleed, stroke, benign positional vertigo, anemia, electrolyte abnormalities, anemia Course: 04:07 my interpretation patient's laboratory evaluation as follows: Normocytic anemia with an H&H of 10.8 and 33.7. COVID-19, influenza and RSV tests were negative. Urinalysis /Microscopic was unremarkable. CT scan of the brain revealed no acute findings. At this time I believe that the patient had a migraine-like headache associated with benign positional vertigo and I did discuss this with the patient and the patient's son. The patient was discharged home with prescriptions for meclizine and Zofran. Admission/Observation Consideration of admission/observation: Escalation of care including admission/observation considered ( Yes) Lab Data MDM Lab Attestation statement: I reviewed the patient's lab results. 07/09/24 23:35 07/09/24 23:35 Labs: Lab Results 07/09/24 07/09/24 07/09/24 Range/Units 23:30 23:35 23:46 WBC 8.3 (4.8-10.8) X10*3/uL RBC 3.89 L (4.20-5.50) X10*6/uL Hgb 10.8 L (12.0-16.0) g/dl Hct 33.7 L (37.0-47.0) % MCV 86.6 (80.0-98.0) fL MCH 27.8 (27.0-33.0) pg MCHC 32.0 (31.0-35.0) g/dl RDW 16.4 H (11.0-16.0) % Plt Count 252 (160-400) X10*3/uL MPV 10.6 (9.4-12.3) fL Immature Gran % (Auto) 0.8 H (0.0-0.4) % Neut % (Auto) 48.1 (45-73) % Lymph % (Auto) 41.3 H (20-40) % Garza % (Auto) 8.7 (2-11) % Eos % (Auto) 0.7 (0-4) % Baso % (Auto) 0.4 (0-2) % Lymph # (Auto) 3.4 (1.2-4.9) X10*3/uL Garza # (Auto) 0.7 (0.1-1.2) X10*3/uL Eos # (Auto) 0.1 (0.0-0.4) X10*3/uL Baso # (Auto) 0.0 (0.0-0.2) X10*3/uL Abs Immat Gran (auto) 0.07 H (0.00-0.03) X10*3/uL Absolute Neuts (auto) 4.0 (2.0-8.3) x10*3/uL Absolute Nucleated RBC 0.000 (0.0-0.012) X10*3/uL Nucleated RBC % (auto) 0.0 (0.0-0.2) /100WBC PT 10.2 L (10.9-12.4) SEC INR 0.9 (0.9-1.1) APTT 26.2 (26.0-36.8) SEC Sodium 144 (135-145) mmol/L Potassium 3.9 (3.3-5.1) mmol/L Chloride 112 H (96-108) mmol/L Carbon Dioxide 26 (22-29) mmol/L Anion Gap 10 L (12-20) BUN 15 (9-16) mg/dL Creatinine 0.78 (0.5-1.4) mg/dL Estim Creat Clear Calc 56.0 Estimated GFR > 60 Random Glucose 111 (60-115) mg/dL Calcium 8.8 D (8.4-10.2) mg/dL Magnesium 2.4 (1.6-2.6) mg/dL Total Bilirubin 0.5 (0.0-1.0) mg/dL AST 28 (5-31) U/L ALT 43 H (0-31) U/L Alkaline Phosphatase 89 (39-117) U/L Troponin I High Sens 3.6 D (<3.5-17.0) ng/L Total Protein 7.1 (6.5-8.0) g/dL Albumin 3.7 (3.5-5.0) g/dL Lipase 11 (8-78) U/L Urine Color Yellow Urine Appearance Clear Urine pH 6.5 (5.0-9.0) Ur Specific [place] <= 1.005 (1.005-1.025) Urine Protein Negative (Neg-Trace) mg/dL Urine Glucose (UA) Negative (Negative) mg/dL Urine Ketones Negative (Negative) mg/dL Urine Blood Negative (Negative) Urine Nitrite Negative (Negative) Ur Leukocyte Esterase Trace H (Negative) Urine RBC 0-2 (0-2) /HPF Urine WBC 0-5 (0-5) /HPF Ur Squamous Epith Cells 0-2 (0-2) /HPF Urine Bacteria None Seen (None Seen) Hyaline Casts 0-2 (0-2) /LPF Influenza Type A (PCR) NEGATIVE (Negative) Influenza Type B (PCR) NEGATIVE (Negative) RSV RNA Qual (PCR) NEGATIVE (Negative) SARS-CoV-2 RNA (RT-PCR) NEGATIVE (Negative) Independent Interpretation I performed an independent interpretation of an: EKG Interpretation: my independent interpretation patient's 12 EKG done at 23:28 hours is as follows: Normal sinus rhythm rate of 61, normal CA interval, QRS duration QTC interval, inverted T-wave in lead 3 and V1 otherwise no significant T-wave abnormalities, no ST segment elevation, no ST segment depression, no PACs no PVCs Radiology Impression Discussion of test interpretation with radiology: I have reviewed the radiologist's reading. Radiologist Impression: CT head without contrast Comparison: MR - MRI [facility][1] [id number] - 04/05/11 15:50 EST Findings: No intra-axial mass, midline shift, hydrocephalus, or acute hemorrhage. Periventricular and subcortical white matter hypoattenuation likely chronic small-vessel ischemic changes. Intracranial atherosclerosis. The visualized paranasal sinuses and mastoid air cells are normal. Chronic right globe deformity. There is no acute fracture. IMPRESSION: 1. No acute intracranial findings. This document has been electronically signed by: Jonathan Morris MD on 07/10/2024 01:13:16 Dictated By: Jonathan Morris MD Independent Historian Clinical information obtained from an independent historian. History obtained from or confirmed by: Other ( ,son and grandson) External Record Review External record reviewed: Inpatient record Prescription Management I considered prescription management with: Other ( antiemetic: Zofran; anti vertigo: Meclizine) Chronic Conditions Patient?s care impacted by: Hypertension NIH Stroke Scale Internal: Initial- Upon Arrival Level of Consciousness: Alert Level of Consciousness Questions: Answers both questions correctly Level of Consciousness Commands: Performs both tasks correctly Best Gaze: Normal Visual: No visual loss (Patient has a right eye prosthesis, left eye vision is normal) Facial Palsy: Normal Motor Arm (Right): No drift Motor Arm (Left): No drift Motor Leg (Right): No drift Motor Leg (Left): No drift Limb Ataxia: Absent Sensory: Normal Best Language: No aphasia Dysarthia: Normal Extinction and Inattention: No abnormality Score: 0 Discharge Plan Discharge Clinical Impression: Acute headache, Benign paroxysmal positional vertigo Patient Disposition: Home, Self-Care Instructions: Vertigo (ED), Acute Headache (ED) Additional Instructions: Your blood work was unremarkable. The CT scan of your head did not reveal any stroke or bleeding in the brain which is reassuring. Your COVID-19, influenza and RSV tests were negative. Take ibuprofen 200 mg pills, 2 pills every 6 hours as needed for pain or fever. Take Tylenol (acetaminophen) 500 mg pills, 2 pills every 6 hours as needed for pain or fever. Take Zofran ODT 4 mg pills, 1 pill dissolved in your mouth every 8 hours as needed for nausea and vomiting. Take meclizine 25 mg pills, 1 pill 3 times a day for the next 3 days for dizziness then as needed for dizziness. This medication will make you sleepy. Do not drive or work while taking this medication. Prescriptions: New meclizine [Dramamine Less Drowsy] 25 mg tablet 25 mg PO TID PRN (Reason: dizziness) Qty: 20 0RF ondansetron 4 mg tablet,disintegrating 4 mg PO Q6-8H PRN (Reason: nausea and vomiting) Qty: 14 0RF No Action albuterol sulfate 90 mcg/actuation HFA aerosol inhaler 2 inh inhalation Q6H PRN (Reason: shortness of breath or wheezing) 30 Days Qty: 18 12RF gabapentin 300 mg capsule 600 mg PO BEDTIME Qty: 60 11RF Breo Ellipta 200-25 mcg/dose blister with device 1 ea inhalation DAILY Qty: 60 9RF meclizine 12.5 mg tablet 12.5 mg PO TID PRN (Reason: Dizziness) fluticasone propionate 50 mcg/actuation spray,suspension 2 spray INTRANASAL DAILY ferrous fumarate [Ferrocite] 324 mg (106 mg iron) tablet 324 mg PO DAILY diclofenac sodium 1 % gel 2 g topical BID sennosides [senna] 8.6 mg Tablet 17.2 mg PO BEDTIME PRN (Reason: Constipation) montelukast 10 mg tablet 10 mg PO BEDTIME oseltamivir 30 mg Capsule 30 mg PO BID Qty: 6 0RF prednisone 10 mg tablet 40 mg PO DIRECTED Qty: 16 0RF Rx Instructions: Take 40 mg daily for 4 days omeprazole 20 mg capsule,delayed release(DR/EC) 20 mg PO BID@0630,1630 (DME) compr.stocking,thigh,reg,x-lrg Misc See Rx Instructions .ROUTE .MEDSUPPLY Qty: 2 0RF Rx Instructions: 15-20cm dorzolamide-timolol 22.3-6.8 mg/mL drops 1 drp ophthalmic (eye) BID aspirin 81 mg tablet,delayed release (DR/EC) 81 mg PO DAILY verapamil 120 mg capsule,ext rel. pellets 24 hr 120 mg PO DAILY docusate sodium 100 mg capsule 100 mg PO BID simethicone 80 mg tablet,chewable 80 mg PO TIDAC losartan 100 mg tablet 100 mg PO BEDTIME atorvastatin 20 mg tablet 20 mg PO BEDTIME psyllium Powder 1 tbsp PO DAILY Qty: 300 0RF Rx Instructions: mix into at least 8 oz of water or juice before administering Print Language: Senegalese
--- OUTSIDE RECORDS SUMMARY | 2024-07-09 23:11 | XMS_ITS | Encounter Summary ---
Author Organization [employer] Address [address] [address] Care Team Providers Care Sports Trainer Name Role Phone Pedro Braxton MD Primary Care Provide r Encounter Details Date Type Department Care Team (Late Contact Info) Description 12/06/2022 Orders Only [facility] [address] [place] [address] Sylvia Valentino LPN Social History Tobacco Use [...] Department Care Team (Late Contact Info) Description 07/23/2024 9:30 AM EDT Office Visit [facility] [address] [place] [phone] Pedro Braxton MD [address] [place] [address] 07/30/2024 1:15 PM EDT Office Visit [facility] [address] [place] [phone] Pedro Braxton MD [address] [place] [address] documented as of this encounter Visit Diagnoses Not on filedocumented in this encounter Care Teams Sports Trainer Relationship Specialty Start Date End Date Pedro Braxton MD [address] [place] [address] PCP - General Internal Medicine 03/15/13 documented as of this encounter
--- OUTSIDE RECORDS SUMMARY | 2024-07-09 23:11 | XMS_ITS | Encounter Summary ---
Author Organization [employer] Address [address] [facility] [address] [place] [address] Care Team Providers Care Fiscal Clerk Name Role Phone Pedro Braxton MD Primary Care Provide r Encounter Details Date Type Department Care Team ([facility] st Contact Info) Description 07/01/2024 Orders Only [facility] External Provider, [facility] Social History Tobacco Use Types Packs/Day Years [...] Care Team (Late st Contact Info) Description 07/23/2024 9:30 AM EDT Office Visit [facility] [address] [place], [place] [phone] Pedro Braxton MD [address] [place] [address] 07/30/2024 1:15 PM EDT Office Visit [facility] [address] [place] [address] Pedro Braxton MD [address] [place] [address] documented as of this encounter Procedures Procedure Name Priority Date/Time Associated Diagnosis Comments HIGH SENSITIVITY TROPONIN I Routine 07/01/2024 12:26 PM EST XR CHEST 1 VIEW Routine 07/01/2024 10:44 AM EST VENOUS BLOOD GAS Routine 07/01/2024 10:3 2 AM EST SARS COV2/INFLUENZA A/B AND RSV RNA QL NAAT Routine 07/01/2024 10:27 AM EST HIGH SENSITIVITY TROPONIN I Routine 07/01/2024 10:26 AM EST CBC WITH AUTO DIFFERENTIAL Routine 07/01/2024 10:26 AM EST B TYPE NATRIURETIC PEPTIDE (BNP) Routine 07/01/2024 10:26 AM EST MAGNESIUM Routine 07/01/2024 10:26 AM EST LIPASE Routine 07/01/2024 10:26 AM EST LACTIC ACID Routine 07/01/2024 10:26 AM EST HEPATIC FUNCTION PANEL Routine 07/01/2024 10:26 AM EST BASIC METABOLIC PANEL Routine 07/01/2024 10:26 AM EST documented in this encounter Results * (ABNORMAL) High Sensitivity Troponin I (07/01/2024 12:26 PM EST) TROPONIN I HIGH SENSITIVITY 19.7(H) <3.5 - 17.0 ng/L [facility] Comment:The Marx high sens itivity Troponin-I results should beused in conjunction with other diagnostic information suchas ECG, clinical observations and information, and patientsymptoms to aid in the diagnosis of [place]. 07/01/2024 12:2 6 PM EST 07/01/2024 12:30 PM EST us Generic External Data Provider LAB BLOOD ORDERAB LES Final Result Performing Organization Address City/State/[facility] Co de Phone Number [facility] [address] [place] [phone] * XR Chest 1 View (07/01/2024 10:44 AM EST) Anatomical Region Laterality Modality Chest Radiographic Christina ging 07/01/2024 10:4 4 AM EST Narrative 07/01/2024 10:45 AM EST ? [facility] ?[address] ?[place] [address] ?XRay Report ? Signed ? Patient: Hopper,Mickie ?MR#: [id number] ?? 27 ? : 1940 ?Acct:[id number] ? Age/Sex: 83 / F ?ADM Date: 02/17/25 ? Loc: HO.ED ? Attending Dr: ? Ordering Physician: Hannah Downs DO ?? Date of Service: 07/01/24 ?? Procedure(s): XR chest 1V ?? Accession Number(s): [id number] ? cc: Hannah Downs DO; Pedro Ingram MD ? CLINICAL HISTORY: cough, fevers ? 1 view chest x-ray ? Comparison: 04/05/2024 ? Findings: ?? No consolidation or effusion. ?? No significant change in cardiomediastinal silhouette. ?? No acute fracture. ? IMPRESSION: ?? 1. No acute findings. ? This document has been electronically signed by: Katia Sales MD on ?? 07/01/2024 10:44:24 ? Dictated By: ?Katia Sales MD ? Signed By: ?<Electronically signed by Katia Sales MD in OV> ? 07/01/245 ? DD/ 1044 ? TD/TT: 07/01/24 1044 ? Gmat Instructor: ? Procedure Note Donotrudyinterpreter, Image - 07/01/2024 [place] [address] XRay Report Signed Patient: Mickie HopperMR#: [id number] [birth year] : 1940cct:[id number] Age/Sex: 83 / FADM Date: 07/01/24 Loc: HO.ED Attending Dr: Ordering Physician: Hannah Downs DO Date of Service: 07/01/24 Procedure(s): XR chest 1V Accession Number(s): [id number] cc: Hannah Downs DO; Pedro Ingram MD CLINICAL HISTORY: cough, fevers 1 view chest x-ray Comparison: 04/05/2024 Findings: No consolidation or effusion. No significant change in cardiomediastinal silhouette. No acute fracture. IMPRESSION: 1. No acute findings. This document has been electronically signed by: Katia Sales MD on 07/01/2024 10:44:24 Dictated By: Katia Sales MD Signed By: <Electronically signed by Katia Sales MD in OV> 07/01/24 1045 DD/ 1044 TD/TT: 07/01/24 1044 Gmat Instructor: us [facility] External Provider IMG XR PROCEDURES Final Result * VENOUS BLOOD GAS (07/01/2024 10:32 AM EST) VBG pH 7.41 7.32 - 7.43 [facility] Comment:METER #: [id number] additional_comment: Sekou serrano VBG PCO2 41 mmHg [facility] Comment:METER #: [id number] additional_comment: Sekou serrano VBG PO2 45 mmHg [facility] Comment:METER #: [id number] additional_comment: Sekou serrano VBG Base Excess 1.8 mmol/L [facility] Comment:METER #: [id number] additional_comment: Sekou serrano VBG HCO3 26 22 - 26 mmol/L [facility] Comment:METER #: [id number] additional_comment: Sekou serrano O2 Sat, Alfredo 70.0 % [facility] Comment:METER #: [id number] additional_comment: Sekou serrano 07/01/2024 10:3 2 AM EST 07/01/2024 10:40 AM EST Generic External Data Provider LAB BLOOD ORDERAB LES Final Result Performing Organization Address City/State/[facility] Co de Phone Number [facility] [address] [place] [phone] * (ABNORMAL) SARS-CoV-2 RNA, Influenza A/B, and RSV RNA, Ql NAAT (07/01/2024 10:27 AM EST) Influenza A PCR POSITIVE(A) Negative [facility] Influenza B PCR NEGATIVE Negative [facility] Resp Syncy Virus RNA Qual PCR NEGATIVE Negative [facility] SARS COV2 PCR NEGATIVE Negative [facility] Comment:All test results mus t be correlated with clinical findings.Negative results do not preclude SARS-CoV2, influenza Avirus, influenza B virus and/or RSV infectionand should not be used as the sole basis for treatment orother patient management decisions. Negative results must becombined with clinical observations, patient history, andepidemiological information.This test has not been evaluated for monitoring treatment ofinfection.This test has been authorized by the FDA under an EmergencyUse Authorization (EUA) for use by authorized laboratories.Testing performed on the [employer] GeneXpert utilizingreal-time RT-PCR.All SARS CoV2 and positive influenza A/B results arereported to [facility]. 07/01/2024 10:2 7 AM EST 07/01/2024 10:32 AM EST Generic External Data Provider LAB MICROBIOLOGY - GENERAL ORDERABLES Final Result Performing Organization Address [facility] Co de Phone Number [facility] [address] [place] [address] [phone] * High Sensitivity Troponin I (07/01/2024 10:26 AM EST) TROPONIN I HIGH SENSITIVITY 17.0 <3.5 - 17.0 ng/L [facility] Comment:The Marx high sens itivity Troponin-I results should beused in conjunction with other diagnostic information suchas ECG, clinical observations and information, and patientsymptoms to aid in the diagnosis of [place]. 07/01/2024 10:2 6 AM EST 07/01/2024 10:32 AM EST Generic External Data Provider LAB BLOOD ORDERAB LES Final Result Performing Organization Address [facility] Co de Phone Number [facility] [address] [place] [address] [phone] * (ABNORMAL) B Type Natriuretic Peptide (BNP) (07/01/2024 10:26 AM EST) B Type Natriuretic Peptide 157(H) <100 pg/mL [facility] Comment:For those patients w ho are being treated with Natrecor(nesiritide, recombinant BNP), BNP testing should beperformed at least two hours post treatment in order toensure that only endogenous levels of BNP are detected. 07/01/2024 10:2 6 AM EST 07/01/2024 10:32 AM EST us Generic External Data Provider LAB BLOOD ORDERAB LES Final Result Performing Organization Address [facility] Co de Phone Number [facility] [address] [place] [address] [phone] * Lactic Acid (07/01/2024 10:26 AM EST) Lactic Acid 1.0 0.5 - 2.0 mmol/L [facility] 07/01/2024 10:2 6 AM EST 07/01/2024 10:32 AM EST us Generic External Data Provider LAB BLOOD ORDERAB LES Final Result Performing Organization Address [facility] de Phone Number [facility] [address] [place] [address] [phone] * (ABNORMAL) Lipase (07/01/2024 10:26 AM EST) Lipase 6(L) 8 - 78 U/L [facility] 07/01/2024 10:2 6 AM EST 07/01/2024 10:32 AM EST us Generic External Data Provider LAB BLOOD ORDERAB LES Final Result Performing Organization Address [facility] Co de Phone Number [facility] [address] [place] [address] [phone] * Magnesium (07/01/2024 10:26 AM EST) Magnesium 2.1 1.6 - 2.6 mg/dL [facility] 07/01/2024 10:2 6 AM EST 07/01/2024 10:32 AM EST us Generic External Data Provider LAB BLOOD ORDERAB LES Final Result Performing Organization Address [facility] Co de Phone Number [facility] [address] [place] [address] [place] [phone] * (ABNORMAL) Basic Metabolic Panel (07/01/2024 10:26 AM EST) Sodium 142 135 - 145 mmol/L [facility] Potassium 3.6 3.3 - 5.1 mmol/L [facility] Chloride 110(H) 96 - 108 mmol/L [facility] Carbon Dioxide 24 22 - 29 mmol/L [facility] Anion Gap 12 12 - 20 [facility] Urea Nitrogen (BUN) 5(L) 9 - 16 mg/dL [facility] Creatinine, Serum 0.74 0.5 - 1.4 mg/dL [facility] Creatinine Clr Calc Pharmacy 55.1 [facility] Comment:Provided height and weight: 154.94 cm,79.9 kg.eGFR (calculated from the MDRD study equation) and eCrCl(calculated from the Cockcroft-Gault equation) are based ondifferent parameters and may not yield comparable results.If eCrCl result is absurd, please check patient'sheight/weight. Estimated Glomerular Filt Rate >60 [facility] Comment:Chronic Kidney Disea se: Estimated GFR < 60 mL/min/[id number] Kidney Disease: Estimated GFR < 15 mL/min/1.73m2 Glucose 97 60 - 115 mg/dL [facility] Calcium 9.4 8.4 - 10.2 mg/dL [facility] 07/01/2024 10:2 6 AM EST 07/01/2024 10:32 AM EST us Generic External Data Provider LAB BLOOD ORDERAB LES Final Result [facility] [address] [place] [phone] * (ABNORMAL) Hepatic Function Panel (07/01/2024 10:26 AM EST) Bilirubin, Total 0.6 0.0 - 1.0 mg/dL [facility] Bilirubin, Direct 0.3 0.0 - 0.5 mg/dL [facility] Aspartate Amino Transferase 38(H) 5 - 31 U/L [facility] Alanine Aminotransferase 22 0 - 31 U/L [facility] Total Protein 7.7 6.5 - 8.0 g/dL [facility] Albumin Level 4.0 3.5 - 5.0 g/dL [facility] Alkaline Phosphatase 102 39 - 117 U/L [facility] 07/01/2024 10:2 6 AM EST 07/01/2024 10:32 AM EST us Generic External Data Provider LAB BLOOD ORDERAB LES Final Result Performing Organization Address City/State/[facility] Co de Phone Number [facility] [address] [place] [phone] * (ABNORMAL) CBC auto differential (07/01/2024 10:26 AM EST) White Blood Count 4.6(L) 4.8 - 10.8 X10*3/uL [facility] Red Blood Count 3.89(L) 4.20 - 5.50 X10*6/uL [facility] Hemoglobin 10.7(L) 12.0 - 16.0 g/dl [facility] Hematocrit 33.8(L) 37.0 - 47.0 % [facility] Mean Corpuscular Volume 86.9 80.0 - 98.0 fL [facility] Mean Corpuscular Hemoglobin 27.5 27.0 - 33.0 pg [facility] Mean Corpuscular HGB Conc 31.7 31.0 - 35.0 g/dl [facility] Red Cell Distribution Width 17.0(H) 11.0 - 16.0 % [facility] Platelet Count 203 160 - 400 X10*3/uL [facility] Mean Platelet Volume 11.0 9.4 - 12.3 fL [facility] Neutrophils Percent Auto 65.7 45 - 73 % [facility] Imm Gran Pct Auto 0.4 0.0 - 0.4 % [facility] Lymphocytes Percent Auto 14.4(L) 20 - 40 % [facility] Monocytes Percent Auto 16.6(H) 2 - 11 % [facility] Eosinophils Percent Auto 2.0 0 - 4 % [facility] Basophils Percent Auto 0.9 0 - 2 % [facility] NRBC Pct Auto 0.0 0.0 - 0.2 /100WBC [facility] Neutrophils Absolute Auto 3.0 2.0 - 8.3 x10*3/uL [facility] Imm Gran Abs Auto 0.02 0.00 - 0.03 X10*3/uL [facility] Lymphocytes Absolute Auto 0.7(L) 1.2 - 4.9 X10*3/uL [facility] Monocytes Absolute Auto 0.8 0.1 - 1.2 X10*3/uL [facility] Eosinophils Absolute Auto 0.1 0.0 - 0.4 X10*3/uL [facility] Basophils Absolute Auto 0.0 0.0 - 0.2 X10*3/uL [facility] NRBC Abs Auto 0.000 0.0 - 0.012 X10*3/uL [facility] 07/01/2024 10:2 6 AM EST 07/01/2024 10:32 AM EST us Generic External Data Provider LAB BLOOD ORDERAB LES Final Result Performing Organization Address City/State/[facility] Co de Phone Number [facility] [address] [place] [address] [phone] documented in this encounter Visit Diagnoses Not on filedocumented in this encounter Additional Health Concerns Assessment Noted Time PHQ-9 Depression Total Score: 3 11/28/19 24 2:27 PM EDT documented as of this encounter Care Teams Fiscal Clerk Relationship Specialty Start Date End Date Pedro Braxton MD [address] [place] [phone] PCP - General Internal Medicine 03/15/13 documented as of this encounter
--- OUTSIDE RECORDS SUMMARY | 2024-07-09 23:11 | XMS_ITS | Encounter Summary ---
Author Organization [employer] Address [address] [facility] [address] [place] [address] Care Team Providers Care Auto Vinyl Top Installer Name Role Phone Pedro Braxton MD Primary Care Provide r Reason for Visit * Reason Comments Transition Of Care (Tcm) HDF- scheduled and SDOH screening negative and Tobacco screening negative Encounter Details Date Type Department Care Team ([facility] st Contact Info) Description 07/03/2024 Patient Outreach [facility] [address] [place], [place] [phone] Pedro Braxton MD [address] [place], [place] [phone] Transition Of Care (Tcm) (HDF- scheduled and SDOH screening negative and Tobacco screening negative) Social History Tobacco Use Types Packs/Day Years [...] as of this encounter Miscellaneous Notes * Significant Event - Brynn Chacon - 07/03/2024 11:07 AM EST 07/03/24 1104 Hospital Discharges and Admission for [facility] Type of Visit Hospital Admission Date of Admission/Visit 07/01/24 Date of Discharge 07/03/24 Facility [facility] Diagnosis Influenza A Disposition Discharged Home Follow-Up Actions Follow-Up Needed Provider appointment Follow-Up Outcome Spoke to Caregiver;Spoke to Patient;Booked Appointment Initial Contact Date 07/03/24 WAYNE Hathaway placed outbound call to patient for HDF outreach. Patient's name and were confirmed by hiral Rahman and patient. Patient educated on the importance of follow up with provider following inpatient admission. Patient offered an HDF appt. Patient is agreeable to an appointment and has been scheduled for 07/23/2024 at 9:30am with . Insurance verified prior to scheduling. Patient advised to bring to appointment a photo id and insurance card. Patient also notified that a health center pharmacist will be reaching out to them via telephone prior to their scheduled appointment in order to review their medications in preparation for their appointment. Patient provided with education on contacting the Health Center with any questions or concerns prior to the scheduled appointment. Patient educated on extended clinic hours on Mondays and Wednesdays, and Walk-In Urgent Care Located in [facility]. Patient provided with after-hours line for [facility], , which offer night time triage service and option to transfer to rhinestone setter provider if needed. CC scanned discharge summary into patient's chart. Biggest concern for appointment at this time is no concerns for now. Appropriate screenings completed in anticipation of appointment. documented in this encounter Plan of Treatment Upcoming Encounters Date Type Department Care Team (Late st Contact Info) Description 07/23/2024 9:30 AM EDT Office Visit [facility] [address] [place] [address] Pedro Braxton MD [address] [place] [address] 07/30/2024 1:15 PM EDT Office Visit [facility] [address] [facility] [place], [place] [phone] Pedro Braxton MD [address] [place], [place] [phone] documented as of this encounter Visit Diagnoses Not on filedocumented in this encounter Additional Health Concerns Assessment Noted Time PHQ-9 Depression Total Score: 3 11/28/19 24 2:27 PM EDT documented as of this encounter Care Teams Auto Vinyl Top Installer Relationship Specialty Start Date End Date Pedro Braxton MD [address] [place], [place] [phone] PCP - General Internal Medicine 03/15/13 documented as of this encounter
--- OUTSIDE RECORDS SUMMARY | 2024-07-09 23:11 | XMS_ITS | Clinical Summary ---
Author Organization [employer] Address [address] [facility] [address] [place] [address] Care Team Providers Care Hamper Maker Machine Name Role Phone Pedro Braxton MD Primary Care Provide r Allergies Active Allergy Reactions Criticality Noted Date Comments Cameron Inhibitors Cough 06/02/2010 Medications Fluticasone Furoate-Vilante rol (Breo Ellipta) 200-25 MCG/ACT aerosol powder Inhale 1 puff at bed time. 020 Active selenium sulfide (Selsun) 2.5 % shampoo Apply topically if needed each day for dandruff. Use twice a week 118 mL 2 023 Active clobetasol (Temovate) 0.05 % ointment Apply topically 2 times daily. 15 g 023 Active losartan (Cozaar) 50 MG tablet TAKE 1 TABLET BY MOUTH AT BEDTIME 90 tablet 3 024 Active Aspirin Adult Low Strength 81 MG EC tablet TAKE 1 TABLET BY MOUTH EVERY MORNING 90 tablet 3 024 Active atorvastatin (Lipitor) 20 MG tablet TAKE 1 TABLET BY MOUTH AT BEDTIME 90 tablet 3 024 Active cetirizine (ZyrTEC) 10 MG tablet Take 1 tablet (10 mg) by mouth Once daily as needed for allergies. 30 tablet 024 Active albuterol 108 (90 Base) MCG/ACT inhalerIndicati ons:Moderate persistent asthma without complication INHALE 2 PUFFS BY MOUTH EVERY 6 HOURS NEEDED FOR WHEEZING OR SHORTNESS OF BREATH 18 g 024 Active verapamil SR (Calan SR) 120 MG ER tablet TAKE 1 TABLET BY MOUTH EVERY MORNING 90 tablet 1 Active simethicone (Mylicon) 80 MG chewable tabletIndicatio ns:Flatulence CHEW AND SWALLOW 1 TABLET THREE TIMES DAILY BEFORE MEALS NEEDED FOR GAS 90 tablet 3 Active linaCLOtide (Linzess) 72 MCG capsuleIndicati ons:Constipatio n, unspecified constipation type Take 1 capsule (72 mcg) by mouth before breakfast. Do not crush or chew. 14 capsule 024 2024 Active glycerin (Adult) 2 g suppositoryIndi cations:Constip ation, unspecified constipation type Insert 1 suppository (2 g) into the rectum if needed in the morning and at bedtime for constipation. 30 suppository 1 Active omeprazole (PriLOSEC) [address] capsuleIndicati ons:Dyspepsia Take 1 capsule (20 mg) by mouth before breakfast and before evening meal. Do not crush or chew. 60 capsule 11 024 2024 Active guaiFENesin (Mucinex) 600 MG 12 hr tabletIndicatio ns:Acute cough Take 1 tablet (600 mg) by mouth 2 times daily. Do not crush, chew, or split. 60 tablet 11 024 2024 Active senna (Senokot) 8.6 MG tabletIndicatio ns:Constipation , unspecified constipation type TAKE 2 TABLETS BY MOUTH EVERY DAY AT BEDTIME NEEDED 180 tablet Active docusate sodium (Colace) 100 MG capsuleIndicati ons:Constipatio n, unspecified constipation type TAKE 1 CAPSULE BY MOUTH TWICE DAILY IN THE MORNING AND IN THE EVENING NEEDED 60 capsule 5 Active fluticasone (Flonase) 50 MCG/ACT nasal spray INSTILL 2 SPRAYS IN EACH NOSTRIL ONCE DAILY ONCE DAILY SHAKE GENTLY 16 g 3 025 Active Diclofenac Sodium 1 % gelIndications: Other headache syndrome APPLY 2 GRAMS TOPICALLY TO AFFECTED AREA(S) TWICE DAILY 100 g 2 025 Active Diclofenac Sodium 1 % gelIndications: Other headache syndrome APPLY 2 GRAMS TOPICALLY TO AFFECTED AREA(S) TWICE DAILY 100 g 2 024 2024 Discontinued Active Problems Problem Noted Date Diagnosed Date [...] encouraged to discuss with her GI for nursing home use. -ER precautions discussed. Class 1 obesity [...] EST): Pt with chronic anemia. Seen by hiv cts specialist Dr Osiel Ye at [facility] last seen on 07/22/2021. GI work up included a EGD 2020 and Colonoscopy 2006. Moderate persistent asthma without complication 05/24/2022 Assessment & Plan (11/28/2023 2:41 PM EDT): She has chronic cough, described as dry and intermittent wheezing. 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 Pt was unable to complete PFTs under the care of Dr Silva ( Plant Health Care Technician ) thinks she has Mod persistent asthma On Montelukast, Breo Elipa 100/25 chest x-ray 07/17/2019 Normal pt will continue to follow with him, last seen September 2022 Assessment & Plan (12/22/2022 11:15 AM EDT): She has chronic cough, described as dry and intermittent wheezing. 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 Pt was unable to complete PFTs under the care of Dr Silva ( Plant Health Care Technician ) thinks she has Mod persistent asthma On Montelukast, Breo Elipa 100/25 chest x-ray 07/17/2019 Normal pt will continue to follow with him, last seen September 2022 Assessment & Plan (05/24/2022 5:15 PM EST): She has chronic cough, described as dry and intermittent wheezing. 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 Pt was unable to complete PFTs under the care of Dr Silva ( Plant Health Care Technician ) thinks she has Mod persistent asthma [...] RECOMMENDATION: 1 year F/U Paps wnl 2002, 2004 and 2005 with h/o KIRIT/BSO for fibroids [...] -24 hour BP monitor ordered -EKG -Called Court Clerk, will plan for follow up appt in 1-2 months -ED precautions reviewed Assessment & Plan (05/24/2022 4:33 PM EST): Pt here for a f/u BP is controlled, She is on a regimen of: Verelan ER 120 mg po daily by cardiology and Diovan 80 mg po daily (she had been on Hctz before but this was D[facility] by [facility]) For now will continue with current medical [...] it is dermatitis versuse other. Referral to pearl digger. ER precautions given. Encounters Date Type Department Care Team Description 07/05/2024 Refill [facility] MEDICINE [address] [place] [address] Nyasia Nagel MD Other headache syndrome 07/03/2024 Patient Outreach [facility] MEDICINE [address] [place] [address] Pedro Braxton MD Transition Of Care (Tcm) (HDF- scheduled and SDOH screening negative and Tobacco screening negative) 07/03/2024 Telephone [facility] MEDICINE [address] [place] [address] Pedro Braxton MD Hospital Follow-up 07/01/2024 Orders Only [facility] External Provider, [facility] 06/06/2024 Telephone [facility] MEDICINE [address] [place] [address] Pedro Braxton MD Med Refill 05/17/2024 Refill [facility] MEDICINE [address] [place] [address] Vanessa Amor MD 05/17/2024 Refill [facility] MEDICINE [address] [place] [address] Pedro Braxton MD Constipation, unspecified constipation type 04/30/2024 2:00 PM EST Office Visit [facility] MEDICINE [address] [place] [address] Pedro Braxton MD Essential hypertension (Primary Dx); Constipation, unspecified constipation type; Gastroesophageal reflux disease without esophagitis; Mixed hyperlipidemia; Preventative health care; Class 1 obesity 04/30/2024 Travel 04/24/2024 Telephone [facility] MEDICINE [address] [place], [place] [phone] Pedro Braxton MD Chart Prep 04/14/2024 Refill [facility] CHC MED & PEDS [address] [place], [place] [phone] Pedro Braxotn MD Constipation, unspecified constipation type 04/09/2024 Telephone [facility] WALK-IN CENTER [address], [place] [phone] DexterEleonora [facility] from Last 3 Months Immunizations Name Administration [...] Description 07/23/2024 9:30 AM EDT Office Visit [facility] MEDICINE [address] [place] [phone] Pedro Braxton MD [address] [place] [address] 07/30/2024 1:15 PM EDT Office Visit [facility] MEDICINE [address] [facility] [address] Pedro Braxton MD [address] [place] [address] Health Maintenance Due Date Last [...] 07/14/2021, 07/24/2020, 06/26/2020 Influenza Vaccine (#1) 2024 , 05/03/2021, 05/29/2018, Additional history exists Mammogram 09/17/2024 09/18/2023, 10/2023, 11/06/2020, Additional history exists Depression Screening 11/27/2024 11/28/2023, 11/28/19 24 DTaP/Tdap/Td Vaccines (2 - Td or Tdap) 12/16/2024 12/16/2014 Alcohol/Substance Use Screening 04/30/2025 04/30/2024 Tobacco Screening 04/30/2025 04/30/2024 SDOH Screening 07/03/2025 07/03/2024 Lipid Panel 05/02/2029 05/02/2024, 12/13, 05/31/2022, Additional [...] TROPONIN I Routine 07/01/2024 10:26 AM EST B TYPE NATRIURETIC PEPTIDE (BNP) Routine 07/01/2024 10:26 AM EST LACTIC ACID Routine 07/01/2024 10:26 AM EST LIPASE Routine 07/01/2024 10:26 AM EST MAGNESIUM Routine 07/01/2024 10:26 AM EST BASIC METABOLIC PANEL Routine 07/01/2024 10:26 AM EST HEPATIC FUNCTION PANEL Routine 07/01/2024 10:26 AM EST CBC WITH AUTO DIFFERENTIAL Routine 07/01/2024 10:26 AM EST CBC WITH AUTO DIFFERENTIAL Routine 05/02/2024 10:01 AM EST Gastroesophageal reflux disease without esophagitis COMPREHENSIVE METABOLIC PANEL Routine 05/02/2024 10:01 AM EST Essential hypertension LIPID PANEL, STANDARD Routine 05/02/2024 10:01 AM EST Mixed hyperlipidemia BI MAMMOGRAM SCREENING TOMOSYNTHESIS BILATERAL Routine 09/18/2023 2:30 PM EDT from Last 3 Months or Most Recently Relevant to Health Maintenance Results * (ABNORMAL) High Sensitivity Troponin I (07/01/2024 12:26 PM EST) Only the most recent of2 resultswithin the time period is included. TROPONIN I HIGH SENSITIVITY 19.7(H) <3.5 - 17.0 ng/L [facility] Comment:The Marx high sens itivity Troponin-I results should beused in conjunction with other diagnostic information suchas ECG, clinical observations and information, and patientsymptoms to aid in the diagnosis of AL. 07/01/2024 12:2 6 PM EST 07/01/2024 12:30 PM EST us Generic External Data Provider LAB BLOOD ORDERAB LES Final Result Performing Organization Address City/State/[facility] Co de Phone Number [facility] [address] [place] [address] [phone] * XR Chest 1 View (07/01/2024 10:44 AM EST) Anatomical Region Laterality Modality Chest Radiographic Christina ging 07/01/2024 10:4 4 AM EST Narrative 07/01/2024 10:45 AM EST ? [facility] ?[address] ?[place] [address] ?XRay Report ? Signed ? Patient: Ward,Mickie ?MR#: [id number] ?? 27 ? : 1940 ?Acct:[id number] ? Age/Sex: 83 / F ?ADM Date: 02/17/25 ? Loc: HO.ED ? Attending Dr: ? Ordering Physician: Hannah Downs DO ?? Date of Service: 07/01/24 ?? Procedure(s): XR chest 1V ?? Accession Number(s): [id number] ? cc: Hannah Downs DO; Pedro Ingram [...] by Katia Sales MD in OV> ? 07/01/24 1045 ? DD/ 1044 ? TD/TT: 07/01/24 1044 ? Fire Equipment Repairer Inspector: ? Procedure Note Donotuseinterpreter, Image - 07/01/2024 [place] [address] XRay Report Signed Patient: Mickie HopperMR#: [id number] [birth year] : 1Acct:[id number] Age/Sex: 83 / FADM Date: 07/01/24 Loc: HO.ED Attending Dr: Ordering Physician: Hannah Downs DO Date of Service: 07/01/24 Procedure(s): XR chest 1V Accession Number(s): [id number] cc: Hannah Downs DO; Pedro Ingram MD [...] signed by Katia Sales MD in OV> 07/01/245 DD/ 43 TD/TT: 07/01/241043 Fire Equipment Repairer Inspector: [facility] External Provider IMG XR PROCEDURES Final Result * VENOUS BLOOD GAS (07/01/2024 10:32 AM EST) VBG pH 7.41 7.32 - 7.43 [facility] Comment:METER #: [id number] additional_comment: Sekou serrano VBG PCO2 41 mmHg [facility] Comment:METER #: [id number] additional_comment: Sekou serrano VBG PO2 45 mmHg [facility] Comment:METER #: [id number] additional_comment: Sekou serrano VBG Base Excess 1.8 mmol/L [facility] Comment:METER #: [id number] additional_comment: Sekou serrano VBG HCO3 26 22 - 26 mmol/L [facility] Comment:METER #: [id number] additional_comment: Sekou serrano O2 Sat, Alfredo 70.0 % [facility] Comment:METER #: [id number] additional_comment: Sekou serrano 07/01/2024 10:3 2 AM EST 07/01/2024 10:40 AM EST us Generic External Data Provider LAB BLOOD ORDERAB LES Final Result [facility] [address] [place] [address] [phone] * (ABNORMAL) SARS-CoV-2 RNA, Influenza A/B, and RSV RNA, Ql NAAT (07/01/2024 10:27 AM EST) Influenza A PCR POSITIVE(A) Negative [facility] Influenza B PCR NEGATIVE Negative [facility] Resp Syncy Virus RNA Qual PCR NEGATIVE Negative [facility] SARS COV2 PCR NEGATIVE Negative [facility] Comment:All test results mus t [...] use by authorized laboratories.Testing performed on the Evolve[employer] GeneXpert utilizingreal-time RT-PCR.All SARS CoV2 and positive influenza A/B results arereported to [facility]. 07/01/2024 10:2 7 AM EST 07/01/2024 10:32 AM EST us Generic External Data Provider LAB MICROBIOLOGY - GENERAL ORDERABLES Final Result [facility] [address] [place] [address] [phone] * (ABNORMAL) CBC auto differential (07/01/2024 10:26 AM EST) Only the most recent of2 resultswithin the time period is included. White Blood Count 4.6(L) 4.8 - 10.8 X10*3/uL [facility] Red Blood Count 3.89(L) 4.20 - 5.50 X10*6/uL [facility] Hemoglobin 10.7(L) 12.0 - 16.0 g/dl [facility] Hematocrit 33.8(L) 37.0 - 47.0 % [facility] Mean Corpuscular Volume 86.9 80.0 - 98.0 fL [facility] Mean Corpuscular Hemoglobin 27.5 27.0 - 33.0 pg [facility] Mean Corpuscular HGB Conc 31.7 31.0 - 35.0 g/dl [facility] Red Cell Distribution Width 17.0(H) 11.0 - 16.0 % [facility] Platelet Count 203 160 - 400 X10*3/uL [facility] Mean Platelet Volume 11.0 9.4 - 12.3 fL [facility] Neutrophils Percent Auto 65.7 45 - 73 % [facility] Imm Gran Pct Auto 0.4 0.0 - 0.4 % [facility] Lymphocytes Percent Auto 14.4(L) 20 - 40 % [facility] Monocytes Percent Auto 16.6(H) 2 - 11 % [facility] Eosinophils Percent Auto 2.0 0 - 4 % [facility] Basophils Percent Auto 0.9 0 - 2 % [facility] NRBC Pct Auto 0.0 0.0 - 0.2 /100WBC [facility] Neutrophils Absolute Auto 3.0 2.0 - 8.3 x10*3/uL [facility] Imm Gran Abs Auto 0.02 0.00 - 0.03 X10*3/uL [facility] Lymphocytes Absolute Auto 0.7(L) 1.2 - 4.9 X10*3/uL [facility] Monocytes Absolute Auto 0.8 0.1 - 1.2 X10*3/uL [facility] Eosinophils Absolute Auto 0.1 0.0 - 0.4 X10*3/uL [facility] Basophils Absolute Auto 0.0 0.0 - 0.2 X10*3/uL [facility] NRBC Abs Auto 0.000 0.0 - 0.012 X10*3/uL [facility] 07/01/2024 10:2 6 AM EST 07/01/2024 10:32 AM EST us Generic External Data Provider LAB BLOOD ORDERAB LES Final Result Performing Organization Address City/[facility]/ZIP Co de Phone Number [facility] [address] [place] [phone] * (ABNORMAL) B Type Natriuretic Peptide (BNP) (07/01/2024 10:26 AM EST) B Type Natriuretic Peptide 157(H) <100 pg/mL [facility] Comment:For those patients w ho are being treated with Natrecor(nesiritide, recombinant BNP), BNP testing should beperformed at least two hours post treatment in order toensure that only endogenous levels of BNP are detected. 07/01/2024 10:2 6 AM EST 07/01/2024 10:32 AM EST us Generic External Data Provider LAB BLOOD ORDERAB LES Final Result Performing Organization Address City/[facility]/ZIP Co de Phone Number [facility] [address] [place] [phone] * Magnesium (07/01/2024 10:26 AM EST) Magnesium 2.1 1.6 - 2.6 mg/dL [facility] 07/01/2024 10:2 6 AM EST 07/01/2024 10:32 AM EST Generic External Data Provider LAB BLOOD ORDERAB LES Final Result Performing Organization Address [facility] Co de Phone Number [facility] [address] [place] [phone] * (ABNORMAL) Lipase (07/01/2024 10:26 AM EST) Lipase 6(L) 8 - 78 U/L [facility] 07/01/2024 10:2 6 AM EST 07/01/2024 10:32 AM EST Generic External Data Provider LAB BLOOD ORDERAB LES Final Result Performing Organization Address [facility] de Phone Number [facility] [address] [place] [phone] * Lactic Acid (07/01/2024 10:26 AM EST) Lactic Acid 1.0 0.5 - 2.0 mmol/L [facility] 07/01/2024 10:2 6 AM EST 07/01/2024 10:32 AM EST Generic External Data Provider LAB BLOOD ORDERAB LES Final Result Performing Organization Address [facility] de Phone Number [facility] [address] [place] [phone] * (ABNORMAL) Hepatic Function Panel (07/01/2024 10:26 AM EST) Bilirubin, Total 0.6 0.0 - 1.0 mg/dL [facility] Bilirubin, Direct 0.3 0.0 - 0.5 mg/dL [facility] Aspartate Amino Transferase 38(H) 5 - 31 U/L [facility] Alanine Aminotransferase 22 0 - 31 U/L [facility] Total Protein 7.7 6.5 - 8.0 g/dL [facility] Albumin Level 4.0 3.5 - 5.0 g/dL [facility] Alkaline Phosphatase 102 39 - 117 U/L [facility] 07/01/2024 10:2 6 AM EST 07/01/2024 10:32 AM EST us Generic External Data Provider LAB BLOOD ORDERAB LES Final Result [facility] [address] [place] [phone] [phone] * (ABNORMAL) Basic Metabolic Panel (07/01/2024 10:26 AM EST) Sodium 142 135 - 145 mmol/L [facility] Potassium 3.6 3.3 - 5.1 mmol/L [facility] Chloride 110(H) 96 - 108 mmol/L [facility] Carbon Dioxide 24 22 - 29 mmol/L [facility] Anion Gap 12 12 - 20 [facility] Urea Nitrogen (BUN) 5(L) 9 - 16 mg/dL [facility] Creatinine, Serum 0.74 0.5 - 1.4 mg/dL [facility] Creatinine Clr Calc Pharmacy 55.1 [facility] Comment:Provided height and weight: 154.94 cm,79.9 kg.eGFR (calculated from the MDRD study equation) and eCrCl(calculated from the Cockcroft-Gault equation) are based ondifferent parameters and may not yield comparable results.If eCrCl result is absurd, please check patient'sheight/weight. Estimated Glomerular Filt Rate >60 [facility] Comment:Chronic Kidney Disea se: Estimated GFR < 60 mL/min/1.74p9Vylrdl Kidney Disease: Estimated GFR < 15 mL/min/1.73m2 Glucose 97 60 - 115 mg/dL [facility] Calcium 9.4 8.4 - 10.2 mg/dL [facility] 07/01/2024 10:2 6 AM EST 07/01/2024 10:32 AM EST us Generic External Data Provider LAB BLOOD ORDERAB LES Final Result Performing Organization Address City/[facility]/ZIP Co de Phone Number [facility] [address] [place] [phone] * Lipid Panel, Standard (05/02/2024 10:01 AM EST) Triglycerides 92 <150 mg/dL [facility] Comment:Desirable Triglyceri de: less than 150 mg/dLBorderline High Triglyceride 150-199 mg/dLHigh Triglyceride: 200-499 mg/dLVery High Triglyceride: greater than or equal to 5OO mg/dL Cholesterol 127 <200 mg/dL [facility] Comment:Desirable Cholestero l: less than 200 mg/dLBorderline High Cholesterol: 200-239 mg/dLHigh Cholesterol: greater than 239 mg/dL LDL Cholesterol Calculated 58 <100 mg/dL [facility] Comment:Desirable LDL: less than 100 mg/dLNear Optimal/Above Optimal LDL: 110- 129 mg/dLBorderline High LDL: 130-159 mg/dLHigh LDL: 160-189 mg/dLVery High LDL: greater than or equal to 190 mg/dL HDL Cholesterol 51 >40 mg/dL [facility] Comment:Desirable HDL: great er than 40 mg/dL Note: This HDL assay may give artificially low results in patients with liver disease. Blood Venous blood specimen / Unknown 05/02/2024 10:01 AM EST 05/02/2024 11:15 AM EST us Pedro Leiva MD LAB BLOOD ORDERABLES Final Result Performing Organization Address City/[facility]/ZIP Co de Phone Number [facility] [address] [place] [phone] * (ABNORMAL) Comprehensive Metabolic Panel (05/02/2024 10:01 AM EST) Sodium 145 135 - 145 mmol/L [facility] Potassium 3.9 3.3 - 5.1 mmol/L [facility] Chloride 111(H) 96 - 108 mmol/L [facility] Carbon Dioxide 29 22 - 29 mmol/L [facility] Anion Gap 9(L) 12 - 20 [facility] Urea Nitrogen (BUN) 9 9 - 16 mg/dL [facility] Creatinine, Serum 0.79 0.5 - 1.4 mg/dL [facility] Estimated Glomerular Filt Rate >60 [facility] Comment:Chronic Kidney Disea se: Estimated GFR < 60 mL/min/1.22b6Swelhw Kidney Disease: Estimated GFR < 15 mL/min/1.73m2 Glucose 94 60 - 115 mg/dL [facility] Calcium 8.9 8.4 - 10.2 mg/dL [facility] Bilirubin, Total 0.9 0.0 - 1.0 mg/dL [facility] Aspartate Amino Transferase 22 5 - 31 U/L [facility] Alanine Aminotransferase 16 0 - 31 U/L [facility] Total Protein 7.0 6.5 - 8.0 g/dL [facility] Albumin Level 3.7 3.5 - 5.0 g/dL [facility] Alkaline Phosphatase 110 39 - 117 U/L [facility] Blood Venous blood specimen / Unknown 05/02/2024 10:01 AM EST 05/02/2024 11:15 AM EST us Pedro Leiva MD LAB BLOOD ORDERABLES Final Result [facility] [address] [place] [address] [phone] * BI Mammogram Screening Tomosynthesis Bilateral (09/18/2023 2:30 PM EDT) Anatomical Region Laterality Modality Breast Bilateral Mammography 09/18/2023 2:30 PM EDT Narrative 09/18/2023 4:18 PM EDT ? [facility] ? [address] ?[place] [address] ? Mammography Report ? Signed ? Patient: Hopper,Mickie ?MR#: [id number] ?? 27 ? : 1940 ?Acct:[id number] ? Age/Sex: 82 / F ?ADM Date: 09/18/23 ? Loc: HO.MAMMO ? Attending Dr: Sylvia Lennon DO ? Ordering Physician: Sylvia Lennon DO ?Results: 2B ?? enign Findings ? Date of Service: 09/18/23 ?Follow Up: 1 Year From Orig ?? inal Mammogram ? Procedure(s): MM tomosynthesis screening BI ?? Accession Number(s): [id number] ? cc: Pedro Ingram MD; Sylvia Lennon [...] signed by Jacoby Benavides MD in OV> ?09/18/23 1614 ? DD/ 1430 ? TD/TT: ? Fire Equipment Repairer Inspector: ? Procedure Note Donisater, Image - 09/18/2023 [facility] [address] [place], [place] [address] Mammography Report Signed Patient: Mickie HopperMR#: [id number] 27 : 1Acct:[id number] Age/Sex: 82 / FADM Date: 09/18/23 Loc: HO.MAMMO Attending Dr: Sylvia Lennon DO Ordering Physician: Sylvia Lennonults: 2B enign Findings Date of Service: 09/18/23Follow Up: 1 Year From Orig inal Mammogram Procedure(s): MM tomosynthesis screening BI Accession Number(s): [id number] cc: Pedro Ingram MD; Sylvia Lennon DO EXAMINATION: MM DIAGNOSTIC DIGITAL BREAST TOMOSYNTHESIS, [...] in OV> 09/18/23 1614 DD/ 1430 TD/TT: Fire Equipment Repairer Inspector: Sylvia Lennon DO IMG BI PROCEDURES Final Resu lt from Last 3 Months or Most Recently Relevant to Health Maintenance Insurance [facility] Care Teams Hamper Maker Machine Relationship Specialty Start Date End Date Pedro Braxton MD [address] [place] [phone] PCP - General Internal Medicine 03/15/13
--- OUTSIDE RECORDS SUMMARY | 2024-07-09 23:11 | XMS_ITS | Clinical Summary ---
Author Organization [facility] Address [address] [place] [address] Phone Care Team Providers Care Dredgemaster Name Role Phone Pedro Ingram MD Primary [...] EST - 06/07/2024 11:07 PM EST Emergency [facility] Emergency [address] [place] [address] Discharge Disposition: Home or Self [...] mmol/L LAB CHEMISTRY METHOD 03/30/2024 1:04 PM [facility] Potassium 3.6 3.5 - 5.5 mmol/L LAB CHEMISTRY METHOD 03/30/2024 1:04 PM [facility] Chloride 109 96 - 110 mmol/L LAB CHEMISTRY METHOD 03/30/2024 1:04 PM [facility] CO2 27 21 - 32 mmol/L LAB CHEMISTRY METHOD 03/30/2024 1:04 PM [facility] Anion Gap 5 3 - 11 LAB CHEMISTRY METHOD 03/30/2024 1:04 PM [facility] Glucose 98 70 - 100 mg/dL LAB CHEMISTRY METHOD 03/30/2024 1:04 PM [facility] BUN 7 5 - 25 mg/dL LAB CHEMISTRY METHOD 03/30/2024 1:04 PM [facility] Creatinine 0.79 0.50 - 1.10 mg/dL LAB CHEMISTRY METHOD 03/30/2024 1:04 PM [facility] eGFR 74 >=60 mL/min/1. 73m2 LAB CHEMISTRY METHOD 03/30/2024 1:04 PM [facility] Comment:Calculation based on the??Chronic Kidney Disease Epidemiology Collaboration (CKD-EPI) equation refit??without adjustment for race. BUN/Creatinine Ratio 8.9 LAB CHEMISTRY METHOD 03/30/2024 1:04 PM [facility] Calcium 8.9 8.5 - 10.5 mg/dL LAB CHEMISTRY METHOD 03/30/2024 1:04 PM [facility] Blood Venous blood specimen / Unknown Venipuncture / Unknown 03/30/2024 12:09 PM EST 03/30/2024 12:12 PM EST us Zulema Fuentes MD LAB BLOOD ORDERABLES Final Resul t [facility] [address] [place] [address], from Last 3 Months or Most Recently Relevant to Health Maintenance Insurance [employer] MED[employer]ARE Member Subscriber Plan / Payer (Ef fective 2008-Present) Name:HopperErnst dumontia Relation to Subscriber:Self Name:HopperErnst dumontia Payer ID:[id number] Group ID:[id number] Type:Not on file Address: [place] [address] [address] [address] Care Teams Dredgemaster Relationship Specialty Start Date End Date Pedro Ingram MD [address] [place] [address] [place] [phone] PCP - General 11/23/09
--- OUTSIDE RECORDS SUMMARY | 2024-07-09 23:11 | XMS_ITS | Encounter Summary ---
Author Organization [employer] Address [address] [place] [address] Care Team Providers Care Hairspring Inspector Name Role Phone Pedro Braxton MD Primary Care Provide r Reason for Visit * Reason Comments Med Refill Encounter Details Date Type Department Care Team ([facility] st Contact Info) Description 07/05/2024 Refill [facility]INE [address] [place], [place] [phone] Nyasia Nagel MD [address] [place], [place] [phone] Other headache syndrome Social History Tobacco Use Types Packs/Day Years [...] 9:30 AM EDT Office Visit [facility] MEDICINE [address] [place] [phone] Pedro Braxton MD [address] [place] [address] 07/30/2024 1:15 PM EDT Office Visit [facility] MEDICINE [address] [place] [address] Pedro Braxton MD [address] [place] [address] documented as of this encounter Visit Diagnoses Diagnosis Other headache syndrome documented in this encounter Additional Health Concerns Assessment Noted Time PHQ-9 Depression Total Score: 3 11/28/19 24 2:27 PM EDT documented as of this encounter Care Teams Hairspring Inspector Relationship Specialty Start Date End Date Pedro Braxton MD [address] [place] [address] PCP - General Internal Medicine 03/15/13 documented as of this encounter
--- OUTSIDE RECORDS SUMMARY | 2024-07-09 23:11 | XMS_ITS | Data Portability ---
Author Organization [employer] Address [address] [place] [address] Care Team Providers Care Field Operations Supervisor Name Role Phone HIM CCA OTHER Assessment Encounter Date Assessment Date Assessment LastModified by Organization Details LastModified Time 02/23/2023 02/23/2023 I provided real -time medical direction via phone for this encounter, and was available for additional phone based assistance as needed. I have reviewed and agree with the Assessment and Plan as documented by the Newspaper Deliverer. Patient given the opportunity to ask questions. Advised through spaghetti press helper if develops CP/severe SOB/turning blue/uncontrolle d n/v/d / AMS/ syncope/ hi fever unresponsive to APAP to call 911- verbalized understanding of instructions [email or web address] Not available 02/23/2023 22:43:57 04/21/2023 04/21/2023 As noted, we were called to see this patient regarding concerns of headache, fever, chills. Evaluation in the field was performed by my peripheral edp equipment operator colleague, as noted above, I provided [...] Assessment and Plan as documented by the Newspaper Deliverer. We discussed the diagnostic uncertainty of home [...] verbalized understanding of instructions to the medic [email or web address] Not available 06/08/2024 03:36:06 Plan of Treatment Reminders Order Date Submit Date Provider Last Modified By Organization Details Last Modified Time Details Appointments Urgent Care 2024 09:03P Jeff Chau MD Not available Not available Not available Lab rapid SARS CoV 2 Ag, QL IA, respirato ry specimen 2024 025 [email or web address] [facility], [address] [place] [address], [phone], 06/07/2024 14:48:13 rapid flu (A+B) 2024 025 [email or web address] [facility], [address] [place] [address], [phone], 06/07/2024 14:48:13 BMP, serum or plasma 2024 025 [email or web address] [facility], [address] [place] [address], [phone], 06/07/2024 14:49:41 rapid strep group A, throat 2024 025 [email or web address] [facility], [address] [place] [address], [phone], 06/07/2024 14:48:13 rapid SARS CoV 2 Ag, QL IA, respirato ry specimen 2023 024 [facility], [address] [place] [address], [phone], 02/27/2024 08:26:10 rapid flu (A+B) 2023 024 [facility], [address] [place] [address], [address], 02/27/2024 08:26:30 rapid SARS CoV 2 Ag, QL IA, respirato ry specimen 2022 023 [email or web address] [facility], [address] [place] [address], [phone], 02/23/2023 18:07:47 rapid flu (A+B) 2022 023 [email or web address] [facility], [address] [place] [address], [phone], 02/23/2023 18:07:47 Referral None recorded. Procedures None recorded. Surgeries None recorded. Imaging None recorded. Medication Orders meclizine 25 mg tablet 2024 025 [email or web address] [facility], [address], [place], [phone], 06/07/2024 14:48:13 meclizine 12.5 mg tablet 2024 025 [facility], [address], [place], [phone], 06/07/2024 14:48:21 doxycycli ne hyclate 100 mg tablet [email or web address] [place], [place] [address]84239, [address], [place], [phone], 06/07/2024 14:48:12 doxycycli ne hyclate 100 mg capsule 2024 025 [facility] #35286, [address], [place], [phone], 06/07/2024 14:48:18 benzonata te 200 mg capsule 2022 023 [facility] #01457, [address], [phone], 02/23/2023 18:28:40 Patient TargetsNo targets recorded. Patient InstructionsNo instructions recorded. Reason for Referral None Reported. Results Created Date Observation Date Name Description Value Unit Range Abnormal Flag Note LastModifiedBy Organization Detail LastModifiedTime 02/24/2002/23/2023 rapid flu (A+B) Flu negati ve Not Available [facility] ed [address] [place] [address], [phone], 02/23/2023 18:07:27 02/24/20 23 02/23/2023 rapid SARS CoV 2 Ag, QL IA, respi rator y speci men rapid SARS CoV 2 Ag, QL IA, respiratory specimen negati ve Not Available [facility] ed [address] [place] [address], [address], 02/23/2023 18:07:26 06/07/19 25 06/07/2024 rapid strep group A, throa t Strep negati ve Not Available [facility] ed [address] [place] [address], [phone], 06/07/2024 14:10:26 06/07/19 25 06/07/2024 rapid SARS CoV 2 Ag, QL IA, respi rator y speci men rapid SARS CoV 2 Ag, QL IA, respiratory specimen negati ve Not Available [facility] ed [address] [place] [address], [phone], 06/07/2024 14:10:19 06/07/19 25 06/07/2024 rapid flu (A+B) Flu negati ve Not Available [facility] ed [address] [facility], [place], [address], 06/07/2024 14:10:20 Result Notes None recorded. Medical Equipment None Reported. Allergies Allergen ID Allergen Name Allergen Category Reaction Reaction Severity Criticality Documentation Date Start Date Code Code System Note Provider Name and Address Organization Details Recorded Time 18067 Product containin g angiotens in-conver ting enzyme inhibitor (product) medicatio n Not available Not available Not available 07/09/2024 45073 009 SNOMED Not Available [facility] - production 18:02:12 Medications Name Sig Start Date Stop Date [...] Available No t Available Vitals Date Recorded Oxygen saturation Oxygen saturation in Arterial blood by Pulse oximetry Body temperature Heart rate Respiratory rate Systolic blood pressure Diastolic blood pressure Provider Name and Address Organization Details Last Updated DateTime 3 98 % 98 % 98.1 [degF] 82 /min 18 /min 136 mm[Hg] 88 mm[Hg] Not Available [facility] - [facility] 3 17:57:56 Date Recorded Body temperature Respiratory rate Oxygen saturation Oxygen saturation in Arterial blood by Pulse oximetry Heart rate Systolic blood pressure Diastolic blood pressure Provider Name and Address Organization Details Last Updated DateTime 3 99.2 [degF] 16 /min 99 % 99 % 75 /min 130 mm[Hg] 82 mm[Hg] Not Available [facility] 3 15:40:47 Date Recorded Oxygen saturation Oxygen saturation in Arterial blood by Pulse oximetry Body temperature Body height Respiratory rate Heart rate Body weight Systolic blood pressure Diastolic blood pressure Provider Name and Address Organization Details Last Updated DateTime 4 97 % 97 % 99.1 [degF] 154.94 cm 18 /min 72 /min 35646.1 52 g 110 mm[Hg] 71 mm[Hg] Not Available [facility] 4 21:28:15 Date Recorded Body temperature Oxygen saturation Oxygen saturation in Arterial blood by Pulse oximetry Body height Heart rate Respiratory rate Body weight Systolic blood pressure Diastolic blood pressure Provider Name and Address Organization Details Last Updated DateTime 5 99.1 [degF] 96 % 96 % 154.94 cm 77 /min 18 /min 82888.5 6 g 139 mm[Hg] 74 mm[Hg] Not Available [facility] 5 14:03:22 Date Recorded Heart rate Systolic blood pressure Diastolic blood pressure Provider Name and Address Organization Details Last Updated DateTime 06/07/2024 86 /min 123 mm[Hg] 76 mm[Hg] Paula Paulson MD [address] [place] [address],[address] [place], [phone], [place] - [employer] 06/07/2024 14:51:00 Date Recorded Heart rate Respiratory rate Body weight Body temperature Oxygen saturation Oxygen saturation in Arterial blood by Pulse oximetry Body height Systolic blood pressure Diastolic blood pressure Provider Name and Address Organization Details Last Updated DateTime 5 64 /min 16 /min 99165.3 76 g 98.4 [degF] 97 % 97 % 157.48 cm 162 mm[Hg] 82 mm[Hg] Not Available [facility] 5 21:04:24 Social History None recorded. Functional Status None recorded. Mental Status None recorded. Family History Nothing Reported. Medical History No medical history recorded. Gynecological HistoryNo gynecological history recorded. Obstetrics History GPAL:G 0 P 0 0 0 0 Past Encounters Encounter ID Performer Location Encounter Start Date Encounter Closed Date Diagnosis/Indication Diagnosis SNOMED-CT Code Diagnosis ICD10 Code Diagnosis Note [id number] Manas Swanson MD [facility] [address] [place] [phone] 12/08/2022 14:34:52 12/09/2022 11:10:56 Headache 41163704 R51.9 [id number] Paula Paulson MD [facility] [address] [place] [phone] 02/23/2023 17:57:45 02/26/2023 12:35:10 Viral upper respiratory tract infection [id number] J06.9 Advised patient likely has COVID but [...] has a good Rx card for [facility]- [id number] THERESA ANDERSON MD [facility] [address] [place] [phone] 04/21/2023 15:40:44 04/24/2023 17:03:22 Viral syndrome [id number] B34.9 [id number] Jason Ibrahim MD [facility] [address] [place] [phone] 02/26/2024 21:28:07 02/27/2024 12:02:54 Influenza-like illness [id number] B34.9 As noted, we were called to see this patient regarding concerns of fever and cough. Evaluation in the field was performed by my peripheral edp equipment operator colleague, as noted above, I provided [...] symptoms, particular ly confusion, dyspnea, high fever [id number] Paula Paulson MD [facility] [address] [place] [phone] 06/07/2024 14:03:20 06/09/2024 15:01:25 Upper respiratory infection [id number] J06.9 w/ dizziness ? BPV- trial meclizine/ [...] Member ID Huang Member ID Guarantor Name 02/23/2023 1 [facility] Gema - DOS ON OR AFTER 2022 - DUAL ELIGIBLE - RETIREMENT OPTIONS AND ONE CARE (MEDICARE REPLACEMENT/ADV ANTAGE - HMO) Mickie Hopper [id number] Mickie Hopper 04/21/2023 1 [facility] [employer] - DOS ON OR AFTER 2022 - DUAL ELIGIBLE - RETIREMENT OPTIONS AND ONE CARE (MEDICARE REPLACEMENT/ADV ANTAGE - HMO) Mickie Hopper [id number] Mickie Hopper 02/26/2024 1 [facility] - DOS ON OR AFTER 2022 - DUAL ELIGIBLE - RETIREMENT OPTIONS AND ONE CARE (MEDICARE REPLACEMENT/ADV ANTAGE - HMO) Mickie Hopper [id number] Mickie Hopper 06/07/2024 1 [facility] - DOS ON OR AFTER 2022 - DUAL ELIGIBLE - RETIREMENT OPTIONS AND ONE CARE (MEDICARE REPLACEMENT/ADV ANTAGE - HMO) Mickie Hopper [id number] Mickie Hopper Notes Date Note Type Note Provider Name and Address Organization Details Recorded Time 3 text/html [facility] Nursing Assessment: Reason For [...] COVID. ......................... ......................... ......................... ......................... ......................... ................ Newspaper Deliverer Note From Hamzah Pereira: PT reports that [...] ......................... ......................... ......................... ......................... ................ Disposition: Fulfilled Paula Paulson MD [address] [place] [address],[address], [place], [address], [employer] 02/23/2023 22:47:51 3 text/html [facility] Nursing Assessment: Reason For Request: Severe cough, ugly congestion, keeping her up at night>reporting fevers>headache>weakness> symptoms going on 4 days. Chief Complaints: Cough, Headache, Fever/Chills, Weakness/Lethargy, URI PMH: COPD/Asthma, Hypertension Allergies: No Known Comments: Referral taken via Dictaphone Typist. Member calling in to place a referral, [...] evaluated. ......................... ......................... ......................... ......................... ......................... ................ Newspaper Deliverer Note From Marlon Moulton: Dispatched to the [...] ......................... ................ Disposition: Fulfilled THERESA ANDERSON MD [address] [facility],[address], [place], [address], [employer] 04/21/2023 16:06:33 4 text/html CRC Nurse Triage Notes (Chaitanya Skinner): Chief Complaints: Cough PMH: COPD/Asthma, Hypertension Allergies: Unknown Comments: Director Title verified the Pt.'s name//address and phone number. [...] - Pt is refusing ER - Declined Newspaper Deliverer Organization Information for Garrett Fernandez [employer] Legal Name: [email or web address]? Address: [address] [place] [address] Mixer Blender: Valerio Hunter MD CLIA No.: [id number] Newspaper Deliverer POC Test Results from Garrett [employer] Rapid influenza antigen (21:20:51) Flu: - Rapid COVID antigen (21:25:55) COVID: - Jason Ibrahim MD [address] [place] [address],[address], [place], [address], [facility] - [employer] 02/26/2024 21:45:30 5 text/html CRC Nurse Triage [...] at 06/07/2024:15Allergies Reviewed at 06/07/2024 - 12:15Comments: Director Title verified the Pt.'s name//address and phone number. [...] coughing. Concerns expressed and ER treatment declined. Newspaper Deliverer Organization Information for Jenny Rock - [employer] Legal Name: [email or web address]?Address: [address] [place] [address], Medical Director: Valerio Hunter [facility] No.: [id number] Newspaper Deliverer POC Test Results from [employer] - [facility] Rapid COVID antigen (13:49:17)COVID: - Rapid influenza [...] section. ......................... ......................... ......................... ......................... ......................... ................ Newspaper Deliverer Note From Jenny Rock: Sent to a call for a pt complaining of cough. SC8 arrives on scene, pt is alert and oriented, airway is patent. Pt's primary language is Greenlandic. 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 Pt has history of COPD, Asthma, and [...] covid/flu test: neg; Rapid strep test: neg; [facility] orders POC bloodwork. IV access/venous blood draw performed; Chem8+ results: uploaded to [employer]; [facility] orders Meclizine 12.5mg PO and Doxycycline 100mg PO. [facility] sends script to pt's pharmacy. Meclizine 12.5mg [...] questions. ......................... ......................... ......................... ......................... ......................... ................ [facility] Consulted: Paula Paulson ......................... ......................... ......................... ......................... ......................... ................ Disposition: Fulfilled SEG MD: Patient denies headache, focal neuro-deficits, chest pain, palpitations, significant shortness of breath Paula Paulson MD [address] [place] [address],[address] [facility], [place], [address], [employer] 06/08/2024 03:38:49 OBGyn Episode No OBEpisode recorded.
--- OUTSIDE RECORDS SUMMARY | 2024-07-09 23:11 | XMS_ITS | Encounter Summary ---
Author Organization [facility] Address [address] [place] [address] Care Team Providers Care Curb Machine Operator Name Role Phone Pedro Ingram MD Primary Care Provide r Unavailable Encounter Details Date Type Department Care Team Description 05/21/2019 Release of Information Medical Records [address] [place] [address] Abstract, Provider Social History Tobacco Use Types Packs/Day Years Used Date Smoking Tobacco: Never Smokeless Tobacco: Never Alcohol Use Standard Drinks/Week Comments No 0 (1 standard drink = 0.6 oz pur e alcohol) Sex Assigned at Date Recorded Not on file documented as of this encounter Plan of Treatment Not on file documented as of this encounter Visit Diagnoses Not on filedocumented in this encounter Care Teams Curb Machine Operator Relationship Specialty Start Date End Date Pedro Ingram MD PCP - General 11/23/09 documented as of this encounter
--- OUTSIDE RECORDS SUMMARY | 2024-07-09 23:11 | XMS_ITS | Encounter Summary ---
Author Organization [employer] Address [address] [facility] 7 [place] [address] Care Team Providers Care Inspector Missile Name Role Phone Pedro Braxton MD Primary Care Provide r Reason for Visit * Reason Onset Date Comments Hospital Follow-up 07/03/2024 Encounter Details Date Type Department Care Team ([facility] st Contact Info) Description 07/03/2024 Telephone [facility] MEDICINE [address] [place], [place] [phone] Pedro Braxton MD [address] [place], [place] [phone] Hospital Follow-up Social History Tobacco Use Types Packs/Day Years [...] encounter Miscellaneous Notes * Telephone Encounter - James Machado - 07/03/2024 10:42 AM EST Tc from pt requesting a HDF appt. Hospital: [facility] Date of admission: 06/29/24 Discharge date: 07/03/24 Diagnosed: oxygen level at 29 documented in this encounter Plan of Treatment Upcoming Encounters Date Type Department Care Team (Late st Contact Info) Description 07/23/2024 9:30 AM EDT Office Visit [facility] MEDICINE [address] [place] [address] Pedro Braxton MD [address] [place] [address] 07/30/2024 1:15 PM EDT Office Visit [facility] MED[facility]INE [address] [place] [address] Pedro Braxton MD [address] [place] [address] documented as of this encounter Visit Diagnoses Not on filedocumented in this encounter Additional Health Concerns Assessment Noted Time PHQ-9 Depression Total Score: 3 11/28/19 24 2:27 PM EDT documented as of this encounter Care Teams Inspector Missile Relationship Specialty Start Date End Date Pedro Braxton MD [address] [place] [address] PCP - General Internal Medicine 03/15/13 documented as of this encounter
--- OUTSIDE RECORDS SUMMARY | 2024-07-09 23:11 | XMS_ITS | Encounter Summary ---
Author Organization [employer] Address [address] [facility] [address] [place] [address] Care Team Providers Care Plate Furnace Operator Name Role Phone Pedro Braxton MD Primary Care Provide r Encounter Details Date Type Department Care Team ([facility] st Contact Info) Description 04/01/2024 Orders Only [facility] [address] [place] [address] ProviderZulay MD Social History Tobacco Use Types [...] Description 07/23/2024 9:30 AM EDT Office Visit [facility] MEDICINE [address] [place] [address] Pedro Braxton MD [address] [place] [address] 07/30/2024 1:15 PM EDT Office Visit [facility] [address] [place] [address] Pedro Braxton MD [address] [place] [address] documented as of this encounter Procedures Procedure Name Priority Date/Time Associated Diagnosis Comments CT CHEST ABDOMEN PLEVIS W CONTRAST Routine 03/30/2024 3:[address] HEAD W AND WO CONTRAST Routine 03/30/2024 3:20 PM EST documented in this encounter Results * CT Chest abd pel w con (03/30/2024 3:26 PM EST) Anatomical Region Laterality Modality Body, Chest Computed Tomogra phy us Historical Provider MD FELIX CT PROCEDURES Final R esult * CT Head w/ and w/o Contrast (03/30/2024 3:20 PM EST) Anatomical Region Laterality Modality Head, Neck Computed Tomogra phy Historical Provider MD FELIX CT PROCEDURES Final R esult documented in this encounter Visit Diagnoses Not on filedocumented in this encounter Additional Health Concerns Assessment Noted Time PHQ-9 Depression Total Score: 3 07/16/20 24 2:27 PM EDT documented as of this encounter Care Teams Plate Furnace Operator Relationship Specialty Start Date End Date Pedro Braxton MD [address] [place] [address] PCP - General Internal Medicine 03/15/13 documented as of this encounter
--- OUTSIDE RECORDS SUMMARY | 2024-07-09 23:12 | XMS_ITS | Encounter Summary ---
Author Organization [employer] Address [address] [facility] [address] [address] Care Team Providers Care Farm Mechanic Apprentice Name Role Phone Pedro Braxton MD Primary Care Provide r Encounter Details Date Type Department Care Team (Late st Contact Info) Description 09/05/2022 Orders Only [facility] PEDS [address] [place] [address] Sylvia Valentino LPN Social History Tobacco Use [...] Description 07/23/2024 9:30 AM EDT Office Visit [facility] MEDICINE [address] [place] [phone] Pedro Braxton MD [address] [place] [phone] 07/30/2024 1:15 PM EDT Office Visit [facility] MED[facility]INE [address] [place] [phone] Pedro Braxton MD [address] [place] [address] documented as of this encounter Visit Diagnoses Not on filedocumented in this encounter Care Teams Farm Mechanic Apprentice Relationship Specialty Start Date End Date Pedro Braxton MD [address] [place] [phone] PCP - General Internal Medicine 03/15/13 documented as of this encounter
--- OUTSIDE RECORDS SUMMARY | 2024-07-09 23:12 | XMS_ITS | Encounter Summary ---
Author Organization [employer] Address [address] [facility] [address] [place] [address] Care Team Providers Care Hydrochloric Manufacturing Supervisor Name Role Phone Pedro Braxton MD Primary Care Provide r Encounter Details Date Type Department Care Team (Late st Contact Info) Description 06/09/2022 Orders Only [facility] MED & PEDS [address] [place], [place] [phone] Sylvia Valentino LPN Social History Tobacco Use [...] Description 07/23/2024 9:30 AM EDT Office Visit [facility] MEDICINE [address] [place], [place] [phone] Pedro Braxton MD [address] [place], [place] [phone] 07/30/2024 1:15 PM EDT Office Visit [facility] MEDICINE [address] [place] [address] Pedro Braxton MD [address] [place] [address] documented as of this encounter Visit Diagnoses Not on filedocumented in this encounter Care Teams Hydrochloric Manufacturing Supervisor Relationship Specialty Start Date End Date Pedro Braxton MD [address] [place] [phone] PCP - General Internal Medicine 03/15/13 documented as of this encounter
--- NOTE | 2024-07-09 23:25 | ECG_ITS ---
Test Reason : DIZZINESS Blood Pressure : */* mmHG Vent. Rate : 61 BPM Atrial Rate : 61 BPM P-R Int : 174 ms QRS Dur : 98 ms QT Int : 418 ms P-R-T Axes : 34 -45 10 degrees QTcB Int : 420 ms Normal sinus rhythm Left anterior fascicular block Moderate voltage criteria for LVH, may be normal variant ( R in aVL , Martin product ) Abnormal ECG When compared with ECG of 01-Jul-2024 10:15, Previous ECG has undetermined rhythm, needs review T wave inversion now evident in Inferior leads Nonspecific T wave abnormality no longer evident in Lateral leads Referred By: Luis Fernando Zhao Electronically Signed By: Anatoly Ye
[2024-07-09 23:38] LABS: MANUAL DIFF FLAG NO
[2024-07-09 23:40] LABS: Basophils Percent Auto 0.4 % (0-2); Eosinophils Absolute Auto 0.1 X10*3/uL (0.0-0.4); Eosinophils Percent Auto 0.7 % (0-4); Hematocrit 33.7 % (37.0-47.0); Hemoglobin 10.8 g/dl (12.0-16.0); Imm Gran Abs Auto 0.07 X10*3/uL (0.00-0.03); Imm Gran Pct Auto 0.8 % (0.0-0.4); Lymphocytes Absolute Auto 3.4 X10*3/uL (1.2-4.9); Lymphocytes Percent Auto 41.3 % (20-40); Mean Corpuscular Hemoglobin 27.8 pg (27.0-33.0); Mean Corpuscular Volume 86.6 fL (80.0-98.0); Mean Platelet Volume 10.6 fL (9.4-12.3); Monocytes Absolute Auto 0.7 X10*3/uL (0.1-1.2); Monocytes Percent Auto 8.7 % (2-11); Neutrophils Percent Auto 48.1 % (45-73); Platelet Count 252 X10*3/uL (160-400); Red Blood Count 3.89 X10*6/uL (4.20-5.50); Red Cell Distribution Width 16.4 % (11.0-16.0); White Blood Count 8.3 X10*3/uL (4.8-10.8)
[2024-07-09] MEDS: Metoclopramide HCl 10 MG/2 ML VIAL 5 MG IVPUSH (23:41)
[2024-07-09] MEDS: Ketorolac Tromethamine 15 MG/ML VIAL IVPUSH (23:41)
[2024-07-09] MEDS: diphenhydrAMINE HCL 50 MG/ML VIAL 12.5 MG IVPUSH (23:41)
[2024-07-09 23:48] LABS: INTERNATIONAL NORM RATIO 0.9 (0.9-1.1); Prothrombin Time 10.2 SEC (10.9-12.4)
[2024-07-09 23:51] LABS: Appearance Urine Clear; Color Urine Yellow; Glucose Urine UA Negative (Negative); Leukocyte Esterase Urine Trace (Negative); Nitrite Urine Negative (Negative); PH 6.5 (5.0-9.0); Specific Gravity - Urine <= 1.005 (1.005-1.025); UMIC TRIGGER UACC YES; Urine Blood Negative (Negative); Urine Ketones Negative (Negative); Urine Protein Negative (Neg-Trace)
[2024-07-09 23:51] LABS: Partial Thromboplastin Time 26.2 SEC (26.0-36.8)
[2024-07-09 23:54] LABS: Alanine Aminotransferase 43 U/L (0-31); Albumin Level 3.7 g/dL (3.5-5.0); Alkaline Phosphatase 89 U/L (39-117); Anion Gap 10 (12-20); Aspartate Amino Transferase 28 U/L (5-31); Bilirubin Total 0.5 mg/dL (0.0-1.0); Blood Urea Nitrogen 15 mg/dL (9-16); Calcium 8.8 mg/dL (8.4-10.2); Carbon Dioxide 26 mmol/L (22-29); Chloride 112 mmol/L (96-108); Estimated Glomerular Filt Rate > 60; Glucose Random 111 mg/dL (60-115); Lipase 11 U/L (8-78); Magnesium 2.4 mg/dL (1.6-2.6); Potassium 3.9 mmol/L (3.3-5.1); Sodium 144 mmol/L (135-145); Total Protein 7.1 g/dL (6.5-8.0)
[2024-07-09 23:59] LABS: Bacteria Urine None Seen (None Seen); Hyaline Casts Urine 0-2 /LPF (0-2); RBC Urine 0-2 /HPF (0-2); Squamous Epithelial Cell Urine 0-2 /HPF (0-2); WBC Urine 0-5 /HPF (0-5)
[2024-07-10 00:01] LABS: Troponin-I High Sensitivity 3.6 ng/L (<3.5-17.0)
[2024-07-10 00:18] LABS: Influenza A PCR NEGATIVE (Negative); Influenza B PCR NEGATIVE (Negative); Resp Syncy Virus RNA Qual PCR NEGATIVE (Negative); SARS COV2 PCR INHOUSE NEGATIVE (Negative)
[2024-07-10 00:24] VITALS: BP 150/54; PULSE 57; RESP 12; TEMP 36.5; O2SAT 98
[2024-07-10 03:29] VITALS: BP 138/64; PULSE 57; RESP 16; TEMP 36.7; O2SAT 96
[2024-07-10 04:13] VITALS: BP 138/64; PULSE 57; RESP 16; TEMP 36.7; O2SAT 96
== END 2024-07-10 04:14 | disposition home or self-care (01) ==
PROVIDERS: Emergency Provider Emergency Medicine Emergency Medical Services; PCP Internal Medicine
DX: H81.13 Benign paroxysmal vertigo, bilateral (principal); R51.9 Headache, unspecified; R94.31 Abnormal electrocardiogram [ECG] [EKG]; R41.0 Disorientation, unspecified; R10.2 Pelvic and perineal pain; G47.33 Obstructive sleep apnea (adult) (pediatric); Z79.899 Other long term (current) drug therapy; Z03.818 Encounter for observation for suspected exposure to other biological agents ruled out
CPT/HCPCS: 0241U; 36415; 70450; 80053; 81001; 83690; 83735; 84484; 85025; 85610; 85730; 93005; 96374; 96375; 99284; J1200; J1885; J2765

== ENCOUNTER → 2024-07-09 23:25 | Outpatient (BNV) | payer OTHER, SELFPAY | PROVIDERS: Emergency Provider Emergency Medicine Emergency Medical Services; PCP Internal Medicine; Visit Provider Internal Medicine Cardiovascular Disease | DX: I44.4 Left anterior fascicular block (principal) | CPT/HCPCS: 93010 ==

== ENCOUNTER → 2024-07-10 | Outpatient (BNV) | payer OTHER, SELFPAY | PROVIDERS: Emergency Provider Emergency Medicine Emergency Medical Services; PCP Internal Medicine; Visit Provider Radiology Diagnostic Radiology | DX: R42 Dizziness and giddiness (principal); R51.9 Headache, unspecified | CPT/HCPCS: 70450 ==

== ENCOUNTER 2024-07-11 11:09 | Outpatient (REF) | payer OTHER, SELFPAY ==
--- OUTSIDE RECORDS SUMMARY | 2024-07-12 13:04 | XMS_ITS | Encounter Summary ---
Author Organization [employer] Address [address] [place] [id number] Care Team Providers Care Fire Prevention Engineer Name Role Phone Pedro Braxton MD Primary Care Provide r Reason for Visit * Reason Comments Med Refill Encounter Details Date Type Department Care Team ([facility] st Contact Info) Description 07/05/2024 Refill [facility] MEDICINE [address] [place], [place] [phone] Nyasia Nagel MD [address] [place], [place] [phone] Other headache syndrome Social History Tobacco Use [...] Description 07/23/2024 9:30 AM EDT Office Visit [facility] MEDICINE [address] [place] [phone] Pedro Braxton MD [address] [place] [address] 07/30/2024 1:15 PM EDT Office Visit [facility] MEDICINE [address] [place] [phone] Pedro Braxton MD [address] [place] [phone] documented as of this encounter Visit Diagnoses Diagnosis Other headache syndrome documented in this encounter Additional Health Concerns Assessment Noted Time PHQ-9 Depression Total Score: 3 11/28/19 24 2:27 PM EDT documented as of this encounter Care Teams Fire Prevention Engineer Relationship Specialty Start Date End Date Pedro Braxton MD [address] [place] [address] PCP - General Internal Medicine 03/15/13 documented as of this encounter
--- OUTSIDE RECORDS SUMMARY | 2024-07-12 13:04 | XMS_ITS | Clinical Summary ---
Author Organization [employer] Address [address] [facility] 7t [place] [address] Care Team Providers Care Fur Dyer Name Role Phone Pedro Braxton MD Primary [...] encouraged to discuss with her GI for assisted use. -ER precautions discussed. Class 1 obesity [...] EST): Pt with chronic anemia. Seen by store operations specialist Dr Osiel Ye at [facility] last seen on 07/22/2021. GI work up included a EGD 2020 and Colonoscopy 2006. Moderate persistent asthma without complication 05/24/2022 Assessment & Plan (11/28/2023 2:41 PM EDT): She has chronic cough, described as dry and intermittent wheezing. 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 Pt was unable to complete PFTs under the care of Dr Silva ( Networking Specialist ) thinks she has Mod persistent asthma On Montelukast, Breo Elipa 100/25 chest x-ray 07/17/2019 Normal pt will continue to follow with him, last seen September 2022 Assessment & Plan (12/22/2022 11:15 AM EDT): She has chronic cough, described as dry and intermittent wheezing. 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 Pt was unable to complete PFTs under the care of Dr Silva ( Networking Specialist ) thinks she has Mod persistent asthma [...] -24 hour BP monitor ordered -EKG -Called Petroleum Plant Operator, will plan for follow up appt in 1-2 months -ED precautions reviewed Assessment & Plan (05/24/2022 4:33 PM EST): Pt here for a f/u BP is controlled, She is on a regimen of: Verelan ER 120 mg po daily by cardiology and Diovan 80 mg po daily (she had been on Hctz before but this was Dced by [facility]) For now will continue with current medical [...] it is dermatitis versuse other. Referral to screen room operator. ER precautions given. Encounters Date Type Department Care Team Description 07/11/2024 Telephone [facility] [address] [place] [address] Pedro Braxton MD Chart Prep 07/09/2024 Orders Only GENERIC EXTERNAL DATA DEPARTMENT Provider, Generic External Data 07/05/2024 Refill [facility] [address] [place] [address] Nyasia Nagel MD Other headache syndrome 07/03/2024 Patient Outreach [facility] [address] [place] [address] Pedro Braxton MD Transition Of Care (Tcm) (HDF- scheduled and SDOH screening negative and Tobacco screening negative) 07/03/2024 Telephone [facility] [address] [place] [address] Pedro Braxton MD Hospital Follow-up 07/01/[address] [facility] External Provider, [facility] 06/06/2024 Telephone [facility] [address] [place] [address] Pedro Braxton MD Med Refill 05/17/2024 Refill [facility] [address] [place] [phone] Vanessa Amor MD 05/17/2024 Refill [facility] [address] [place] [address] Pedro Braxton MD Constipation, unspecified constipation type 04/30/2024 2:00 PM EST Office Visit [facility] [address] [place] [address] Pedro Braxton MD Essential hypertension (Primary Dx); Constipation, unspecified constipation type; Gastroesophageal reflux disease without esophagitis; Mixed hyperlipidemia; Preventative health care; Class 1 obesity 04/30/2024 Travel 04/24/2024 Telephone [facility] [address] [place] [address] Pedro Braxton MD Chart Prep 04/14/2024 Refill [facility] [address] [place] [address] Pedro Braxton MD Constipation, unspecified constipation type from Last 3 Months Immunizations Name Administration [...] 07/23/2024 9:30 AM EDT Office Visit [facility] [address] [place], [place] [phone] Pedro Braxton MD [address] [place] [phone] 07/30/2024 1:15 PM EDT Office Visit [facility] [address] [place] [phone] Pedro Braxton MD [address] [place] [address] Health Maintenance Due Date Last [...] 05/29/2018, Additional history exists Mammogram 09/17/2024 09/18/2023, 0510/2023, 11/06/2020, Additional history exists Depression Screening 11/27/2024 [...] Name Priority Date/Time Associated Diagnosis Comments CT HEAD WO CONTRAST Routine 07/10/2024 1 :13 AM EST URINALYSIS, COMPLETE, WITH REFLEX TO CULTURE Routine 07/09/2024 11:46 PM EST HIGH SENSITIVITY TROPONIN I Routine 07/09/2024 11:35 PM EST LIPASE Routine 07/09/2024 11:35 PM EST MAGNESIUM Routine 07/09/2024 11:35 PM EST COMPREHENSIVE METABOLIC PANEL Routine 07/09/2024 11:35 PM EST APTT Routine 07/09/2024 11:35 PM EST PROTHROMBIN TIME-INR Routine 07/09/2024 11:35 PM EST CBC WITH AUTO DIFFERENTIAL Routine 07/09/2024 11:35 PM EST SARS COV2/INFLUENZA A/B AND RSV RNA QL NAAT Routine 07/09/2024 11:30 PM EST HIGH SENSITIVITY TROPONIN I Routine 07/01/2024 12:26 [...] Recently Relevant to Health Maintenance Results * CT Head w/o Contrast (07/10/2024 1:13 AM EST) Anatomical Region Laterality Modality Head, Neck Computed Tomogra phy 07/10/2024 1:13 AM EST Narrative 07/10/2024 1:14 AM EST ? [facility] ?[address] ?[place] [address] ? CT Scan Report ? Signed ? Patient: Hopper,Mickie ?MR#: [id number] ?? 27 ? : 1940 ?Acct:[id number] ? Age/Sex: 83 / F ?ADM Date: 02/25/25 ? Loc: HO.ED ? Attending Dr: ? Ordering Physician: Luis Fernando Zhao MD ?? Date of Service: 07/10/24 ?? Procedure(s): CT head/brain wo IV con ?? Accession Number(s): [id number] ? cc: Pedro Ingram MD; Luis Fernando Zhao MD ? Report Number: ?? [id number]: Total DLP = ??630.00 mGy-cm ? CLINICAL HISTORY: Dizziness, off balance, headache, R O stroke, blee ? CT head without contrast ? Comparison: MR - MRI [facility] [id number] - 04/05/11 15:50 EST ? Findings: ?? No intra-axial mass, midline shift, hydrocephalus, or acute hemorrhage. ?? Periventricular and subcortical white matter hypoattenuation likely ?? chronic small-vessel ischemic changes. ?? Intracranial atherosclerosis. ? The visualized paranasal sinuses and mastoid air cells are normal. ?? Chronic right globe deformity. ?? There is no acute fracture. ? IMPRESSION: ? 1. No acute intracranial findings. ? This document has been electronically signed by: Jonathan Morris MD on ?? 07/10/2024 01:13:16 ? Dictated By: ?Jonathan Morris MD ? Signed By: ?<Electronically signed by Jonathan Morris MD in OV> ?07/10/24 0114 ? DD/ 0113 ? TD/TT: 07/10/24 0113 ? Weigh Tank Operator: ? Procedure Note Larry, Image - 07/10/[address] [address] [place] Scan Report Signed Patient: Mickie HopperMR#: [id number] [birth year] : 1Acct:[id number] Age/Sex: 83 / FADM Date: 07/09/24 Loc: HO.ED Attending Dr: Ordering Physician: Luis Fernando Zhao MD Date of Service: 07/10/24 Procedure(s): CT head/brain wo IV con Accession Number(s): [id number] cc: Pedro Ingram MD; Luis Fernando Zhao MD Report Number: [id number]: Total DLP = 630.00 mGy-cm CLINICAL HISTORY: Dizziness, off balance, headache, R O stroke, blee CT head without contrast Comparison: MR - MRI [facility] [id number] - 04/05/11 15:50 EST Findings: No intra-axial mass, midline shift, hydrocephalus, or acute hemorrhage. Periventricular and subcortical white matter hypoattenuation likely chronic small-vessel ischemic changes. Intracranial atherosclerosis. The visualized paranasal sinuses and mastoid air cells are normal. Chronic right globe deformity. There is no acute fracture. IMPRESSION: 1. No acute intracranial findings. This document has been electronically signed by: Jonathan Morris MD on 07/10/2024 01:13:16 Dictated By: Jonathan Morris MD Signed By: <Electronically signed by Jonathan Morris MD in OV> 07/10/24113 DD/ 2 TD/TT: 07/10/24112 Weigh Tank Operator: [facility] External Provider IMG CT PROCEDURES Edited Result - Final * (ABNORMAL) Urinalysis, Complete, with Reflex to Culture (07/09/2024 11:46 PM EST) Color Urine Yellow [facility] Appearance Urine Clear [facility] PH 6.5 5.0 - 9.[address] [facility] Glucose Urine UA Negative Negative mg/dL [facility] Urine Blood Negative Negative [facility] Specific [place] - Urine <=1.005 1.005 - 1.[address] [facility] Urine Protein Negative Neg-Trace mg/dL [facility] Urine Ketones Negative Negative mg/dL [facility] Nitrite Urine Negative Negative [facility] Leukocyte Esterase Urine Trace(A) Negative [facility] RBC Urine 0-2 0 - 2 /HPF [facility] Urine WBC 0-5 0 - 5 /HPF [facility] Urine Squamous Epithelial Cell 0-2 0 - 2 /HPF [facility] Urine Bacteria None Seen None Seen [facility] Hyaline Casts, Urine 0-2 0 - 2 /LPF [facility] 07/09/2024 11:4 6 PM EST 07/09/2024 11:48 PM EST Narrative [facility] - 07/09/2024 11:59 PM EST Urine, Clean Catch Generic External Data Provider LAB URINE ORDERAB LES Final Result Performing Organization Address [facility] de Phone Number [facility] [address] [place] [phone] * High Sensitivity Troponin I (07/09/2024 11:35 PM EST) Only the most recent of3 resultswithin the time period is included. [facility] TROPONIN I HIGH SENSITIVITY 3.6 <3.5 - 17.0 ng/L [facility] Comment:The Marx high sens itivity Troponin-I results should beused in conjunction with other diagnostic information suchas ECG, clinical observations and information, and patientsymptoms to aid in the diagnosis of [place]. 07/09/2024 11:3 5 PM EST 07/09/2024 11:37 PM EST Generic External Data Provider LAB BLOOD ORDERAB LES Final Result Performing Organization Address [facility] Phone Number [facility] [address] [place] [phone] * (ABNORMAL) CBC auto differential (07/09/2024 11:35 PM EST) Only the most recent of3 resultswithin the time period is included. [facility] White Blood Count 8.3 4.8 - 10.8 X10*3/uL [facility] Red Blood Count 3.89(L) 4.20 - 5.50 X10*6/uL [facility] Hemoglobin 10.8(L) 12.0 - 16.0 g/dl [facility] Hematocrit 33.7(L) 37.0 - 47.0 % [facility] Mean Corpuscular Volume 86.6 80.0 - 98.[address] [facility] Mean Corpuscular Hemoglobin 27.8 27.0 - 33.[address] [facility] Mean Corpuscular HGB Conc 32.0 31.0 - 35.0 g/dl [facility] Red Cell Distribution Width 16.4(H) 11.0 - 16.0 % [facility] Platelet Count 252 160 - 400 X10*3/uL [facility] Mean Platelet Volume 10.6 9.4 - 12.[address] [facility] Neutrophils Percent Auto 48.1 45 - 73 % [facility] Imm Gran Pct Auto 0.8(H) 0.0 - 0.4 % [facility] Lymphocytes Percent Auto 41.3(H) 20 - 40 % [facility] Monocytes Percent Auto 8.7 2 - 11 % [facility] Eosinophils Percent Auto 0.7 0 - 4 % [facility] Basophils Percent Auto 0.4 0 - 2 % [facility] NRBC Pct Auto 0.0 0.0 - 0.2 /100WBC [facility] Neutrophils Absolute Auto 4.0 2.0 - 8.3 x10*3/uL [facility] Imm Gran Abs Auto 0.07(H) 0.00 - 0.03 X10*3/uL [facility] Lymphocytes Absolute Auto 3.4 1.2 - 4.9 X10*3/uL [facility] Monocytes Absolute Auto 0.7 0.1 - 1.2 X10*3/uL [facility] Eosinophils Absolute Auto 0.1 0.0 - 0.4 X10*3/uL [facility] Basophils Absolute Auto 0.0 0.0 - 0.2 X10*3/uL [facility] NRBC Abs Auto 0.000 0.0 - 0.012 X10*3/uL [facility] 07/09/2024 11:3 5 PM EST 07/09/2024 11:37 PM EST us Generic External Data Provider LAB BLOOD ORDERAB LES Final Result [facility] [address] [place] [phone] * Partial Thromboplastin Time, Activated (APTT) (07/09/2024 11:35 PM EST) Partial Thromboplastin Time 26.2 26.0 - 36.[address] [facility] Comment:For information rega rding the monitoring of direct thrombininhibitors, please refer to Pharmacy. 07/09/2024 11:3 5 PM EST 07/09/2024 11:37 PM EST Generic External Data Provider LAB BLOOD ORDERAB LES Final Result Performing Organization Address [facility]/ZIP Co de Phone Number [facility] [address] [place] [phone] * (ABNORMAL) Prothrombin Time-INR (07/09/2024 11:35 PM EST) Prothrombin Time 10.2(L) 10.9 - 12.[address] [facility] INTERNATIONAL NORM RATIO 0.9 0.9 - 1.[address] [facility] Comment:INTERNATIONAL NORMAL IZED RATIO (INR) REFERENCE RANGES Reference RangeFor patients not on anticoagulant therapy: 0.9 - 1.1INR ranges for oral anticoagulanttherapy:For prevention and treatment of venous thrombosis and pulmonary embolism: 2.0 - 3.0For acute myocardial infarction with aspirin therapy: 2.0 - 3.0For acute myocardial infarction without aspirin therapy: 3.0 - 4.0For patients with mechanical prosthetic heart valves: 2.5 - 3.5 07/09/2024 11:3 5 PM EST 07/09/2024 11:37 PM EST Generic External Data Provider LAB BLOOD ORDERAB LES Final Result Performing Organization Address [facility] Co de Phone Number [facility] [address] [place] [phone] * Magnesium (07/09/2024 11:35 PM EST) Only the most recent of2 resultswithin the time period is included. Magnesium 2.4 1.6 - 2.6 mg/dL [facility] 07/09/2024 11:3 5 PM EST 07/09/2024 11:37 PM EST Generic External Data Provider LAB BLOOD ORDERAB LES Final Result Performing Organization Address [facility]/ZIP Co de Phone Number [facility] [address] [place] [phone] * Lipase (07/09/2024 11:35 PM EST) Only the most recent of2 resultswithin the time period is included. Lipase 11 8 - 78 U/L [facility] 07/09/2024 11:3 5 PM EST 07/09/2024 11:37 PM EST Generic External Data Provider LAB BLOOD ORDERAB LES Final Result Performing Organization Address [facility] de Phone Number [facility] [address] [place] [address] [phone] * (ABNORMAL) Comprehensive Metabolic Panel (07/09/2024 11:35 PM EST) Only the most recent of2 resultswithin the time period is included. Pathologist [facility] Sodium 144 135 - 145 mmol/L [facility] Potassium 3.9 3.3 - 5.1 mmol/L [facility] Chloride 112(H) 96 - 108 mmol/L [facility] Carbon Dioxide 26 22 - 29 mmol/L [facility] Anion Gap 10(L) 12 - [address] [facility] Urea Nitrogen (BUN) 15 9 - 16 mg/dL [facility] Creatinine, Serum 0.78 0.5 - 1.4 mg/dL [facility] Creatinine Clr Calc Pharmacy 56.[address] [facility] Comment:Provided height and weight: 154.94 cm,90.718 kg.eGFR (calculated from the MDRD study equation) and eCrCl(calculated from the Cockcroft-Gault equation) are based ondifferent parameters and may not yield comparable results.If eCrCl result is absurd, please check patient'sheight/weight. Estimated Glomerular Filt Rate >[address] [facility] Comment:Chronic Kidney Disea se: Estimated GFR < 60 mL/min/1.92r0Ksmxly Kidney Disease: Estimated GFR < 15 mL/min/1.73m2 Glucose 111 60 - 115 mg/dL [facility] Calcium 8.8 8.4 - 10.2 mg/dL [facility] Bilirubin, Total 0.5 0.0 - 1.0 mg/dL [facility] Aspartate Amino Transferase 28 5 - 31 U/L [facility] Alanine Aminotransferase 43(H) 0 - 31 U/L [facility] Total Protein 7.1 6.5 - 8.0 g/dL [facility] Albumin Level 3.7 3.5 - 5.0 g/dL [facility] Alkaline Phosphatase 89 39 - 117 U/L [facility] 07/09/2024 11:3 5 PM EST 07/09/2024 11:37 PM EST us Generic External Data Provider LAB BLOOD ORDERAB LES Final Result Performing Organization Address City/State/[facility] Co de Phone Number [facility] [address] [place] [phone] * SARS-CoV-2 RNA, Influenza A/B, and RSV RNA, Ql NAAT (07/09/2024 11:30 PM EST) Only the most recent of2 resultswithin the time period is included. Influenza A PCR NEGATIVE Negative [facility] Influenza B PCR NEGATIVE Negative [facility] Resp Syncy Virus RNA Qual PCR NEGATIVE Negative [facility] SARS COV2 PCR NEGATIVE Negative [facility] Comment:All test results mus t be [...] use by authorized laboratories.Testing performed on the [employer] GeneXpert utilizingreal-time RT-PCR.All SARS CoV2 and positive influenza A/B results arereported to [facility]. 07/09/2024 11:3 0 PM EST 07/09/2024 11:37 PM EST us Generic External Data Provider LAB MICROBIOLOGY - GENERAL ORDERABLES Final Result Performing Organization Address City/State/[facility] Co de Phone Number [facility] [address] [place] [phone] * XR Chest 1 View (07/01/2024 10:44 AM EST) Anatomical Region Laterality Modality Chest Radiographic Christina ging 07/01/2024 10:4 4 AM EST Narrative 07/01/2024 10:45 AM EST ? [facility] ?[address] ?[place] [address] ?XRay Report ? Signed ? Patient: Mickie Hopper ?MR#: [id number] ?? 27 ? : 1940 ?Acct:[id number] ? Age/Sex: 83 / F ?ADM Date: 07/01/24 ? Loc: HO.ED ? Attending Dr: ? Ordering Physician: Hannah Downs DO ?? Date of Service: 07/01/24 ?? Procedure(s): XR chest 1V ?? Accession Number(s): [id number] ? cc: Hannah Downs DO; Pedro Ingram [...] DD/ 1044 ? TD/TT: 07/01/24 1044 ? Weigh Tank Operator: ? Procedure Note Donisater, Image - 07/01/[address] [address] XRay Report Signed Patient: Mickie HopperMR#: [id number] [birth year] : 1Acct:[id number] Age/Sex: 83 / FADM Date: 07/01/24 Loc: HO.ED Attending Dr: Ordering Physician: Hannah Downs DO Date of Service: 07/01/24 Procedure(s): XR chest 1V Accession Number(s): [id number] cc: Hannah Downs DO; Pedro Ingram MD [...] 07/01/24 1045 DD/ 1044 TD/TT: 07/01/24 1044 Weigh Tank Operator: [facility] External Provider IMG XR PROCEDURES Final Result * VENOUS BLOOD GAS (07/01/2024 10:32 AM EST) VBG pH 7.41 7.32 - 7.[address] [facility] Comment:METER #: [id number] additional_comment: Cb greenls VBG PCO2 [address] [facility] Comment:METER #: [id number] additional_comment: Cb greenls VBG PO2 [address] [facility] Comment:METER #: [id number] additional_comment: Cb greenls VBG Base Excess 1.8 mmol/L [facility] Comment:METER #: [id number] additional_comment: Sekou serrano VBG HCO3 26 22 - 26 mmol/L [facility] Comment:METER #: [id number] additional_comment: Sekou serrano O2 Sat, Alfredo 70.0 % [facility] Comment:METER #: [id number] additional_comment: Sekou serrano 07/01/2024 10:3 2 AM EST 07/01/2024 10:40 AM EST us Generic External Data Provider LAB BLOOD ORDERAB LES Final Result Performing Organization Address [facility] de Phone Number [facility] [address] [place] [phone] * (ABNORMAL) B Type Natriuretic Peptide (BNP) (07/01/2024 10:26 AM EST) Pathologist [facility] B Type Natriuretic Peptide 157(H) <100 pg/mL [facility] Comment:For those patients w ho are being treated with Natrecor(nesiritide, recombinant BNP), BNP testing should beperformed at least two hours post treatment in order toensure that only endogenous levels of BNP are detected. 07/01/2024 10:2 6 AM EST 07/01/2024 10:32 AM EST us Generic External Data Provider LAB BLOOD ORDERAB LES Final Result Performing Organization Address [facility] Co de Phone Number [facility] [address] [place] [address] [phone] * Lactic Acid (07/01/2024 10:26 AM EST) Pathologist [facility] Lactic Acid 1.0 0.5 - 2.0 mmol/L [facility] 07/01/2024 10:2 6 AM EST 07/01/2024 10:32 AM EST us Generic External Data Provider LAB BLOOD ORDERAB LES Final Result Performing Organization Address [facility] Co de Phone Number [facility] [address] [place] [address] [phone] * (ABNORMAL) Hepatic Function Panel (07/01/2024 10:26 AM EST) Pathologist [facility] Bilirubin, Total 0.6 0.0 - 1.0 mg/dL [facility] Bilirubin, Direct 0.3 0.0 - 0.5 mg/dL [facility] Aspartate Amino Transferase 38(H) 5 - 31 U/L [facility] Alanine Aminotransferase 22 0 - 31 U/L [facility] Total Protein 7.7 6.5 - 8.0 g/dL [facility] Albumin Level 4.0 3.5 - 5.0 g/dL [facility] Alkaline Phosphatase 102 39 - 117 U/L [facility] 07/01/2024 10:2 6 AM EST 07/01/2024 10:32 AM EST us Generic External Data Provider LAB BLOOD ORDERAB LES Final Result Performing Organization Address [facility] Co de Phone Number [facility] [address] [place] [address] [phone] * (ABNORMAL) Basic Metabolic Panel (07/01/2024 10:26 AM EST) Pathologist [facility] Sodium 142 135 - 145 mmol/L [facility] Potassium 3.6 3.3 - 5.1 mmol/L [facility] Chloride 110(H) 96 - 108 mmol/L [facility] Carbon Dioxide 24 22 - 29 mmol/L [facility] Anion Gap 12 12 - [address] [facility] Urea Nitrogen (BUN) 5(L) 9 - 16 mg/dL [facility] Creatinine, Serum 0.74 0.5 - 1.4 mg/dL [facility] Creatinine Clr Calc Pharmacy 55.[address] [facility] Comment:Provided height and weight: 154.94 cm,79.9 kg.eGFR (calculated from the MDRD study equation) and eCrCl(calculated from the Cockcroft-Gault equation) are based ondifferent parameters and may not yield comparable results.If eCrCl result is absurd, please check patient'sheight/weight. Estimated Glomerular Filt Rate >[address] [facility] Comment:Chronic Kidney Disea se: Estimated GFR < 60 mL/min/1.97f5Okhjuw Kidney Disease: Estimated GFR < 15 mL/min/1.73m2 Glucose 97 60 - 115 mg/dL [facility] Calcium 9.4 8.4 - 10.2 mg/dL [facility] 07/01/2024 10:2 6 AM EST 07/01/2024 10:32 AM EST us Generic External Data Provider LAB BLOOD ORDERAB LES Final Result [facility] [address] [place] [phone] * Lipid Panel, Standard (05/02/2024 10:01 AM EST) Triglycerides 92 <150 mg/dL [facility] Comment:Desirable Triglyceri de: less than 150 mg/dLBorderline High Triglyceride 150-199 mg/dLHigh Triglyceride: 200-499 mg/dLVery High Triglyceride: greater than or equal to 5OO mg/dL Cholesterol 127 <200 mg/dL [facility] Comment:Desirable Cholestero l: less than 200 mg/dLBorderline High Cholesterol: 200-239 mg/dLHigh Cholesterol: greater than 239 mg/dL LDL Cholesterol Calculated 58 <100 mg/dL [facility] Comment:Desirable LDL: less than 100 mg/dLNear Optimal/Above Optimal LDL: 110- 129 mg/dLBorderline High LDL: 130-159 mg/dLHigh LDL: 160-189 mg/dLVery High LDL: greater than or equal to 190 mg/dL HDL Cholesterol 51 >40 mg/dL [facility] Comment:Desirable HDL: great er than 40 mg/dL Note: This HDL assay may give artificially low results in patients with liver disease. Blood Venous blood specimen / Unknown 05/02/2024 10:01 AM EST 05/02/2024 11:15 AM EST us Pedro Leiva MD LAB BLOOD ORDERABLES Final Result Performing Organization Address [facility]/State/ZIP Co de Phone Number [facility] [address] [facility] [place] [phone] [phone] * BI Mammogram Screening Tomosynthesis Bilateral (09/18/2023 2:30 PM EDT) Anatomical Region Laterality Modality Breast Bilateral Mammography 09/18/2023 2:30 PM EDT Narrative 09/18/2023 4:18 PM EDT ? [facility] ? [address] ?[place] [address] ? Mammography Report ? Signed ? Patient: Hopper,Mickie ?MR#: [id number] ?? 27 ? : 1940 ?Acct:[id number] ? Age/Sex: 82 / F ?ADM Date: 09/18/23 ? Loc: HO.MAMMO ? Attending Dr: Sylvia Lennon DO ? Ordering Physician: Sylvia Lennon DO ?Results: 2B ?? enign Findings ? Date of Service: 09/18/23 ?Follow Up: 1 Year From Orig ?? inal Mammogram ? Procedure(s): MM tomosynthesis screening BI ?? Accession Number(s): [id number] ? cc: Pedro Ingram MD; Sylvia Lennon [...] 1614 ? DD/ 1430 ? TD/TT: ? Weigh Tank Operator: ? Procedure Note Jocelyn Juarez - 09/18/2023 [facility] [address] [place] [address] Mammography Report Signed Patient: Mickie HopperMR#: [id number] [birth year] : 1Acct:[id number] Age/Sex: 82 / FADM Date: 09/18/23 Loc: HO.MAMMO Attending Dr: Sylvia Lennon DO Ordering Physician: Sylvia Lennonults: 2B enign Findings Date of Service: 09/18/23Follow Up: 1 Year From Orig inal Mammogram Procedure(s): MM tomosynthesis screening BI Accession Number(s): [id number] cc: Pedro Ingram MD; Jurcsak,Sylvia A DO [...] in OV> 09/18/23 1614 DD/ 1430 TD/TT: Weigh Tank Operator: us Sylvia Lennon DO IMG BI PROCEDURES Final Resu lt from Last 3 Months or Most Recently Relevant to Health Maintenance [place] [address] [place] [address] - [employer] Care Teams Fur Dyer Relationship Specialty Start Date End Date Pedro Braxton MD [address] [place] [phone] PCP - General Internal Medicine 03/15/13
--- OUTSIDE RECORDS SUMMARY | 2024-07-12 13:04 | XMS_ITS | Encounter Summary ---
Author Organization [employer] Address [address] [facility] 7t [place] [address] Care Team Providers Care Block Inspector Name Role Phone Pedro Braxton MD Primary Care Provide r Encounter Details Date Type Department Care Team ([facility] st Contact Info) Description 07/01/2024 Orders Only [facility] External Provider, [facility] Social History Tobacco Use Types Packs/Day Years [...] Description 07/23/2024 9:30 AM EDT Office Visit [facility] [address] [place], [place] [phone] Pedro Braxton MD [address] [place] [address] 07/30/2024 1:15 PM EDT Office Visit [facility] [address] [place] [address] Perdo Braxton MD [address] [place] [address] documented as of this encounter Procedures Procedure [...] HIGH SENSITIVITY 19.7(H) <3.5 - 17.0 ng/L [facility] Comment:The Marx high sens itivity Troponin-I results should beused in conjunction with other diagnostic information suchas ECG, clinical observations and information, and patientsymptoms to aid in the diagnosis of CT. 07/01/2024 12:2 6 PM EST 07/01/2024 12:30 PM EST us Generic External Data Provider LAB BLOOD ORDERAB LES Final Result Performing Organization Address City/State/[facility] Co de Phone Number [facility] [address] [place] [phone] * XR Chest 1 View (07/01/2024 10:44 AM EST) Anatomical Region Laterality Modality Chest Radiographic Christina ging 07/01/2024 10:4 4 AM EST Narrative 07/01/2024 10:45 AM EST ? [facility] ?[address] ?[place] [address] ?XRay Report ? Signed ? Patient: Hopper,Mickie ?MR#: [id number] ?? [birth year] ? : 1940 ?Acct:[id number] ? Age/Sex: 83 / F ?ADM Date: 02/17/25 ? Loc: HO.ED ? Attending Dr: ? Ordering Physician: Hannah Downs DO ?? Date of Service: 07/01/24 ?? Procedure(s): XR chest 1V ?? Accession Number(s): [id number] ? cc: Hannah Downs DO; Pedro Ingram [...] DD/ 1044 ? TD/TT: 07/01/24 1044 ? Pathological Technician: ? Procedure Note Donotrudyinterpreter, Image - 07/01/2024 [place] [address] XRay Report Signed Patient: Mickie HopperMR#: [id number] [birth year] : 1940cct:[id number] Age/Sex: 83 / FADM Date: 07/01/24 Loc: HO.ED Attending Dr: Ordering Physician: Hannah Downs DO Date of Service: 07/01/24 Procedure(s): XR chest 1V Accession Number(s): [id number] cc: Hannah Downs DO; Pedro Ingram MD [...] 07/01/24 1045 DD/ 1044 TD/TT: 07/01/24 1044 Pathological Technician: us [facility] External Provider IMG XR PROCEDURES Final Result * VENOUS BLOOD GAS (07/01/2024 10:32 AM EST) VBG pH 7.41 7.32 - 7.43 [facility] Comment:METER #: [id number] additional_comment: Sekou serrano VBG PCO2 41 mmHg [facility] Comment:METER #: [id number] additional_comment: Sekou serrano VBG PO2 45 mmHg [facility] Comment:METER #: [id number] additional_comment: Sekou serrano VBG Base Excess 1.8 mmol/L [facility] Comment:METER #: [id number] additional_comment: Sekou serrano VBG HCO3 26 22 - 26 mmol/L [facility] Comment:METER #: [id number] additional_comment: Sekou serrano O2 Sat, Alfredo 70.0 % [facility] Comment:METER #: [id number] additional_comment: Sekou serrano 07/01/2024 10:3 2 AM EST 07/01/2024 10:40 AM EST Generic External Data Provider LAB BLOOD ORDERAB LES Final Result Performing Organization Address City/State/[facility] Co de Phone Number [facility] [address] [place] [phone] * (ABNORMAL) SARS-CoV-2 RNA, Influenza A/B, and RSV RNA, Ql NAAT (07/01/2024 10:27 AM EST) Influenza A PCR POSITIVE(A) Negative [facility] Influenza B PCR NEGATIVE Negative [facility] Resp Syncy Virus RNA Qual PCR NEGATIVE Negative [facility] SARS COV2 PCR NEGATIVE Negative [facility] Comment:All test results mus t [...] use by authorized laboratories.Testing performed on the [employer] GeneXpert utilizingreal-time RT-PCR.All SARS CoV2 and positive influenza A/B results arereported to [facility]. 07/01/2024 10:2 7 AM EST 07/01/2024 10:32 AM EST Generic External Data Provider LAB MICROBIOLOGY - GENERAL ORDERABLES Final Result Performing Organization Address [facility] Co de Phone Number [facility] [address] [place] [phone] * High Sensitivity Troponin I (07/01/2024 10:26 AM EST) TROPONIN I HIGH SENSITIVITY 17.0 <3.5 - 17.0 ng/L [facility] Comment:The Marx high sens itivity Troponin-I results should beused in conjunction with other diagnostic information suchas ECG, clinical observations and information, and patientsymptoms to aid in the diagnosis of CT. 07/01/2024 10:2 6 AM EST 07/01/2024 10:32 AM EST Generic External Data Provider LAB BLOOD ORDERAB LES Final Result Performing Organization Address [facility] Co de Phone Number [facility] [address] [place] [phone] * (ABNORMAL) B Type Natriuretic Peptide (BNP) (07/01/2024 10:26 AM EST) B Type Natriuretic Peptide 157(H) <100 pg/mL [facility] Comment:For those patients w ho are being treated with Natrecor(nesiritide, recombinant BNP), BNP testing should beperformed at least two hours post treatment in order toensure that only endogenous levels of BNP are detected. 07/01/2024 10:2 6 AM EST 07/01/2024 10:32 AM EST us Generic External Data Provider LAB BLOOD ORDERAB LES Final Result Performing Organization Address [facility] Co de Phone Number [facility] [address] [place] [phone] * Lactic Acid (07/01/2024 10:26 AM EST) Lactic Acid 1.0 0.5 - 2.0 mmol/L [facility] 07/01/2024 10:2 6 AM EST 07/01/2024 10:32 AM EST us Generic External Data Provider LAB BLOOD ORDERAB LES Final Result Performing Organization Address [facility] de Phone Number [facility] [address] [place] [phone] * (ABNORMAL) Lipase (07/01/2024 10:26 AM EST) Lipase 6(L) 8 - 78 U/L [facility] 07/01/2024 10:2 6 AM EST 07/01/2024 10:32 AM EST us Generic External Data Provider LAB BLOOD ORDERAB LES Final Result Performing Organization Address [facility] Co de Phone Number [facility] [address] [place] [phone] * Magnesium (07/01/2024 10:26 AM EST) Magnesium 2.1 1.6 - 2.6 mg/dL [facility] 07/01/2024 10:2 6 AM EST 07/01/2024 10:32 AM EST us Generic External Data Provider LAB BLOOD ORDERAB LES Final Result Performing Organization Address [facility] Co de Phone Number [facility] [address] [place] [address] [place] [phone] * (ABNORMAL) Basic Metabolic Panel (07/01/2024 10:26 AM EST) Sodium 142 135 - 145 mmol/L [facility] Potassium 3.6 3.3 - 5.1 mmol/L [facility] Chloride 110(H) 96 - 108 mmol/L [facility] Carbon Dioxide 24 22 - 29 mmol/L [facility] Anion Gap 12 12 - 20 [facility] Urea Nitrogen (BUN) 5(L) 9 - 16 mg/dL [facility] Creatinine, Serum 0.74 0.5 - 1.4 mg/dL [facility] Creatinine Clr Calc Pharmacy 55.1 [facility] Comment:Provided height and weight: 154.94 cm,79.9 kg.eGFR (calculated from the MDRD study equation) and eCrCl(calculated from the Cockcroft-Gault equation) are based ondifferent parameters and may not yield comparable results.If eCrCl result is absurd, please check patient'sheight/weight. Estimated Glomerular Filt Rate >60 [facility] Comment:Chronic Kidney Disea se: Estimated GFR < 60 mL/min/1.60q0Rlonwi Kidney Disease: Estimated GFR < 15 mL/min/1.73m2 Glucose 97 60 - 115 mg/dL [facility] Calcium 9.4 8.4 - 10.2 mg/dL [facility] 07/01/2024 10:2 6 AM EST 07/01/2024 10:32 AM EST us Generic External Data Provider LAB BLOOD ORDERAB LES Final Result [facility] [address] [place] [phone] * (ABNORMAL) Hepatic Function Panel (07/01/2024 10:26 AM EST) Bilirubin, Total 0.6 0.0 - 1.0 mg/dL [facility] Bilirubin, Direct 0.3 0.0 - 0.5 mg/dL [facility] Aspartate Amino Transferase 38(H) 5 - 31 U/L [facility] Alanine Aminotransferase 22 0 - 31 U/L [facility] Total Protein 7.7 6.5 - 8.0 g/dL [facility] Albumin Level 4.0 3.5 - 5.0 g/dL [facility] Alkaline Phosphatase 102 39 - 117 U/L [facility] 07/01/2024 10:2 6 AM EST 07/01/2024 10:32 AM EST us Generic External Data Provider LAB BLOOD ORDERAB LES Final Result Performing Organization Address City/State/[facility] Co de Phone Number [facility] [address] [place] [phone] * (ABNORMAL) CBC auto differential (07/01/2024 10:26 AM EST) White Blood Count 4.6(L) 4.8 - 10.8 X10*3/uL [facility] Red Blood Count 3.89(L) 4.20 - 5.50 X10*6/uL [facility] Hemoglobin 10.7(L) 12.0 - 16.0 g/dl [facility] Hematocrit 33.8(L) 37.0 - 47.0 % [facility] Mean Corpuscular Volume 86.9 80.0 - 98.0 fL [facility] Mean Corpuscular Hemoglobin 27.5 27.0 - 33.0 pg [facility] Mean Corpuscular HGB Conc 31.7 31.0 - 35.0 g/dl [facility] Red Cell Distribution Width 17.0(H) 11.0 - 16.0 % [facility] Platelet Count 203 160 - 400 X10*3/uL [facility] Mean Platelet Volume 11.0 9.4 - 12.3 fL [facility] Neutrophils Percent Auto 65.7 45 - 73 % [facility] Imm Gran Pct Auto 0.4 0.0 - 0.4 % [facility] Lymphocytes Percent Auto 14.4(L) 20 - 40 % [facility] Monocytes Percent Auto 16.6(H) 2 - 11 % [facility] Eosinophils Percent Auto 2.0 0 - 4 % [facility] Basophils Percent Auto 0.9 0 - 2 % [facility] NRBC Pct Auto 0.0 0.0 - 0.2 /100WBC [facility] Neutrophils Absolute Auto 3.0 2.0 - 8.3 x10*3/uL [facility] Imm Gran Abs Auto 0.02 0.00 - 0.03 X10*3/uL [facility] Lymphocytes Absolute Auto 0.7(L) 1.2 - 4.9 X10*3/uL [facility] Monocytes Absolute Auto 0.8 0.1 - 1.2 X10*3/uL [facility] Eosinophils Absolute Auto 0.1 0.0 - 0.4 X10*3/uL [facility] Basophils Absolute Auto 0.0 0.0 - 0.2 X10*3/uL [facility] NRBC Abs Auto 0.000 0.0 - 0.012 X10*3/uL [facility] 07/01/2024 10:2 6 AM EST 07/01/2024 10:32 AM EST us Generic External Data Provider LAB BLOOD ORDERAB LES Final Result Performing Organization Address City/State/[facility] Co de Phone Number [facility] [address] [place] [phone] documented in this encounter Visit Diagnoses Not on filedocumented in this encounter Additional Health Concerns Assessment Noted Time PHQ-9 Depression Total Score: 3 11/28/19 24 2:27 PM EDT documented as of this encounter Care Teams Block Inspector Relationship Specialty Start Date End Date Pedro Braxton MD [address] [place] [phone] PCP - General Internal Medicine 03/15/13 documented as of this encounter
--- OUTSIDE RECORDS SUMMARY | 2024-07-12 13:04 | XMS_ITS | Encounter Summary ---
Author Organization [employer] Address [address] [facility] 7 [place] [address] Care Team Providers Care Scale Model Maker Name Role Phone Pedro Braxton MD Primary Care Provide r Encounter Details Date Type Department Care Team ([facility] Contact Info) Description 09/27/2022 Orders Only [facility] [address] [place], [place] [phone] Sylvia Valentino LPN Social History Tobacco Use [...] Upcoming Encounters Date Type Department Care Team ([facility] Contact Info) Description 07/23/2024 9:30 AM EDT Office Visit [facility] [address] [place] [phone] Pedro Braxton MD [address] [place], [place] [phone] 07/30/2024 1:15 PM EDT Office Visit [facility] [address] [place], [place] [phone] Pedro Braxton MD [address] [place], [place] [phone] documented as of this encounter Visit Diagnoses Not on filedocumented in this encounter Care Teams Scale Model Maker Relationship Specialty Start Date End Date Pedro Braxton MD [address] [place] [address] [phone] PCP - General Internal Medicine 03/15/13 documented as of this encounter
--- OUTSIDE RECORDS SUMMARY | 2024-07-12 13:04 | XMS_ITS | Encounter Summary ---
Author Organization [employer] Address [address] [facility] 7t [place] [address] Care Team Providers Care Cylinder Worker Name Role Phone Pedro Braxton MD Primary Care Provide r Encounter Details Date Type Department Care Team ([facility] st Contact Info) Description 04/01/2024 Orders Only [facility] [address] [place] [address] ProviderZulay MD Social History Tobacco Use Types [...] Description 07/23/2024 9:30 AM EDT Office Visit [facility] [address] [place] [phone] Pedro Braxton MD [address] [place] [address] 07/30/2024 1:15 PM EDT Office Visit [facility] [address] [place] [address] Pedro Braxton MD [address] [place] [address] documented as of this encounter Procedures Procedure [...] documented as of this encounter Care Teams Cylinder Worker Relationship Specialty Start Date End Date Pedro Braxton MD [address] [place] [address] PCP - General Internal Medicine 03/15/13 documented as of this encounter
--- OUTSIDE RECORDS SUMMARY | 2024-07-12 13:04 | XMS_ITS | Encounter Summary ---
Author Organization [employer] Address [address] [facility] [address] [place] [address] Care Team Providers Care Patient Ambassador Name Role Phone Pedro Braxton MD Primary Care Provide r Reason for Visit * Reason Onset Date Comments Chart Prep 07/11/2024 Encounter Details Date Type Department Care Team ([facility] st Contact Info) Description 07/11/2024 Telephone [facility] [address] [place], [place] [phone] Pedro Braxton MD [address] [place], [place] [phone] Chart Prep Social History Tobacco Use Types Packs/Day Years [...] encounter Miscellaneous Notes * Telephone Encounter - Michelle Gorman [place] - 07/11/2024 9:49 AM EST Chart Prep Labs: done Images: not applicable Vaccines due: Covid Due, Hep A Due, Hep B Due, Flu Due, RSV in Pharmacy Due, and Shingles in pharmacy Due Referrals: Gastroenterology Completed and General Surgery Completed Screenings: Not Applicable Overdue care gaps: None Chart prep for upcoming appt with Dr.Esparza mcqueen. LB documented in this encounter Plan of Treatment Upcoming Encounters Date Type Department Care Team (Late st Contact Info) Description 07/23/2024 9:30 AM EDT Office Visit [facility] [address] [place] [phone] Pedro Braxton MD [address] [place] [phone] 07/30/2024 1:15 PM EDT Office Visit [facility] [address] [place] [phone] Pedro Braxton MD [address] [place] [phone] documented as of this encounter Visit Diagnoses Not on filedocumented in this encounter Additional Health Concerns Assessment Noted Time PHQ-9 Depression Total Score: 3 11/28/19 24 2:27 PM EDT documented as of this encounter Care Teams Patient Ambassador Relationship Specialty Start Date End Date Pedro Braxton MD [address] [place] [address] PCP - General Internal Medicine 03/15/13 documented as of this encounter
--- OUTSIDE RECORDS SUMMARY | 2024-07-12 13:04 | XMS_ITS | Encounter Summary ---
Author Organization [employer] Address [address] [facility] [address] [place] [address] Care Team Providers Care Business Services Administrator Name Role Phone Pedro Braxton MD Primary Care Provide r Reason for Visit * Reason Comments Transition Of Care (Tcm) HDF- scheduled and SDOH screening negative and Tobacco screening negative Encounter Details Date Type Department Care Team ([facility] st Contact Info) Description 07/03/2024 Patient Outreach [facility] [address] [place], [place] [phone] Pedro Braxotn MD [address] [place], [place] [phone] Transition Of Care (Tcm) (HDF- scheduled and [...] Admission/Visit 07/01/24 Date of Discharge 07/03/24 Facility [facility] Diagnosis Influenza A Disposition Discharged Home [...] Wednesdays, and Walk-In Urgent Care Located in [facility]. Patient provided with after-hours line for [facility], , which offer night time triage service and option to transfer to public relations provider if needed. CC scanned discharge summary into patient's chart. Biggest concern for appointment at this time is no concerns for now. Appropriate screenings completed in anticipation of appointment. documented in this encounter Plan of Treatment Upcoming Encounters Date Type Department Care Team (Late st Contact Info) Description 07/23/2024 9:30 AM EDT Office Visit [facility] [address] [place] [address] Pedro Braxton MD [address] [place] [address] 07/30/2024 1:15 PM EDT Office Visit [facility] [address] [facility] [place] [place] [phone] Pedro Braxton MD [address] [place], [place] [phone] documented as of this encounter Visit Diagnoses Not on filedocumented in this encounter Additional Health Concerns Assessment Noted Time PHQ-9 Depression Total Score: 3 11/28/19 24 2:27 PM EDT documented as of this encounter Care Teams Business Services Administrator Relationship Specialty Start Date End Date Pedro Braxton MD [address] [place], [place] [phone] PCP - General Internal Medicine 03/15/13 documented as of this encounter
--- OUTSIDE RECORDS SUMMARY | 2024-07-12 13:04 | XMS_ITS | Data Portability ---
Author Organization [employer] Address [address] [place] [id number] Care Team Providers Care Fishing Vessel Mate Name Role Phone HIM CCA OTHER Assessment Encounter Date Assessment Date Assessment LastModified by Organization Details LastModified Time 02/23/2023 02/23/2023 I provided real -time medical direction via phone for this encounter, and was available for additional phone based assistance as needed. I have reviewed and agree with the Assessment and Plan as documented by the Talent Director. Patient given the opportunity to ask questions. Advised through social and political studies professor if develops CP/severe SOB/turning blue/uncontrolle d n/v/d / AMS/ syncope/ hi fever unresponsive to APAP to call 911- verbalized understanding of instructions [email or web address] Not available 02/23/2023 22:43:57 04/21/2023 04/21/2023 As noted, we were called to see this patient regarding concerns of headache, fever, chills. Evaluation in the field was performed by my cosmetology educator colleague, as noted above, I provided real-time [...] Assessment and Plan as documented by the Talent Director. We discussed the diagnostic uncertainty of home [...] verbalized understanding of instructions to the medic [email or web address] Not available 06/08/2024 03:36:06 07/09/2024 07/09/2024 service called for inc WOB and concern CVA found 83 elieser with hx COPD HTN anemia CAD CKD CVA recent hospital adm for COPD flare family reported concern for stroke though non-specific has not received nebulizer setup pt denies new focal weakness/numbnes s VSS reported neuro exam neg +wheeze b/l COVID/flu/UA neg #Wheezing improved with duoneb #Concern re stroke no focal neuro deficit on exam history inconsistent however pt opts for ED evaluation [email or web address] Not available 07/09/2024 23:19:05 Plan of Treatment Reminders Order Date Submit Date Provider Last Modified By Organization Details Last Modified Time Details Appointments None recorded. Lab rapid SARS CoV 2 Ag, QL IA, respiratory specimen 2024 025 [facility], [address] [place] [address], [id number], 5 08:14:58 rapid flu (A+B) 2024 025 [facility], [address] [place] [address], [id number], 5 08:14:59 urinalysis, dipstick 2024 025 [facility], [address] [place] [address], [id number], 5 08:14:59 rapid SARS CoV 2 Ag, QL IA, respiratory specimen 2024 025 [email or web address] [facility], [address] [place] [address], [id number], 5 14:48:13 rapid flu (A+B) 2024 025 [email or web address] 0 [facility], [address] [place] [address], [id number], 5 14:48:13 BMP, serum or plasma 2024 025 [email or web address] 0 [facility], [address] [place] [address], [id number], 5 14:49:41 rapid strep group A, throat 2024 025 [email or web address] 0 [facility], [address] [place] [address], [id number], 5 14:48:13 rapid SARS CoV 2 Ag, QL IA, respiratory specimen 2023 024 [facility]ON[facility], [address] [place] [address], [id number], 4 08:26:10 rapid flu (A+B) 2023 024 JON[facility], [address] [place] [address], [id number], 4 08:26:30 rapid SARS CoV 2 Ag, QL IA, respiratory specimen 2022 023 [email or web address] 0 [facility], [address] [place] [address], [id number], 18:07:47 rapid flu (A+B) 2022 023 [email or web address] 0 [facility], [address] [place] [address], [id number], 18:07:47 Referral None recorded. Procedures None recorded. Surgeries None recorded. Imaging None recorded. Medication Orders albuterol sulfate 2.5 mg/3 mL (0.083 %) solution for nebulizatio n 2024 025 [email or web address] [facility]397, [address], [place], [id number], 5 23:19:21 meclizine 25 mg tablet 2024 025 [email or web address] 0 [facility]87278, [address], [place], [id number], 5 14:48:13 meclizine 12.5 mg tablet 2024 025 [facility], [address], [place], [id number], 5 14:48:21 doxycycline hyclate 100 mg tablet 2024 025 [email or web address] 0 [facility] #01790, [address], [place], [id number], 5 14:48:12 doxycycline hyclate 100 mg capsule 2024 025 [facility], [address], [place], [id number], 5 14:48:18 benzonatate 200 mg capsule 2022 023 [facility], [address], [place], [id number], 18:28:40 Patient TargetsNo targets recorded. Patient InstructionsNo instructions recorded. Reason for Referral None Reported. Results Created Date Observation Date Name Description Value Unit Range Abnormal Flag Note LastModifiedBy Organization Detail LastModifiedTime 02/24/2002/23/2023 rapid flu (A+B) Flu negati ve Not Available [facility] ed [address] [place] [address], [id number], 02/23/2023 18:07:27 02/24/20 23 02/23/2023 rapid SARS CoV 2 Ag, QL IA, respi rator y speci men rapid SARS CoV 2 Ag, QL IA, respiratory specimen negati ve Not Available [facility] ed [address] [place] [address], [id number], 02/23/2023 18:07:26 06/07/19 25 06/07/2024 rapid strep group A, throa t Strep negati ve Not Available [facility] ed [address] [place] [address], [id number], 06/07/2024 14:10:26 06/07/19 25 06/07/2024 rapid SARS CoV 2 Ag, QL IA, respi rator y speci men rapid SARS CoV 2 Ag, QL IA, respiratory specimen negati ve Not Available [facility] ed [address] [place] [address], [id number], 06/07/2024 14:10:19 06/07/19 25 06/07/2024 rapid flu (A+B) Flu negati ve Not Available [facility] ed [address] [place] [address], [id number], 06/07/2024 14:10:20 Result Notes None recorded. Medical Equipment None Reported. Allergies Allergen ID Allergen Name Allergen Category Reaction Reaction Severity Criticality Documentation Date Start Date Code Code System Note Provider Name and Address Organization Details Recorded Time 69706 Product containin g angiotens in-conver ting enzyme inhibitor (product) medicatio n Not available Not available Not available 07/09/2024 71549 009 SNOMED Not Available [facility] - production 18:02:12 Medications Name Sig Start Date Stop Date Status Note LastModified by Organization Details LastModified Time mm-pullups xl t4528 active Not Available Not Available Not Available medbox status USE DIRECTED active Not Available Not Available No t Available verapamil ER (SR) 120 mg tablet,exten [...] /min 136 mm[Hg] 88 mm[Hg] Not Available [employer] [facility] 3 17:57:56 Date Recorded Body temperature Respiratory rate Oxygen saturation Oxygen saturation in Arterial blood by Pulse oximetry Heart rate Systolic blood pressure Diastolic blood pressure Provider Name and Address Organization Details Last Updated DateTime 3 99.2 [degF] 16 /min 99 % 99 % 75 /min 130 mm[Hg] 82 mm[Hg] Not Available [employer] 3 15:40:47 Date Recorded Oxygen saturation Oxygen saturation in Arterial blood by Pulse oximetry Body temperature Body height Respiratory rate Heart rate Body weight Systolic blood pressure Diastolic blood pressure Provider Name and Address Organization Details Last Updated DateTime 4 97 % 97 % 99.1 [degF] 154.94 cm 18 /min 72 /min 56271.1 52 g 110 mm[Hg] 71 mm[Hg] Not Available [email or web address] - production 4 21:28:15 Date Recorded Body temperature Oxygen saturation Oxygen saturation in Arterial blood by Pulse oximetry Body height Heart rate Respiratory rate Body weight Systolic blood pressure Diastolic blood pressure Provider Name and Address Organization Details Last Updated DateTime 5 99.1 [degF] 96 % 96 % 154.94 cm 77 /min 18 /min 02710.5 6 g 139 mm[Hg] 74 mm[Hg] Not Available [facility] [employer] 14:03:22 Date Recorded Heart rate Systolic blood pressure Diastolic blood pressure Provider Name and Address Organization Details Last Updated DateTime 06/07/2024 86 /min 123 mm[Hg] 76 mm[Hg] Paula Paulson MD [address] [place] [address],[address] [facility], [place], [phone] 06/07/2024 14:51:00 Date Recorded Heart rate Respiratory rate Body weight Body temperature Oxygen saturation Oxygen saturation in Arterial blood by Pulse oximetry Body height Systolic blood pressure Diastolic blood pressure Provider Name and Address Organization Details Last Updated DateTime 5 64 /min 16 /min 51208.3 76 g 98.4 [degF] 97 % 97 % 157.48 cm 162 mm[Hg] 82 mm[Hg] Not Available [employer] 5 21:04:24 Social History None recorded. Functional Status None recorded. Mental Status None recorded. Family History Nothing Reported. Medical History No medical history recorded. Gynecological HistoryNo gynecological history recorded. Obstetrics History GPAL:G 0 P 0 0 0 0 Past Encounters Encounter ID Performer Location Encounter Start Date Encounter Closed Date Diagnosis/Indication Diagnosis SNOMED-CT Code Diagnosis ICD10 Code Diagnosis Note [id number] [facility] [address] [place] [phone] 12/08/2022 14:34:52 12/09/2022 11:10:56 Headache 61712591 R51.9 [id number] [facility] [address] [place] [phone] 02/23/2023 17:57:45 02/26/2023 12:35:10 Viral upper respiratory tract infection [id number] J06.9 Advised patient likely has COVID but [...] has a good Rx card for [facility]- [id number] THERESA ANDERSON MD [facility] [address] [place] [phone] 04/21/2023 15:40:44 04/24/2023 17:03:22 Viral syndrome [id number] B34.9 [id number] Jason Ibrahim MD [facility] [address] [place] [phone] 02/26/2024 21:28:07 02/27/2024 12:02:54 Influenza-like illness [id number] B34.9 As noted, we were called to see this patient regarding concerns of fever and cough. Evaluation in the field was performed by my cosmetology educator colleague, as noted above, I provided real-time [...] symptoms, particular ly confusion, dyspnea, high fever [id number] Paula Paulson MD [facility] [address] [place] [phone] 06/07/2024 14:03:20 06/09/2024 15:01:25 Upper respiratory infection [id number] J06.9 w/ dizziness ? BPV- trial meclizine/ [...] Continue Breo as directed NKDA/ Pharmacy verified [id number] Fidel Chau MD [facility] [address] [place] [phone] 07/09/2024 21:04:22 07/10/2024 12:22:57 Cough [id number] R05.9 Health Concerns Section Related Observation LastModified by Organization Detai ls LastModified Time None Recorded Concern Status LastModified by Organization Details LastModified Time None Recorded Advance Directives Directive None Recorded Payers Encounter Date Sequence Insurance Name Policy Number Policy Huang Covered Member ID Huang Member ID Guarantor Name 02/23/2023 1 [employer] - DOS ON OR AFTER 2022 - DUAL ELIGIBLE - MCC OPTIONS AND ONE CARE (MEDICARE REPLACEMENT/ADV ANTAGE - HMO) Mickie Hopper [id number] Mickie Hopper 04/21/2023 1 [employer] - DOS ON OR AFTER 2022 - DUAL ELIGIBLE - MCC OPTIONS AND ONE CARE (MEDICARE REPLACEMENT/ADV ANTAGE - HMO) Mickie Hopper [id number] Mickie Hopper 02/26/2024 1 [employer] - DOS ON OR AFTER 2022 - DUAL ELIGIBLE - MCC OPTIONS AND ONE CARE (MEDICARE REPLACEMENT/ADV ANTAGE - HMO) Mickie Hopper [id number] Mickie Hopper 06/07/2024 1 [employer] - DOS ON OR AFTER 2022 - DUAL ELIGIBLE - MCC OPTIONS AND ONE CARE (MEDICARE REPLACEMENT/ADV ANTAGE - HMO) Mickie Hopper [id number] Mickie Hopper 07/09/2024 1 [facility] - DOS ON OR AFTER 2022 - DUAL ELIGIBLE - MCC OPTIONS AND ONE CARE (MEDICARE REPLACEMENT/ADV ANTAGE - HMO) Mickie Hopper [id number] Mickie Hopper Notes Date Note Type Note [...] Member was not given anything for COVID. ........................ ......................... ......................... ......................... ......................... ................. Talent Director Note From Hamzah Pereira: PT reports that [...] ......................... ................ Disposition: Fulfilled Paula Paulson MD [address] [facility],[address], [place], [phone], [employer] 02/23/2023 22:47:51 3 text/html CRC Nursing Assessment: Reason For Request: Severe cough, ugly congestion, keeping her up at night>reporting fevers>headache>weakness> symptoms going on 4 days. Chief Complaints: Cough, Headache, Fever/Chills, Weakness/Lethargy, URI PMH: COPD/Asthma, Hypertension Allergies: No Known Comments: Referral taken via Field Operations Farm Manager. Member calling in to place a referral, [...] evaluated. ......................... ......................... ......................... ......................... ......................... ................ Talent Director Note From Marlon Moulton: Dispatched to the [...] ANDERSON MD [address] [facility],[address], [place], [phone], [employer] - [employer] 04/21/2023 16:06:33 4 text/html CRC Nurse Triage Notes (Chaitanya Skinner): Chief Complaints: Cough PMH: COPD/Asthma, Hypertension Allergies: Unknown Comments: Office Copy Selector verified the Pt.'s name//address and phone number. [...] - Pt is refusing ER - Declined Talent Director Organization Information for Garrett Fernandez Business Legal Name: [employer]? Address: [address] [place] [address] Supply Person: Valerio Hunter MD CLWILLARD No.: [id number] Talent Director POC Test Results from Garrett Fernandez Rapid influenza antigen (21:20:51) Flu: - Rapid COVID antigen (21:25:55) COVID: - Jason Ibrahim MD [address] [place] [address],[address], [place], [phone], [employer] 02/26/2024 21:45:30 5 text/html CRC Nurse Triage [...] Complaints: Cough, Fever/chillsPMH: COPD/Asthma, HypertensionPMH Reviewed at 06/07/2024 - 12:15Allergies Reviewed at 06/07/2024 - 12:15Comments: Office Copy Selector verified the Pt.'s name//address and phone number. [...] coughing. Concerns expressed and ER treatment declined. Talent Director Organization Information for Jenny Rock - [employer]ierno Legal Name: [email or web address].?Address: [address] [place] [id number], USMedical Director: Valerio Hunter [facility] No.: [id number] Talent Director POC Test Results from Jenny Rcok - ALS Rapid COVID antigen (13:49:17)COVID: - [...] section. ......................... ......................... ......................... ......................... ......................... ................ Talent Director Note From Jenny Rock: Sent to a call for a pt complaining of cough. SC8 arrives on scene, pt is alert and oriented, airway is patent. Pt's primary language is Mongolian. Family serves as social and political studies professor. Pt has history of COPD, Asthma, and [...] covid/flu test: neg; Rapid strep test: neg; [facility] orders POC bloodwork. IV access/venous blood draw performed; Chem8+ results: uploaded to [employer]; [facility] orders Meclizine 12.5mg PO and Doxycycline 100mg PO. [facility] sends script to pt's pharmacy. Meclizine 12.5mg [...] questions. ......................... ......................... ......................... ......................... ......................... ................ [facility] Consulted: Paula Paulson ......................... ......................... ......................... ......................... ......................... ................ Disposition: Fulfilled SEG MD: Patient denies headache, focal neuro-deficits, chest pain, palpitations, significant shortness of breath Paula Paulson MD [address] [place] [address],[address], [place], [phone], [employer] 06/08/2024 03:38:49 5 text/html HPI: rosalva Templeton who mbr gave verbal consent to speak w/ reports this 83 y.o. F w/ hx of COPD is c/o increased sob, initially starting ~1 mo ago w/ bronchitis. She was inpatient at [facility] 07/01-07/03 for asthma exac and flu, family states her O2 was 25% by EMS prior to ER eval. Mbr denies cp, cough or recent fevers. She c/o nasal congestion forcing her to mouth breathe. Pulse ox read O2=97%, HR= 65 during call. No acute confusion or bluish color to lips or fingertips, but they were advised if these develop or for O2<90% w/ sob to call 911. Mbr has hx of anemia, denies any recent bleeding. Her family thought she was supposed to get nebs s/p hospital d/c but she never received them. Chronic BLE edema appears unchanged from baseline. Mbr has MDI they don't believe she uses often and grandson stated he would check Rx instructions and encourage her to take it as directed. They are requesting [facility] eval. Family was advised to have mbr rest w/ head elevated and that they can call back 05/12 for any changes. CCA CP is Sylvia Bran, email: [email or web address] (not found in [facility] now database) ......................... ......................... ......................... ......................... ......................... ................ CRC Nurse Triage Notes (Chaitanya Skinner): Patient Reports: Increased work of breathing/labored ? with or without fever Denies: Unable to speak in full sentences without distress Discoloration of skin -cyanosis Needs to sleep sitting up, can? t catch breath Shortness of breath in setting of confusion Chief Complaints: Breathing Problems PMH: COPD/Asthma, Hypertension, Anemia, Sleep Apnea, Myocardial Infarction, Chronic Kidney Disease PMH Reviewed at 07/09/2024 - 18:02 Allergies Reviewed at 07/09/2024 - :02 Comments: Reviewed HPI Talent Director Organization Information for Mae Soto Business Legal Name: [employer]? Address: [address] [place] [address], Supply Person: Valerio Hunter MD CLIA No.: [id number] Talent Director POC Test Results from [employer] Rapid COVID antigen (21:24:52) COVID: - Rapid influenza antigen (21:24:53) Flu: - Urine Dipstick (21:25:09) Urine leukocytes: - JESSICA Urine nitrites: - NIT Urine urobilinogen: 0.2 URO Urine protein: - PRO Urine pH: 6.0 pH Urine blood: - BLO Urine specific gravity: 1.000 SG Urine ketones: - KET Urine bilirubin: - YUNI Urine glucose: - GLU ......................... ......................... ......................... ......................... ......................... ................ Talent Director Note From aMe Soto: ANDRE makes pt contact. She is found laying in her bed with the covers pulled up watching TV. Her upper lip and under her eyes are sweaty, but she is generally well-appearing. No ashen or kaiser color is noted, no facial droop, slurred speech, or one-sided weakness are observed, and she is not bleeding anywhere. Rosalva comes in the room and provides hx and translation. Pt was admitted to the hospital for 4 days last week for bronchitis and pneumonia. She was supposed to be sent home w/ a home nebulizer, but she has yet to get one. She has continued to cough and have a lot of phlegm . Rosalva endorses coming over this afternoon to visit and he noticed the pt was staring at him w/ a blank stare and not responding to him for several minutes and he became scared. He tried to get the pt to go in to the hospital at that time, but she is refusing to go. Pt endorses feeling dizzy, light-headed, and having blurry vision this morning when she woke up, like I had a mini stroke . She is no longer endorsing those s/s, but she still has a SALAS specifically on the L side of her face and her L eye is irritated. She continues to refuse transport to the ED for further evaluation. She consents to evaluation and treatment at this time. [facility] obtains vital signs and pt is assessed. Lung sounds are wheezy and rhonchus throughout. Abdomen is soft and nontender. [facility] performs a basic neuro assessment and cranial nerves are grossly intact and pt is A&Ox4 and is able to process information regarding yesterday and tomorrow. Pt is swabbed for COVID/flu and she provides urine for urine dipstick analysis. [facility] contacts [facility] and discusses the above. [facility] orders duoneb for the pt and will attempt to facilitate obtaining a home nebulizer for the pt. [facility] administers duoneb to the pt via nebulizer mask at 8 lpm. Lung sounds remain rhonchus, however wheezing has dissipated. Pt endorses feeling much better . [facility] informs pt of concerns about her earlier s/s from today of feeling like she had a mini stroke. [facility] emphasized that w/o proper evaluation, she could have another stroke and . She stated her understanding and while ANDRE was packing up to leave, pt decided she was going to take a shower and allow her family to take her to the ED. Family thanks [facility] for coming. [facility] is clear. Report completed by EILEEN Soto [id number]. ......................... ......................... ......................... ......................... ......................... ................ [facility] Consulted: Fidel Chau ......................... ......................... ......................... ......................... ......................... ................ Disposition: Fulfilled Fidel Chau MD [address] [facility],[address], [place], [address], [employer] 07/09/2024 23:19:24 OBGyn Episode No OBEpisode recorded.
--- OUTSIDE RECORDS SUMMARY | 2024-07-12 13:04 | XMS_ITS | Encounter Summary ---
Author Organization [employer] Address [address] [facility] 7t [place] [address] Care Team Providers Care Business Applications Developer Name Role Phone Pedro Braxton MD Primary Care Provide r Encounter Details Date Type Department Care Team ([facility] st Contact Info) Description 07/09/2024 Orders Only GENERIC EXTERNAL DATA DEPARTMENT Provider, Generic External Data Social History Tobacco Use Types Packs/Day Years [...] 9:30 AM EDT Office Visit [facility] [address] [facility], [place] [phone] Pedro Braxton MD [address] [place], [place] [phone] 07/30/2024 1:15 PM EDT Office Visit [facility] [address] [place], [place] [phone] Pedro Braxton MD [address] [place], [place] [phone] documented as of this encounter Procedures Procedure Name Priority Date/Time Associated Diagnosis Comments CT HEAD WO CONTRAST Routine 07/10/2024 1 :13 AM EST URINALYSIS, COMPLETE, WITH REFLEX TO CULTURE Routine 07/09/2024 11:46 PM EST HIGH SENSITIVITY TROPONIN I Routine 07/09/2024 11:35 PM EST CBC WITH AUTO DIFFERENTIAL Routine 07/09/2024 11:35 PM EST APTT Routine 07/09/2024 11:35 PM EST PROTHROMBIN TIME-INR Routine 07/09/2024 11:35 PM EST MAGNESIUM Routine 07/09/2024 11:35 PM EST LIPASE Routine 07/09/2024 11:35 PM EST COMPREHENSIVE METABOLIC PANEL Routine 07/09/2024 11:35 PM EST SARS COV2/INFLUENZA A/B AND RSV RNA QL NAAT Routine 07/09/2024 11:30 PM EST documented in this encounter Results * CT Head w/o Contrast (07/10/2024 1:13 AM EST) Anatomical Region Laterality Modality Head, Neck Computed Tomogra phy 07/10/2024 1:13 AM EST Narrative 07/10/2024 1:14 AM EST ? [facility] ?[address] ?[place] [address] ? CT Scan Report ? Signed ? Patient: Ward,Mickie ?MR#: [id number] ?? 27 ? : 1940 ?Acct:[id number] ? Age/Sex: 83 / F ?ADM Date: 07/09/24 ? Loc: HO.ED ? Attending Dr: ? Ordering Physician: Luis Fernando Zhao MD ?? Date of Service: 07/10/24 ?? Procedure(s): CT head/brain wo IV con ?? Accession Number(s): [id number] ? cc: Pedro Ingram MD; Luis Fernando Zhao MD ? Report Number: ?? [id number]: Total DLP = ??630.00 mGy-cm ? CLINICAL HISTORY: Dizziness, off balance, headache, R O stroke, blee ? CT head without contrast ? Comparison: MR - MRI BRAIN [facility] [id number] - 04/05/11 15:50 EST ? Findings: ?? [...] signed by Jonathan Morris MD in OV> ?07/10/24113 ? DD/ 2 ? TD/TT: 07/10/24 011 ? Card Decorator: ? Procedure Note Donisater, Image - 07/10/[address] [place] [address] [address] Scan Report Signed Patient: Mickie HopperMR#: [id number] [birth year] : 1940cct:[id number] Age/Sex: 83 / FADM Date: 07/09/24 Loc: HO.ED Attending Dr: Ordering Physician: Luis Fernando Zhao MD Date of Service: 07/10/24 Procedure(s): CT head/brain wo IV con Accession Number(s): [id number] cc: Pedro Ingram MD; Luis Fernando Zhao MD Report Number: [id number]: Total DLP = 630.00 mGy-cm CLINICAL HISTORY: Dizziness, off balance, headache, R O stroke, blee CT head without contrast Comparison: MR - MRI BRAIN O [id number] - 04/05/11 15:50 EST Findings: No intra-axial [...] in OV> 07/10/24113 DD/ 2 TD/TT: 07/10/24112 Card Decorator: [facility] External Provider IMG CT PROCEDURES Edited Result - Final * (ABNORMAL) Urinalysis, Complete, with Reflex to Culture (07/09/2024 11:46 PM EST) Color Urine Yellow [facility] Appearance Urine Clear [facility] PH 6.5 5.0 - 9.0 [facility] Glucose Urine UA Negative Negative mg/dL [facility] Urine Blood Negative Negative [facility] Specific [place] - Urine <=1.005 1.005 - 1.025 [facility] Urine Protein Negative Neg-Trace mg/dL [facility] Urine Ketones Negative Negative mg/dL [facility] Nitrite Urine Negative Negative [facility] Leukocyte Esterase Urine Trace(A) Negative [facility] RBC Urine 0-2 0 - 2 /HPF [facility] Urine WBC 0-5 0 - 5 /HPF [facility] Urine Squamous Epithelial Cell 0-2 0 - 2 /HPF [facility] Urine Bacteria None Seen None Seen [facility] Hyaline Casts, Urine 0-2 0 - 2 /LPF [facility] 07/09/2024 11:4 6 PM EST 07/09/2024 11:48 PM EST Narrative [facility] - 07/09/2024 11:59 PM EST Urine, Clean Catch us Generic External Data Provider LAB URINE ORDERAB LES Final Result [facility] [address] [place] [phone] * High Sensitivity Troponin I (07/09/2024 11:35 PM EST) TROPONIN I HIGH SENSITIVITY 3.6 <3.5 - 17.0 ng/L [facility] Comment:The Marx high sens itivity Troponin-I results should beused in conjunction with other diagnostic information suchas ECG, clinical observations and information, and patientsymptoms to aid in the diagnosis of NC. 07/09/2024 11:3 5 PM EST 07/09/2024 11:37 PM EST us Generic External Data Provider LAB BLOOD ORDERAB LES Final Result Performing Organization Address City/[facility]/ZIP Co de Phone Number [facility] [address] [place] [phone] * Lipase (07/09/2024 11:35 PM EST) Pathologist [facility] Lipase 11 8 - 78 U/L [facility] 07/09/2024 11:3 5 PM EST 07/09/2024 11:37 PM EST us Generic External Data Provider LAB BLOOD ORDERAB LES Final Result Performing Organization Address [facility]/ZIP Co de Phone Number [facility] [address] [place] [phone] * Magnesium (07/09/2024 11:35 PM EST) [facility] Magnesium 2.4 1.6 - 2.6 mg/dL [facility] 07/09/2024 11:3 5 PM EST 07/09/2024 11:37 PM EST Generic External Data Provider LAB BLOOD ORDERAB LES Final Result Performing Organization Address [facility] Co de Phone Number [facility] [address] [place] [phone] * (ABNORMAL) Comprehensive Metabolic Panel (07/09/2024 11:35 PM EST) [facility] Sodium 144 135 - 145 mmol/L [facility] Potassium 3.9 3.3 - 5.1 mmol/L [facility] Chloride 112(H) 96 - 108 mmol/L [facility] Carbon Dioxide 26 22 - 29 mmol/L [facility] Anion Gap 10(L) 12 - 20 [facility] Urea Nitrogen (BUN) 15 9 - 16 mg/dL [facility] Creatinine, Serum 0.78 0.5 - 1.4 mg/dL [facility] Creatinine Clr Calc Pharmacy 56.0 [facility] Comment:Provided height and weight: 154.94 cm,90.718 kg.eGFR (calculated from the MDRD study equation) and eCrCl(calculated from the Cockcroft-Gault equation) are based ondifferent parameters and may not yield comparable results.If eCrCl result is absurd, please check patient'sheight/weight. Estimated Glomerular Filt Rate >60 [facility] Comment:Chronic Kidney Disea se: Estimated GFR < 60 mL/min/1.37q9Hblhdo Kidney Disease: Estimated GFR < 15 mL/min/1.73m2 Glucose 111 60 - 115 mg/dL [facility] Calcium 8.8 8.4 - 10.2 mg/dL [facility] Bilirubin, Total 0.5 0.0 - 1.0 mg/dL [facility] Aspartate Amino Transferase 28 5 - 31 U/L [facility] Alanine Aminotransferase 43(H) 0 - 31 U/L [facility] Total Protein 7.1 6.5 - 8.0 g/dL [facility] Albumin Level 3.7 3.5 - 5.0 g/dL [facility] Alkaline Phosphatase 89 39 - 117 U/L [facility] 07/09/2024 11:3 5 PM EST 07/09/2024 11:37 PM EST us Generic External Data Provider LAB BLOOD ORDERAB LES Final Result [facility] [address] [place] [address] [phone] * Partial Thromboplastin Time, Activated (APTT) (07/09/2024 11:35 PM EST) Partial Thromboplastin Time 26.2 26.0 - 36.8 SEC [facility] Comment:For information rega rding the monitoring of direct thrombininhibitors, please refer to Pharmacy. 07/09/2024 11:3 5 PM EST 07/09/2024 11:37 PM EST us Generic External Data Provider LAB BLOOD ORDERAB LES Final Result Performing Organization Address [facility] Co de Phone Number [facility] [address] [place] [phone] * (ABNORMAL) Prothrombin Time-INR (07/09/2024 11:35 PM EST) [facility] Prothrombin Time 10.2(L) 10.9 - 12.4 SEC [facility] INTERNATIONAL NORM RATIO 0.9 0.9 - 1.1 [facility] Comment:INTERNATIONAL NORMAL IZED RATIO (INR) REFERENCE [...] LES Final Result Performing Organization Address [facility] de Phone Number [facility] [address] [place] [address] [phone] * (ABNORMAL) CBC auto differential (07/09/2024 11:35 PM EST) [facility] White Blood Count 8.3 4.8 - 10.8 X10*3/uL [facility] Red Blood Count 3.89(L) 4.20 - 5.50 X10*6/uL [facility] Hemoglobin 10.8(L) 12.0 - 16.0 g/dl [facility] Hematocrit 33.7(L) 37.0 - 47.0 % [facility] Mean Corpuscular Volume 86.6 80.0 - 98.0 fL [facility] Mean Corpuscular Hemoglobin 27.8 27.0 - 33.0 pg [facility] Mean Corpuscular HGB Conc 32.0 31.0 - 35.0 g/dl [facility] Red Cell Distribution Width 16.4(H) 11.0 - 16.0 % [facility] Platelet Count 252 160 - 400 X10*3/uL [facility] Mean Platelet Volume 10.6 9.4 - 12.3 fL [facility] Neutrophils Percent Auto 48.1 45 - 73 % [facility] Imm Gran Pct Auto 0.8(H) 0.0 - 0.4 % [facility] Lymphocytes Percent Auto 41.3(H) 20 - 40 % [facility] Monocytes Percent Auto 8.7 2 - 11 % [facility] Eosinophils Percent Auto 0.7 0 - 4 % [facility] Basophils Percent Auto 0.4 0 - 2 % [facility] NRBC Pct Auto 0.0 0.0 - 0.2 /100WBC [facility] Neutrophils Absolute Auto 4.0 2.0 - 8.3 x10*3/uL [facility] Imm Gran Abs Auto 0.07(H) 0.00 - 0.03 X10*3/uL [facility] Lymphocytes Absolute Auto 3.4 1.2 - 4.9 X10*3/uL [facility] Monocytes Absolute Auto 0.7 0.1 - 1.2 X10*3/uL [facility] Eosinophils Absolute Auto 0.1 0.0 - 0.4 X10*3/uL [facility] Basophils Absolute Auto 0.0 0.0 - 0.2 X10*3/uL [facility] NRBC Abs Auto 0.000 0.0 - 0.012 X10*3/uL [facility] 07/09/2024 11:3 5 PM EST 07/09/2024 11:37 PM EST us Generic External Data Provider LAB BLOOD ORDERAB LES Final Result [facility] [address] [place] [phone] * SARS-CoV-2 RNA, Influenza A/B, and RSV RNA, Ql NAAT (07/09/2024 11:30 PM EST) Influenza A PCR NEGATIVE Negative [facility] Influenza B PCR NEGATIVE Negative [facility] Resp Syncy Virus RNA Qual PCR NEGATIVE Negative [facility] SARS COV2 PCR NEGATIVE Negative [facility] Comment:All test results mus t [...] use by authorized laboratories.Testing performed on the [employer] GeneXpert utilizingreal-time RT-PCR.All SARS CoV2 and positive influenza A/B results arereported to [facility]. 07/09/2024 11:3 0 PM EST 07/09/2024 11:37 PM EST us Generic External Data Provider LAB MICROBIOLOGY - GENERAL ORDERABLES Final Result [facility] [address] [place] [phone] documented in this encounter Visit Diagnoses Not on filedocumented in this encounter Additional Health Concerns Assessment Noted Time PHQ-9 Depression Total Score: 3 11/28/19 24 2:27 PM EDT documented as of this encounter Care Teams Business Applications Developer Relationship Specialty Start Date End Date Pdero Braxton MD [address] [place] [phone] PCP - General Internal Medicine 03/15/13 documented as of this encounter
--- OUTSIDE RECORDS SUMMARY | 2024-07-12 13:04 | XMS_ITS | Continuity of Care Document ---
Author Organization [facility], [facility] Address [address] [place] [phone] Care Team Providers Care Entertainment Production Professional Name Role Phone HIM CCA OTHER Assessment Encounter Date Assessment Date Assessment LastModified by Organization Details LastModified Time 07/09/2024 07/09/2024 service called for inc WOB and concern CVA found 83 leieser with hx COPD HTN anemia CAD CKD CVA recent hospital adm for COPD flare family reported concern for stroke though non-specific has not received nebulizer setup pt denies new focal weakness/numbne ss VSS reported neuro exam neg +wheeze b/l [...] Ag, QL IA, respiratory specimen 2024 025 [facility], [address] [place] [address], [phone], 5 08:14:58 rapid flu (A+B) 2024 025 [facility], [address] [place] [address], [phone], 5 08:14:59 urinalysis, dipstick 2024 025 [facility], [address] [place] [address], [phone], 5 08:14:59 Referral None recorded. Procedures None recorded. Surgeries None recorded. Imaging None recorded. Medication Orders albuterol sulfate 2.5 mg/3 mL (0.083 %) solution for nebulizatio n 2024 025 [id number], [address], [place], [phone], 5 23:19:21 Patient TargetsNo targets recorded. Patient InstructionsNo instructions recorded. Reason for Referral None Reported. Results Created Date Observation Date Name Description Value Unit Range Abnormal Flag Note LastModifiedBy Organization Detail LastModifiedTime Result Notes None recorded. Medical Equipment None Reported. Allergies Allergen ID Allergen Name Allergen Category Reaction Reaction Severity Criticality Documentation Date Start Date Code Code System Note Provider Name and Address Organization Details Recorded Time 94569 Product containin g angiotens in-conver ting enzyme inhibitor (product) medicatio n Not available Not available Not available 07/09/2024 43271 009 SNOMED Not Available [facility] - production [...] Available No t Available Vitals Date Recorded Heart rate Respiratory rate Body weight Body temperature Oxygen saturation Oxygen saturation in Arterial blood by Pulse oximetry Body height Systolic blood pressure Diastolic blood pressure Provider Name and Address Organization Details Last Updated DateTime 5 64 /min 16 /min 97558.3 76 g 98.4 [degF] 97 % 97 % 157.48 cm 162 mm[Hg] 82 mm[Hg] Not Available [facility] - production 5 21:04:24 Social History None recorded. Functional Status None recorded. Mental Status None recorded. Family History Nothing Reported. Medical History No medical history recorded. Gynecological HistoryNo gynecological history recorded. Obstetrics History GPAL:G 0 P 0 0 0 0 Past Encounters Encounter ID Performer Location Encounter Start Date Encounter Closed Date Diagnosis/Indication Diagnosis SNOMED-CT Code Diagnosis ICD10 Code Diagnosis Note [id number] Fidle Chau MD Main - [facility] [address] [place] [phone] 07/09/2024 21:04:22 07/10/2024 12:22:57 Cough 84884374 R05.9 Health Concerns Section Related Observation LastModified by Organization Detai ls LastModified Time None Recorded Concern Status LastModified by Organization Details LastModified Time None Recorded Payers Encounter Date Sequence Insurance Name Policy Number Policy Huang Covered Member ID Huang Member ID Guarantor Name 07/09/2024 1 [facility] - DOS ON OR AFTER 2022 - DUAL ELIGIBLE - [facility] OPTIONS AND ONE CARE (MEDICARE REPLACEMENT/ADV ANTAGE - HMO) Mickie Hopper [id number] Mickie Hopper Notes Date Note Type Note Provider Name and Address Organization Details Recorded Time 07/09/2024 text/html HPI: rosalva Templeton who mbr gave verbal consent to speak w/ reports this 83 y.o. F w/ hx of COPD is c/o increased sob, initially starting ~1 mo ago w/ bronchitis. She was inpatient at [facility] 07/01-07/03 for asthma exac and flu, [...] for O2<90% w/ sob to call 911. Priscilla has hx of anemia, denies any recent bleeding. Her family thought she was supposed to get nebs s/p hospital d/c but she never received them. Chronic BLE edema appears unchanged from baseline. Priscilla has MDI they don't believe she uses often and grandson stated he would check Rx instructions and encourage her to take it as directed. They are requesting [facility] eval. Family was advised to have mbr rest w/ head elevated and that they can call back 05/12 for any changes. CCA CP is Sylvia Bran, email: [email or web address] (not found in [facility] database) ................... ................... ................... ................... ................... ................... ................... ........ [facility] Nurse Triage Notes (Chaitanya Skinner): Patient [...] Kidney Disease PMH Reviewed at 07/09/2024 - 18: Allergies Reviewed at 07/09/2024 - 18:02 Comments: Reviewed [facility] Business Area Director Organization Information for [employer] Business Legal Name: [employer]? Address: [address] [place] [address], [employer] Cord: Valerio Hunter MD CLIA No.: [id number] Business Area Director POC Test Results from Mae Soto - ALS Rapid COVID antigen (21:24:52) COVID: - Rapid influenza antigen (21:24:53) Flu: - Urine Dipstick (21:25:09) Urine leukocytes: - JESSICA Urine nitrites: - NIT Urine urobilinogen: 0.2 URO Urine protein: - PRO Urine pH: 6.0 pH Urine blood: - BLO Urine specific gravity: 1.000 SG Urine ketones: - KET Urine bilirubin: - YUNI Urine glucose: - GLU ................... ................... ................... ................... ................... ................... ................... ........ Business Area Director Note From Mae Soto: ANDRE makes pt contact. She is [...] to evaluation and treatment at this time. [facility] obtains vital signs and pt is assessed. Lung sounds are wheezy and rhonchus throughout. Abdomen is soft and nontender. [facility] performs a basic neuro assessment and cranial nerves are grossly intact and pt is A&Ox4 and is able to process information regarding yesterday and tomorrow. Pt is swabbed for COVID/flu and she provides urine for urine dipstick analysis. [facility] contacts [facility] and discusses the above. [facility] orders duoneb for the pt and will attempt to facilitate obtaining a home nebulizer for the pt. [facility] administers duoneb to the pt via nebulizer mask at 8 lpm. Lung sounds remain rhonchus, however wheezing has dissipated. Pt endorses feeling much better . [facility] informs pt of concerns about her earlier s/s from today of feeling like she had a mini stroke. [facility] emphasized that w/o proper evaluation, she could have another stroke and . She stated her understanding and while [facility] was packing up to leave, pt decided she was going to take a shower and allow her family to take her to the ED. Family thanks [facility] for coming. [facility] is clear. Report completed by EILEEN Soto [id number]. ................... ................... ................... ................... ................... ................... ................... ........ [facility] Consulted: Fidel Chau ................... ................... ................... ................... ................... ................... ................... ........ Disposition: Fulfilled Fidel Chau MD [address] [place] [address],[facility], [place], [phone], [place] 07/09/2024 23:19:24 OBGyn Episode No OBEpisode recorded.
--- OUTSIDE RECORDS SUMMARY | 2024-07-12 13:04 | XMS_ITS | Encounter Summary ---
Author Organization [employer] Address [address] [facility] [address] [place] [address] Care Team Providers Care Computer Information Systems Instructor Name Role Phone Pedro Braxton MD Primary Care Provide r Encounter Details Date Type Department Care Team (Late st Contact Info) Description 12/06/2022 Orders Only [facility] [address] [place] [address] Sylvia Valentino LPN Social History Tobacco Use [...] Description 07/23/2024 9:30 AM EDT Office Visit [facility] [address] [place] [phone] Pedro Braxton MD [address] [place] [address] 07/30/2024 1:15 PM EDT Office Visit [facility] [address] [place] [phone] Pedro Braxton MD [address] [place] [address] documented as of this encounter Visit Diagnoses Not on filedocumented in this encounter Care Teams Computer Information Systems Instructor Relationship Specialty Start Date End Date Pedro Braxton MD [address] [place] [address] PCP - General Internal Medicine 03/15/13 documented as of this encounter
--- OUTSIDE RECORDS SUMMARY | 2024-07-12 13:04 | XMS_ITS | Encounter Summary ---
Author Organization [employer] Address [address] [facility] 7 [place] [address] Care Team Providers Care Systems Planner Name Role Phone Pedor Braxton MD Primary Care Provide r Reason for Visit * Reason Onset Date Comments Hospital Follow-up 07/03/2024 Encounter Details Date Type Department Care Team ([facility] st Contact Info) Description 07/03/2024 Telephone [facility] [address] [place], [place] [phone] Pedro Braxton MD [address] [place], [place] [phone] Hospital Follow-up Social History Tobacco Use Types [...] from pt requesting a HDF appt. Hospital: [facility] Date of admission: 06/29/24 Discharge date: 07/03/24 Diagnosed: oxygen level at 29 documented in this encounter Plan of Treatment Upcoming Encounters Date Type Department Care Team (Late st Contact Info) Description 07/23/2024 9:30 AM EDT Office Visit [facility] [address] [place] [phone] Pedro Braxton MD [address] [place] [phone] 07/30/2024 1:15 PM EDT Office Visit [facility] [address] [place] [phone] Pedro Braxton MD [address] [place] [phone] documented as of this encounter Visit Diagnoses Not on filedocumented in this encounter Additional Health Concerns Assessment Noted Time PHQ-9 Depression Total Score: 3 11/28/19 24 2:27 PM EDT documented as of this encounter Care Teams Systems Planner Relationship Specialty Start Date End Date Pedro Braxton MD [address] [place] [address] PCP - General Internal Medicine 03/15/13 documented as of this encounter
--- OUTSIDE RECORDS SUMMARY | 2024-07-12 13:05 | XMS_ITS | Encounter Summary ---
Author Organization [employer] Address [address] [facility] [address] [place] [address] Care Team Providers Care Accountant Systems Name Role Phone Pedro Braxton MD Primary Care Provide r Encounter Details Date Type Department Care Team (Late st Contact Info) Description 06/09/2022 Orders Only [facility] [address] [place], [place] [phone] Sylvia Valentino LPN Social History Tobacco Use [...] Description 07/23/2024 9:30 AM EDT Office Visit [facility] [address] [place], [place] [phone] Pedro Braxton MD [address] [place], [place] [phone] 07/30/2024 1:15 PM EDT Office Visit [facility] [address] [place] [address] Pedro Braxton MD [address] [place] [address] documented as of this encounter Visit Diagnoses Not on filedocumented in this encounter Care Teams Accountant Systems Relationship Specialty Start Date End Date Pedro Braxton MD [address] [place] [phone] PCP - General Internal Medicine 03/15/13 documented as of this encounter
--- OUTSIDE RECORDS SUMMARY | 2024-07-12 13:05 | XMS_ITS | Clinical Summary ---
Author Organization [facility] Address [address] [place] [address] Phone Care Team Providers Care Lead Java J2Ee Developer Name Role Phone Pedro Ingram MD Primary [...] EST Emergency [facility] Emergency [address] [place] [address] Discharge Disposition: Home or Self [...] mmol/L LAB CHEMISTRY METHOD 03/30/2024 1:04 PM [facility] Potassium 3.6 3.5 - 5.5 mmol/L LAB CHEMISTRY METHOD 03/30/2024 1:04 PM [facility] Chloride 109 96 - 110 mmol/L LAB CHEMISTRY METHOD 03/30/2024 1:04 PM [facility] CO2 27 21 - 32 mmol/L LAB CHEMISTRY METHOD 03/30/2024 1:04 PM [facility] Anion Gap 5 3 - 11 LAB CHEMISTRY METHOD 03/30/2024 1:04 PM [facility] Glucose 98 70 - 100 mg/dL LAB CHEMISTRY METHOD 03/30/2024 1:04 PM [facility] BUN 7 5 - 25 mg/dL LAB CHEMISTRY METHOD 03/30/2024 1:04 PM [facility] Creatinine 0.79 0.50 - 1.10 mg/dL LAB CHEMISTRY METHOD 03/30/2024 1:04 PM [facility] eGFR 74 >=60 mL/min/1. 73m2 LAB CHEMISTRY METHOD 03/30/2024 1:04 PM [facility] Comment:Calculation based on the??Chronic Kidney Disease Epidemiology Collaboration (CKD-EPI) equation refit??without adjustment for race. BUN/Creatinine Ratio 8.9 LAB CHEMISTRY METHOD 03/30/2024 1:04 PM [facility] Calcium 8.9 8.5 - 10.5 mg/dL LAB CHEMISTRY METHOD 03/30/2024 1:04 PM [facility] Blood Venous blood specimen / Unknown Venipuncture / Unknown 03/30/2024 12:09 PM EST 03/30/2024 12:12 PM EST us Zulema Fuentes MD LAB BLOOD ORDERABLES Final Resul t [facility]) [facility] [address] [place] [address], from Last 3 Months or Most Recently Relevant to Health Maintenance Insurance [employer] MEDICARE Member Subscriber Plan / Payer (Ef fective 2008-Present) Name:HopperErnst dumontia Relation to Subscriber:Self Name:HopperErnst dumontia Payer ID:[id number] Group ID:[id number] Type:Not on file Address: [place] [address] [address] [id number] Care Teams Lead Java J2Ee Developer Relationship Specialty Start Date End Date Pedro Ingram MD [address] [place] [address] [place] [phone] PCP - General 11/23/09
--- OUTSIDE RECORDS SUMMARY | 2024-07-12 13:05 | XMS_ITS | Encounter Summary ---
Author Organization [employer] Address [address] [facility] [address] [place] [address] Care Team Providers Care Drafter Automotive Design Layout Name Role Phone Pedro Braxton MD Primary Care Provide r Encounter Details Date Type Department Care Team (Late st Contact Info) Description 09/05/2022 Orders Only [facility] [address] [place] [address] Sylvia Valentino LPN Social History Tobacco Use [...] AM EDT Office Visit [facility] [address] [place] [phone] Pedro Braxton MD [address] [place] [phone] 07/30/2024 1:15 PM EDT Office Visit [facility] [address] [place] [phone] Pedro Braxton MD [address] [place] [address] documented as of this encounter Visit Diagnoses Not on filedocumented in this encounter Care Teams Drafter Automotive Design Layout Relationship Specialty Start Date End Date Pedro Braxton MD [address] [place] [phone] PCP - General Internal Medicine 03/15/13 documented as of this encounter
== END 2024-07-11 11:10 | disposition home or self-care (01) ==
LOC: HO.HOSX 11:09
PROVIDERS: Visit Provider Physician Assistant
DX: Z13.89 Encounter for screening for other disorder (principal)

== ENCOUNTER 2024-08-29 08:45 | Outpatient (REF) | payer OTHER, SELFPAY ==
--- OUTSIDE RECORDS SUMMARY | 2024-08-29 09:25 | XMS_ITS | Encounter Summary ---
Author Organization [employer] Address [address] [facility] 7 [place] [address] Care Team Providers Care Disease Education Specialist Name Role Phone Pedro Braxton MD Primary Care Provide r Reason for Visit * Reason Onset Date Comments Hospital Follow-up 07/03/2024 Encounter Details Date Type Department Care Team ([facility] st Contact Info) Description 07/03/[address] [facility] [address] [place], [place] [phone] Pedro Braxton MD [address] [place], [place] [phone] Hospital Follow-up Social History Tobacco Use Types [...] from pt requesting a HDF appt. Hospital: [facility] Date of admission: 06/29/24 Discharge date: 07/03/24 Diagnosed: oxygen level at 29 documented in this encounter Plan of Treatment Upcoming Encounters Date Type Department Care Team (Late st Contact Info) Description 11/05/2024 2:15 PM EDT Office Visit [facility] [address] [place] [address] Pedro Braxton MD [address] [place] [address] documented as of this encounter Visit Diagnoses Not on filedocumented in this encounter Additional Health Concerns Assessment Noted Time PHQ-9 Depression Total Score: 3 11/28/19 24 2:27 PM EDT documented as of this encounter Care Teams Disease Education Specialist Relationship Specialty Start Date End Date Pedro Braxton MD [address] [place] [address] PCP - General Internal Medicine 03/15/13 documented as of this encounter
--- OUTSIDE RECORDS SUMMARY | 2024-08-29 09:25 | XMS_ITS | Encounter Summary ---
Author Organization [employer] Address [address] [facility] 7 [place] [address] Care Team Providers Care Blending Kettle Tender Name Role Phone Pedro Braxton MD Primary Care Provide r Encounter Details Date Type Department Care Team ([facility] Contact Info) Description 09/27/2022 Orders Only [facility] [address] [place], [place] [phone] Sylvia Valentino LPN Social History Tobacco Use [...] Upcoming Encounters Date Type Department Care Team ([facility] Contact Info) Description 11/05/2024 2:15 PM EDT Office Visit [facility] [address] [place] [address] Pedro Braxton MD [address] [place], [place] [phone] documented as of this encounter Visit Diagnoses Not on filedocumented in this encounter Care Teams Blending Kettle Tender Relationship Specialty Start Date End Date Pedro Braxton MD [address] [place] [phone] PCP - General Internal Medicine 03/15/13 documented as of this encounter
--- OUTSIDE RECORDS SUMMARY | 2024-08-29 09:25 | XMS_ITS | Clinical Summary ---
Author Organization [facility] Address [address] [place] [address] Phone Care Team Providers Care Regional Marketing Director Name Role Phone Pedro Ingram MD Primary [...] EST - 06/07/2024 11:07 PM EST Emergency [facility] Emergency [address] [place] [address] Discharge Disposition: Home or Self [...] (1 of 2) 02/10/2015 12/16/2014 RSV Immunization Adult Patients (1 - 1-dose 75+ series) 09/25/2015 Falls Risk Assessment 04/27/2022 Medicare Annual Wellness Visit 04/27/2022 Osteoporosis Screening (Bone Density Screening) 04/27/2022 Social Influencers of Health Screening 04/27/2022 COVID-19 Vaccine ( season) 2024 07/14/2021, 07/24/2020, 06/26/2020 Depression Screening 11/27/2024 11/28/2023 DTaP,Tdap,and Td Vaccines (2 - Td or Tdap) 12/16/2024 12/16/2014 Influenza Vaccine (Season Ended) 2025 02/03/2022, 05/03/2021, 05/29/2018, Additional history exists Hypertension/CHF/CAD Annual BMP Blood Test 05/02/2025 05/02/2024, [...] age to complete this topic Meningococcal B Vaccine Aged Out No l onger eligible based on patient's age to complete [...] mmol/L LAB CHEMISTRY METHOD 03/30/2024 1:04 PM [facility] Potassium 3.6 3.5 - 5.5 mmol/L LAB CHEMISTRY METHOD 03/30/2024 1:04 PM [facility] Chloride 109 96 - 110 mmol/L LAB CHEMISTRY METHOD 03/30/2024 1:04 PM [facility] CO2 27 21 - 32 mmol/L LAB CHEMISTRY METHOD 03/30/2024 1:04 PM [facility] Anion Gap 5 3 - 11 LAB CHEMISTRY METHOD 03/30/2024 1:04 PM [facility] Glucose 98 70 - 100 mg/dL LAB CHEMISTRY METHOD 03/30/2024 1:04 PM [facility] BUN 7 5 - 25 mg/dL LAB CHEMISTRY METHOD 03/30/2024 1:04 PM [facility] Creatinine 0.79 0.50 - 1.10 mg/dL LAB CHEMISTRY METHOD 03/30/2024 1:04 PM [facility] eGFR 74 >=60 mL/min/1. 73m2 LAB CHEMISTRY METHOD 03/30/2024 1:04 PM [facility] Comment:Calculation based on the??Chronic Kidney Disease Epidemiology Collaboration (CKD-EPI) equation refit??without adjustment for race. BUN/Creatinine Ratio 8.9 LAB CHEMISTRY METHOD 03/30/2024 1:04 PM [facility] Calcium 8.9 8.5 - 10.5 mg/dL LAB CHEMISTRY METHOD 03/30/2024 1:04 PM [facility] Blood Venous blood specimen / Unknown Venipuncture / Unknown 03/30/2024 12:09 PM EST 03/30/2024 12:12 PM EST us Zulema Fuentes MD LAB BLOOD ORDERABLES Final Resul t [facility] [address] [place] [address], from Last 3 Months or Most Recently Relevant to Health Maintenance Insurance [employer] MEDICARE Member Subscriber Plan / Payer (Ef fective 2008-Present) Name:Mickie Hopper Relation to Subscriber:Self Name:Mickie Hopper Payer ID:[id number] Group ID:[id number] Type:Not on file Address: [place] [address] [address] [id number] Care Teams Regional Marketing Director Relationship Specialty Start Date End Date Pedro Ingram MD [address] [place] [address] [place] [phone] PCP - General 11/23/09
--- OUTSIDE RECORDS SUMMARY | 2024-08-29 09:25 | XMS_ITS | Data Portability ---
Author Organization [employer] Address [address] [place] [phone] Care Team Providers Care Data Designer Name Role Phone HIM CCA OTHER Assessment Encounter Date Assessment Date Assessment LastModified by Organization Details LastModified Time 02/23/2023 02/23/2023 I provided real -time medical direction via phone for this encounter, and was available for additional phone based assistance as needed. I have reviewed and agree with the Assessment and Plan as documented by the Picker Tender Helper. Patient given the opportunity to ask questions. Advised through aquatics group fitness instructor if develops CP/severe SOB/turning blue/uncontrolle d n/v/d / AMS/ syncope/ hi fever unresponsive to APAP to call 911- verbalized understanding of instructions [email or web address] Not available 02/23/2023 22:43:57 04/21/2023 04/21/2023 As noted, we were called to see this patient regarding concerns of headache, fever, chills. Evaluation in the field was performed by my customer service advocate colleague, as noted above, I provided real-time [...] Assessment and Plan as documented by the Picker Tender Helper. We discussed the diagnostic uncertainty of home [...] verbalized understanding of instructions to the medic [email or web address] Not available 06/08/2024 03:36:06 07/09/2024 07/09/2024 service [...] Ag, QL IA, respiratory specimen 2024 025 [facility], [address] [place] [address], [id number] 5 08:14:58 rapid flu (A+B) [address], [address] 5 08:14:59 urinalysis, dipstick [address], [phone] 5 08:14:59 rapid SARS CoV 2 Ag, QL IA, respiratory specimen 2024 025 [email or web address] [facility], [address] [place] [address], [id number] 5 14:48:13 rapid flu (A+B) 2024 025 [email or web address] 0 [facility], [address] [place] [address], [id number] 5 14:48:13 BMP, serum or plasma 2024 025 [email or web address] 0 [facility], [address] [place] [address], [address] 5 14:49:41 rapid strep group A, throat 2024 025 [email or web address] 0 [facility], [address] [place] [address], [id number] 5 14:48:13 rapid SARS CoV 2 Ag, QL IA, respiratory specimen 2023 024 JONATHAN [facility], [address] [place] [address], [address] 4 08:26:10 rapid flu (A+B) 2023 024 JONATHAN [facility], [address] [place] [address], [id number] 4 08:26:30 rapid SARS CoV 2 Ag, QL IA, respiratory specimen 2022 023 [email or web address] 0 [facility], [address] [place] [address], [id number] 3 18:07:47 rapid flu (A+B) 2022 023 [email or web address] 0 [facility], [address] [place] [address], [id number] 3 18:07:47 Referral None recorded. Procedures None recorded. Surgeries None recorded. Imaging None recorded. Medication Orders albuterol sulfate 2.5 mg/3 mL (0.083 %) solution for nebulizatio n 2024 025 [email or web address] [id number], [address], [id number], 5 23:19:21 meclizine 25 mg tablet 2024 025 [email or web address] 0 [facility] #10308, [address], [id number], 5 14:48:13 meclizine 12.5 mg tablet 2024 025 [facility], [address], [place], [id number], 5 14:48:21 doxycycline hyclate 100 mg tablet 2024 025 [email or web address] 0 [facility] #87844, [address], [id number], 5 14:48:12 doxycycline hyclate 100 mg capsule [address] [facility] #03256, [address], [place], [id number], 5 14:48:18 benzonatate 200 mg capsule 2022 023 [facility], [address], [place], [id number], 3 18:28:40 Patient TargetsNo targets recorded. Patient InstructionsNo instructions recorded. Reason for Referral None Reported. Results Created Date Observation Date Name Description Value Unit Range Abnormal Flag Note LastModifiedBy Organization Detail LastModifiedTime 02/24/2002/23/2023 rapid flu (A+B) Flu negati ve Not Available [facility] - [facility] ed [address] [place] [address], [id number] 02/23/2023 18:07:27 02/24/2002/23/2023 rapid SARS CoV 2 Ag, QL IA, respi rator y speci men rapid SARS CoV 2 Ag, QL IA, respiratory specimen negati ve Not Available [facility] ed [address] [place] [address], [phone] 02/23/2023 18:07:26 06/07/1906/07/2024 rapid strep group A, throa t Strep negati ve Not Available [address], [address] 06/07/2024 14:10:26 06/07/1906/07/2024 rapid SARS CoV 2 Ag, QL IA, respi rator y speci men rapid SARS CoV 2 Ag, QL IA, respiratory specimen negati ve Not Available [address], [address] 06/07/2024 14:10:19 06/07/1906/07/2024 rapid flu (A+B) Flu negati ve Not Available [address], [phone] 06/07/2024 14:10:20 Result Notes None recorded. Medical Equipment None Reported. Allergies Allergen ID Allergen Name Allergen Category Reaction Reaction Severity Criticality Documentation Date Start Date Code Code System Note Provider Name and Address Organization Details Recorded Time 06063 Product containin g angiotens in-conver ting enzyme inhibitor (product) medicatio n Not available Not available Not available 07/09/2024 36373 009 SNOMED Not Available [facility] - production [...] mm[Hg] 88 mm[Hg] Not Available [facility] - [facility] 3 17:57:56 Date Recorded Body temperature Respiratory rate Oxygen saturation Oxygen saturation in Arterial blood by Pulse oximetry Heart rate Systolic blood pressure Diastolic blood pressure Provider Name and Address Organization Details Last Updated DateTime 3 99.2 [degF] 16 /min 99 % 99 % 75 /min 130 mm[Hg] 82 mm[Hg] Not Available [facility] 3 15:40:47 Date Recorded Oxygen saturation Oxygen saturation in Arterial blood by Pulse oximetry Body temperature Body height Respiratory rate Heart rate Body weight Systolic blood pressure Diastolic blood pressure Provider Name and Address Organization Details Last Updated DateTime 4 97 % 97 % 99.1 [degF] 154.94 cm 18 /min 72 /min 27555.1 52 g 110 mm[Hg] 71 mm[Hg] Not Available [facility] - [facility] 4 21:28:15 Date Recorded Body temperature Oxygen saturation Oxygen saturation in Arterial blood by Pulse oximetry Body height Heart rate Respiratory rate Body weight Systolic blood pressure Diastolic blood pressure Provider Name and Address Organization Details Last Updated DateTime 5 99.1 [degF] 96 % 96 % 154.94 cm 77 /min 18 /min 51040.5 6 g 139 mm[Hg] 74 mm[Hg] Not Available [facility] - [facility] 5 14:03:22 Date Recorded Heart rate Systolic blood pressure Diastolic blood pressure Provider Name and Address Organization Details Last Updated DateTime 06/07/2024 86 /min 123 mm[Hg] 76 mm[Hg] Paula Paulson MD [address] [place] [address],[address], [place], [address], [place] - [facility] 06/07/2024 14:51:00 Date Recorded Heart rate Respiratory rate Body weight Body temperature Oxygen saturation Oxygen saturation in Arterial blood by Pulse oximetry Body height Systolic blood pressure Diastolic blood pressure Provider Name and Address Organization Details Last Updated DateTime 64 /min 16 /min 84996.3 76 g 98.4 [degF] 97 % 97 % 157.48 cm 162 mm[Hg] 82 mm[Hg] Not Available [facility] - production 21:04:24 Social History None recorded. Functional Status None recorded. Mental Status None recorded. Family History Nothing Reported. Medical History No medical history recorded. Gynecological HistoryNo gynecological history recorded. Obstetrics History GPAL:G 0 P 0 0 0 0 Past Encounters Encounter ID Performer Location Encounter Start Date Encounter Closed Date Diagnosis/Indication Diagnosis SNOMED-CT Code Diagnosis ICD10 Code Diagnosis Note [id number] Manas Swanson MD [address] [phone] 12/08/2022 14:34:52 12/09/2022 11:10:56 Headache 73605224 R51.9 [id number] Paula Paulson MD [address] [phone] 02/23/2023 17:57:45 02/26/2023 12:35:10 Viral upper respiratory tract infection 207163304 J06.9 Advised patient likely has COVID but [...] has a good Rx card for [facility]- [id number] THERESA ANDERSON MD [facility] [address] [place] [phone] 04/21/2023 15:40:44 04/24/2023 17:03:22 Viral syndrome [id number] B34.9 [id number] Jason Ibrahim MD [facility] [address] [place] [phone] 02/26/2024 21:28:07 02/27/2024 12:02:54 Influenza-like illness [id number] B34.9 As noted, we were called to see this patient regarding concerns of fever and cough. Evaluation in the field was performed by my customer service advocate colleague, as noted above, I provided real-time [...] symptoms, particular ly confusion, dyspnea, high fever [id number] Paula Paulson MD [facility] [address] [place] [phone] 06/07/2024 14:03:20 06/09/2024 15:01:25 Upper respiratory infection [id number] J06.9 w/ dizziness ? BPV- trial meclizine/ [...] Continue Breo as directed NKDA/ Pharmacy verified [id number] Fidel Chau MD Main - [address] [phone] 07/09/2024 21:04:22 07/10/2024 12:22:57 Cough 72430474 R05.9 Health Concerns Section Related Observation LastModified by Organization Detai ls LastModified Time None Recorded Concern Status LastModified by Organization Details LastModified Time None Recorded Advance Directives Directive None Recorded Payers Encounter Date Sequence Insurance Name Policy Number Policy Huang Covered Member ID Huang Member ID Guarantor Name 02/23/2023 1 [facility] - DOS ON OR AFTER 2022 - DUAL ELIGIBLE - CUSTODIAL OPTIONS AND ONE CARE (MEDICARE REPLACEMENT/ADV ANTAGE - HMO) Mickie Hopper [id number] Mickie Hopper 04/21/2023 1 [employer] - DOS ON OR AFTER 2022 - DUAL ELIGIBLE - CUSTODIAL OPTIONS AND ONE CARE (MEDICARE REPLACEMENT/ADV ANTAGE - HMO) Mickie Hopper [id number] Mickie Hopper 02/26/2024 1 [employer] - DOS ON OR AFTER 2022 - DUAL ELIGIBLE - CUSTODIAL OPTIONS AND ONE CARE (MEDICARE REPLACEMENT/ADV ANTAGE - HMO) Mickie Hopper [id number] Mickie Hopper 06/07/2024 1 [employer] - DOS ON OR AFTER 2022 - DUAL ELIGIBLE - CUSTODIAL OPTIONS AND ONE CARE (MEDICARE REPLACEMENT/ADV ANTAGE - HMO) Mickie Hopper [id number] Mickie Hopper 07/09/2024 1 [employer] - DOS ON OR AFTER 2022 - DUAL ELIGIBLE - CUSTODIAL OPTIONS AND ONE CARE (MEDICARE REPLACEMENT/ADV ANTAGE - HMO) Mickie Hopper [id number] Mickie Hopper Notes Date Note Type Note [...] COVID. ......................... ......................... ......................... ......................... ......................... ................ Picker Tender Helper Note From Hamzah Pereira: PT reports that [...] ................ Disposition: Fulfilled Paula Paulson MD [address] [facility],[address], [place], [address], [email or web address] - [facility] 02/23/2023 22:47:51 3 text/html CRC Nursing Assessment: Reason For Request: Severe cough, ugly congestion, keeping her up at night>reporting fevers>headache>weakness> symptoms going on 4 days. Chief Complaints: Cough, Headache, Fever/Chills, Weakness/Lethargy, URI PMH: COPD/Asthma, Hypertension Allergies: No Known Comments: Referral taken via Claim Specialist. Member calling in to place a referral, [...] evaluated. ......................... ......................... ......................... ......................... ......................... ................ Picker Tender Helper Note From Marlon Moulton: Dispatched to the [...] ......................... ................ Disposition: Fulfilled THERESA ANDERSON MD [address] [place] [address],[address], [place], [address], [email or web address] - [facility] 04/21/2023 16:06:33 4 text/html CRC Nurse Triage Notes (Chaitanya Skinner): Chief Complaints: Cough PMH: COPD/Asthma, Hypertension Allergies: Unknown Comments: Trim Technician verified the Pt.'s name//address and phone [...] - Pt is refusing ER - Declined Picker Tender Helper Organization Information for Garrett Fernandez Business Legal Name: [employer]? Address: [address] [place] [address], Urologist Physician: Valerio Hunter MD CLIA No.: [id number] Picker Tender Helper POC Test Results from Garrett Fernandez Rapid influenza antigen (21:20:51) Flu: - Rapid COVID antigen (21:25:55) COVID: - Jason Ibrahim MD [address] [place] [address],[address], [place], [phone], [email or web address] [facility] 02/26/2024 21:45:30 5 text/html CRC Nurse Triage [...] HypertensionPMH Reviewed at 06/07/2024:15Allergies Reviewed at 06/07/2024:15Comments: Trim Technician verified the Pt.'s name//address and phone [...] coughing. Concerns expressed and ER treatment declined. Picker Tender Helper Organization Information for Kevin [place] Legal Name: [employer]?Address: [address] [place] [address], USMedical Director: Valerio Hunter [facility] No.: [id number] Picker Tender Helper POC Test Results from Jenny Rock [facility] [...] section. ......................... ......................... ......................... ......................... ......................... ................ Picker Tender Helper Note From Jenny Rock: Sent to a call for a pt complaining of cough. SC8 arrives on scene, pt is alert and oriented, airway is patent. Pt's primary language is Samoan. Family serves as aquatics group fitness instructor. Pt has history of COPD, Asthma, and [...] covid/flu test: neg; Rapid strep test: neg; [facility] orders POC bloodwork. IV access/venous blood draw performed; Chem8+ results: uploaded to SEA; [facility] orders Meclizine 12.5mg PO and Doxycycline 100mg PO. [facility] sends script to pt's pharmacy. Meclizine 12.5mg [...] questions. ......................... ......................... ......................... ......................... ......................... ................ [facility] Consulted: Paula Paulson ......................... ......................... ......................... ......................... ......................... ................ Disposition: Fulfilled SEG MD: Patient denies headache, focal neuro-deficits, chest pain, palpitations, significant shortness of breath Paula Paulson MD [address] [facility],[address], [place], [address], [place] - [facility] 06/08/2024 03:38:49 5 text/html HPI: rosalva Templeton who mbr gave verbal consent to speak w/ reports this 83 y.o. F w/ hx of COPD is c/o increased sob, initially starting ~1 mo ago w/ bronchitis. She was inpatient at [facility] 07/01-07/03 for asthma exac and flu, [...] family thought she was [facility] get [facility] but she never received [...] changes. CCA CP is Sylvia Bran, email: [email or web address] (not found in [employer] database) ......................... ......................... ......................... ......................... ......................... ................ [facility] Nurse Triage Notes (Chaitanya Skinner): Patient Reports: [...] Chronic Kidney Disease PMH Reviewed at 07/09/2024 Allergies Reviewed at 07/09/2024: Comments: Reviewed HPI Picker Tender Helper Organization Information for Charles Mae [employer]TT[employer] Business Legal Name: [employer]? Address: [address] [place] [address], Urologist Physician: Valerio Hunter MD [place] No.: [id number] Picker Tender Helper POC Test Results from Mae Soto Rapid COVID antigen (21:24:52) COVID: - Rapid influenza antigen (21:24:53) Flu: - Urine Dipstick (21:25:09) Urine leukocytes: - JESSICA Urine nitrites: - NIT Urine urobilinogen: 0.2 URO Urine protein: - PRO Urine pH: 6.0 pH Urine blood: - BLO Urine specific gravity: 1.000 SG Urine ketones: - KET Urine bilirubin: - YUNI Urine glucose: - GLU ......................... ......................... ......................... ......................... ......................... ................ Picker Tender Helper Note From Charles Breannagabe: [facility] makes pt contact. She is found laying [...] to evaluation and treatment at this time. [facility] obtains vital signs and pt is assessed. Lung sounds are wheezy and rhonchus throughout. Abdomen is soft and nontender. [facility] performs a basic neuro assessment and cranial nerves are grossly intact and pt is A&Ox4 and is able to process information regarding yesterday and tomorrow. Pt is swabbed for COVID/flu and she provides urine for urine dipstick analysis. [facility] contacts [facility] and discusses the above. [facility] orders duoneb for the pt and will attempt to facilitate obtaining a home nebulizer for the pt. [facility] administers duoneb to the pt via nebulizer mask at 8 lpm. Lung sounds remain rhonchus, however wheezing has dissipated. Pt endorses feeling much better . [facility] informs pt of concerns about her earlier s/s from today of feeling like she had a mini stroke. [facility] emphasized that w/o proper evaluation, she could have another stroke and . She stated her understanding and while [facility] was packing up to leave, pt decided she was going to take a shower and allow her family to take her to the ED. Family thanks [facility] for coming. [facility] is clear. Report completed by EILEEN Soto [id number]. ......................... ......................... ......................... ......................... ......................... ................ [facility] Consulted: Fidel Chau ......................... ......................... ......................... ......................... ......................... ................ Disposition: Fulfilled Fidel Chau MD [address] [facility],[address], [place], [address], [email or web address] - [facility] 07/09/2024 23:19:24 OBGyn Episode No OBEpisode recorded.
--- OUTSIDE RECORDS SUMMARY | 2024-08-29 09:25 | XMS_ITS | Encounter Summary ---
Author Organization [employer] Address [address] [facility] [address] [place] [address] Care Team Providers Care Aurist Name Role Phone Pedro Braxton MD Primary Care Provide r Encounter Details Date Type Department Care Team (Late Contact Info) Description 12/06/2022 Orders Only [facility] [address] [place] [address] Sylvia Valentino LPN Social History Tobacco Use [...] Department Care Team (Late Contact Info) Description 11/05/2024 2:15 PM EDT Office Visit [facility] [address] [place] [address] Pedro Braxton MD [address] [place] [address] documented as of this encounter Visit Diagnoses Not on filedocumented in this encounter Care Teams Aurist Relationship Specialty Start Date End Date Pedro Braxton MD [address] [place] [address] PCP - General Internal Medicine 03/15/13 documented as of this encounter
--- OUTSIDE RECORDS SUMMARY | 2024-08-29 09:25 | XMS_ITS | Clinical Summary ---
Author Organization [employer] Address [address] [facility] [address] [place] [address] Care Team Providers Care Bender Hand Name Role Phone Pedro Braxton MD Primary [...] 2 times daily. 15 g 023 Active Aspirin Adult Low Strength 81 MG EC tablet TAKE 1 TABLET BY MOUTH EVERY MORNING 90 tablet 3 024 Active atorvastatin (Lipitor) 20 MG tablet TAKE 1 TABLET BY MOUTH AT BEDTIME 90 tablet 3 024 Active simethicone (Mylicon) 80 MG chewable tabletIndication s:Flatulence CHEW AND SWALLOW 1 TABLET THREE TIMES DAILY BEFORE MEALS NEEDED FOR GAS 90 tablet 3 024 Active linaCLOtide (Linzess) 72 MCG capsuleIndicatio ns:Constipation, unspecified constipation type Take 1 capsule (72 mcg) by mouth before breakfast. Do not crush or chew. 14 capsule 024 2024 Active glycerin (Adult) 2 g suppositoryIndic ations:Constipat ion, unspecified constipation type Insert 1 suppository (2 g) into the rectum if needed in the morning and at bedtime for constipation. 30 suppository 1 024 Active omeprazole (PriLOSEC) [address] capsuleIndicatio ns:Dyspepsia Take 1 capsule (20 mg) by mouth before breakfast and before evening meal. Do not crush or chew. 60 capsule 11 024 2024 Active guaiFENesin (Mucinex) 600 MG 12 hr tabletIndication s:Acute cough Take 1 tablet (600 mg) by mouth 2 times daily. Do not crush, chew, or split. 60 tablet 11 024 2024 Active docusate sodium (Colace) 100 MG capsuleIndicatio ns:Constipation, unspecified constipation type TAKE 1 CAPSULE BY MOUTH TWICE DAILY IN THE MORNING AND IN THE EVENING NEEDED 60 capsule 5 Active fluticasone (Flonase) 50 MCG/ACT nasal spray INSTILL 2 SPRAYS IN EACH NOSTRIL ONCE DAILY ONCE DAILY SHAKE GENTLY 16 g 3 Active Diclofenac Sodium 1 % gelIndications:O ther headache syndrome APPLY 2 GRAMS TOPICALLY TO AFFECTED AREA(S) TWICE DAILY 100 g 2 Active dorzolamide-sommer lol (Cosopt) 2-0.5 % ophthalmic solution Administer 1 drop into both eyes 2 times daily. Active Ferrocite 324 MG tablet Take 1 tablet by mouth Once per day. Active gabapentin (Neurontin) 300 MG capsule Take 2 capsules by mouth at bedtime. Active losartan (Cozaar) 100 MG tablet Take 1 tablet by mouth at bedtime. Active meclizine (Antivert) 25 MG tablet Take 1 tablet by mouth if needed in the morning, at noon, and at bedtime for dizziness. 025 Active ondansetron ODT (Zofran-ODT) 4 MG disintegrating tablet Take 1 tablet by mouth Every 6-8 hours as needed for nausea or vomiting. Active cetirizine (ZyrTEC) 10 MG tablet Take 1 tablet (10 mg) by mouth Once per day. 30 tablet 3 025 Active albuterol 108 (90 Base) MCG/ACT inhalerIndicatio ns:Moderate persistent asthma without complication INHALE 2 PUFFS BY MOUTH EVERY 6 HOURS NEEDED FOR WHEEZING OR SHORTNESS OF BREATH 18 g 025 Active verapamil SR (Calan SR) 120 MG ER tablet TAKE 1 TABLET BY MOUTH EVERY MORNING 90 tablet 1 025 Active senna (Senokot) 8.6 MG tabletIndication s:Constipation, unspecified constipation type TAKE 2 TABLETS BY MOUTH EVERY DAY AT BEDTIME NEEDED 180 tablet 1 025 Active verapamil SR (Calan SR) 120 MG ER tablet TAKE 1 TABLET BY MOUTH EVERY MORNING 90 tablet 1 024 2024 Discontinued senna (Senokot) 8.6 MG tabletIndication s:Constipation, unspecified constipation type TAKE 2 TABLETS BY MOUTH EVERY DAY AT BEDTIME NEEDED 180 tablet 024 2024 Discontinued(R eorder (will not trigger notification to Pharmacy)) Active Problems Problem Noted Date Diagnosed Date Hospital discharge follow-up 07/23/2024 Constipation 03/19/2024 Assessment & Plan (07/30/2024 1:20 PM EDT): Last seen by GI 05/24/2024 Assessment & Plan (04/30/2024 2:19 PM EST): [...] encouraged to discuss with her GI for prison use. -ER precautions discussed. Class 1 obesity [...] EST): Pt with chronic anemia. Seen by patient transition specialist Dr Osiel Ye [place] [facility] [place] seen on 07/22/2021. GI work up included a EGD 2020 and Colonoscopy 2006. Moderate persistent asthma without complication 05/24/2022 Assessment & Plan (11/28/2023 2:41 PM EDT): She has chronic cough, described as dry and intermittent wheezing. 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 Pt was unable to complete PFTs under the care of Dr Silva ( Telecommunications Facility Examiner ) thinks she has Mod persistent asthma On Montelukast, Breo Elipa 100/25 chest x-ray 07/17/2019 Normal pt will continue to follow with him, last seen September 2022 Assessment & Plan (12/22/2022 11:15 AM EDT): She has chronic cough, described as dry and intermittent wheezing. 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 Pt was unable to complete PFTs under the care of Dr Silva ( Telecommunications Facility Examiner ) thinks she has Mod persistent asthma On Montelukast, Breo Elipa 100/25 chest x-ray 07/17/2019 Normal pt will continue to follow with him, last seen September 2022 Assessment & Plan (05/24/2022 5:15 PM EST): She has chronic cough, described as dry and intermittent wheezing. 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 Pt was unable to complete PFTs under the care of Dr Silva ( Telecommunications Facility Examiner ) thinks she has Mod persistent asthma [...] Findings RECOMMENDATION: 1 year F/U Paps wnl 2003, 2004 and 2005 with h/o KIRIT/BSO for fibroids and no h/o abnormal paps, no need for further pap screening DEXA wnl October 2009 Colonoscopy 01/29/2019 5 year f/u recommended, Has appointment with GI 05/24/2024 Assessment & Plan (05/24/2022 5:19 PM EST): Mammo 11/06/2020 Normal Paps wnl 2002, 2003 and 2005 with [...] controlled during the afternoons Assessment & Plan (07/30/2024 1:19 PM EDT): Pt here for a f/u BP is controlled, She is on a regimen of: Verelan ER 120 mg po daily by cardiology and Losartan 50 mg po daily For now will continue with current medical regimen. Most recent electrolytes, Bun and Creatinine done on: Lab Results Component Value Date NA 144 07/09/2024 NA 142 07/01/2024 K 3.9 07/09/2024 K 3.6 07/01/2024 CL 112 (H) 07/09/2024 CL 110 (H) 07/01/2024 BUN 15 07/09/2024 BUN 5 (L) 07/01/2024 CREATININE 0.78 07/09/2024 CREATININE 0.74 07/01/2024 Were wnl. patient advised to adhere to a low sodium diet, encouraged about medication compliance, counseled about weight loss. Assessment & Plan (04/30/2024 2:09 PM EST): [...] -24 hour BP monitor ordered -EKG -Called Craps Dealer, will plan for follow up appt in 1-2 months -ED precautions reviewed Assessment & Plan (05/24/2022 4:33 PM EST): Pt here for a f/u BP is controlled, She is on a regimen of: Verelan ER 120 mg po daily by cardiology and Diovan 80 mg po daily (she had been on Hctz before but this was Dced by [facility]) For now will continue with current medical regimen. Most recent electrolytes, Bun and Creatinine done on: 03/21/2022 were wnl. patient advised to adhere to a low sodium diet, encouraged about medication compliance, counseled about weight loss. Allergic rhinitis 09/30/2013 Assessment & Plan (07/30/2024 1:27 PM EDT): Cetirizine prescribed Steatosis of liver 09/30/2013 Obstructive sleep apnea [...] Gastroesophageal reflux disease 02/13/2012 Assessment & Plan (07/30/2024 1:18 PM EDT): Here for a f/u Seen by GI 05/24/2024 EGD 09/08/2020 showed: Videoendoscope was introduced with out difficulty and entered esophagus easily. Esophageal mucosa was normal. Small hiatal hernia. Stomach: Normal looking mucosa, no erythema. Duodenal bulb and duodenum were normal. Scope withdrawn Brief view of Arytenoid cartilages showed some flattening and edema. No involvement of the cords. Advised to continue PPI BID, Assessment & Plan (04/30/2024 2:19 PM EST): [...] Dr Guardado Hyperlipidemia 02/13/2012 Assessment & Plan (07/30/2024 1:20 PM EDT): Pt here for a f/u Patient with elevated lipids. Most recent lipid profile from: Lab Results Component Value Date TRIG 92 05/02/2024 TRIG 112 12/26/2022 CHOL 127 05/02/2024 CHOL 142 12/26/2022 LDLCHOLCAL 58 05/02/2024 LDLCHOLCAL 65 12/26/2022 HDL 51 05/02/2024 HDL 55 12/26/2022 Currently on a regimen of: Lipitor 20mg po qhs . For now will continue with current regimen advised to try to adhere to a low cholesterol diet, counseled and educated about diet and exercise, Patient encouraged to come up with a personal goal for weight loss. Assessment & Plan (04/30/2024 2:11 PM EST): [...] it is dermatitis versuse other. Referral to big data hadoop developer. ER precautions given. Encounters Date Type Department Care Team Description 08/12/2024 Refill [facility] [address] [place] [address] Nyasia Nagel MD Constipation, unspecified constipation type 08/12/2024 Refill [facility] [address] [facility] [place] [address] Pedro Braxton MD Constipation, unspecified constipation type 07/30/2024 1:15 PM EDT Office Visit [facility] [address] [facility] [place] [address] Pedro Braxton MD Essential hypertension (Primary Dx); Mixed hyperlipidemia; Gastroesophageal reflux disease without esophagitis; Constipation, unspecified constipation type; Moderate persistent asthma without complication; Seasonal allergic rhinitis, unspecified trigger 07/30/2024 Travel 07/24/2024 Telephone [facility] [address] [place] [address] Pedro Braxton MD Chart Prep 07/23/2024 Telephone [facility] [address] [place] [address] Pedro Braxton MD 07/11/2024 Telephone [facility] [address] [place] [address] Pedro Braxton MD Chart Prep 07/09/2024 Orders Only GENERIC EXTERNAL DATA DEPARTMENT Provider, Generic External Data 07/05/2024 Refill [facility] [address] [place] [address] Nyasia Nagel MD Other headache syndrome 07/03/2024 Patient Outreach [facility] [address] [place] [address] Pedro Braxton MD Transition Of Care (Tcm) (HDF- scheduled and SDOH screening negative and Tobacco screening negative) 07/03/2024 Telephone [facility] [address] [place] [address] Pedro Braxton MD Hospital Follow-up 07/01/2024 Orders Only [facility] External Provider, [facility] 06/06/2024 Telephone [facility] [address] [place] [address] Pedro Braxton MD Med Refill from Last 3 Months Immunizations Name Administration Dates Next Due Influenza High-dose Quadriva lent Preservative Free 02/03/2022 Influenza injectable quadriv alent IIV4 with preservative 01/25/2016,03/24/2015 Influenza injectable quadriv alent preservative free 05/03/2021,05/29/2018,04/25/2016 Influenza, IIV3, injectable 04/04/2011 Influenza, Split (incl. mike fied surface antigen) 02/21/2013,02/13/2012 Moderna Covid-19 Vaccine 12+ 07/14/2021,07/25/19,06/26/2020 Pneumococcal Conjugate PCV 13 03/24/2015 Pneumococcal Polysaccharide [...] Sign Reading Time Taken Comments Blood Pressure 132/73 07/30/2024 1:13 PM EDT Pulse 80 07/30/2024 1:13 PM EDT Temperature 35.6 ??C (96 ??F) 07/30/2024 1:13 PM EDT Respiratory Rate 20 07/30/2024 1:13 PM EDT Oxygen Saturation 95% 07/30/2024 1:13 PM EDT Inhaled Oxygen Concentration - - Weight 74.8 kg (164 lb 12.8 oz) 07/30/2024 1:13 PM EDT Height 154.9 cm (5' 1 ) 07/30/2024 1:13 PM EDT Body Mass Index 31.14 07/30/2024 1:13 PM EDT Plan of Treatment Upcoming Encounters Date Type Department Care Team (Late st Contact Info) Description 11/05/2024 2:15 PM EDT Office Visit [facility] [address] [place] [address] Pedro Braxton MD [address] [place] [address] Health Maintenance Due Date Last Done Comments Hepatitis A Vaccines (1 of 2 - Risk 2-dose series) 09[birth year]25/1959 Hepatitis B Vaccines (1 of 3 - Risk 3-dose series) 2000 Zoster Vaccines (2 of 3) 02/10/2015 12/16/2014 RSV Patients and Patients Aged 60 years or older (1 - 1-dose 75+ series) 09/25/2015 COVID-19 Vaccine ( - season) 2024 07/14/2021, 07/24/2020, 06/26/2020 Influenza Vaccine (#1) 2024 2, 05/03/2021, 05/29/2018, Additional history exists Mammogram 09/17/2024 09/18/2023, 05/0 10/2023, 11/06/2020, Additional history exists Depression Screening 11/27/2024 11/28/2023, 11/28/19 24 DTaP/Tdap/Td Vaccines (2 - Td or Tdap) 12/16/2024 12/16/2014 Alcohol/Substance Use Screening 04/30/2025 04/30/2024 SDOH Screening 07/03/2025 07/03/2024 Tobacco Screening 07/30/2025 07/30/2024 Lipid Panel 05/02/2029 05/02/2024, 12/13, 05/31/2022, Additional [...] AUTO DIFFERENTIAL Routine 07/01/2024 10:26 AM EST LIPID PANEL, STANDARD Routine 05/02/2024 10:01 AM EST Mixed hyperlipidemia BI MAMMOGRAM SCREENING TOMOSYNTHESIS BILATERAL Routine 09/18/2023 2:30 PM EDT from Last 3 Months or Most Recently Relevant to Health Maintenance Results * CT Head w/o Contrast (07/10/2024 1:13 AM EST) Anatomical Region Laterality Modality Head, Neck Computed Tomogra phy 07/10/2024 1:13 AM EST Narrative 07/10/2024 1:14 AM EST ? [facility] ?[address] ?[place] [address] ? CT Scan Report ? Signed ? Patient: Ward,Mickie ?MR#: [id number] ?? 27 ? : 1940 ?Acct:[id number] ? Age/Sex: 83 / F ?ADM Date: 07/09/24 ? Loc: HO.ED ? Attending Dr: ? Ordering Physician: Luis Fernando Zhao MD ?? Date of Service: 07/10/24 ?? Procedure(s): CT head/brain wo IV con ?? Accession Number(s): [id number] ? cc: Pedro Ingram MD; Luis Fernando Zhao MD ? Report Number: ?? [id number]: Total DLP = ??630.00 mGy-cm ? CLINICAL HISTORY: Dizziness, off balance, headache, R O stroke, blee ? CT head without contrast ? Comparison: MR - MRI BRAIN [facility] [id number] - 04/05/11 15:50 EST ? Findings: ?? [...] DD/ 0113 ? TD/TT: 07/10/24 0113 ? Weight Loss Counselor: ? Procedure Note Larry, Image - 02/26/[address] [address] [address] Scan Report Signed Patient: Mickie HopperMR#: [id number] [birth year] : 1Acct:[id number] Age/Sex: 83 / FADM Date: 07/09/24 Loc: HO.ED Attending Dr: Ordering Physician: Luis Fernando Zhao MD Date of Service: 07/10/24 Procedure(s): CT head/brain wo IV con Accession Number(s): [id number] cc: Pedro Ingram MD; Luis Fernando Zhao MD Report Number: [id number]: Total DLP = 630.00 mGy-cm CLINICAL HISTORY: Dizziness, off balance, headache, R O stroke, blee CT head without contrast Comparison: MR - MRI BRAIN [place] [id number] - 04/05/11 15:50 EST Findings: No intra-axial [...] in OV> 07/10/24113 DD/ 2 TD/TT: 07/10/24112 Weight Loss Counselor: [facility] External Provider IMG CT PROCEDURES Edited Result - Final * (ABNORMAL) Urinalysis, Complete, with Reflex to Culture (07/09/2024 11:46 PM EST) Color Urine Yellow [facility] Appearance Urine Clear [facility] PH 6.5 5.0 - 9.0 [facility] Glucose Urine UA Negative Negative mg/dL [facility] Urine Blood Negative Negative [facility] Specific [place] - Urine <=1.005 1.005 - 1.025 [facility] Urine Protein Negative Neg-Trace mg/dL [facility] Urine Ketones Negative Negative mg/dL [facility] Nitrite Urine Negative Negative [facility] Leukocyte Esterase Urine Trace(A) Negative [facility] RBC Urine 0-2 0 - 2 /HPF [facility] Urine WBC 0-5 0 - 5 /HPF [facility] Urine Squamous Epithelial Cell 0-2 0 - 2 /HPF [facility] Urine Bacteria None Seen None Seen [facility] Hyaline Casts, Urine 0-2 0 - 2 /LPF [facility] 07/09/2024 11:4 6 PM EST 07/09/2024 11:48 PM EST Narrative [facility] - 07/09/2024 11:59 PM EST Urine, Clean Catch Generic External Data Provider LAB URINE ORDERAB LES Final Result Performing Organization Address [facility] [[email or web address]] Co de Phone Number [facility] [address] [place] [phone] * High Sensitivity Troponin I (07/09/2024 11:35 PM EST) Only the most recent of3 resultswithin the time period is included. TROPONIN I HIGH SENSITIVITY 3.6 <3.5 - 17.0 ng/L [facility] Comment:The Marx high sens itivity Troponin-I results should beused in conjunction with other diagnostic information suchas ECG, clinical observations and information, and patientsymptoms to aid in the diagnosis of NH. 07/09/2024 11:3 5 PM EST 07/09/2024 11:37 PM EST us Generic External Data Provider LAB BLOOD ORDERAB LES Final Result Performing Organization Address [facility]/ZIP Co de Phone Number [facility] [address] [place] [phone] * (ABNORMAL) CBC auto differential (07/09/2024 11:35 PM EST) Only the most recent of2 resultswithin the time period is included. White Blood Count 8.3 4.8 - 10.8 X10*3/uL [facility] Red Blood Count 3.89(L) 4.20 - 5.50 X10*6/uL [facility] Hemoglobin 10.8(L) 12.0 - 16.0 g/dl [facility] Hematocrit 33.7(L) 37.0 - 47.0 % [facility] Mean Corpuscular Volume 86.6 80.0 - 98.0 fL [facility] Mean Corpuscular Hemoglobin 27.8 27.0 - 33.0 pg [facility] Mean Corpuscular HGB Conc 32.0 31.0 - 35.0 g/dl [facility] Red Cell Distribution Width 16.4(H) 11.0 - 16.0 % [facility] Platelet Count 252 160 - 400 X10*3/uL [facility] Mean Platelet Volume 10.6 9.4 - 12.3 fL [facility] Neutrophils Percent Auto 48.1 45 - 73 % [facility] Imm Gran Pct Auto 0.8(H) 0.0 - 0.4 % [facility] Lymphocytes Percent Auto 41.3(H) 20 - 40 % [facility] Monocytes Percent Auto 8.7 2 - 11 % [facility] Eosinophils Percent Auto 0.7 0 - 4 % [facility] Basophils Percent Auto 0.4 0 - 2 % [facility] NRBC Pct Auto 0.0 0.0 - 0.2 /100WBC [facility] Neutrophils Absolute Auto 4.0 2.0 - 8.3 x10*3/uL [facility] Imm Gran Abs Auto 0.07(H) 0.00 - 0.03 X10*3/uL [facility] Lymphocytes Absolute Auto 3.4 1.2 - 4.9 X10*3/uL [facility] Monocytes Absolute Auto 0.7 0.1 - 1.2 X10*3/uL [facility] Eosinophils Absolute Auto 0.1 0.0 - 0.4 X10*3/uL [facility] Basophils Absolute Auto 0.0 0.0 - 0.2 X10*3/uL [facility] NRBC Abs Auto 0.000 0.0 - 0.012 X10*3/uL [facility] 07/09/2024 11:3 5 PM EST 07/09/2024 11:37 PM EST Generic External Data Provider LAB BLOOD ORDERAB LES Final Result Performing Organization Address [facility]/ZIP Co de Phone Number [facility] [address] [place] [phone] * Partial Thromboplastin Time, Activated (APTT) (07/09/2024 11:35 PM EST) Partial Thromboplastin Time 26.2 26.0 - 36.8 SEC [facility] Comment:For information rega rding the monitoring of direct thrombininhibitors, please refer to Pharmacy. 07/09/2024 11:3 5 PM EST 07/09/2024 11:37 PM EST [employer] Personal [employer] Device External Data Provider LAB BLOOD ORDERAB LES Final Result Performing Organization Address [facility] [[email or web address]] Co de Phone Number [facility] [address] [place] [phone] * (ABNORMAL) Prothrombin Time-INR (07/09/2024 11:35 PM EST) Prothrombin Time 10.2(L) 10.9 - 12.4 SEC [facility] INTERNATIONAL NORM RATIO 0.9 0.9 - 1.1 [facility] Comment:INTERNATIONAL NORMAL IZED RATIO (INR) [...] ORDERAB LES Final Result Performing Organization Address [facility] [[email or web address]] Co de Phone Number [facility] [address] [place] [phone] * Magnesium (07/09/2024 11:35 PM EST) Only the most recent of2 resultswithin the time period is included. Magnesium 2.4 1.6 - 2.6 mg/dL [facility] 07/09/2024 11:3 5 PM EST 07/09/2024 11:37 PM EST Generic External Data Provider LAB BLOOD ORDERAB LES Final Result Performing Organization Address [facility] Phone Number [facility] [address] [place] [phone] * Lipase (07/09/2024 11:35 PM EST) Only the most recent of2 resultswithin the time period is included. Lipase 11 8 - 78 U/L [facility] 07/09/2024 11:3 5 PM EST 07/09/2024 11:37 PM EST Generic External Data Provider LAB BLOOD ORDERAB LES Final Result Performing Organization Address [facility] de Phone Number [facility] [address] [place] [phone] * (ABNORMAL) Comprehensive Metabolic Panel (07/09/2024 11:35 PM EST) Sodium 144 135 - 145 mmol/L [facility] Potassium 3.9 3.3 - 5.1 mmol/L [facility] Chloride 112(H) 96 - 108 mmol/L [facility] Carbon Dioxide 26 22 - 29 mmol/L [facility] Anion Gap 10(L) 12 - 20 [facility] Urea Nitrogen (BUN) 15 9 - 16 mg/dL [facility] Creatinine, Serum 0.78 0.5 - 1.4 mg/dL [facility] Creatinine Clr Calc Pharmacy 56.0 [facility] Comment:Provided height and weight: 154.94 cm,90.718 kg.eGFR (calculated from the MDRD study equation) and eCrCl(calculated from the Cockcroft-Gault equation) are based ondifferent parameters and may not yield comparable results.If eCrCl result is absurd, please check patient'sheight/weight. Estimated Glomerular Filt Rate >60 [facility] Comment:Chronic Kidney Disea se: Estimated GFR < 60 mL/min/1.35g5Yglkka Kidney Disease: Estimated GFR < 15 mL/min/1.73m2 Glucose 111 60 - 115 mg/dL [facility] Calcium 8.8 8.4 - 10.2 mg/dL [facility] Bilirubin, Total 0.5 0.0 - 1.0 mg/dL [facility] Aspartate Amino Transferase 28 5 - 31 U/L [facility] Alanine Aminotransferase 43(H) 0 - 31 U/L [facility] Total Protein 7.1 6.5 - 8.0 g/dL [facility] Albumin Level 3.7 3.5 - 5.0 g/dL [facility] Alkaline Phosphatase 89 39 - 117 U/L [facility] 07/09/2024 11:3 5 PM EST 07/09/2024 11:37 PM EST us Generic External Data Provider LAB BLOOD ORDERAB LES Final Result [facility] [address] [place] [phone] * SARS-CoV-2 RNA, Influenza A/B, and RSV RNA, Ql NAAT (07/09/2024 11:30 PM EST) Only the most recent of2 resultswithin the time period is included. Influenza A PCR NEGATIVE Negative [facility] Influenza B PCR NEGATIVE Negative [facility] Resp Syncy Virus RNA Qual PCR NEGATIVE Negative [facility] SARS COV2 PCR NEGATIVE Negative [facility] Comment:All test results mus t [...] use by authorized laboratories.Testing performed on the [employer] GeneXpert utilizingreal-time RT-PCR.All SARS CoV2 and positive influenza A/B results arereported to [facility]. 07/09/2024 11:3 0 PM EST 07/09/2024 11:37 PM EST us Generic External Data Provider LAB MICROBIOLOGY - GENERAL ORDERABLES Final Result [facility] [address] [place] [phone] * XR Chest 1 View (07/01/2024 10:44 AM EST) Anatomical Region Laterality Modality Chest Radiographic Christina ging 07/01/2024 10:4 4 AM EST Narrative 07/01/2024 10:45 AM EST ? [facility] ?[address] ?[place] [address] ?XRay Report ? Signed ? Patient: Ward,Mickie ?MR#: [id number] ?? 27 ? : 1940 ?Acct:[id number] ? Age/Sex: 83 / F ?ADM Date: 02/17/25 ? Loc: HO.ED ? Attending Dr: ? Ordering Physician: Hannah Downs DO ?? Date of Service: 07/01/24 ?? Procedure(s): XR chest 1V ?? Accession Number(s): [id number] ? cc: Hannah Downs DO; Pedro Ingram [...] DD/ 1044 ? TD/TT: 07/01/24 1044 ? Weight Loss Counselor: ? Procedure Note [place], Image - 07/01/2024 [place] [address] XRay Report Signed Patient: Mickie HopperMR#: [id number] [birth year] : 1940cct:[id number] Age/Sex: 83 / FADM Date: 07/01/24 Loc: HO.ED Attending Dr: Ordering Physician: Hannah Downs DO Date of Service: 07/01/24 Procedure(s): XR chest 1V Accession Number(s): [id number] cc: Hannah Downs DO; Pedro Ingram MD [...] 07/01/24 1045 DD/ 1044 TD/TT: 07/01/24 1044 Weight Loss Counselor: us [facility] External Provider IMG XR PROCEDURES Final Result * VENOUS BLOOD GAS (07/01/2024 10:32 AM EST) VBG pH 7.41 7.32 - 7.43 [facility] Comment:METER #: [id number] additional_comment: Sekou serrano VBG PCO2 41 mmHg [facility] Comment:METER #: [id number] additional_comment: Sekou serrano VBG PO2 45 mmHg [facility] Comment:METER #: [id number] additional_comment: Sekou serrano VBG Base Excess 1.8 mmol/L [facility] Comment:METER #: [id number] additional_comment: Sekou serrano VBG HCO3 26 22 - 26 mmol/L [facility] Comment:METER #: [id number] additional_comment: Sekou serrano O2 Sat, Alfredo 70.0 % [facility] Comment:METER #: [id number] additional_comment: Sekou serrano 07/01/2024 10:3 2 AM EST 07/01/2024 10:40 AM EST Generic External Data Provider LAB BLOOD ORDERAB LES Final Result [facility] [address] [place] [phone] * (ABNORMAL) B Type Natriuretic Peptide (BNP) (07/01/2024 10:26 AM EST) B Type Natriuretic Peptide 157(H) <100 pg/mL [facility] Comment:For those patients w ho are being treated with Natrecor(nesiritide, recombinant BNP), BNP testing should beperformed at least two hours post treatment in order toensure that only endogenous levels of BNP are detected. 07/01/2024 10:2 6 AM EST 07/01/2024 10:32 AM EST Generic External Data Provider LAB BLOOD ORDERAB LES Final Result Performing Organization Address City/[facility]/ZIP Co de Phone Number [facility] [address] [place] [phone] * Lactic Acid (07/01/2024 10:26 AM EST) Pathologist [facility] Lactic Acid 1.0 0.5 - 2.0 mmol/L [facility] 07/01/2024 10:2 6 AM EST 07/01/2024 10:32 AM EST Generic External Data Provider LAB BLOOD ORDERAB LES Final Result Performing Organization Address [facility] de Phone Number [facility] [address] [place] [phone] * (ABNORMAL) Hepatic Function Panel (07/01/2024 10:26 AM EST) [facility] Bilirubin, Total 0.6 0.0 - 1.0 mg/dL [facility] Bilirubin, Direct 0.3 0.0 - 0.5 mg/dL [facility] Aspartate Amino Transferase 38(H) 5 - 31 U/L [facility] Alanine Aminotransferase 22 0 - 31 U/L [facility] Total Protein 7.7 6.5 - 8.0 g/dL [facility] Albumin Level 4.0 3.5 - 5.0 g/dL [facility] Alkaline Phosphatase 102 39 - 117 U/L [facility] 07/01/2024 10:2 6 AM EST 07/01/2024 10:32 AM EST Generic External Data Provider LAB BLOOD ORDERAB LES Final Result Performing Organization Address [facility] [[email or web address]] Co de Phone Number [facility] [address] [place] [phone] * (ABNORMAL) Basic Metabolic Panel (07/01/2024 10:26 AM EST) Pathologist [facility] Sodium 142 135 - 145 mmol/L [facility] Potassium 3.6 3.3 - 5.1 mmol/L [facility] Chloride 110(H) 96 - 108 mmol/L [facility] Carbon Dioxide 24 22 - 29 mmol/L [facility] Anion Gap 12 12 - 20 [facility] Urea Nitrogen (BUN) 5(L) 9 - 16 mg/dL [facility] Creatinine, Serum 0.74 0.5 - 1.4 mg/dL [facility] Creatinine Clr Calc Pharmacy 55.1 [facility] Comment:Provided height and weight: 154.94 cm,79.9 kg.eGFR (calculated from the MDRD study equation) and eCrCl(calculated from the Cockcroft-Gault equation) are based ondifferent parameters and may not yield comparable results.If eCrCl result is absurd, please check patient'sheight/weight. Estimated Glomerular Filt Rate >60 [facility] Comment:Chronic Kidney Disea se: Estimated GFR < 60 mL/min/1.95o8Aqujih Kidney Disease: Estimated GFR < 15 mL/min/1.73m2 Glucose 97 60 - 115 mg/dL [facility] Calcium 9.4 8.4 - 10.2 mg/dL [facility] 07/01/2024 10:2 6 AM EST 07/01/2024 10:32 AM EST us Generic External Data Provider LAB BLOOD ORDERAB LES Final Result [facility] [address] [place] [phone] * Lipid Panel, Standard (05/02/2024 10:01 AM EST) Triglycerides 92 <150 mg/dL [facility] Comment:Desirable Triglyceri de: less than 150 mg/dLBorderline High Triglyceride 150-199 mg/dLHigh Triglyceride: 200-499 mg/dLVery High Triglyceride: greater than or equal to 5OO mg/dL Cholesterol 127 <200 mg/dL [facility] Comment:Desirable Cholestero l: less than 200 mg/dLBorderline High Cholesterol: 200-239 mg/dLHigh Cholesterol: greater than 239 mg/dL LDL Cholesterol Calculated 58 <100 mg/dL [facility] Comment:Desirable LDL: less than 100 mg/dLNear Optimal/Above Optimal LDL: 110- 129 mg/dLBorderline High LDL: 130-159 mg/dLHigh LDL: 160-189 mg/dLVery High LDL: greater than or equal to 190 mg/dL HDL Cholesterol 51 >40 mg/dL [facility] Comment:Desirable HDL: great er than 40 mg/dL Note: This HDL assay may give artificially low results in patients with liver disease. Blood Venous blood specimen / Unknown 05/02/2024 10:01 AM EST 05/02/2024 11:15 AM EST us Pedro Leiva MD LAB BLOOD ORDERABLES Final Result [facility] [address] [place] [address] [phone] * BI Mammogram Screening Tomosynthesis Bilateral (09/18/2023 2:30 PM EDT) Anatomical Region Laterality Modality Breast Bilateral Mammography 09/18/2023 2:30 PM EDT Narrative 09/18/2023 4:18 PM EDT ? [facility] [place] ? [address] ?[place] [address] ? Mammography Report ? Signed ? Patient: Mickie Hopper ?MR#: [id number] ?? 27 ? : 1940 ?Acct:[id number] ? Age/Sex: 82 / F ?ADM Date: 05/06/24 ? Loc: HO.MAMMO ? Attending Dr: Sylvia Lennon DO ? Ordering Physician: Sylvia Lennon DO ?Results: 2B ?? enign Findings ? Date of Service: 09/18/23 ?Follow Up: 1 Year From Orig ?? inal Mammogram ? Procedure(s): MM tomosynthesis screening BI ?? Accession Number(s): [id number] ? cc: Pedro Ingram MD; Sylvia Lennon [...] 1614 ? DD/ 1430 ? TD/TT: ? Weight Loss Counselor: ? Procedure Note Jocelyn Juarez - 09/18/2023 [facility] [address] [place] [address] Dr. Du, [place] [id number] Mammography Report Signed Patient: Mickie HopperMR#: [id number] [birth year] : 1Acct:[id number] Age/Sex: 82 / FADM Date: 09/18/23 Loc: HO.MAMMO Attending Dr: Sylvia Lennon DO Ordering Physician: Sylvia Lennonults: 2B enign Findings Date of Service: 09/18/23Follow Up: 1 Year From Orig inal Mammogram Procedure(s): MM tomosynthesis screening BI Accession Number(s): [id number] cc: Pedro Ingram MD; Sylvia Lennon DO [...] in OV> 09/18/23 1614 DD/ 1430 TD/TT: Weight Loss Counselor: Sylvia Lennon DO IMG BI PROCEDURES Final Resu lt from Last 3 Months or Most Recently Relevant to Health Maintenance Insurance Care Teams Bender Hand Relationship Specialty Start Date End Date Pedro Braxton MD [address] [place] [phone] PCP - General Internal Medicine 03/15/13
--- OUTSIDE RECORDS SUMMARY | 2024-08-29 09:25 | XMS_ITS | Encounter Summary ---
Author Organization [employer] Address [address] [facility] [address], [place] [address] Care Team Providers Care Cognos Tm1 Developer Name Role Phone Pedro Braxton MD Primary Care Provide r Encounter Details Date Type Department Care Team (Late st Contact Info) Description 09/05/2022 Orders Only [facility] [address] [place] [address] Sylvia Valentino LPN Social History Tobacco Use [...] Description 11/05/2024 2:15 PM EDT Office Visit [facility] [address] [place] [address] Pedro Braxton MD [address] [place] [address] documented as of this encounter Visit Diagnoses Not on filedocumented in this encounter Care Teams Cognos Tm1 Developer Relationship Specialty Start Date End Date Pedro Braxton MD [address] [place] [phone] PCP - General Internal Medicine 03/15/13 documented as of this encounter
--- OUTSIDE RECORDS SUMMARY | 2024-08-29 09:25 | XMS_ITS | Encounter Summary ---
Author Organization [employer] Address [address] [facility] 7t [place] [address] Care Team Providers Care Interlibrary Loan Specialist Name Role Phone Pedro Braxton MD Primary Care Provide r Encounter Details Date Type Department Care Team ([facility] st Contact Info) Description 04/01/2024 Orders Only [facility] [address] [place] [address] ProviderZulay MD Social History Tobacco Use Types [...] Description 11/05/2024 2:15 PM EDT Office Visit [facility] [address] [place], [place] [phone] Pedro Braxton MD [address] [place], [place] [phone] documented as of this encounter Procedures Procedure [...] documented as of this encounter Care Teams Interlibrary Loan Specialist Relationship Specialty Start Date End Date Pedro Braxton MD [address] [place], [place] [phone] PCP - General Internal Medicine 03/15/13 documented as of this encounter
--- OUTSIDE RECORDS SUMMARY | 2024-08-29 09:26 | XMS_ITS | Encounter Summary ---
Author Organization [email or web address] Address [address] [facility] 7 [place] [address] Care Team Providers Care Upper Shaper Name Role Phone Pedro Braxton MD Primary Care Provide r Encounter Details Date Type Department Care Team (Late st Contact Info) Description 06/09/2022 Orders Only [facility] [address] [place], [place] [phone] Sylvia Valentino LPN Social History Tobacco Use [...] Description 11/05/2024 2:15 PM EDT Office Visit [facility] [address] [place], [place] [phone] Pedro Braxton MD [address] [place], [place] [phone] documented as of this encounter Visit Diagnoses Not on filedocumented in this encounter Care Teams Upper Shaper Relationship Specialty Start Date End Date Pedro Braxton MD [address] [place] [phone] PCP - General Internal Medicine 03/15/13 documented as of this encounter
[2024-08-29 11:34] LABS: Hematocrit 33.7 % (37.0-47.0); Hemoglobin 10.4 g/dl (12.0-16.0); Mean Corpuscular HGB Conc 30.9 g/dl (31.0-35.0); Mean Corpuscular Hemoglobin 28.3 pg (27.0-33.0); Mean Corpuscular Volume 91.6 fL (80.0-98.0); Mean Platelet Volume 11.8 fL (9.4-12.3); Platelet Count 246 X10*3/uL (160-400); Red Blood Count 3.68 X10*6/uL (4.20-5.50); Red Cell Distribution Width 14.3 % (11.0-16.0); White Blood Count 7.4 X10*3/uL (4.8-10.8)
[2024-08-29 11:57] LABS: Iron 64 mcg/dL (30-160); Percent Iron Saturation 21 % (15-50); Total Iron Binding Capacity 309 mcg/dL (228-428); Unsaturated Iron Binding 245 ug/dL
[2024-08-29 12:12] LABS: Ferritin 35 ng/mL (10-250)
== END 2024-08-29 08:46 | disposition home or self-care (01) ==
LOC: HO.HHCL 08:45
PROVIDERS: Visit Provider Internal Medicine
DX: E61.1 Iron deficiency (principal)
CPT/HCPCS: 36415; 82728; 83540; 85027

== ENCOUNTER 2024-09-04 13:59 | Outpatient (AMB) | payer OTHER, SELFPAY ==
[2024-09-04 14:11] VITALS: BP 116/83; PULSE 65; BMI 30.8
--- NOTE | 2024-09-04 14:11 | A.OFFVIS_ITS ---
Vital Signs 09/04/24 14:11 Height 5 ft 1 in Weight 163 lb 2.273 oz BMI 30.8 BP 116/83 Blood Pressure Location Lt brachial Position Sitting Pulse 65 Intake Visit Reasons: 3 mo gerd Intake Note: Paul presents in the office as a 3 month follow up for GERD. CC: She was seen in the ED and admitted for 3 days for her Flu - she was very low on oxygen. She states that she is ot having the GERD but she is having the issues with constipation - it has been 4 days with no BM. She has been taking miralax and it is not working for her. She has been taking plum pills and nothing seems to be working. She has bloating in her stomach right now. She is not eating a lot and today she has not ate anything - loss of appetite. Allergies latex [Latex] Allergy (Severe, Verified 07/09/24 22:49) DIFFICULTY BREATHING RELATED TO EXACERBATION OF ASTHMA Cameron Inhibitors Allergy (Severe, Uncoded 07/09/24 22:49) cough From PERCOCET Allergy (Severe, Uncoded 07/09/24 22:49) RASH HPI Comments Details: 83-year-old female with past medical history of GERD, dysphagia, polyps, who is presenting today to reestablish care. Main complaint are reflux, and worsening constipation. Reports 2-3 bowel movements per week. Has to strain considerably. Takes daily senna and occasional MiraLax. No blood in stool Previous colonoscopy 01/29/2019: Total of 4 polyps removed including 15 mm polyp in transverse colon. x2 SSL, x2 TA. Repeat recommended in 2021, however patient lost to follow-up. Noted on lab is normocytic anemia, which has been gradually worsening over the last 2 years. In addition, patient also reports heartburn and epigastric pain. Happens at least 2 to 3 times a week. Reports no improvement with the omeprazole. However, on questioning, she has been taking this with food. 09/04/24: Here for follow up. Reports unchanged reflux symptoms - but also reports still continues to take omeprazole with food. Today also brings up regurgitation, laura phlegm after foods. Thinks likely 2/2 bronchitis. EGD 2020 with small HH but otherwise fine. Constipation unchanged. Taking miralax only as needed. Still relying on MoM. In terms of polyp surveillance, overdue. Wanted to review with her son re decision to proceed with colo. Agreeable to proceed. [facility] Medical History Axillary mass Memory loss Limb swelling History of eye prosthesis Murmur Anemia Dysphagia Hiatal hernia KERON on CPAP Asthma Abnormal colonoscopy (~01/2019) Environmental allergies HTN (hypertension) Acid reflux Surgical History History of throat surgery History of total right knee replacement (TKR) History of colonoscopy History of cholecystectomy History of hysterectomy Social History Household Members: Spouse and Family Housing: House Do you presently have visiting nurse or other home services: Yes (TELE[employer] services) Alcohol intake: never Patient Tobacco Use Status: Never used Tobacco service: No Current occupational status: retired 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 handed Review of Systems Const All systems reviewed & are unremarkable except as noted in HPI and below Physical Exam Vital Signs: Last Vital Signs Pulse 65 09/04/24 14:11 BP 116/83 09/04/24 14:11 BMI result Body Mass Index 30.8 Elderly female independently ambulates NAD abd soft, nontender, nondistended Assessment & Plan Assessment & Plan (1) Chronic constipation: Code(s): K59.09 - Other constipation Category: Medical (2) History of colon polyps: Code(s): Z86.010 - Personal history of colon polyps Category: Medical (3) Acid reflux: Code(s): K21.9 - Gastro-esophageal reflux disease without esophagitis Category: Medical Qualifiers: Esophagitis presence: without esophagitis Qualified Code(s): K21.9 - Gastro-esophageal reflux disease without esophagitis (4) Hiatal hernia: Code(s): K44.9 - Diaphragmatic hernia without obstruction or gangrene Category: Medical (5) Normochromic normocytic anemia: Code(s): D64.9 - Anemia, unspecified Category: Medical (6) Globus sensation: Code(s): R09.A2 - Foreign body sensation, throat Category: Medical Plan 1. Chronic idiopathic constipation: Reviewed that likely in the setting of a combination of advancing age with weakness of pelvic floor, lack of fiber and hydration and diet. Plan: -improve hydration -add fiber supplementation -take MiraLax daily, advised will not be effective if only taken PRN -elevated legs while having a bowel movement, can use step stool 2. Hx of polyps Also with mild PANDA. Plan: - Pt would like to proceed with colo - Advised will need pulm clearance - PEG prep given and instructions reviewed in Azeri 3. GERD 4. Globus sensation Cont to take omeprazole post prandially. Recommend switching to H2 narendra which may be more effective. In addition, also recommend barium swallow to r/o stricture/stenosis causing regurgiation. Plan: -Start Pepcid 20. -Stop omeprazole -OK to take Tums p.r.n. for breakthrough symptoms -Barium swallow -keep head of the bed elevated at sleep time -avoid laying now within 60 minutes of meals Plan of care was also relayed to son Ja Staples over the phone Follow up after scope Orders: Orders FL barium swallow Today R09.A2 - Foreign body sensation, throat Medications: New famotidine 20 mg PO DAILY 90 tabs 1RF peg 3350-electrolytes 236-22.74-6.74 -5.86 gram (Golytely) as per split prep instructions, until fecal effluent is clear 240 mL PO Q10M 4,000 mL 0RF colonoscopy Coding Level of Care Code Est Pt Level 4 (16992) Diagnoses Chronic constipation K59.09 History of colon polyps Z86.010 Gastroesophageal reflux disease without esophagitis K21.9 Esophagitis presence: without esophagitis Hiatal hernia K44.9 Normochromic normocytic anemia D64.9 Globus sensation R09.A2
--- OUTSIDE RECORDS SUMMARY | 2024-09-04 16:49 | XMS_ITS | Encounter Summary ---
Author Organization [employer] Address [address] [facility] 7 [place] [address] Care Team Providers Care Drug Safety Scientist Name Role Phone Pedro Braxton MD Primary Care Provide r Encounter Details Date Type Department Care Team ([facility] Contact Info) Description 09/27/2022 Orders Only [facility] MED & PEDS [address] [place], [place] [phone] Sylvia Valentino LPN Social History Tobacco Use [...] Upcoming Encounters Date Type Department Care Team ([facility] Contact Info) Description 11/05/2024 2:15 PM EDT Office Visit [facility] MEDICINE [address] [place] [address] Pedro Braxton MD [address] [place], [place] [phone] documented as of this encounter Visit Diagnoses Not on filedocumented in this encounter Care Teams Drug Safety Scientist Relationship Specialty Start Date End Date Pedro Braxton MD [address] [place] [phone] PCP - General Internal Medicine 03/15/13 documented as of this encounter
--- OUTSIDE RECORDS SUMMARY | 2024-09-04 16:49 | XMS_ITS | Encounter Summary ---
Author Organization [employer] Address [address] [facility] 7 [place] [address] Care Team Providers Care Garnishment Specialist Name Role Phone Pedro Braxton MD Primary Care Provide r Reason for Visit * Reason Comments Med Refill Encounter Details Date Type Department Care Team ([facility] st Contact Info) Description 09/04/2024 Refill [facility] [address] [place], [place] [phone] Pedro rBaxton MD [address] [place] [address] Flatulence Social History Tobacco Use Types Packs/Day Years [...] Description 11/05/2024 2:15 PM EDT Office Visit [facility] [address] [place] [address] Pedro Braxton MD [address] [place] [address] documented as of this encounter Visit Diagnoses Diagnosis Flatulence Flatulence, eructation, and gas pain documented in this encounter Additional Health Concerns Assessment Noted Time PHQ-9 Depression Total Score: 3 11/28/19 24 2:27 PM EDT documented as of this encounter Care Teams Garnishment Specialist Relationship Specialty Start Date End Date Pedro Braxton MD [address] [place] [phone] PCP - General Internal Medicine 03/15/13 documented as of this encounter
--- OUTSIDE RECORDS SUMMARY | 2024-09-04 16:49 | XMS_ITS | Encounter Summary ---
Author Organization [employer] Address [address] [facility] 7 [place] [address] Care Team Providers Care Etcher Apprentice Name Role Phone Pedro Braxton MD Primary Care Provide r Reason for Visit * Reason Onset Date Comments Hospital Follow-up 07/03/2024 Encounter Details Date Type Department Care Team ([facility] st Contact Info) Description 07/03/2024 Telephone [facility] MED[facility]INE [address] [place], [place] [phone] Pedro Braxton MD [address] [place], [place] [phone] Hospital Follow-up Social History Tobacco Use Types [...] from pt requesting a HDF appt. Hospital: [facility] Date of admission: 06/29/24 Discharge date: 07/03/24 Diagnosed: oxygen level at 29 documented in this encounter Plan of Treatment Upcoming Encounters Date Type Department Care Team (Late st Contact Info) Description 11/05/2024 2:15 PM EDT Office Visit [facility] [address] [place] [address] Pedro Braxton MD [address] [place] [address] documented as of this encounter Visit Diagnoses Not on filedocumented in this encounter Additional Health Concerns Assessment Noted Time PHQ-9 Depression Total Score: 3 11/28/19 24 2:27 PM EDT documented as of this encounter Care Teams Etcher Apprentice Relationship Specialty Start Date End Date Pedro Braxton MD [address] [place] [address] PCP - General Internal Medicine 03/15/13 documented as of this encounter
--- OUTSIDE RECORDS SUMMARY | 2024-09-04 16:49 | XMS_ITS | Encounter Summary ---
Author Organization [employer] Address [address] [facility] 7t [place] [address] Care Team Providers Care Pediatric Acute Care Unit Nurse Name Role Phone Pedro Braxton MD Primary Care Provide r Encounter Details Date Type Department Care Team ([facility] st Contact Info) Description 04/01/2024 Orders Only [facility] [address] [place] [address] ProviderZulay MD Social History Tobacco Use Types [...] 11/05/2024 2:15 PM EDT Office Visit [facility] [address] [place], [place] [phone] Pedro Braxton MD [address] [place], [place] [phone] documented as of this encounter Procedures Procedure [...] documented as of this encounter Care Teams Pediatric Acute Care Unit Nurse Relationship Specialty Start Date End Date Pedro Braxton MD [address] [place], [place] [phone] PCP - General Internal Medicine 03/15/13 documented as of this encounter
--- OUTSIDE RECORDS SUMMARY | 2024-09-04 16:49 | XMS_ITS | Encounter Summary ---
Author Organization [employer] Address [address] [facility] [address] [place] [address] Care Team Providers Care Coil Tier Name Role Phone Pedro Braxton MD Primary Care Provide r Reason for Visit * Reason Onset Date Comments Durable Medical Equipment 09/04/2024 Encounter Details Date Type Department Care Team ([facility] st Contact Info) Description 09/04/2024 Telephone [facility] MED[facility]INE [address] [place], [place] [phone] Pedro Braxton MD [address] [place], [place] [phone] Durable Medical Equipment Social History Tobacco Use Types Packs/Day Years [...] encounter Miscellaneous Notes * Telephone Encounter - Maryam Morelos - 09/04/2024 2:20 PM EDT Confirmation of order for incont surecare xlg from [place] placed on PCP desk for signature. documented in this encounter Plan of Treatment Upcoming Encounters Date Type Department Care Team (Late st Contact Info) Description 11/05/2024 2:15 PM EDT Office Visit [facility] [address] [place] [address] Pedro Bratxon MD [address] [place] [address] documented as of this encounter Visit Diagnoses Not on filedocumented in this encounter Additional Health Concerns Assessment Noted Time PHQ-9 Depression Total Score: 3 11/28/19 24 2:27 PM EDT documented as of this encounter Care Teams Coil Tier Relationship Specialty Start Date End Date Pedro Braxton MD [address] [place] [address] PCP - General Internal Medicine 03/15/13 documented as of this encounter
--- OUTSIDE RECORDS SUMMARY | 2024-09-04 16:49 | XMS_ITS | Clinical Summary ---
Author Organization [employer] Address [address] [place] [address] Care Team Providers Care Senior Java J2Ee Developer Name Role Phone Pedro Braxton MD [...] encouraged to discuss with her GI for usp use. -ER precautions discussed. Class 1 obesity [...] EST): Pt with chronic anemia. Seen by program specialist Dr Osiel Ye at [facility] last seen on 07/22/2021. GI work up included a EGD 2020 and Colonoscopy 2006. Moderate persistent asthma without complication 05/24/2022 Assessment & Plan (11/28/2023 2:41 PM EDT): She has chronic cough, described as dry and intermittent wheezing. 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 Pt was unable to complete PFTs under the care of Dr Silva ( Police Guard ) thinks she has Mod persistent asthma On Montelukast, Breo Elipa 100/25 chest x-ray 07/17/2019 Normal pt will continue to follow with him, last seen September 2022 Assessment & Plan (12/22/2022 11:15 AM EDT): She has chronic cough, described as dry and intermittent wheezing. 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 Pt was unable to complete PFTs under the care of Dr Silva ( Police Guard ) thinks she has Mod persistent asthma [...] -24 hour BP monitor ordered -EKG -Called Hay Stacker Operator, will plan for follow up appt in 1-2 months -ED precautions reviewed Assessment & Plan (05/24/2022 4:33 PM EST): Pt here for a f/u BP is controlled, She is on a regimen of: Verelan ER 120 mg po daily by cardiology and Diovan 80 mg po daily (she had been on Hctz before but this was D[facility] by [facility]) For now will continue with [...] it is dermatitis versuse other. Referral to matrix bath attendant. ER precautions given. Encounters Date Type Department Care Team Description 09/04/2024 Telephone [facility] [address] [place] [address] Pedro Braxton MD Durable Medical Equipment 09/04/2024 Refill [facility] [address] [place] [address] Pedro Braxton MD Flatulence 08/12/2024 Refill [facility] [address] [place] [address] Nyasia Nagel MD Constipation, unspecified constipation type 08/12/2024 Refill [facility] [address] [place] [address] Pedro Braxton MD Constipation, unspecified constipation type 07/30/2024 1:15 PM EDT Office Visit [address] [address] Pedro Braxton MD Essential hypertension (Primary Dx); Mixed hyperlipidemia; Gastroesophageal reflux disease without esophagitis; Constipation, unspecified constipation type; Moderate persistent asthma without complication; Seasonal allergic rhinitis, unspecified trigger 07/30/2024 Travel 07/24/[address] [address] Pedro Braxton MD Chart Prep 07/23/[address] [address] Pedro Braxton MD 07/11/[address] [address] Pedro Braxton MD Chart Prep 07/09/2024 Orders Only GENERIC EXTERNAL DATA DEPARTMENT Provider, Generic External Data 07/05/2024 Refill [facility] [address] [place] [phone] Nyasia Nagel MD Other headache syndrome 07/03/2024 Patient Outreach [address] [address] Pedro Braxton MD Transition Of Care (Tcm) (HDF- scheduled and SDOH screening negative and Tobacco screening negative) 07/03/[address] [place] [address] Pedro Braxton MD Hospital Follow-up 07/01/2024 Orders Only [facility] External Provider, [facility] 06/06/2024 Telephone [facility] [address] [place] [address] Pedro Braxton MD Med Refill from Last [...] Description 11/05/2024 2:15 PM EDT Office Visit [facility] [address] [place] [address] Pedro Braxton MD [address] [place] [address] Health Maintenance Due Date Last Done Comments [...] history exists Depression Screening 11/27/2024 11/28/2023, 11/28/19 DTaP/Tdap/Td Vaccines (2 - Td or Tdap) [...] EST Narrative 07/10/2024 1:14 AM EST ? [facility] ?[address] ?[place] [address] ? CT Scan Report ? Signed ? Patient: Hopper,Mickie ?MR#: [id number] ?? 27 ? : 1940 ?Acct:[id number] ? Age/Sex: 83 / F ?ADM Date: 07/09/24 ? Loc: HO.ED ? Attending Dr: ? Ordering Physician: Luis Fernando Zhao MD ?? Date of Service: 07/10/24 ?? Procedure(s): CT head/brain wo IV con ?? Accession Number(s): [id number] ? cc: Pedro Ingram MD; Luis Fernando Zhao MD ? Report Number: ?? [id number]: Total DLP = ??630.00 mGy-cm ? CLINICAL HISTORY: Dizziness, off balance, headache, R O stroke, blee ? CT head without contrast ? Comparison: MR - MRI [facility] [id number] - 04/05/11 15:50 EST ? Findings: ?? [...] OV> ?07/10/24113 ? DD/ 2 ? TD/TT: 07/10/24112 ? Class C Driver: ? Procedure Note Donotrudyinterpreter, Image - 07/10/[address] [place] [address] [address] Scan Report Signed Patient: Mickie HopperMR#: [id number] [birth year] : 1940cct:[id number] Age/Sex: 83 / FADM Date: 07/09/24 Loc: HO.ED Attending Dr: Ordering Physician: Luis Fernando Zhao MD Date of Service: 07/10/24 Procedure(s): CT head/brain wo IV con Accession Number(s): [id number] cc: Pedro Ingram MD; Luis Fernando Zhao MD Report Number: [id number]: Total DLP = 630.00 mGy-cm CLINICAL HISTORY: Dizziness, off balance, headache, R O stroke, blee CT head without contrast Comparison: MR - MRI [facility] [id number] - 04/05/11 15:50 EST Findings: No intra-axial [...] in OV> 07/10/24113 DD/ 2 TD/TT: 07/10/24112 Class C Driver: [facility] External Provider IMG CT PROCEDURES Edited Result - Final * (ABNORMAL) Urinalysis, Complete, with Reflex to Culture (07/09/2024 11:46 PM EST) Color Urine Yellow [facility] Appearance Urine Clear [facility] PH 6.5 5.0 - 9.0 [facility] Glucose Urine UA Negative Negative mg/dL [facility] Urine Blood Negative Negative [facility] Specific [place] - Urine <=1.005 1.005 - 1.025 [facility] Urine Protein Negative Neg-Trace mg/dL [facility] Urine Ketones Negative Negative mg/dL [facility] Nitrite Urine Negative Negative [facility] Leukocyte Esterase Urine Trace(A) Negative [facility] RBC Urine 0-2 0 - 2 /HPF [facility] Urine WBC 0-5 0 - 5 /HPF [facility] Urine Squamous Epithelial Cell 0-2 0 - 2 /HPF [facility] Urine Bacteria None Seen None Seen [facility] Hyaline Casts, Urine 0-2 0 - 2 /LPF [facility] 07/09/2024 11:4 6 PM EST 07/09/2024 11:48 PM EST Narrative [facility] - 07/09/2024 11:59 PM EST Urine, Clean Catch us Generic External Data Provider LAB URINE ORDERAB LES Final Result Performing Organization Address City/State/[facility] Co de Phone Number [facility] [address] [place] [phone] * High Sensitivity Troponin I (07/09/2024 11:35 PM EST) Only the most recent of3 resultswithin the time period is included. TROPONIN I HIGH SENSITIVITY 3.6 <3.5 - 17.0 ng/L [facility] Comment:The Marx high sens itivity Troponin-I results should beused in conjunction with other diagnostic information suchas ECG, clinical observations and information, and patientsymptoms to aid in the diagnosis of IA. 07/09/2024 11:3 5 PM EST 07/09/2024 11:37 PM EST us Generic External Data Provider LAB BLOOD ORDERAB LES Final Result [facility] [address] [place] [address] [phone] * (ABNORMAL) CBC auto differential (07/09/2024 11:35 PM EST) Only the most recent of2 resultswithin the time period is included. White Blood Count 8.3 4.8 - 10.8 X10*3/uL [facility] Red Blood Count 3.89(L) 4.20 - 5.50 X10*6/uL [facility] Hemoglobin 10.8(L) 12.0 - 16.0 g/dl [facility] Hematocrit 33.7(L) 37.0 - 47.0 % [facility] Mean Corpuscular Volume 86.6 80.0 - 98.0 fL [facility] Mean Corpuscular Hemoglobin 27.8 27.0 - 33.0 pg [facility] Mean Corpuscular HGB Conc 32.0 31.0 - 35.0 g/dl [facility] Red Cell Distribution Width 16.4(H) 11.0 - 16.0 % [facility] Platelet Count 252 160 - 400 X10*3/uL [facility] Mean Platelet Volume 10.6 9.4 - 12.3 fL [facility] Neutrophils Percent Auto 48.1 45 - 73 % [facility] Imm Gran Pct Auto 0.8(H) 0.0 - 0.4 % [facility] Lymphocytes Percent Auto 41.3(H) 20 - 40 % [facility] Monocytes Percent Auto 8.7 2 - 11 % [facility] Eosinophils Percent Auto 0.7 0 - 4 % [facility] Basophils Percent Auto 0.4 0 - 2 % [facility] NRBC Pct Auto 0.0 0.0 - 0.2 /100WBC [facility] Neutrophils Absolute Auto 4.0 2.0 - 8.3 x10*3/uL [facility] Imm Gran Abs Auto 0.07(H) 0.00 - 0.03 X10*3/uL [facility] Lymphocytes Absolute Auto 3.4 1.2 - 4.9 X10*3/uL [facility] Monocytes Absolute Auto 0.7 0.1 - 1.2 X10*3/uL [facility] Eosinophils Absolute Auto 0.1 0.0 - 0.4 X10*3/uL [facility] Basophils Absolute Auto 0.0 0.0 - 0.2 X10*3/uL [facility] NRBC Abs Auto 0.000 0.0 - 0.012 X10*3/uL [facility] 07/09/2024 11:3 5 PM EST 07/09/2024 11:37 PM EST Generic External Data Provider LAB BLOOD ORDERAB LES Final Result Performing Organization Address City/[facility]/ZIP Co de Phone Number [facility] [address] [place] [phone] * Partial Thromboplastin Time, Activated (APTT) (07/09/2024 11:35 PM EST) Partial Thromboplastin Time 26.2 26.0 - 36.8 SEC [facility] Comment:For information rega rding the monitoring of direct thrombininhibitors, please refer to Pharmacy. 07/09/2024 11:3 5 PM EST 07/09/2024 11:37 PM EST Generic External Data Provider LAB BLOOD ORDERAB LES Final Result Performing Organization Address [facility] Co de Phone Number [facility] [address] [place] [phone] * (ABNORMAL) Prothrombin Time-INR (07/09/2024 11:35 PM EST) Prothrombin Time 10.2(L) 10.9 - 12.4 SEC [facility] INTERNATIONAL NORM RATIO 0.9 0.9 - 1.1 [facility] Comment:INTERNATIONAL NORMAL IZED RATIO (INR) [...] ORDERAB LES Final Result Performing Organization Address [facility] de Phone Number [facility] [address] [place] [phone] * Magnesium (07/09/2024 11:35 PM EST) Only the most recent of2 resultswithin the time period is included. Magnesium 2.4 1.6 - 2.6 mg/dL [facility] 07/09/2024 11:3 5 PM EST 07/09/2024 11:37 PM EST Generic External Data Provider LAB BLOOD ORDERAB LES Final Result Performing Organization Address [facility] de Phone Number [facility] [address] [place] [phone] * Lipase (07/09/2024 11:35 PM EST) Only the most recent of2 resultswithin the time period is included. Lipase 11 8 - 78 U/L [facility] 07/09/2024 11:3 5 PM EST 07/09/2024 11:37 PM EST Generic External Data Provider LAB BLOOD ORDERAB LES Final Result Performing Organization Address [facility] Phone Number [facility] [address] [place] [phone] * (ABNORMAL) Comprehensive Metabolic Panel (07/09/2024 11:35 PM EST) Sodium 144 135 - 145 mmol/L [facility] Potassium 3.9 3.3 - 5.1 mmol/L [facility] Chloride 112(H) 96 - 108 mmol/L [facility] Carbon Dioxide 26 22 - 29 mmol/L [facility] Anion Gap 10(L) 12 - 20 [facility] Urea Nitrogen (BUN) 15 9 - 16 mg/dL [facility] Creatinine, Serum 0.78 0.5 - 1.4 mg/dL [facility] Creatinine Clr Calc Pharmacy 56.0 [facility] Comment:Provided height and weight: 154.94 cm,90.718 kg.eGFR (calculated from the MDRD study equation) and eCrCl(calculated from the Cockcroft-Gault equation) are based ondifferent parameters and may not yield comparable results.If eCrCl result is absurd, please check patient'sheight/weight. Estimated Glomerular Filt Rate >60 [facility] Comment:Chronic Kidney Disea se: Estimated GFR < 60 mL/min/1.00p1Rfqcao Kidney Disease: Estimated GFR < 15 mL/min/1.73m2 Glucose 111 60 - 115 mg/dL [facility] Calcium 8.8 8.4 - 10.2 mg/dL [facility] Bilirubin, Total 0.5 0.0 - 1.0 mg/dL [facility] Aspartate Amino Transferase 28 5 - 31 U/L [facility] Alanine Aminotransferase 43(H) 0 - 31 U/L [facility] Total Protein 7.1 6.5 - 8.0 g/dL [facility] Albumin Level 3.7 3.5 - 5.0 g/dL [facility] Alkaline Phosphatase 89 39 - 117 U/L [facility] 07/09/2024 11:3 5 PM EST 07/09/2024 11:37 PM EST Generic External Data Provider LAB BLOOD ORDERAB LES Final Result Performing Organization Address [facility] Co de Phone Number [facility] [address] [place] [phone] * SARS-CoV-2 RNA, Influenza A/B, and RSV RNA, Ql NAAT (07/09/2024 11:30 PM EST) Only the most recent of2 resultswithin the time period is included. Influenza A PCR NEGATIVE Negative [facility] Influenza B PCR NEGATIVE Negative [facility] Resp Syncy Virus RNA Qual PCR NEGATIVE Negative [facility] SARS COV2 PCR NEGATIVE Negative [facility] Comment:All test results mus t be [...] use by authorized laboratories.Testing performed on the [employer] GeneXpert utilizingreal-time RT-PCR.All SARS CoV2 and positive influenza A/B results arereported to [facility]. 07/09/2024 11:3 0 PM EST 07/09/2024 11:37 PM EST Generic External Data Provider LAB MICROBIOLOGY - GENERAL ORDERABLES Final Result Performing Organization Address [facility]/ZIP Co de Phone Number [facility] [address] [place] [phone] * XR Chest 1 View (07/01/2024 10:44 AM EST) Anatomical Region Laterality Modality Chest Radiographic Christina ging 07/01/2024 10:4 4 AM EST Narrative 07/01/2024 10:45 AM EST ? [facility] ?[address] ?[place] [address] ?XRay Report ? Signed ? Patient: Hopper,Mickie ?MR#: [id number] ?? 27 ? : 1940 ?Acct:[id number] ? Age/Sex: 83 / F ?ADM Date: 07/01/24 ? Loc: HO.ED ? Attending Dr: ? Ordering Physician: Hannah Downs DO ?? Date of Service: 07/01/24 ?? Procedure(s): XR chest 1V ?? Accession Number(s): [id number] ? cc: Hannah Downs DO; Pedro Ingram [...] in OV> ? 07/01/24 1045 ? DD/ 43 ? TD/TT: 07/01/241043 ? Class C Driver: ? Procedure Note Jocelyn Juarez - 07/01/2024 [place] [address] XRay Report Signed Patient: Mickie HopperMR#: [id number] [birth year] : 1940cct:[id number] Age/Sex: 83 / FADM Date: 07/01/24 Loc: HO.ED Attending Dr: Ordering Physician: Hannah Downs DO Date of Service: 07/01/24 Procedure(s): XR chest 1V Accession Number(s): [id number] cc: Hannah Downs DO; Pedro Ingram MD [...] 07/01/24 1045 DD/ 1044 TD/TT: 07/01/24 1044 Class C Driver: [facility] External Provider IMG XR PROCEDURES Final Result * VENOUS BLOOD GAS (07/01/2024 10:32 AM EST) Pathologist [facility] VBG pH 7.41 7.32 - 7.43 [facility] Comment:METER #: [id number] additional_comment: Sekou serrano VBG PCO2 41 mmHg [facility] Comment:METER #: [id number] additional_comment: Sekou serrano VBG PO2 45 mmHg [facility] Comment:METER #: [id number] additional_comment: Sekou serrano VBG Base Excess 1.8 mmol/L [facility] Comment:METER #: [id number] additional_comment: Sekou serrano VBG HCO3 26 22 - 26 mmol/L [facility] Comment:METER #: [id number] additional_comment: Sekou serrano O2 Sat, Alfredo 70.0 % [facility] Comment:METER #: [id number] additional_comment: Sekou serrano 07/01/2024 10:3 2 AM EST 07/01/2024 10:40 AM EST Generic External Data Provider LAB BLOOD ORDERAB LES Final Result [facility] [address] [place] [phone] * (ABNORMAL) B Type Natriuretic Peptide (BNP) (07/01/2024 10:26 AM EST) B Type Natriuretic Peptide 157(H) <100 pg/mL [facility] Comment:For those patients w ho are being treated with Natrecor(nesiritide, recombinant BNP), BNP testing should beperformed at least two hours post treatment in order toensure that only endogenous levels of BNP are detected. 07/01/2024 10:2 6 AM EST 07/01/2024 10:32 AM EST us Generic External Data Provider LAB BLOOD ORDERAB LES Final Result Performing Organization Address [facility] de Phone Number [facility] [address] [place] [phone] * Lactic Acid (07/01/2024 10:26 AM EST) Lactic Acid 1.0 0.5 - 2.0 mmol/L [facility] 07/01/2024 10:2 6 AM EST 07/01/2024 10:32 AM EST Generic External Data Provider LAB BLOOD ORDERAB LES Final Result Performing Organization Address [facility] Phone Number [facility] [address] [place] [phone] * (ABNORMAL) Hepatic Function Panel (07/01/2024 10:26 AM EST) Bilirubin, Total 0.6 0.0 - 1.0 mg/dL [facility] Bilirubin, Direct 0.3 0.0 - 0.5 mg/dL [facility] Aspartate Amino Transferase 38(H) 5 - 31 U/L [facility] Alanine Aminotransferase 22 0 - 31 U/L [facility] Total Protein 7.7 6.5 - 8.0 g/dL [facility] Albumin Level 4.0 3.5 - 5.0 g/dL [facility] Alkaline Phosphatase 102 39 - 117 U/L [facility] 07/01/2024 10:2 6 AM EST 07/01/2024 10:32 AM EST Generic External Data Provider LAB BLOOD ORDERAB LES Final Result Performing Organization Address City/[facility]/ZIP Co de Phone Number [facility] [address] [place] [phone] * (ABNORMAL) Basic Metabolic Panel (07/01/2024 10:26 AM EST) Sodium 142 135 - 145 mmol/L [facility] Potassium 3.6 3.3 - 5.1 mmol/L [facility] Chloride 110(H) 96 - 108 mmol/L [facility] Carbon Dioxide 24 22 - 29 mmol/L [facility] Anion Gap 12 12 - 20 [facility] Urea Nitrogen (BUN) 5(L) 9 - 16 mg/dL [facility] Creatinine, Serum 0.74 0.5 - 1.4 mg/dL [facility] Creatinine Clr Calc Pharmacy 55.1 [facility] Comment:Provided height and weight: 154.94 cm,79.9 kg.eGFR (calculated from the MDRD study equation) and eCrCl(calculated from the Cockcroft-Gault equation) are based ondifferent parameters and may not yield comparable results.If eCrCl result is absurd, please check patient'sheight/weight. Estimated Glomerular Filt Rate >60 [facility] Comment:Chronic Kidney Disea se: Estimated GFR < 60 mL/min/1.48n2Nnelnp Kidney Disease: Estimated GFR < 15 mL/min/1.73m2 Glucose 97 60 - 115 mg/dL [facility] Calcium 9.4 8.4 - 10.2 mg/dL [facility] 07/01/2024 10:2 6 AM EST 07/01/2024 10:32 AM EST us Generic External Data Provider LAB BLOOD ORDERAB LES Final Result [facility] [address] [place] [phone] * Lipid Panel, Standard (05/02/2024 10:01 AM EST) Triglycerides 92 <150 mg/dL [facility] Comment:Desirable Triglyceri de: less than 150 mg/dLBorderline High Triglyceride 150-199 mg/dLHigh Triglyceride: 200-499 mg/dLVery High Triglyceride: greater than or equal to 5OO mg/dL Cholesterol 127 <200 mg/dL [facility] Comment:Desirable Cholestero l: less than 200 mg/dLBorderline High Cholesterol: 200-239 mg/dLHigh Cholesterol: greater than 239 mg/dL LDL Cholesterol Calculated 58 <100 mg/dL [facility] Comment:Desirable LDL: less than 100 mg/dLNear Optimal/Above Optimal LDL: 110- 129 mg/dLBorderline High LDL: 130-159 mg/dLHigh LDL: 160-189 mg/dLVery High LDL: greater than or equal to 190 mg/dL HDL Cholesterol 51 >40 mg/dL [facility] Comment:Desirable HDL: great er than 40 mg/dL Note: This HDL assay may give artificially low results in patients with liver disease. Blood Venous blood specimen / Unknown 05/02/2024 10:01 AM EST 05/02/2024 11:15 AM EST us Pedro Leiva MD LAB BLOOD ORDERABLES Final Result [facility] [address] [place] [phone] * BI Mammogram Screening Tomosynthesis Bilateral (09/18/2023 2:30 PM EDT) Anatomical Region Laterality Modality Breast Bilateral Mammography 09/18/2023 2:30 PM EDT Narrative 09/18/2023 4:18 PM EDT ? [facility] [place] ? [address] ?[place] [address] ? Mammography Report ? Signed ? Patient: Hopper,Mickie ?MR#: [id number] ?? 27 ? : 1940 ?Acct:[id number] ? Age/Sex: 82 / F ?ADM Date: 05/06/24 ? Loc: HO.MAMMO ? Attending Dr: Sylvia Lennon DO ? Ordering Physician: Sylvia Lennon DO ?Results: 2B ?? enign Findings ? Date of Service: 09/18/23 ?Follow Up: 1 Year From Orig ?? inal Mammogram ? Procedure(s): MM tomosynthesis screening BI ?? Accession Number(s): [id number] ? cc: Pedro Ingram MD; Sylvia Lennon [...] 1614 ? DD/ 1430 ? TD/TT: ? Class C Driver: ? Procedure Note Donotuseinterpreter, Image - 09/18/2023 [facility] [address] [place] [address] Dr. Du, [place] [address] Mammography Report Signed Patient: Mickie HopperMR#: [id number] [birth year] : 1Acct:[id number] Age/Sex: 82 / FADM Date: 09/18/23 Loc: HO.MAMMO Attending Dr: Sylvia Lennon DO Ordering Physician: Sylvia Lennonults: 2B enign Findings Date of Service: 09/18/23Follow Up: 1 Year From Orig inal Mammogram Procedure(s): MM tomosynthesis screening BI Accession Number(s): [id number] cc: Pedro Ingram MD; Sylvia Lennon DO [...] in OV> 09/18/23 1614 DD/ 1430 TD/TT: Class C Driver: Sylvia Lennon DO IMG BI PROCEDURES Final Resu lt from Last 3 Months or Most Recently Relevant to Health Maintenance [place] [address] [place] [address] - [employer] Care Teams Senior Java J2Ee Developer Relationship Specialty Start Date End Date Pedro Braxton MD [address] [place] [phone] PCP - General Internal Medicine 03/15/13
--- OUTSIDE RECORDS SUMMARY | 2024-09-04 16:49 | XMS_ITS | Encounter Summary ---
Author Organization [facility] [employer] Address 75 [facility] 7 [place] [address] Care Team Providers Care Coater Hand Name Role Phone Pedro Braxton MD Primary Care Provide r Encounter Details Date Type Department Care Team (Late Contact Info) Description 12/06/2022 Orders Only [facility] [address] [place] [address] Sylvia Valentino LPN Social History Tobacco Use [...] 2:15 PM EDT Office Visit [facility] [address] [place] [address] Pedro Braxton MD [address] [place] [address] documented as of this encounter Visit Diagnoses Not on filedocumented in this encounter Care Teams Coater Hand Relationship Specialty Start Date End Date Pedro Braxton MD [address] [place] [address] PCP - General Internal Medicine 03/15/13 documented as of this encounter
--- OUTSIDE RECORDS SUMMARY | 2024-09-04 16:50 | XMS_ITS | Encounter Summary ---
Author Organization [employer] Address 75 [facility] 7 [place] [address] Care Team Providers Care Enrobing Machine Corder Name Role Phone Pedro Braxton MD Primary Care Provide r Encounter Details Date Type Department Care Team (Late st Contact Info) Description 06/09/2022 Orders Only [facility] [address] [place], [place] [phone] Sylvia Valentino LPN Social History Tobacco Use [...] 11/05/2024 2:15 PM EDT Office Visit [facility] [address] [place], [place] [phone] Pedro Braxton MD [address] [place], [place] [phone] documented as of this encounter Visit Diagnoses Not on filedocumented in this encounter Care Teams Enrobing Machine Corder Relationship Specialty Start Date End Date Pedro Braxton MD [address] [place] [address] PCP - General Internal Medicine 03/15/13 documented as of this encounter
--- OUTSIDE RECORDS SUMMARY | 2024-09-04 16:50 | XMS_ITS | Clinical Summary ---
Author Organization [facility] Address [address] [place] [address] Phone Care Team Providers Care Sealing And Canceling Machine Operator Name Role Phone Pedro Ingram [...] EST - 06/07/2024 11:07 PM EST Emergency [facility] Emergency [address] [place] [address] Discharge Disposition: Home or Self [...] mmol/L LAB CHEMISTRY METHOD 03/30/2024 1:04 PM [facility] Potassium 3.6 3.5 - 5.5 mmol/L LAB CHEMISTRY METHOD 03/30/2024 1:04 PM [facility] Chloride 109 96 - 110 mmol/L LAB CHEMISTRY METHOD 03/30/2024 1:04 PM [facility] CO2 27 21 - 32 mmol/L LAB CHEMISTRY METHOD 03/30/2024 1:04 PM [facility] Anion Gap 5 3 - 11 LAB CHEMISTRY METHOD 03/30/2024 1:04 PM [facility] Glucose 98 70 - 100 mg/dL LAB CHEMISTRY METHOD 03/30/2024 1:04 PM [facility] BUN 7 5 - 25 mg/dL LAB CHEMISTRY METHOD 03/30/2024 1:04 PM [facility] Creatinine 0.79 0.50 - 1.10 mg/dL LAB CHEMISTRY METHOD 03/30/2024 1:04 PM [facility] eGFR 74 >=60 mL/min/1. 73m2 LAB CHEMISTRY METHOD 03/30/2024 1:04 PM [facility] Comment:Calculation based on the??Chronic Kidney Disease Epidemiology Collaboration (CKD-EPI) equation refit??without adjustment for race. BUN/Creatinine Ratio 8.9 LAB CHEMISTRY METHOD 03/30/2024 1:04 PM [facility] Calcium 8.9 8.5 - 10.5 mg/dL LAB CHEMISTRY METHOD 03/30/2024 1:04 PM [facility] Blood Venous blood specimen / Unknown Venipuncture / Unknown 03/30/2024 12:09 PM EST 03/30/2024 12:12 PM EST us Zulema Fuentes MD LAB BLOOD ORDERABLES Final Resul t [facility] [address] [place] [address], from Last 3 Months or Most Recently Relevant to Health Maintenance Insurance [employer] MEDICARE Member Subscriber Plan / Payer (Ef fective 2008-Present) Name:Mickie Hopper Relation to Subscriber:Self Name:Mickie Hopper Payer ID:[id number] Group ID:[id number] Type:Not on file Address: [place] [address] [address] [address] Care Teams Sealing And Canceling Machine Operator Relationship Specialty Start Date End Date Pedro Ingram MD [address] [place] [address] [place] [address] PCP - General 11/23/09
--- OUTSIDE RECORDS SUMMARY | 2024-09-04 16:50 | XMS_ITS | Encounter Summary ---
Author Organization [employer] Address 75 [facility] [address] [address] Care Team Providers Care Manager Basketball Name Role Phone Pedro Braxton MD Primary Care Provide r Encounter Details Date Type Department Care Team (Late st Contact Info) Description 09/05/2022 Orders Only [facility] [address] [place] [address] Sylvia Valentino LPN Social History Tobacco Use [...] Description 11/05/2024 2:15 PM EDT Office Visit [facility] [address] [place] [address] Pedro Braxton MD [address] [place] [address] documented as of this encounter Visit Diagnoses Not on filedocumented in this encounter Care Teams Manager Basketball Relationship Specialty Start Date End Date Pedro Braxton MD [address] [place] [address] PCP - General Internal Medicine 03/15/13 documented as of this encounter
--- OUTSIDE RECORDS SUMMARY | 2024-09-04 16:50 | XMS_ITS | Data Portability ---
Author Organization [employer] Address [address] [place] [address] Care Team Providers Care Online Publisher Name Role Phone HIM CCA OTHER Assessment Encounter Date Assessment Date Assessment LastModified by Organization Details LastModified Time 02/23/2023 02/23/2023 I provided real -time medical direction via phone for this encounter, and was available for additional phone based assistance as needed. I have reviewed and agree with the Assessment and Plan as documented by the Adjuster Arbitrator. Patient given the opportunity to ask questions. Advised through certified court interpreter if develops CP/severe SOB/turning blue/uncontrolle d n/v/d / AMS/ syncope/ hi fever unresponsive to APAP to call 911- verbalized understanding of instructions [email or web address] Not available 02/23/2023 22:43:57 04/21/2023 04/21/2023 As noted, we were called to see this patient regarding concerns of headache, fever, chills. Evaluation in the field was performed by my nailer operator colleague, as noted above, I provided [...] Assessment and Plan as documented by the Adjuster Arbitrator. We discussed the diagnostic uncertainty of home [...] verbalized understanding of instructions to the medic [email or web address] Not available 06/08/2024 03:36:06 07/09/2024 07/09/2024 service [...] Ag, QL IA, respiratory specimen 2024 025 [facility], [address] [place] [address], [address] 5 08:14:58 rapid flu (A+B) [address], [address] 5 08:14:59 urinalysis, dipstick [address], [address] 5 08:14:59 rapid SARS CoV 2 Ag, QL IA, respiratory specimen 2024 025 [email or web address] 0 [facility], [address] [place] [address], [address] 5 14:48:13 rapid flu (A+B) 2024 025 [email or web address] 0 [facility], [address] [place] [address], [address] 5 14:48:13 BMP, serum or plasma 2024 025 [email or web address] 0 [facility], [address] [place] [address], [address] 5 14:49:41 rapid strep group A, throat 2024 025 [email or web address] 0 [facility], [address] [place] [address], [address] 5 14:48:13 rapid SARS CoV 2 Ag, QL IA, respiratory specimen 2023 024 JONATHAN [facility], [address] [place] [address], [address] 4 08:26:10 rapid flu (A+B) 2023 024 JONATHAN [facility], [address] [place] [address], [address] 4 08:26:30 rapid SARS CoV 2 Ag, QL IA, respiratory specimen 2022 023 [email or web address] 0 [facility] - [facility], [address] [place] [address], [address] 3 18:07:47 rapid flu (A+B) 2022 023 [email or web address] 0 [facility], [address] [place] [address], [address] 3 18:07:47 Referral None recorded. Procedures None recorded. Surgeries None recorded. Imaging None recorded. Medication Orders albuterol sulfate 2.5 mg/3 mL (0.083 %) solution for nebulizatio n 2024 025 [email or web address] [id number], [address], [place], [id number], 5 23:19:21 meclizine 25 mg tablet 2024 025 [email or web address] 0 [facility] #68861, [address], [id number], 5 14:48:13 meclizine 12.5 mg tablet 2024 025 [facility], [address], [place], [id number], 5 14:48:21 doxycycline hyclate 100 mg tablet 2024 025 [email or web address] 0 [facility] #70820, [address], [place], [id number], 5 14:48:12 doxycycline hyclate 100 mg capsule 2024 025 [facility] #43496, [address], [place], [id number], 5 14:48:18 benzonatate 200 mg capsule 2022 023 [facility], [address], [id number], 3 18:28:40 Patient TargetsNo targets recorded. Patient InstructionsNo instructions recorded. Reason for Referral None Reported. Results Created Date Observation Date Name Description Value Unit Range Abnormal Flag Note LastModifiedBy Organization Detail LastModifiedTime 02/24/2002/23/2023 rapid flu (A+B) Flu negati ve Not Available Main - [facility] ed [address] [place] [address], [address] 02/23/2023 18:07:27 02/24/2002/23/2023 rapid SARS CoV 2 Ag, QL IA, respi rator y speci men rapid SARS CoV 2 Ag, QL IA, respiratory specimen negati ve Not Available [facility] ed [address] [place] [address], [address] 02/23/2023 18:07:26 06/07/1906/07/2024 rapid strep group A, throa t Strep negati ve Not Available [address], [address] 06/07/2024 14:10:26 06/07/1906/07/2024 rapid SARS CoV 2 Ag, QL IA, respi rator y speci men rapid SARS CoV 2 Ag, QL IA, respiratory specimen negati ve Not Available [address], [address] 06/07/2024 14:10:19 06/07/1906/07/2024 rapid flu (A+B) Flu negati ve Not Available [address], [address] 06/07/2024 14:10:20 Result Notes None recorded. Medical Equipment None Reported. Allergies Allergen ID Allergen Name Allergen Category Reaction Reaction Severity Criticality Documentation Date Start Date Code Code System Note Provider Name and Address Organization Details Recorded Time 61590 Product containin g angiotens in-conver ting enzyme inhibitor (product) medicatio n Not available Not available Not available 07/09/2024 95215 009 SNOMED Not Available [facility] - production [...] mm[Hg] 88 mm[Hg] Not Available [facility] 3 17:57:56 Date Recorded Body temperature Respiratory rate Oxygen saturation Oxygen saturation in Arterial blood by Pulse oximetry Heart rate Systolic blood pressure Diastolic blood pressure Provider Name and Address Organization Details Last Updated DateTime 3 99.2 [degF] 16 /min 99 % 99 % 75 /min 130 mm[Hg] 82 mm[Hg] Not Available [facility] 3 15:40:47 Date Recorded Oxygen saturation Oxygen saturation in Arterial blood by Pulse oximetry Body temperature Body height Respiratory rate Heart rate Body weight Systolic blood pressure Diastolic blood pressure Provider Name and Address Organization Details Last Updated DateTime 4 97 % 97 % 99.1 [degF] 154.94 cm 18 /min 72 /min 62640.1 52 g 110 mm[Hg] 71 mm[Hg] Not Available [facility] 4 21:28:15 Date Recorded Body temperature Oxygen saturation Oxygen saturation in Arterial blood by Pulse oximetry Body height Heart rate Respiratory rate Body weight Systolic blood pressure Diastolic blood pressure Provider Name and Address Organization Details Last Updated DateTime 5 99.1 [degF] 96 % 96 % 154.94 cm 77 /min 18 /min 73389.5 6 g 139 mm[Hg] 74 mm[Hg] Not Available [facility] 5 14:03:22 Date Recorded Heart rate Systolic blood pressure Diastolic blood pressure Provider Name and Address Organization Details Last Updated DateTime 06/07/2024 86 /min 123 mm[Hg] 76 mm[Hg] Paula Paulson MD [address] [place] [address],[address], [place], [address], [place] [facility] 06/07/2024 14:51:00 Date Recorded Heart rate Respiratory rate Body weight Body temperature Oxygen saturation Oxygen saturation in Arterial blood by Pulse oximetry Body height Systolic blood pressure Diastolic blood pressure Provider Name and Address Organization Details Last Updated DateTime 64 /min 16 /min 68705.3 76 g 98.4 [degF] 97 % 97 [...] SNOMED-CT Code Diagnosis ICD10 Code Diagnosis Note [id number] Manas Swanson MD [address] [address] 12/08/2022 14:34:52 12/09/2022 11:10:56 Headache 92632252 R51.9 [id number] Paula Paulson MD [address] [address] 02/23/2023 17:57:45 02/26/2023 12:35:10 Viral upper respiratory tract infection [id number] J06.9 Advised patient likely has COVID but [...] has a good Rx card for [facility]- [id number] THERESA ANDERSON MD Main - [facility] [address] [place] [address] 04/21/2023 15:40:44 04/24/2023 17:03:22 Viral syndrome [id number] B34.9 [id number] Jason Ibrahim MD Main [facility] [address] [place] [address] 02/26/2024 21:28:07 02/27/2024 12:02:54 Influenza-like illness 10132784 B34.9 As noted, we were called to see this patient regarding concerns of fever and cough. Evaluation in the field was performed by my nailer operator colleague, as noted above, I provided [...] symptoms, particular ly confusion, dyspnea, high fever [id number] Paula Paulson MD Main [facility] [address] [place] [phone] 06/07/2024 14:03:20 06/09/2024 15:01:25 Upper respiratory infection 68061470 J06.9 w/ dizziness ? BPV- trial meclizine/ [...] Continue Breo as directed NKDA/ Pharmacy verified [id number] Fidel Chau MD Main - [address] [address] 07/09/2024 21:04:22 07/10/2024 12:22:57 Cough 02886906 R05.9 Health Concerns Section Related Observation LastModified by Organization Detai ls LastModified Time None Recorded Concern Status LastModified by Organization Details LastModified Time None Recorded Advance Directives Directive None Recorded Payers Encounter Date Sequence Insurance Name Policy Number Policy Huang Covered Member ID Huang Member ID Guarantor Name 02/23/2023 1 [facility] - DOS ON OR AFTER 2022 - DUAL ELIGIBLE - USP OPTIONS AND ONE CARE (MEDICARE REPLACEMENT/ADV ANTAGE - HMO) Mickie Hopper [id number] Mickie Hopper 04/21/2023 1 [employer] - DOS ON OR AFTER 2022 - DUAL ELIGIBLE - USP OPTIONS AND ONE CARE (MEDICARE REPLACEMENT/ADV ANTAGE - HMO) Mickie Hopper [id number] Mickie Hopper 02/26/2024 1 [employer] - DOS ON OR AFTER 2022 - DUAL ELIGIBLE - USP OPTIONS AND ONE CARE (MEDICARE REPLACEMENT/ADV ANTAGE - HMO) Mickie Hopper [id number] Mickie Hopper 06/07/2024 1 [employer] - DOS ON OR AFTER 2022 - DUAL ELIGIBLE - USP OPTIONS AND ONE CARE (MEDICARE REPLACEMENT/ADV ANTAGE - HMO) Mickie Hopper [id number] Mickie Hopper 07/09/2024 1 [employer] - DOS ON OR AFTER 2022 - DUAL ELIGIBLE - USP OPTIONS AND ONE CARE (MEDICARE REPLACEMENT/ADV ANTAGE - HMO) Mickie Hopper [id number] Mickie Hopper Notes Date Note Type Note [...] COVID. ......................... ......................... ......................... ......................... ......................... ................ Adjuster Arbitrator Note From Hamzah Pereira: PT reports that [...] ................ Disposition: Fulfilled Paula Paulson MD [address] [facility],[address], [place], [address], [facility] 02/23/2023 22:47:51 3 text/html CRC Nursing Assessment: Reason For Request: Severe cough, ugly congestion, keeping her up at night>reporting fevers>headache>weakness> symptoms going on 4 days. Chief Complaints: Cough, Headache, Fever/Chills, Weakness/Lethargy, URI PMH: COPD/Asthma, Hypertension Allergies: No Known Comments: Referral taken via [employer]. Member calling in to place a referral, [...] evaluated. ......................... ......................... ......................... ......................... ......................... ................ Adjuster Arbitrator Note From Marlon Moulton: Dispatched to the [...] ......................... ................ Disposition: Fulfilled THERESA ANDERSON MD [address] [place] [address],[address], [place], [address], [facility] 04/21/2023 16:06:33 4 text/html CRC Nurse Triage Notes (Chaitanya Skinner): Chief Complaints: Cough PMH: COPD/Asthma, Hypertension Allergies: Unknown Comments: Microwave Oven Assembler verified the Pt.'s name//address and phone number. [...] - Pt is refusing ER - Declined Adjuster Arbitrator Organization Information for Garrett Fernandez Business Legal Name: [employer]? Address: [address] [place] [address], Senior Safety Management Consultant: Valerio Hunter MD CLIA No.: [id number] Adjuster Arbitrator POC Test Results from Garrett Fernandez Rapid influenza antigen (21:20:51) Flu: - Rapid COVID antigen (21:25:55) COVID: - Jason Ibrahim MD [address] [place] [address],[address], [place], [address], [facility] 02/26/2024 21:45:30 5 text/html CRC Nurse Triage [...] HypertensionPMH Reviewed at 06/07/2024:15Allergies Reviewed at 06/07/2024:15Comments: Microwave Oven Assembler verified the Pt.'s name//address and phone number. [...] coughing. Concerns expressed and ER treatment declined. Adjuster Arbitrator Organization Information for Kevin Rock[place] Legal Name: [employer]?Address: [address] [place] [address], USMedical Director: Valerio Hunter [facility] No.: [id number] Adjuster Arbitrator POC Test Results from Jenny Rock SENA [...] section. ......................... ......................... ......................... ......................... ......................... ................ Adjuster Arbitrator Note From Jenny Rock: Sent to a call for a pt complaining of cough. SC8 arrives on scene, pt is alert and oriented, airway is patent. Pt's primary language is Nicaraguan. Family serves as certified court interpreter. Pt has history of COPD, Asthma, and [...] covid/flu test: neg; Rapid strep test: neg; [facility] orders POC bloodwork. IV access/venous blood draw performed; Chem8+ results: uploaded to [employer]; [facility] orders Meclizine 12.5mg PO and Doxycycline 100mg PO. [facility] sends script to pt's pharmacy. Meclizine 12.5mg [...] questions. ......................... ......................... ......................... ......................... ......................... ................ [facility] Consulted: Paula Paulson ......................... ......................... ......................... ......................... ......................... ................ Disposition: Fulfilled SEG MD: Patient denies headache, focal neuro-deficits, chest pain, palpitations, significant shortness of breath Paula Paulson MD [address] [facility],[address], [place], [address], [place] [facility] 06/08/2024 03:38:49 5 text/html HPI: rosalva Templeton who mbr gave verbal consent to speak w/ reports this 83 y.o. F w/ hx of COPD is c/o increased sob, initially starting ~1 mo ago w/ bronchitis. She was inpatient at [facility] 07/01-07/03 for asthma exac and flu, family [...] family thought she was supposed to get [facility]p hospital d/c but she never received [...] changes. CCA CP is Sylvia Bran, email: [email or web address] (not found in [employer] database) ......................... ......................... ......................... ......................... ......................... ................ [facility] Nurse Triage Notes (Chaitanya Skinner): [...] Allergies Reviewed at 07/09/2024: Comments: Reviewed HPI Adjuster Arbitrator Organization Information for Charles Mae [employer] Business Legal Name: [employer]? Address: [address] [place] [address], Senior Safety Management Consultant: Valerio Hunter MD [place] No.: [id number] Adjuster Arbitrator POC Test Results from Mae Soto Rapid [...] GLU ......................... ......................... ......................... ......................... ......................... ................ Adjuster Arbitrator Note From Charles Breannagabe: MIH makes pt [...] urine dipstick analysis. [facility] contacts [facility] and discusses the above. [facility] orders duoneb for the pt and will [...] is clear. Report completed by EILEEN Soto [id number]. ......................... ......................... ......................... ......................... ......................... ................ [facility] Consulted: Fidel Chau ......................... ......................... ......................... ......................... ......................... ................ Disposition: Fulfilled Fidel Chau MD [address] [facility],[address], [place], [address], [facility] 07/09/2024 23:19:24 OBGyn Episode No OBEpisode recorded.
== END 2024-09-04 15:11 | disposition home or self-care (01) ==
LOC: HO.HGI 14:00
PROVIDERS: PCP Internal Medicine; Visit Provider Internal Medicine
DX: K59.09 Other constipation (principal); Z86.0100 Personal history of colon polyps, unspecified; K21.9 Gastro-esophageal reflux disease without esophagitis; K44.9 Diaphragmatic hernia without obstruction or gangrene; D64.9 Anemia, unspecified; R09.A2 Foreign body sensation, throat
CPT/HCPCS: 99214

== ENCOUNTER → 2024-09-04 13:59 | Outpatient (BNVA) | payer OTHER, SELFPAY | PROVIDERS: PCP Internal Medicine; Visit Provider Internal Medicine | DX: K21.9 Gastro-esophageal reflux disease without esophagitis (principal); K59.09 Other constipation; K44.9 Diaphragmatic hernia without obstruction or gangrene; D64.9 Anemia, unspecified; R09.A2 Foreign body sensation, throat; Z86.0100 Personal history of colon polyps, unspecified | CPT/HCPCS: 99212 ==

== ENCOUNTER 2024-09-19 07:27 | Outpatient (REF) | payer OTHER, SELFPAY ==
--- NOTE | ~2024-09-19 | FL_ITS ---
EXAMINATION: XR BARIUM SWALLOW CLINICAL INFORMATION: Foreign body sensation in the throat. COMPARISON: None available. TECHNIQUE: Routine barium swallow was performed in upright view following oral administration of thick barium, barium coated saltine cracker and a tablet. The patient in prone position thin barium was administered orally. Imaging was obtained under fluoroscopy. FINDINGS: Following oral administration of thick barium and barium coated tablet there is normal propagation bolus from the oral cavity through the widely patent pharynx, esophagus into stomach without laryngeal penetration or aspiration. No retention in valleculae or piriform sinuses. No intrinsic obstruction or extrinsic compression seen. On oral administration of barium coated saltine crackers with barium there is normal oral mastication and propagation bolus through the pharynx, esophagus into stomach. On placing patient in prone lying and oral administration of thin barium there is a normal distention of esophagus without intraluminal filling defect or extrinsic compression. Incidental finding of a small sliding hiatal hernia is noted. Mild gastroesophageal reflux reflux noted as well. FLUOROSCOPY TIME: 2 minutes and 59 seconds. DOSE AREA PRODUCT: 151.6 uGy-m2 (microgray-meter squared) FL/FL barium swallow IMPRESSION: Small hiatal hernia with mild gastroesophageal reflux Electronically signed by: Andre Aj MD 09/19/2024 08:40 AM EDT
--- OUTSIDE RECORDS SUMMARY | 2024-09-19 07:29 | XMS_ITS | Encounter Summary ---
Author Organization [employer] Address [address] [facility] [address] [place] [address] Care Team Providers Care Machine Zipper Trimmer Name Role Phone Pedro Braxton MD Primary Care Provide r Reason for Visit * Reason Onset Date Comments Hospital Follow-up 07/03/2024 Encounter Details Date Type Department Care Team ([facility] st Contact Info) Description 07/03/2024 Telephone [facility] [address] [place], [place] [phone] Pedro Braxton MD [address] [place], [place] [phone] Hospital Follow-up Social History Tobacco Use Types [...] from pt requesting a HDF appt. Hospital: [facility] Date of admission: 06/29/24 Discharge date: 07/03/24 Diagnosed: oxygen level at 29 documented in this encounter Plan of Treatment Upcoming Encounters Date Type Department Care Team (Late st Contact Info) Description 11/05/2024 2:15 PM EDT Office Visit [facility] [address] [place] [address] Pedro Braxton MD [address] [place] [address] documented as of this encounter Visit Diagnoses Not on filedocumented in this encounter Additional Health Concerns Assessment Noted Time PHQ-9 Depression Total Score: 3 11/28/19 24 2:27 PM EDT documented as of this encounter Care Teams Machine Zipper Trimmer Relationship Specialty Start Date End Date Pedro Braxton MD [address] [place] [address] PCP - General Internal Medicine 03/15/13 documented as of this encounter
--- OUTSIDE RECORDS SUMMARY | 2024-09-19 07:29 | XMS_ITS | Clinical Summary ---
Author Organization [employer] Address [address] [place] [address] Care Team Providers Care Clothing And Textiles Teacher Name Role Phone Pedro Braxton MD Primary Care Provide r Allergies Active Allergy Reactions Criticality Noted Date Comments Cameron Inhibitors Cough 06/02/2010 Medications Fluticasone Furoate-Vilantero l (Breo Ellipta) 200-25 MCG/ACT aerosol powder Inhale [...] AT BEDTIME 90 tablet 3 024 Active linaCLOtide (Linzess) 72 MCG capsuleIndication s:Constipation, unspecified constipation type Take 1 capsule (72 mcg) by mouth before breakfast. Do not crush or chew. 14 capsule 024 2024 Active glycerin (Adult) 2 g suppositoryIndica tions:Constipatio n, unspecified constipation type Insert 1 suppository (2 g) into the rectum if needed in the morning and at bedtime for constipation. 30 suppository 1 024 Active omeprazole (PriLOSEC) [address] capsuleIndication s:Dyspepsia Take 1 capsule (20 mg) by mouth before breakfast and before evening meal. Do not crush or chew. 60 capsule 11 024 2024 Active guaiFENesin (Mucinex) 600 MG 12 hr tabletIndications :Acute cough Take 1 tablet (600 mg) by mouth 2 times daily. Do not crush, chew, or split. 60 tablet 11 024 2024 Active docusate sodium (Colace) 100 MG capsuleIndication s:Constipation, unspecified constipation type TAKE 1 CAPSULE BY MOUTH TWICE DAILY IN THE MORNING AND IN THE EVENING NEEDED 60 capsule 5 Active fluticasone (Flonase) 50 MCG/ACT nasal spray INSTILL 2 SPRAYS IN EACH NOSTRIL ONCE DAILY ONCE DAILY SHAKE GENTLY 16 g 3 Active Diclofenac Sodium 1 % gelIndications:Ot her headache syndrome APPLY 2 GRAMS TOPICALLY TO AFFECTED AREA(S) TWICE DAILY 100 g 2 Active dorzolamide-timol ol (Cosopt) 2-0.5 % ophthalmic solution Administer 1 [...] mouth Once per day. 30 tablet 3 Active albuterol 108 (90 Base) MCG/ACT inhalerIndication s:Moderate persistent asthma without complication INHALE 2 PUFFS BY MOUTH EVERY 6 HOURS NEEDED FOR WHEEZING OR SHORTNESS OF BREATH 18 g 025 Active verapamil SR (Calan SR) 120 MG ER tablet TAKE 1 TABLET BY MOUTH EVERY MORNING 90 tablet 1 025 Active senna (Senokot) 8.6 MG tabletIndications :Constipation, unspecified constipation type TAKE 2 TABLETS BY MOUTH EVERY DAY AT BEDTIME NEEDED 180 tablet 1 025 Active simethicone (Mylicon) 80 MG chewable tabletIndications :Flatulence CHEW AND SWALLOW 1 TABLET BY MOUTH THREE TIMES DAILY BEFORE MEALS NEEDED FOR GAS 90 tablet 3 025 Active simethicone (Mylicon) 80 MG chewable tabletIndications :Flatulence CHEW AND SWALLOW 1 TABLET THREE TIMES DAILY BEFORE MEALS NEEDED FOR GAS 90 tablet 3 024 2024 Discontinued Active Problems Problem Noted [...] encouraged to discuss with her GI for ad terminal makeup operator use. -ER precautions discussed. Class 1 obesity [...] EST): Pt with chronic anemia. Seen by health plan specialist Dr Osiel [place] [facility] [place] seen on 07/22/2021. GI work up included a EGD 2020 and Colonoscopy 2006. Moderate persistent asthma without complication 05/24/2022 Assessment & Plan (11/28/2023 2:41 PM EDT): She has chronic cough, described as dry and intermittent wheezing. 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 Pt was unable to complete PFTs under the care of Dr Silva ( Helicopter Technician ) thinks she has Mod persistent [...] under the care of Dr Silva ( Helicopter Technician ) thinks she has Mod persistent [...] under the care of Dr Silva ( Helicopter Technician ) thinks she has Mod persistent [...] s/p Right TKR 10/28/2016 Doing well postoperatively [facility] health care 05/24/2022 Assessment & Plan (04/30/2024 [...] -24 hour BP monitor ordered -EKG -Called Senior Controls Engineer, will plan for follow up appt in 1-2 months -ED precautions reviewed Assessment & Plan (05/24/2022 4:33 PM EST): Pt here for a f/u BP is controlled, She is on a regimen of: Verelan ER 120 mg po daily by cardiology and Diovan 80 mg po daily (she had been on Hctz before but this was Dced by [facility]) For now will continue with current [...] it is dermatitis versuse other. Referral to fruit shipper. ER precautions given. Encounters Date Type Department Care Team Description 09/04/2024 Telephone [facility] [address] [place] [address] Pedro Braxton MD Durable Medical Equipment 09/04/2024 Refill [facility] [address] [place] [address] Pedro Braxton MD Flatulence 08/12/2024 Refill [facility] [address] [facility] [place] [address] Nyasia Nagel MD Constipation, unspecified constipation type 08/12/2024 Refill [facility] [address] [place] [address] Pedro Braxton MD Constipation, unspecified constipation type 07/30/2024 1:15 PM EDT Office Visit [facility] [address] [place] [address] Pedro Braxton MD Essential hypertension (Primary Dx); Mixed hyperlipidemia; Gastroesophageal reflux disease without esophagitis; Constipation, unspecified constipation type; Moderate persistent asthma without complication; Seasonal allergic rhinitis, unspecified trigger 07/30/2024 Travel 07/24/2024 Telephone [facility] [address] [place] [phone] Pedro Braxton MD Chart Prep 07/23/2024 Telephone [facility] [address] [place] [address] Pedro Braxton MD 07/11/2024 Telephone [facility] [address] [place] [phone] Pedro Braxton MD Chart Prep 07/09/2024 Orders Only GENERIC EXTERNAL DATA DEPARTMENT Provider, Generic External Data 07/05/2024 Refill [facility] [address] [place] [phone] Nyasia Nagel MD Other headache syndrome 07/03/2024 Patient Outreach [facility] [address] [place] [address] Pedro Braxton MD Transition Of Care (Tcm) (HDF- scheduled and SDOH screening negative and Tobacco screening negative) 07/03/2024 Telephone [facility] [address] [place] [address] Pedro Braxton MD Hospital Follow-up 07/01/2024 Orders Only [facility] External Provider, [facility] from Last 3 Months Immunizations Name Administration [...] Description 11/05/2024 2:15 PM EDT Office Visit [facility] [address], [place] [phone] Pedro Braxton MD [address] [place] [address] Health Maintenance Due Date Last Done Comments [...] EST Narrative 07/10/2024 1:14 AM EST ? [facility] ?[address] ?[place] [address] ? CT Scan Report ? Signed ? Patient: Hopper,Mickie ?MR#: [id number] ?? 27 ? : 1940 ?Acct:[id number] ? Age/Sex: 83 / F ?ADM Date: 07/09/24 ? Loc: HO.ED ? Attending Dr: ? Ordering Physician: Luis Fernando Zhao MD ?? Date of Service: 07/10/24 ?? Procedure(s): CT head/brain wo IV con ?? Accession Number(s): [id number] ? cc: Pedro Ingram MD; Luis Fernando Zhao MD ? Report Number: ?? [id number]: Total DLP = ??630.00 mGy-cm ? CLINICAL HISTORY: Dizziness, off balance, headache, R O stroke, blee ? CT head without contrast ? Comparison: MR - MRI BRAIN [facility] [id number] - 04/05/11 15:50 EST ? Findings: ?? [...] DD/ 0113 ? TD/TT: 07/10/24 0113 ? Hot Metal Charger: ? Procedure Note Larry, Image - 07/10/[address] [address] [address] Scan Report Signed Patient: Mickie HopperMR#: [id number] [birth year] : 1Acct:[id number] Age/Sex: 83 / FADM Date: 07/09/24 Loc: HO.ED Attending Dr: Ordering Physician: Luis Fernando Zhao MD Date of Service: 07/10/24 Procedure(s): CT head/brain wo IV con Accession Number(s): [id number] cc: Pedro Ingram MD; Luis Fernando Zhao MD Report Number: [id number]: Total DLP = 630.00 mGy-cm CLINICAL HISTORY: Dizziness, off balance, headache, R O stroke, blee CT head without contrast Comparison: MR - MRI BRAIN O [id number] - 04/05/11 15:50 EST Findings: No intra-axial [...] in OV> 07/10/24113 DD/ 2 TD/TT: 07/10/24112 Hot Metal Charger: us [facility] External Provider IMG CT PROCEDURES Edited Result - Final * (ABNORMAL) Urinalysis, Complete, with Reflex to Culture (07/09/2024 11:46 PM EST) Color Urine Yellow [facility] Appearance Urine Clear [facility] PH 6.5 5.0 - 9.0 [facility] Glucose Urine UA Negative Negative mg/dL [facility] Urine Blood Negative Negative [facility] Specific [facility] - Urine <=1.005 1.005 - 1.025 [facility] Urine Protein Negative Neg-Trace mg/dL [facility] Urine Ketones Negative Negative mg/dL [facility] Nitrite Urine Negative Negative [facility] Leukocyte Esterase Urine Trace(A) Negative [facility] RBC Urine 0-2 0 - 2 /HPF [facility] Urine WBC 0-5 0 - 5 /HPF [facility] Urine Squamous Epithelial Cell 0-2 0 - 2 /HPF [facility] Urine Bacteria None Seen None Seen [facility] Hyaline Casts, Urine 0-2 0 - 2 /LPF [facility] 07/09/2024 11:4 6 PM EST 07/09/2024 11:48 PM EST Narrative [facility] - 07/09/2024 11:59 PM EST Urine, Clean Catch Generic External Data Provider LAB URINE ORDERAB LES Final Result Performing Organization Address [facility] de Phone Number [facility] [address] [place] [phone] * High Sensitivity Troponin I (07/09/2024 11:35 PM EST) Only the most recent of3 resultswithin the time period is included. TROPONIN I HIGH SENSITIVITY 3.6 <3.5 - 17.0 ng/L [facility] Comment:The Marx high sens itivity Troponin-I results should beused in conjunction with other diagnostic information suchas ECG, clinical observations and information, and patientsymptoms to aid in the diagnosis of MN. 07/09/2024 11:3 5 PM EST 07/09/2024 11:37 PM EST us Generic External Data Provider LAB BLOOD ORDERAB LES Final Result Performing Organization Address [facility] Co de Phone Number [facility] [address] [place] [phone] * (ABNORMAL) CBC auto differential (07/09/2024 11:35 PM EST) Only the most recent of2 resultswithin the time period is included. White Blood Count 8.3 4.8 - 10.8 X10*3/uL [facility] Red Blood Count 3.89(L) 4.20 - 5.50 X10*6/uL [facility] Hemoglobin 10.8(L) 12.0 - 16.0 g/dl [facility] Hematocrit 33.7(L) 37.0 - 47.0 % [facility] Mean Corpuscular Volume 86.6 80.0 - 98.0 fL [facility] Mean Corpuscular Hemoglobin 27.8 27.0 - 33.0 pg [facility] Mean Corpuscular HGB Conc 32.0 31.0 - 35.0 g/dl [facility] Red Cell Distribution Width 16.4(H) 11.0 - 16.0 % [facility] Platelet Count 252 160 - 400 X10*3/uL [facility] Mean Platelet Volume 10.6 9.4 - 12.3 fL [facility] Neutrophils Percent Auto 48.1 45 - 73 % [facility] Imm Gran Pct Auto 0.8(H) 0.0 - 0.4 % [facility] Lymphocytes Percent Auto 41.3(H) 20 - 40 % [facility] Monocytes Percent Auto 8.7 2 - 11 % [facility] Eosinophils Percent Auto 0.7 0 - 4 % [facility] Basophils Percent Auto 0.4 0 - 2 % [facility] NRBC Pct Auto 0.0 0.0 - 0.2 /100WBC [facility] Neutrophils Absolute Auto 4.0 2.0 - 8.3 x10*3/uL [facility] Imm Gran Abs Auto 0.07(H) 0.00 - 0.03 X10*3/uL [facility] Lymphocytes Absolute Auto 3.4 1.2 - 4.9 X10*3/uL [facility] Monocytes Absolute Auto 0.7 0.1 - 1.2 X10*3/uL [facility] Eosinophils Absolute Auto 0.1 0.0 - 0.4 X10*3/uL [facility] Basophils Absolute Auto 0.0 0.0 - 0.2 X10*3/uL [facility] NRBC Abs Auto 0.000 0.0 - 0.012 X10*3/uL [facility] 07/09/2024 11:3 5 PM EST 07/09/2024 11:37 PM EST Generic External Data Provider LAB BLOOD ORDERAB LES Final Result Performing Organization Address [facility] Co de Phone Number [facility] [address] [place] [phone] * Partial Thromboplastin Time, Activated (APTT) (07/09/2024 11:35 PM EST) Partial Thromboplastin Time 26.2 26.0 - 36.8 SEC [facility] Comment:For information rega rding the monitoring of direct thrombininhibitors, please refer to Pharmacy. 07/09/2024 11:3 5 PM EST 07/09/2024 11:37 PM EST Generic External Data Provider LAB BLOOD ORDERAB LES Final Result Performing Organization Address [facility] Co de Phone Number [facility] [address] [place] [phone] * (ABNORMAL) Prothrombin Time-INR (07/09/2024 11:35 PM EST) Prothrombin Time 10.2(L) 10.9 - 12.4 SEC [facility] INTERNATIONAL NORM RATIO 0.9 0.9 - 1.1 [facility] Comment:INTERNATIONAL NORMAL IZED RATIO (INR) REFERENCE [...] ORDERAB LES Final Result Performing Organization Address [facility]/ZIP Co de Phone Number [facility] [address] [place] [phone] * Magnesium (07/09/2024 11:35 PM EST) Only the most recent of2 resultswithin the time period is included. Pathologist [facility] Magnesium 2.4 1.6 - 2.6 mg/dL [facility] 07/09/2024 11:3 5 PM EST 07/09/2024 11:37 PM EST Generic External Data Provider LAB BLOOD ORDERAB LES Final Result Performing Organization Address [facility] Co de Phone Number [facility] [address] [place] [phone] * Lipase (07/09/2024 11:35 PM EST) Only the most recent of2 resultswithin the time period is included. Lipase 11 8 - 78 U/L [facility] 07/09/2024 11:3 5 PM EST 07/09/2024 11:37 PM EST Generic External Data Provider LAB BLOOD ORDERAB LES Final Result Performing Organization Address [facility] de Phone Number [facility] [address] [place] [phone] * (ABNORMAL) Comprehensive Metabolic Panel (07/09/2024 11:35 PM EST) Sodium 144 135 - 145 mmol/L [facility] Potassium 3.9 3.3 - 5.1 mmol/L [facility] Chloride 112(H) 96 - 108 mmol/L [facility] Carbon Dioxide 26 22 - 29 mmol/L [facility] Anion Gap 10(L) 12 - 20 [facility] Urea Nitrogen (BUN) 15 9 - 16 mg/dL [facility] Creatinine, Serum 0.78 0.5 - 1.4 mg/dL [facility] Creatinine Clr Calc Pharmacy 56.0 [facility] Comment:Provided height and weight: 154.94 cm,90.718 kg.eGFR (calculated from the MDRD study equation) and eCrCl(calculated from the Cockcroft-Gault equation) are based ondifferent parameters and may not yield comparable results.If eCrCl result is absurd, please check patient'sheight/weight. Estimated Glomerular Filt Rate >60 [facility] Comment:Chronic Kidney Disea se: Estimated GFR < 60 mL/min/[id number] Kidney Disease: Estimated GFR < 15 mL/min/1.73m2 Glucose 111 60 - 115 mg/dL [facility] Calcium 8.8 8.4 - 10.2 mg/dL [facility] Bilirubin, Total 0.5 0.0 - 1.0 mg/dL [facility] Aspartate Amino Transferase 28 5 - 31 U/L [facility] Alanine Aminotransferase 43(H) 0 - 31 U/L [facility] Total Protein 7.1 6.5 - 8.0 g/dL [facility] Albumin Level 3.7 3.5 - 5.0 g/dL [facility] Alkaline Phosphatase 89 39 - 117 U/L [facility] 07/09/2024 11:3 5 PM EST 07/09/2024 11:37 PM EST us Generic External Data Provider LAB BLOOD ORDERAB LES Final Result [facility] [address] [place] [phone] * SARS-CoV-2 RNA, Influenza A/B, and RSV RNA, Ql NAAT (07/09/2024 11:30 PM EST) Only the most recent of2 resultswithin the time period is included. Influenza A PCR NEGATIVE Negative [facility] Influenza B PCR NEGATIVE Negative [facility] Resp Syncy Virus RNA Qual PCR NEGATIVE Negative [facility] SARS COV2 PCR NEGATIVE Negative [facility] Comment:All test results mus t be [...] use by authorized laboratories.Testing performed on the [employer] GeneXpert utilizingreal-time RT-PCR.All SARS CoV2 and positive influenza A/B results arereported to [facility]. 07/09/2024 11:3 0 PM EST 07/09/2024 11:37 PM EST us Generic External Data Provider LAB MICROBIOLOGY - GENERAL ORDERABLES Final Result Performing Organization Address City/State/[facility] Co de Phone Number [facility] [address] [place] [phone] * XR Chest 1 View (07/01/2024 10:44 AM EST) Anatomical Region Laterality Modality Chest Radiographic Christina ging 07/01/2024 10:4 4 AM EST Narrative 07/01/2024 10:45 AM EST ? [facility] ?[address] [place] [address]. ?[place] [address] ?XRay Report ? Signed ? Patient: Hopper,Mickie ?MR#: [id number] ?? 27 ? : 1940 ?Acct:[id number] ? Age/Sex: 83 / F ?ADM Date: 02/17/25 ? Loc: HO.ED ? Attending Dr: ? Ordering Physician: Hannah Downs DO ?? Date of Service: 07/01/24 ?? Procedure(s): XR chest 1V ?? Accession Number(s): [id number] ? cc: Hannah Downs DO; Pedro Ingram [...] DD/ 1044 ? TD/TT: 07/01/24 1044 ? Hot Metal Charger: ? Procedure Note Donisater, Image - 07/01/2024 [place] [address] XRay Report Signed Patient: Mickie HopperMR#: [id number] [birth year] : 1940cct:[id number] Age/Sex: 83 / FADM Date: 07/01/24 Loc: HO.ED Attending Dr: Ordering Physician: Hannah Downs DO Date of Service: 07/01/24 Procedure(s): XR chest 1V Accession Number(s): [id number] cc: Hannah Downs DO; Pedro Ingram MD [...] 07/01/24 1045 DD/ 1044 TD/TT: 07/01/24 1044 Hot Metal Charger: us [facility] External Provider IMG XR PROCEDURES Final Result * VENOUS BLOOD GAS (07/01/2024 10:32 AM EST) Pathologist [facility] VBG pH 7.41 7.32 - 7.43 [facility] Comment:METER #: [id number] additional_comment: Sekou serrano VBG PCO2 41 mmHg [facility] Comment:METER #: [id number] additional_comment: Sekou serrano VBG PO2 45 mmHg [facility] Comment:METER #: [id number] additional_comment: Sekou serrano VBG Base Excess 1.8 mmol/L [facility] Comment:METER #: [id number] additional_comment: Sekou serrano VBG HCO3 26 22 - 26 mmol/L [facility] Comment:METER #: [id number] additional_comment: Sekou serrano O2 Sat, Alfredo 70.0 % [facility] Comment:METER #: [id number] additional_comment: Sekou serrano 07/01/2024 10:3 2 AM EST 07/01/2024 10:40 AM EST Generic External Data Provider LAB BLOOD ORDERAB LES Final Result Performing Organization Address [facility] de Phone Number [facility] [address] [place] [phone] * (ABNORMAL) B Type Natriuretic Peptide (BNP) (07/01/2024 10:26 AM EST) Pathologist [facility] B Type Natriuretic Peptide 157(H) <100 pg/mL [facility] Comment:For those patients w ho are being treated with Natrecor(nesiritide, recombinant BNP), BNP testing should beperformed at least two hours post treatment in order toensure that only endogenous levels of BNP are detected. 07/01/2024 10:2 6 AM EST 07/01/2024 10:32 AM EST Generic External Data Provider LAB BLOOD ORDERAB LES Final Result [facility] [address] [place] [phone] * Lactic Acid (07/01/2024 10:26 AM EST) [facility] Lactic Acid 1.0 0.5 - 2.0 mmol/L [facility] 07/01/2024 10:2 6 AM EST 07/01/2024 10:32 AM EST Generic External Data Provider LAB BLOOD ORDERAB LES Final Result Performing Organization Address [facility] Co de Phone Number [facility] [address] [place] [phone] * (ABNORMAL) Hepatic Function Panel (07/01/2024 10:26 AM EST) [facility] Bilirubin, Total 0.6 0.0 - 1.0 mg/dL [facility] Bilirubin, Direct 0.3 0.0 - 0.5 mg/dL [facility] Aspartate Amino Transferase 38(H) 5 - 31 U/L [facility] Alanine Aminotransferase 22 0 - 31 U/L [facility] Total Protein 7.7 6.5 - 8.0 g/dL [facility] Albumin Level 4.0 3.5 - 5.0 g/dL [facility] Alkaline Phosphatase 102 39 - 117 U/L [facility] 07/01/2024 10:2 6 AM EST 07/01/2024 10:32 AM EST Generic External Data Provider LAB BLOOD ORDERAB LES Final Result Performing Organization Address [facility] Co de Phone Number [facility] [address] [place] [phone] * (ABNORMAL) Basic Metabolic Panel (07/01/2024 10:26 AM EST) Pathologist [facility] Sodium 142 135 - 145 mmol/L [facility] Potassium 3.6 3.3 - 5.1 mmol/L [facility] Chloride 110(H) 96 - 108 mmol/L [facility] Carbon Dioxide 24 22 - 29 mmol/L [facility] Anion Gap 12 12 - 20 [facility] Urea Nitrogen (BUN) 5(L) 9 - 16 mg/dL [facility] Creatinine, Serum 0.74 0.5 - 1.4 mg/dL [facility] Creatinine Clr Calc Pharmacy 55.1 [facility] Comment:Provided height and weight: 154.94 cm,79.9 kg.eGFR (calculated from the MDRD study equation) and eCrCl(calculated from the Cockcroft-Gault equation) are based ondifferent parameters and may not yield comparable results.If eCrCl result is absurd, please check patient'sheight/weight. Estimated Glomerular Filt Rate >60 [facility] Comment:Chronic Kidney Disea se: Estimated GFR < 60 mL/min/[id number] Kidney Disease: Estimated GFR < 15 mL/min/1.73m2 Glucose 97 60 - 115 mg/dL [facility] Calcium 9.4 8.4 - 10.2 mg/dL [facility] 07/01/2024 10:2 6 AM EST 07/01/2024 10:32 AM EST us Generic External Data Provider LAB BLOOD ORDERAB LES Final Result [facility] [address] [place] [phone] * Lipid Panel, Standard (05/02/2024 10:01 AM EST) Triglycerides 92 <150 mg/dL [facility] Comment:Desirable Triglyceri de: less than 150 mg/dLBorderline High Triglyceride 150-199 mg/dLHigh Triglyceride: 200-499 mg/dLVery High Triglyceride: greater than or equal to 5OO mg/dL Cholesterol 127 <200 mg/dL [facility] Comment:Desirable Cholestero l: less than 200 mg/dLBorderline High Cholesterol: 200-239 mg/dLHigh Cholesterol: greater than 239 mg/dL LDL Cholesterol Calculated 58 <100 mg/dL [facility] Comment:Desirable LDL: less than 100 mg/dLNear Optimal/Above Optimal LDL: 110- 129 mg/dLBorderline High LDL: 130-159 mg/dLHigh LDL: 160-189 mg/dLVery High LDL: greater than or equal to 190 mg/dL HDL Cholesterol 51 >40 mg/dL [facility] Comment:Desirable HDL: great er than 40 mg/dL Note: This HDL assay may give artificially low results in patients with liver disease. Blood Venous blood specimen / Unknown 05/02/2024 10:01 AM EST 05/02/2024 11:15 AM EST Pedro Leiva MD LAB BLOOD ORDERABLES Final Result Performing Organization Address City/State/[facility] Co de Phone Number [facility] [address] [place] [address] [phone] * BI Mammogram Screening Tomosynthesis Bilateral (09/18/2023 2:30 PM EDT) Anatomical Region Laterality Modality Breast Bilateral Mammography 09/18/2023 2:30 PM EDT Narrative 09/18/2023 4:18 PM EDT ? [facility] [place] ? [address] ?[place] [address] ? Mammography Report ? Signed ? Patient: Ward,Mickie ?MR#: [id number] ?? 27 ? : 1940 ?Acct:[id number] ? Age/Sex: 82 / F ?ADM Date: 05//24 ? Loc: HO.MAMMO ? Attending : Sylvia Lennon DO ? Ordering Physician: Sylvia Lennon DO ?Results: 2B ?? enign Findings ? Date of Service: 09/18/23 ?Follow Up: 1 Year From Orig ?? inal Mammogram ? Procedure(s): MM tomosynthesis screening BI ?? Accession Number(s): [id number] ? cc: Pedro Ingram MD; Sylvia Lennon [...] 1614 ? DD/ 1430 ? TD/TT: ? Hot Metal Charger: ? Procedure Note Jocelyn Juarez - 09/18/2023 Florian [facility] [address], [place] [address] Mammography Report Signed Patient: Mickie Hopper#: [id number] 27 : 1Acct:[id number] Age/Sex: 82 / FADM Date: 09/18/23 Loc: HO.MAMMO Attending Dr: Sylvia Lennon DO Ordering Physician: Sylvia Lennonults: 2B enign Findings Date of Service: 09/18/23Follow Up: 1 Year From Orig ina Mammogram Procedure(s): MM tomosynthesis screening BI Accession Number(s): [id number] cc: Pedro Ingram MD; Sylvia Lennon DO [...] in OV> 09/18/23 1614 DD/ 1430 TD/TT: Hot Metal Charger: us Sylvia Lennon DO IMG BI PROCEDURES Final Resu lt from Last 3 Months or Most Recently Relevant to Health Maintenance Insurance [employer] [place] [id number] Care Teams Clothing And Textiles Teacher Relationship Specialty Start Date End Date Pedro Braxton MD [address] [place] [address] PCP - General Internal Medicine 03/15/13
--- OUTSIDE RECORDS SUMMARY | 2024-09-19 07:29 | XMS_ITS | Encounter Summary ---
Author Organization [employer] Address [address] [facility] [address] [place] [address] Care Team Providers Care Oracle Endeca Consultant Name Role Phone Pedro Braxton MD Primary Care Provide r Encounter Details Date Type Department Care Team (Late st Contact Info) Description 06/09/2022 Orders Only [facility] MED & PEDS [address] [place], [place] [phone] Sylvia Valentino LPN Social History Tobacco Use [...] Description 11/05/2024 2:15 PM EDT Office Visit [facility] MEDICINE [address] [place] [address] Pedro Braxton MD [address] [place], [place] [phone] documented as of this encounter Visit Diagnoses Not on filedocumented in this encounter Care Teams Oracle Endeca Consultant Relationship Specialty Start Date End Date Pedro Braxton MD [address] [place] [id number] PCP - General Internal Medicine 03/15/13 documented as of this encounter
--- OUTSIDE RECORDS SUMMARY | 2024-09-19 07:29 | XMS_ITS | Encounter Summary ---
Author Organization [employer] Address [address] [facility] [address] [place] [address] Care Team Providers Care Clockmaker Name Role Phone Pedro Braxton MD Primary Care Provide r Encounter Details Date Type Department Care Team (Late Contact Info) Description 09/27/2022 Orders Only [facility] CH[facility] MED & PEDS [address] [place], [place] [phone] Sylvia Valentino LPN Social History Tobacco Use [...] Upcoming Encounters Date Type Department Care Team ([facility] Contact Info) Description 11/05/2024 2:15 PM EDT Office Visit [facility] MEDICINE [address] [place], [place] [phone] Pedro Braxton MD [address] [place], [place] [phone] documented as of this encounter Visit Diagnoses Not on filedocumented in this encounter Care Teams Clockmaker Relationship Specialty Start Date End Date Pedro Braxton MD [address] [place] [address] PCP - General Internal Medicine 03/15/13 documented as of this encounter
--- OUTSIDE RECORDS SUMMARY | 2024-09-19 07:29 | XMS_ITS | Encounter Summary ---
Author Organization [employer] Address [address] [facility] [address] [place] [address] Care Team Providers Care Medical Collections Representative Name Role Phone Pedro Braxton MD Primary Care Provide r Encounter Details Date Type Department Care Team (Late Contact Info) Description 12/06/2022 Orders Only [facility] CH[facility] MED & PEDS [address] [place] [address] Sylvia Valentino LPN Social History Tobacco Use [...] 11/05/2024 2:15 PM EDT Office Visit [facility] MEDICINE [address] [place] [address] Pedro Braxton MD [address] [place] [address] documented as of this encounter Visit Diagnoses Not on filedocumented in this encounter Care Teams Medical Collections Representative Relationship Specialty Start Date End Date Pedro Braxton MD [address] [place] [address] PCP - General Internal Medicine 03/15/13 documented as of this encounter
--- OUTSIDE RECORDS SUMMARY | 2024-09-19 07:29 | XMS_ITS | Encounter Summary ---
Author Organization [employer] Address [address] [facility] [address] [place] [address] Care Team Providers Care Granite Sandblaster Apprentice Name Role Phone Pedro Braxton MD Primary Care Provide r Encounter Details Date Type Department Care Team ([facility] st Contact Info) Description 04/01/2024 Orders Only [facility] [address] [place] [address] Provider, MD Zulay Social History Tobacco Use Types Packs/Day Years [...] 11/05/2024 2:15 PM EDT Office Visit [facility] MEDICINE [address] [place], [place] [phone] Pedro Braxton MD [address] [place] [address] documented as of this encounter Procedures Procedure [...] documented as of this encounter Care Teams Granite Sandblaster Apprentice Relationship Specialty Start Date End Date Pedro Braxton MD [address] [place], [place] [phone] PCP - General Internal Medicine 03/15/13 documented as of this encounter
--- OUTSIDE RECORDS SUMMARY | 2024-09-19 07:29 | XMS_ITS | Clinical Summary ---
Author Organization [facility] Address [address] [place] [address] Phone Care Team Providers Care Manager Database Name Role Phone Pedro Ingram MD Primary [...] time each day with breakfast. 4 Active Medical History Medical History Date Comments Hypertension [...] mmol/L LAB CHEMISTRY METHOD 03/30/2024 1:04 PM EST [facility] Potassium 3.6 3.5 - 5.5 mmol/L LAB CHEMISTRY METHOD 03/30/2024 1:04 PM EST [facility] Chloride 109 96 - 110 mmol/L LAB CHEMISTRY METHOD 03/30/2024 1:04 PM [facility] CO2 27 21 - 32 mmol/L LAB CHEMISTRY METHOD 03/30/2024 1:04 PM [facility] Anion Gap 5 3 - 11 LAB CHEMISTRY METHOD 03/30/2024 1:04 PM [facility] Glucose 98 70 - 100 mg/dL LAB CHEMISTRY METHOD 03/30/2024 1:04 PM [facility] BUN 7 5 - 25 mg/dL LAB CHEMISTRY METHOD 03/30/2024 1:04 PM [facility] Creatinine 0.79 0.50 - 1.10 mg/dL LAB CHEMISTRY METHOD 03/30/2024 1:04 PM [facility] eGFR 74 >=60 mL/min/1. 73m2 LAB CHEMISTRY METHOD 03/30/2024 1:04 PM [facility] Comment:Calculation based on the??Chronic Kidney Disease Epidemiology Collaboration (CKD-EPI) equation refit??without adjustment for race. BUN/Creatinine Ratio 8.9 LAB CHEMISTRY METHOD 03/30/2024 1:04 PM [facility] Calcium 8.9 8.5 - 10.5 mg/dL LAB CHEMISTRY METHOD 03/30/2024 1:04 PM [facility] Blood Venous blood specimen / Unknown Venipuncture / Unknown 03/30/2024 12:09 PM EST 03/30/2024 12:12 PM EST us Zulema Fuentes MD LAB BLOOD ORDERABLES Final Resul t [facility] [address] [place] [address], from Last 3 Months or Most Recently Relevant to Health Maintenance Insurance [facility] MEDICARE Member Subscriber Plan / Payer (Ef fective 2008-Present) Name:Mickie Hopper Relation to Subscriber:Self Name:Mickie Hopper Payer ID:[id number] Group ID:[id number] Type:Not on file Address: [place] [address] [place] [id number] Care Teams Manager Database Relationship Specialty Start Date End Date Pedro Ingram MD [address] [place] [address] [place] [phone] PCP - General 11/23/09
--- OUTSIDE RECORDS SUMMARY | 2024-09-19 07:29 | XMS_ITS | Data Portability ---
Author Organization [employer] [employer] Address [address] [place] [address] Care Team Providers Care Vice President Of Contracts Name Role Phone HIM CCA OTHER Assessment Encounter Date Assessment Date Assessment LastModified by Organization Details LastModified Time 02/23/2023 02/23/2023 I provided real -time medical direction via phone for this encounter, and was available for additional phone based assistance as needed. I have reviewed and agree with the Assessment and Plan as documented by the Technical Agronomist. Patient given the opportunity to ask questions. Advised through distribution agent if develops CP/severe SOB/turning blue/uncontrolle d n/v/d / AMS/ syncope/ hi fever unresponsive to APAP to call 911- verbalized understanding of instructions [email or web address] Not available 02/23/2023 22:43:57 04/21/2023 04/21/2023 As noted, we were called to see this patient regarding concerns of headache, fever, chills. Evaluation in the field was performed by my agriculture laborer colleague, as noted above, I provided real-time [...] Assessment and Plan as documented by the Technical Agronomist. We discussed the diagnostic uncertainty of home [...] verbalized understanding of instructions to the medic Not available 06/08/2024 03:36:06 07/09/2024 07/09/2024 service [...] IA, respiratory specimen 2024 025 [facility], [address] [place] [address], [id number] 5 08:14:58 rapid flu (A+B) [address], [phone] 5 08:14:59 urinalysis, dipstick [address], [phone] 5 08:14:59 rapid SARS CoV 2 Ag, QL IA, respiratory specimen 2024 025 [email or web address] 0 [facility], [address] [place] [address], [id number] 5 14:48:13 rapid flu (A+B) 2024 025 [email or web address] 0 [facility], [address] [place] [address], [id number] 5 14:48:13 BMP, serum or plasma 2024 025 [email or web address] 0 [facility], [address] [place] [address], [id number] 5 14:49:41 rapid strep group A, throat 2024 025 [email or web address] 0 [facility], [address] [place] [address], [id number] 5 14:48:13 rapid SARS CoV 2 Ag, QL IA, respiratory specimen 2023 024 JONATHAN [facility], [address] [place] [address], [id number] 4 08:26:10 rapid flu (A+B) 2023 024 JONATHAN [facility], [address] [place] [address], [id number] 4 08:26:30 rapid SARS CoV 2 Ag, QL IA, respiratory specimen 2022 023 [email or web address] 0 [facility], [address] [place] [address], [id number] 3 18:07:47 rapid flu (A+B) 2022 023 [email or web address] 0 [facility], [address] [place] [address], [id number] 3 18:07:47 Referral None recorded. Procedures None recorded. Surgeries None recorded. Imaging None recorded. Medication Orders albuterol sulfate 2.5 mg/3 mL (0.083 %) solution for nebulizatio n 2024 025 [email or web address] [id number], [address], [place], [id number], 5 23:19:21 meclizine 25 mg tablet 2024 025 [email or web address] 0 [facility] #17505, [address], [place], [id number], 5 14:48:13 meclizine 12.5 mg tablet 2024 025 [facility], [address], [place], [id number], 5 14:48:21 doxycycline hyclate 100 mg tablet 2024 025 [email or web address] 0 [facility] #94149, [address], [place], [id number], 5 14:48:12 doxycycline hyclate 100 mg capsule [address] [facility] #12911, [address], [place], [id number], 5 14:48:18 benzonatate 200 mg capsule 2022 023 [facility], [address], [place], [id number], 3 18:28:40 Patient TargetsNo targets recorded. Patient InstructionsNo instructions recorded. Reason for Referral None Reported. Results Created Date Observation Date Name Description Value Unit Range Abnormal Flag Note LastModifiedBy Organization Detail LastModifiedTime 02/24/2002/23/2023 rapid flu (A+B) Flu negati ve Not Available Main - [facility] ed [address] [place] [address], [id number] 02/23/2023 18:07:27 02/24/2002/23/2023 rapid SARS CoV 2 Ag, QL IA, respi rator y speci men rapid SARS CoV 2 Ag, QL IA, respiratory specimen negati ve Not Available [facility] ed [address] [place] [address], [id number] 02/23/2023 18:07:26 06/07/1906/07/2024 rapid strep group A, throa t Strep negati ve Not Available [address], [id number] 06/07/2024 14:10:26 06/07/1906/07/2024 rapid SARS CoV 2 Ag, QL IA, respi rator y speci men rapid SARS CoV 2 Ag, QL IA, respiratory specimen negati ve Not Available [address], [address] 06/07/2024 14:10:19 06/07/1906/07/2024 rapid flu (A+B) Flu negati ve Not Available [address], [phone] 06/07/2024 14:10:20 Result Notes None recorded. Medical Equipment None Reported. Allergies Allergen ID Allergen Name Allergen Category Reaction Reaction Severity Criticality Documentation Date Start Date Code Code System Note Provider Name and Address Organization Details Recorded Time 33080 Product containin g angiotens in-conver ting enzyme inhibitor (product) medicatio n Not available Not available Not available 07/09/2024 06486 009 SNOMED Not Available [facility] - production [...] mm[Hg] 88 mm[Hg] Not Available [facility] 3 17:57:56 Date Recorded Body temperature Respiratory rate Oxygen saturation Oxygen saturation in Arterial blood by Pulse oximetry Heart rate Systolic blood pressure Diastolic blood pressure Provider Name and Address Organization Details Last Updated DateTime 3 99.2 [degF] 16 /min 99 % 99 % 75 /min 130 mm[Hg] 82 mm[Hg] Not Available [facility] 3 15:40:47 Date Recorded Oxygen saturation Oxygen saturation in Arterial blood by Pulse oximetry Body temperature Body height Respiratory rate Heart rate Body weight Systolic blood pressure Diastolic blood pressure Provider Name and Address Organization Details Last Updated DateTime 4 97 % 97 % 99.1 [degF] 154.94 cm 18 /min 72 /min 16465.1 52 g 110 mm[Hg] 71 mm[Hg] Not Available [facility] 4 21:28:15 Date Recorded Body temperature Oxygen saturation Oxygen saturation in Arterial blood by Pulse oximetry Body height Heart rate Respiratory rate Body weight Systolic blood pressure Diastolic blood pressure Provider Name and Address Organization Details Last Updated DateTime 5 99.1 [degF] 96 % 96 % 154.94 cm 77 /min 18 /min 78128.5 6 g 139 mm[Hg] 74 mm[Hg] Not Available [facility] 5 14:03:22 Date Recorded Heart rate Systolic blood pressure Diastolic blood pressure Provider Name and Address Organization Details Last Updated DateTime 06/07/2024 86 /min 123 mm[Hg] 76 mm[Hg] Paula Paulson MD [address] [place] [address],[address], [place], [address], [place] - [facility] 06/07/2024 14:51:00 Date Recorded Heart rate Respiratory rate Body weight Body temperature Oxygen saturation Oxygen saturation in Arterial blood by Pulse oximetry Body height Systolic blood pressure Diastolic blood pressure Provider Name and Address Organization Details Last Updated DateTime 64 /min 16 /min 20402.3 76 g 98.4 [degF] 97 % 97 [...] SNOMED-CT Code Diagnosis ICD10 Code Diagnosis Note [id number] Manas Swanson MD [address] [address] 12/08/2022 14:34:52 12/09/2022 11:10:56 Headache 74928333 R51.9 [id number] Paula Paulson MD [address] [address] 02/23/2023 17:57:45 02/26/2023 12:35:10 Viral upper respiratory tract infection [id number] J06.9 Advised patient likely has COVID but [...] has a good Rx card for [facility]- [id number] THERESA ANDERSON MD [facility] [address] [place] [phone] 04/21/2023 15:40:44 04/24/2023 17:03:22 Viral syndrome [id number] B34.9 [id number] Jason Ibrahim MD [facility] [address] [place] [phone] 02/26/2024 21:28:07 02/27/2024 12:02:54 Influenza-like illness [id number] B34.9 As noted, we were called to see this patient regarding concerns of fever and cough. Evaluation in the field was performed by my agriculture laborer colleague, as noted above, I provided real-time [...] symptoms, particular ly confusion, dyspnea, high fever [id number] Paula Paulson MD [facility] [address] [place] [phone] 06/07/2024 14:03:20 06/09/2024 15:01:25 Upper respiratory infection [id number] J06.9 w/ dizziness ? BPV- trial meclizine/ [...] Continue Breo as directed NKDA/ Pharmacy verified [id number] Fidel Chau MD [address] [address] 07/09/2024 21:04:22 07/10/2024 12:22:57 Cough [id number] R05.9 Health Concerns Section Related Observation LastModified by Organization Detai ls LastModified Time None Recorded Concern Status LastModified by Organization Details LastModified Time None Recorded Advance Directives Directive None Recorded Payers Insurance Date Sequence Insurance Name Policy Number Policy Huang Covered Member ID Huang Member ID Guarantor Name 07/10/2024 1 [facility] - DOS ON OR AFTER 2022 - DUAL ELIGIBLE - RETIREMENT OPTIONS AND ONE CARE (MEDICARE REPLACEMENT/ADV ANTAGE - HMO) Mickie Ward [id number] Mickie Ward Notes Date Note Type Note Provider Name [...] COVID. ......................... ......................... ......................... ......................... ......................... ................ Technical Agronomist Note From Hamzah Pereira: PT reports that [...] ................ Disposition: Fulfilled Paula Paulson MD [address] [facility],[address], [place], [address], [facility] 02/23/2023 22:47:51 3 text/html CRC Nursing Assessment: Reason For Request: Severe cough, ugly congestion, keeping her up at night>reporting fevers>headache>weakness> symptoms going on 4 days. Chief Complaints: Cough, Headache, Fever/Chills, Weakness/Lethargy, URI PMH: COPD/Asthma, Hypertension Allergies: No Known Comments: Referral taken via Humidifier Operator. Member calling in to place a referral, [...] evaluated. ......................... ......................... ......................... ......................... ......................... ................ Technical Agronomist Note From Marlon Moulton: Dispatched to the [...] ................ Disposition: Fulfilled THERESA ANDERSON MD [address] [facility],[address], [place], [address], [facility] 04/21/2023 16:06:33 4 text/html CRC Nurse Triage Notes (Chaitanya Skinner): Chief Complaints: Cough PMH: COPD/Asthma, Hypertension Allergies: Unknown Comments: Lathe Operator Contact Lens verified the Pt.'s name//address and phone number. [...] - Pt is refusing ER - Declined Technical Agronomist Organization Information for [employer] [facility] [employer] Legal Name: [employer]? Address: [address] [place] [address], Industrial Maintenance Mechanic: Valerio Hunter MD CLIA No.: [id number] Technical Agronomist POC Test Results from [employer] [facility] Rapid influenza antigen (21:20:51) Flu: - Rapid COVID antigen (21:25:55) COVID: - Jason Ibrahim MD [address] [facility],[address], [place], [address], [facility] 02/26/2024 21:45:30 5 text/html CRC Nurse Triage [...] Cough, Fever/chillsPMH: COPD/Asthma, HypertensionPMH Reviewed at 06/07/2024 12:15Allergies Reviewed at 06/07/2024 12:15Comments: Lathe Operator Contact Lens verified the Pt.'s name//address and phone number. [...] coughing. Concerns expressed and ER treatment declined. Technical Agronomist Organization Information for Jenny Rock - [employer] Legal Name: [employer]?Address: [address] [place] [id number], Medical Director: Valerio Hunter [facility] [id number] Technical Agronomist POC Test Results from [facility] Jenny - ALS Rapid COVID antigen (13:49:17)COVID: - [...] section. ......................... ......................... ......................... ......................... ......................... ................ Technical Agronomist Note From Jenny Rock: Sent to a call for a pt complaining of cough. [facility] arrives on scene, pt is alert and oriented, airway is patent. Pt's primary language is Thai. Family serves as distribution agent. Pt has history of COPD, Asthma, and [...] covid/flu test: neg; Rapid strep test: neg; [facility] orders POC bloodwork. IV access/venous blood draw performed; Chem8+ results: uploaded to [facility]; [facility] orders Meclizine 12.5mg PO and Doxycycline 100mg PO. [facility] sends script to pt's pharmacy. Meclizine 12.5mg [...] questions. ......................... ......................... ......................... ......................... ......................... ................ [facility] Consulted: Paula Paulson ......................... ......................... ......................... ......................... ......................... ................ Disposition: Rochelle HILL MD: Patient denies headache, focal neuro-deficits, chest pain, palpitations, significant shortness of breath Paula Paulson MD [address] [place] [address],[address], [place], [address], [facility] 06/08/2024 03:38:49 5 text/html HPI: rosalva Templeton who mbr gave verbal consent to speak w/ reports this 83 y.o. F w/ hx of COPD is c/o increased sob, initially starting ~1 mo ago w/ bronchitis. She was inpatient at [facility] 07/01-07/03 for asthma exac and flu, [...] changes. CCA CP is Sylvia Bran, email: [email or web address] (not found in [facility] database) [...] Reviewed at 07/09/2024 - 18:02 Comments: Reviewed HPI Technical Agronomist Organization Information for [employer] Legal Name: [employer]? Address: [address] [place] [address], Industrial Maintenance Mechanic: Valerio Hunter MD CLIA No.: [id number] Technical Agronomist POC Test Results from [facility], Merikarol - ALS Rapid COVID antigen (21:24:52) COVID: [...] GLU ......................... ......................... ......................... ......................... ......................... ................ Technical Agronomist Note From Mae Soto: ANDRE makes pt [...] and treatment at this time. [facility] obtains vital signs and pt is assessed. Lung sounds are wheezy and rhonchus throughout. Abdomen is soft and nontender. [facility] performs a basic neuro assessment and cranial nerves are grossly intact and pt is A&Ox4 and is able to process information regarding yesterday and tomorrow. Pt is swabbed for COVID/flu and she provides urine for urine dipstick analysis. [facility] contacts [facility] and discusses the above. [facility] orders duoneb for the pt and will attempt to facilitate obtaining a home nebulizer for the pt. [facility] administers duoneb to the pt via nebulizer mask at 8 lpm. Lung sounds remain rhonchus, however wheezing has dissipated. Pt endorses feeling much better . [facility] informs pt of concerns about her earlier s/s from today of feeling like she had a mini stroke. [facility] emphasized that w/o proper evaluation, she could have another stroke and . She stated her understanding and while [facility] was packing up to leave, pt decided she was going to take a shower and allow her family to take her to the ED. Family thanks [facility] for coming. [facility] is clear. Report completed by EILEEN Soto [id number]. ......................... ......................... ......................... ......................... ......................... ................ [facility] Consulted: Fidel Chau ......................... ......................... ......................... ......................... ......................... ................ Disposition: Fulfilled Fidel Chau MD [address] [facility],[address], [place], [address], [facility] 07/09/2024 23:19:24 OBGyn Episode No OBEpisode recorded.
--- OUTSIDE RECORDS SUMMARY | 2024-09-19 07:29 | XMS_ITS | Encounter Summary ---
Author Organization [email or web address] Address [address] [facility] [address], [place] [address] Care Team Providers Care Motor Vehicle Assembly Supervisor Name Role Phone Pedro Braxton MD Primary Care Provide r Encounter Details Date Type Department Care Team (Late Contact Info) Description 09/05/2022 Orders Only [facility] [address] [place], [place] [phone] Sylvia Valentino LPN Social History Tobacco Use [...] Office Visit [facility] [address] [place], [place] [phone] Pdero Braxton MD [address] [place], [place] [phone] documented as of this encounter Visit Diagnoses Not on filedocumented in this encounter Care Teams Motor Vehicle Assembly Supervisor Relationship Specialty Start Date End Date Pedro Braxton MD [address] [place] [address] PCP - General Internal Medicine 03/15/13 documented as of this encounter
== END 2024-09-19 07:28 | disposition home or self-care (01) ==
LOC: HO.XRAY 07:27
PROVIDERS: PCP Internal Medicine; Visit Provider Internal Medicine
DX: R09.A2 Foreign body sensation, throat (principal)
CPT/HCPCS: 74220

== ENCOUNTER → 2024-09-19 07:31 | Outpatient (BNV) | payer OTHER, SELFPAY | PROVIDERS: PCP Internal Medicine; Visit Provider Radiology Diagnostic Radiology | DX: K44.9 Diaphragmatic hernia without obstruction or gangrene (principal); K21.9 Gastro-esophageal reflux disease without esophagitis | CPT/HCPCS: 74220 ==

== ENCOUNTER 2024-10-23 11:37 | Outpatient (REF) | payer OTHER, SELFPAY ==
--- NOTE | ~2024-10-23 | XR_ITS ---
EXAMINATION: XR KNEE 3 VIEWS RIGHT HISTORY: M17.11 - Unilateral primary osteoarthritis, right knee COMPARISON: Comparison is made with the prior examination dated 01/07/2022. FINDINGS: Standing AP views of both knees and additional lateral and sunrise patellar views of the right knee are submitted. The patient is again noted to be status post total knee arthroplasty. The orthopedic elements are in anatomic alignment. There is no radiographic evidence of loosening. There is no fracture or dislocation. There is no joint effusion. Again seen are soft tissue calcifications in the region of the quadriceps tendon. Again seen is a probable 10 mm loose body in the posterior aspect of the joint space. XR/XR knee RT 3V IMPRESSION: Status post right total knee arthroplasty. Probable 10 mm loose body in the posterior aspect of the joint space. Electronically signed by: Jayden Florian MD 10/24/2024 07:35 AM EDT
--- OUTSIDE RECORDS SUMMARY | 2024-10-23 13:24 | XMS_ITS | Encounter Summary ---
Author Organization [facility] Address [address] [facility] [address] [place] [address] Care Team Providers Care Demurrage Worker Name Role Phone Pedro Braxton MD Primary Care Provide r Encounter Details Date Type Department Care Team (Late Contact Info) Description 09/27/2022 Orders Only [facility] [address] [place], [place] [phone] Sylvia Valentino LPN Social History Tobacco Use [...] Description 11/05/2024 2:15 PM EDT Office Visit [facility] [address] [employer], [place] [phone] Pedro Braxton MD [address] [place], [place] [phone] documented as of this encounter Visit Diagnoses Not on filedocumented in this encounter Care Teams Demurrage Worker Relationship Specialty Start Date End Date Pedro Braxton MD [address] [place] [id number] PCP - General Internal Medicine 03/15/13 documented as of this encounter
== END 2024-10-23 11:38 | disposition home or self-care (01) ==
LOC: HO.HOSX 11:37
PROVIDERS: Visit Provider Physician Assistant
DX: M19.011 Primary osteoarthritis, right shoulder (principal); Z96.651 Presence of right artificial knee joint
CPT/HCPCS: 20610; 73562; 99212; J1010; J2003

== ENCOUNTER 2024-10-23 13:59 | Outpatient (AMB) | payer OTHER, SELFPAY ==
--- NOTE | 2024-10-23 14:23 | A.OFFVIS_ITS ---
Vital Signs 10/23/24 14:38 Height 5 ft 1 in Weight 163 lb BMI 30.8 Intake Visit Reasons: OV-Rt knee pain Intake Note: Mickie is an 81 year old female who presents today with complaints of right knee pain. Hx of Right TKA. Patient was seen on 01/07/22 for right knee pain status post fall 10/2021. Patient reports her pain has been present for about 3 months. She states about a year ago she fell on her knee. Her pain is located at the medial aspect of knee and describes her pain as a cramping sensation. Hx of varicose veins. Allergies latex [Latex] Allergy (Severe, Verified 10/23/24 14:41) DIFFICULTY BREATHING RELATED TO EXACERBATION OF ASTHMA Cameron Inhibitors Allergy (Severe, Uncoded 10/23/24 14:41) cough From PERCOCET Allergy (Severe, Uncoded 10/23/24 14:41) RASH Medication List - Last Reconciled 10/23/24 by Norberto Arceo PA-C albuterol sulfate 90 mcg/actuation 2 inhalations inhalation Q6H PRN 30 days aspirin 81 mg PO DAILY atorvastatin 20 mg PO BEDTIME compr.stocking,thigh,reg,x-lrg 15-20cm diclofenac sodium 1% 2 grams topical BID docusate sodium 100 mg PO BID dorzolamide-timolol 22.3-6.8 mg/mL 1 drp ophthalmic (eye) BID famotidine 20 mg PO DAILY ferrous fumarate (Ferrocite) 324 mg PO DAILY fluticasone furoate-vilanterol 200-25 mcg/dose (Breo Ellipta) 1 ea inhalation DAILY fluticasone propionate 50 mcg/actuation 2 sprays intranasal DAILY gabapentin 600 mg (2 x 300 mg) PO BEDTIME losartan 100 mg PO BEDTIME meclizine 12.5 mg PO TID PRN meclizine (Dramamine Less Drowsy) 25 mg PO TID PRN montelukast 10 mg PO BEDTIME ondansetron 4 mg PO Q6-8H PRN oseltamivir 30 mg PO BID peg 3350-electrolytes 236-22.74-6.74 -5.86 gram 240 mL PO Q10M peg 3350-electrolytes 236-22.74-6.74 -5.86 gram (Golytely) 240 mL PO Q10M prednisone 40 mg (4 x 10 mg) PO DIRECTED psyllium 1 tbsp PO DAILY sennosides (senna) 17.2 mg PO BEDTIME PRN simethicone 80 mg PO TIDAC verapamil ER 120 mg PO DAILY HPI HPI OV-Rt knee pain: Details: 84-year-old female returns to the office today for discomfort in her right knee. She is status post right total knee arthroplasty from approximately 8 years ago. She states she has intermittent discomfort along the medial aspect of the knee but nothing that makes her feel unstable or unable to perform daily activities. She is actually complaining of bilateral shoulder pain today and is inquiring about a right shoulder injection. She has had these in the past with good results. [facility] Medical History Axillary mass Memory loss Limb swelling History of eye prosthesis Murmur Anemia Dysphagia Hiatal hernia KERON on CPAP Asthma Abnormal colonoscopy (~01/2019) Environmental allergies HTN (hypertension) Acid reflux Surgical History History of throat surgery History of total right knee replacement (TKR) History of colonoscopy History of cholecystectomy History of hysterectomy Social History Household Members: Spouse and Family Housing: House Do you presently have visiting nurse or other home services: Yes ([employer]) Alcohol intake: never Patient Tobacco Use Status: Never used Tobacco service: No Current occupational status: retired 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 handed Review of Systems Const All systems reviewed & are unremarkable except as noted in HPI and below Physical Exam Vital Signs: BMI result Body Mass Index 30.8 Extrem Other: Right shoulder normal to inspection. Tenderness over the bicipital groove and along the trapezium muscle into the lateral side of the neck. FF to 100, ER to 90, IR to S1. 5/5 RTC strength, negative apprehension test. NVI. Office Procedures AMB Joint Injection/Aspiration Joint Injection/Aspiration Primary Site: right shoulder Prep: site was prepped using aseptic technique, ethochloride spray was applied and injection warnings given Injected: 80 mg of, DepoMedrol, with 8 mL of, 1% plain lidocaine and in the subcromial space Approach Used: posterolateral Procedure: The patient tolerated the procedure well and there was some relief with the local anesthesia Coding 61004 - Glenohumeral/Tronchanteric Bursa/Intraarticular Procedure code (CPT) selection complete Results Reviewed Results Reviewed: X-rays of the right knee obtained in the office today and reviewed by me show intact prosthesis no evidence of loosening or fracture. Assessment & Plan Assessment & Plan (1) Status post right knee replacement: Code(s): Z96.651 - Presence of right artificial knee joint Category: Surgical (2) Arthritis of right glenohumeral joint: Code(s): M19.011 - Primary osteoarthritis, right shoulder Category: Medical Plan As for the right knee it appears to be stable without any signs of infection or loosening. I did recommend physical therapy which she would like to hold off on as it is not causing severe pain. We discussed options for the right shoulder which is a steroid injection. She did proceed with this today which she tolerated well. She would like to proceed with a left shoulder injection at a later date and will make an appointment at her convenience. Orders: Orders XR knee RT 3V Today M17.11 - Unilateral primary osteoarthritis, right knee Coding Level of Care Code Est Pt Level 3 (33876) Complex EM visit Add On G2211 Diagnoses Status post right knee replacement Z96.651 Arthritis of right glenohumeral joint M19.011 CPT Codes Coding - Joint 7: 02598 - Glenohumeral/Tronchanteric Bursa/Intraarticular ([id number])
[2024-10-23 14:38] VITALS: BMI 30.8
== END 2024-10-23 15:35 | disposition home or self-care (01) ==
LOC: HO.HOS 14:00
PROVIDERS: PCP Internal Medicine; Visit Provider Physician Assistant
DX: M25.561 Pain in right knee (principal); Z96.651 Presence of right artificial knee joint; M19.011 Primary osteoarthritis, right shoulder
CPT/HCPCS: 20610; 99213

== ENCOUNTER → 2024-10-23 14:21 | Outpatient (BNV) | payer OTHER, SELFPAY | PROVIDERS: Visit Provider Radiology Diagnostic Radiology | DX: Z96.651 Presence of right artificial knee joint (principal) | CPT/HCPCS: 73562 ==

== ENCOUNTER 2024-11-25 09:05 | Outpatient (REF) | payer OTHER, SELFPAY ==
--- NOTE | ~2024-11-25 | XR_ITS ---
EXAMINATION: XR SHOULDER 2 OR MORE VIEWS LEFT HISTORY: M25.512 - Pain in left shoulder COMPARISON: Comparison is made with the prior examination dated 01/13/2022. FINDINGS: Three views of the left shoulder are submitted. Osseous mineralization is normal. There is no fracture or dislocation. The glenohumeral joint is maintained. There is moderate osteoarthritis of the AC joint, with joint space narrowing and osteophyte formation. The soft tissues are unremarkable. XR/XR shoulder LT min 2V IMPRESSION: Moderate osteoarthritis of the AC joint. Electronically signed by: Jayden Florian MD 11/25/2024 02:01 PM EDT
--- OUTSIDE RECORDS SUMMARY | 2024-11-26 09:26 | XMS_ITS | Encounter Summary ---
Author Organization [employer] Address [address] [facility] [address] [place] [address] Care Team Providers Care Wood Engraver Name Role Phone Pedro Braxton MD Primary Care Provide r Encounter Details Date Type Department Care Team (Late st Contact Info) Description 09/27/2022 Orders Only [facility] [address] [place], [place] [phone] Sylvia Valentino LPN Social History Tobacco Use [...] on filedocumented in this encounter Care Teams Wood Engraver Relationship Specialty Start Date End Date Pedro Braxton MD [address] [place] [id number] PCP - General Internal Medicine 03/15/13 documented as of this encounter
--- OUTSIDE RECORDS SUMMARY | 2024-11-26 09:26 | XMS_ITS | Clinical Summary ---
Author Organization [facility] Address [address] [place] [address] Phone Care Team Providers Care Ground Surveillance Systems Operator Name Role Phone Pedro Ingram MD [...] LAB CHEMISTRY METHOD 03/30/2024 1:04 PM EST [facility] Potassium 3.6 3.5 - 5.5 mmol/L LAB CHEMISTRY METHOD 03/30/2024 1:04 PM EST [facility] Chloride 109 96 - 110 mmol/L LAB CHEMISTRY METHOD 03/30/2024 1:04 PM [facility] CO2 27 21 - 32 mmol/L LAB CHEMISTRY METHOD 03/30/2024 1:04 PM [facility] Anion Gap 5 3 - 11 LAB CHEMISTRY METHOD 03/30/2024 1:04 PM [facility] Glucose 98 70 - 100 mg/dL LAB CHEMISTRY METHOD 03/30/2024 1:04 PM [facility] BUN 7 5 - 25 mg/dL LAB CHEMISTRY METHOD 03/30/2024 1:04 PM [facility] Creatinine 0.79 0.50 - 1.10 mg/dL LAB CHEMISTRY METHOD 03/30/2024 1:04 PM [facility] eGFR 74 >=60 mL/min/1. 73m2 LAB CHEMISTRY METHOD 03/30/2024 1:04 PM [facility] Comment:Calculation based on the Chronic Kidney Disease Epidemiology Collaboration (CKD-EPI) equation refit without adjustment for race. BUN/Creatinine Ratio 8.9 LAB CHEMISTRY METHOD 03/30/2024 1:04 PM [facility] Calcium 8.9 8.5 - 10.5 mg/dL LAB CHEMISTRY METHOD 03/30/2024 1:04 PM [facility] Blood Venous blood specimen / Unknown Venipuncture / Unknown 03/30/2024 12:09 PM EST 03/30/2024 12:12 PM EST us Zulema Fuentes MD LAB BLOOD ORDERABLES Final Resul t [facility] [address] [place] [address], from Last 3 Months or Most Recently Relevant to Health Maintenance Insurance [facility]IC[facility] Member Subscriber Plan / Payer (Ef fective 2008-Present) Name:Mickie Hopper Relation to Subscriber:Self Name:Mickie Hopper Payer ID:[id number] Group ID:[id number] Type:Not on file Address: [place] [address] [address] [id number] Care Teams Ground Surveillance Systems Operator Relationship Specialty Start Date End Date Pedro Ingram MD [address] [place] [address] [place] [phone] PCP - General 11/23/09
--- OUTSIDE RECORDS SUMMARY | 2024-11-26 09:26 | XMS_ITS | Encounter Summary ---
Author Organization [facility] Address [address] [place] [address] Care Team Providers Care Gambling Cashier Name Role Phone Pedro Ingram MD Primary Care Provide r Unavailable Encounter Details Date Type Department Care Team Description 05/21/2019 Release of Information Medical Records [address] [place] [address] Abstract, Provider Social History Tobacco Use Types [...] on filedocumented in this encounter Care Teams Gambling Cashier Relationship Specialty Start Date End Date Pedro Ingram MD PCP - General 11/23/09 documented as of this encounter
== END 2024-11-25 09:06 | disposition home or self-care (01) ==
LOC: HO.HOSX 09:05
PROVIDERS: Visit Provider Physician Assistant
DX: M19.012 Primary osteoarthritis, left shoulder (principal); I10 Essential (primary) hypertension; J45.909 Unspecified asthma, uncomplicated; M25.512 Pain in left shoulder; Z79.82 Long term (current) use of aspirin; Z79.51 Long term (current) use of inhaled steroids
CPT/HCPCS: 20610; 73030; 99212; J1010; J2003

== ENCOUNTER 2024-11-25 12:42 | Outpatient (AMB) | payer OTHER, SELFPAY ==
--- NOTE | 2024-11-25 13:09 | MHC.OFFVIS ---
Vital Signs 11/25/24 13:15 Height 5 ft 1 in Weight 163 lb BMI 30.8 Intake Visit Reasons: INJ LT shoulder Intake Note: Mickie is an 84 year old female who presents today for a repeat injection in her Left shoulder. Left Shoulder was last injected 01/07/22. Patient reports injection provided her with relief. She wishes to repeat injection today. Right shoulder injected (80mg) 10/23/24 Hospice Art Therapist Required: Yes Hospice Art Therapist Services: Hospice Art Therapist Present Hospice Art Therapist Name: Ramila ANDERSON LM Allergies latex (Latex) Allergy (Severe, Verified 11/25/24 13:13) DIFFICULTY BREATHING RELATED TO EXACERBATION OF ASTHMA Cameron Inhibitors Allergy (Severe, Uncoded 11/25/24 13:13) cough From PERCOCET Allergy (Severe, Uncoded 11/25/24 13:13) RASH Medication List - Last Reconciled 11/25/24 by Norberto Arceo PA-C albuterol sulfate 90 mcg/actuation 2 inhalations inhalation Q6H PRN 30 days aspirin 81 mg PO DAILY atorvastatin 20 mg PO BEDTIME compr.stocking,thigh,reg,x-lrg 15-20cm diclofenac sodium 1% 2 grams topical BID docusate sodium 100 mg PO BID dorzolamide-timolol 22.3-6.8 mg/mL 1 drp ophthalmic (eye) BID famotidine 20 mg PO DAILY ferrous fumarate (Ferrocite) 324 mg PO DAILY fluticasone furoate-vilanterol 200-25 mcg/dose (Breo Ellipta) 1 ea inhalation DAILY fluticasone propionate 50 mcg/actuation 2 sprays intranasal DAILY gabapentin 600 mg (2 x 300 mg) PO BEDTIME losartan 100 mg PO BEDTIME meclizine 12.5 mg PO TID PRN meclizine (Dramamine Less Drowsy) 25 mg PO TID PRN montelukast 10 mg PO BEDTIME ondansetron 4 mg PO Q6-8H PRN oseltamivir 30 mg PO BID peg 3350-electrolytes 236-22.74-6.74 -5.86 gram 240 mL PO Q10M peg 3350-electrolytes 236-22.74-6.74 -5.86 gram (Golytely) 240 mL PO Q10M prednisone 40 mg (4 x 10 mg) PO DIRECTED psyllium 1 tbsp PO DAILY sennosides (senna) 17.2 mg PO BEDTIME PRN simethicone 80 mg PO TIDAC verapamil ER 120 mg PO DAILY HPI HPI INJ LT shoulder: Details: 84-year-old female returns to the office today for a follow-up left shoulder pain. She was previously seen by me for the left shoulder in 2021 when she had an injection which was quite successful. She recently had a right shoulder injected with good relief. And a left shoulders giving her discomfort with daily activities such as reaching overhead and sleeping at night. [facility] Medical History Axillary mass Memory loss Limb swelling History of eye prosthesis Murmur Anemia Dysphagia Hiatal hernia KERON on CPAP Asthma Abnormal colonoscopy (~01/2019) Environmental allergies HTN (hypertension) Acid reflux Surgical History History of throat surgery History of total right knee replacement (TKR) History of colonoscopy History of cholecystectomy History of hysterectomy Social History Household Members: Spouse and Family Housing: House Do you presently have visiting nurse or other home services: Yes ([employer] services) Alcohol intake: never Patient Tobacco Use Status: Never used Tobacco service: No Current occupational status: retired 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 handed Review of Systems Const All systems reviewed & are unremarkable except as noted in HPI and below Physical Exam Vital Signs: BMI result Body Mass Index 30.8 Extrem Other: Left shoulder normal to inspection. She has full range of motion in all planes. 5/5 rotator cuff strength. Negative El. She does have some point tenderness over the trapezium muscle which extends into the left side of the neck. Neurovascularly intact. Office Procedures AMB Joint Injection/Aspiration Joint Injection/Aspiration Primary Site: left shoulder Prep: site was prepped using aseptic technique, ethochloride spray was applied and injection warnings given Injected: 80 mg of, DepoMedrol, with 8 mL of, 1% plain lidocaine and in the subcromial space Approach Used: posterolateral Procedure: The patient tolerated the procedure well and there was some relief with the local anesthesia Coding 92703 - Glenohumeral/Tronchanteric Bursa/Intraarticular Procedure code (CPT) selection complete Assessment & Plan Assessment & Plan (1) Osteoarthritis of left shoulder: Code(s): M19.012 - Primary osteoarthritis, left shoulder Category: Medical Plan: Injection given today, which was tolerated well. Recommended rest, ice and elevation and OTC antiinflammatories prn for discomfort. If symptoms persist over the next 4-6 weeks, they will contact our office, otherwise, prn. Plan We discussed options today, which include steroid injection. The patient did consent to move forward with the injection, which was tolerated well.? I recommended rest, ice and elevation and OTC antiinflammatories prn for discomfort. If symptoms persist over the next 6-8 weeks, they will contact our office, otherwise, prn Orders: Orders XR shoulder LT min 2V Today M25.512 - Pain in left shoulder Coding Level of Care Code Est Pt Level 3 (31753) Complex EM visit Add On G2211 Diagnoses Osteoarthritis of left shoulder M19.012 CPT Codes Coding - Joint 7: 62628 - Glenohumeral/Tronchanteric Bursa/Intraarticular ([id number])
[2024-11-25 13:15] VITALS: BMI 30.8
--- OUTSIDE RECORDS SUMMARY | 2024-11-25 13:33 | XMS_ITS | Encounter Summary ---
Author Organization [facility] [employer] Address [address] [place] [address] Care Team Providers Care Road Supervisor Name Role Phone Pedro Braxton MD Primary Care Provide r Encounter Details Date Type Department Care Team (Late st Contact Info) Description 09/27/2022 Orders Only [facility] [address] [place], [place] [phone] Sylvia Valentino LPN Social History Tobacco Use [...] on filedocumented in this encounter Care Teams Road Supervisor Relationship Specialty Start Date End Date Pedro Braxton MD [address] [place] [id number] PCP - General Internal Medicine 03/15/13 documented as of this encounter
--- OUTSIDE RECORDS SUMMARY | 2024-11-25 13:33 | XMS_ITS | Encounter Summary ---
Author Organization [facility] Address [address] [place] [address] Care Team Providers Care Trauma Doctor Name Role Phone Pedro Ingram MD Primary Care Provide r Unavailable Encounter Details Date Type Department Care Team Description 05/21/2019 Release of Information Medical Records [address] [place] [address] Abstract, Provider Social History Tobacco Use Types [...] on filedocumented in this encounter Care Teams Trauma Doctor Relationship Specialty Start Date End Date Pedro Ingram MD PCP - General 11/23/09 documented as of this encounter
--- OUTSIDE RECORDS SUMMARY | 2024-11-25 13:34 | XMS_ITS | Data Portability ---
Author Organization [employer], [facility] Address [address] [place] [phone] Care Team Providers Care Lobby Porter Name Role Phone HIM CCA OTHER Assessment Encounter Date Assessment Date Assessment LastModified by Organization Details LastModified Time 02/23/2023 02/23/2023 I provided real -time medical direction via phone for this encounter, and was available for additional phone based assistance as needed. I have reviewed and agree with the Assessment and Plan as documented by the Production Line Operator. Patient given the opportunity to ask questions. Advised through precise winder if develops CP/severe SOB/turning blue/uncontrolle d n/v/d / AMS/ syncope/ hi fever unresponsive to APAP to call 911- verbalized understanding of instructions [email or web address] Not available 02/23/2023 22:43:57 04/21/2023 04/21/2023 As noted, we were called to see this patient regarding concerns of headache, fever, chills. Evaluation in the field was performed by my rural carrier associate colleague, as noted above, I provided real-time [...] Assessment and Plan as documented by the Production Line Operator. We discussed the diagnostic uncertainty of home [...] verbalized understanding of instructions to the medic [email or web address] Not available 06/08/2024 03:36:06 07/09/2024 07/09/2024 service [...] Ag, QL IA, respiratory specimen 2024 025 [facility], [address] [place] [address], [id number] 5 08:14:58 rapid flu (A+B) 2024 025 [facility], [address] [place] [address], [id number] 5 08:14:59 urinalysis, dipstick 2024 025 JON[facility], [address] [place] [address], [id number] 5 08:14:59 rapid SARS CoV 2 Ag, QL IA, respiratory specimen 2024 025 [email or web address] [facility] - [facility], [address] [place] [address], [id number] 5 14:48:13 rapid flu (A+B) 2024 025 [email or web address] 0 Main - [facility], [address] [place] [address], [id number] 5 14:48:13 BMP, serum or plasma 2024 025 [email or web address] 0 [facility] - [facility], [address] [place] [address], [id number] 5 14:49:41 rapid strep group A, throat 2024 025 [email or web address] 0 [facility] [address] [place] [address], [id number] 5 14:48:13 rapid SARS CoV 2 Ag, QL IA, respiratory specimen 2023 024 [facility] - [facility], [address] [place] [address], [id number] 4 08:26:10 rapid flu (A+B) 2023 024 [facility] - [facility], [address] [place] [address], [id number] 4 08:26:30 rapid SARS CoV 2 Ag, QL IA, respiratory specimen 2022 023 [email or web address] 0 Main - [facility], [address] [place] [address], [id number] 3 18:07:47 rapid flu (A+B) 2022 023 [email or web address] 0 [facility] - [facility], [address] [place] [address], [id number] 3 18:07:47 Referral None recorded. Procedures None recorded. Surgeries None recorded. Imaging None recorded. Medication Orders albuterol sulfate 2.5 mg/3 mL (0.083 %) solution for nebulizatio n 2024 025 [email or web address] [id number], [address], [place], [id number], 5 23:19:21 meclizine 25 mg tablet 2024 025 [email or web address] 0 [facility] #77534, [address] [place], [place], [id number], 5 14:48:13 meclizine 12.5 mg tablet 2024 025 [facility] #94937, [address], [place], [id number], 5 14:48:21 doxycycline hyclate 100 mg tablet 2024 025 [email or web address] 0 [facility] #57522, [address], [id number], 5 14:48:12 doxycycline hyclate 100 mg capsule 2024 025 [facility] #66374, [address], [place], [id number], 5 14:48:18 benzonatate 200 mg capsule 2022 023 [facility] #06746, [address], [place], [id number], 3 18:28:40 Patient TargetsNo targets recorded. Patient InstructionsNo instructions recorded. Reason for Referral None Reported. Results Created Date Observation Date Name Description Value Unit Range Abnormal Flag Note LastModifiedBy Organization Detail LastModifiedTime 02/24/2002/23/2023 rapid flu (A+B) Flu negati ve Not Available Main - [facility] ed [address] [place] [address], [id number] 02/23/2023 18:07:27 02/24/2002/23/2023 rapid SARS CoV 2 Ag, QL IA, respi rator y speci men rapid SARS CoV 2 Ag, QL IA, respiratory specimen negati ve Not Available [facility] ed [address] [place] [address], [id number] 02/23/2023 18:07:26 06/07/19 25 06/07/2024 rapid strep group A, throa t Strep negati ve Not Available [address], [phone] 06/07/2024 14:10:26 06/07/19 25 06/07/2024 rapid SARS CoV 2 Ag, QL IA, respi rator y speci men rapid SARS CoV 2 Ag, QL IA, respiratory specimen negati ve Not Available [address], [phone] 06/07/2024 14:10:19 06/07/19 25 06/07/2024 rapid flu (A+B) Flu negati ve Not Available [address], [phone] 06/07/2024 14:10:20 Result Notes None recorded. Medical Equipment None Reported. Allergies Allergen ID Allergen Name Allergen Category Reaction Reaction Severity Criticality Documentation Date Start Date Code Code System Note Provider Name and Address Organization Details Recorded Time 89290 Product containin g angiotens in-conver ting enzyme inhibitor (product) medicatio n Not available Not available Not available 07/09/2024 30071 009 SNOMED Not Available [facility] - production [...] t Available Vitals Date Recorded Heart rate Systolic And Diastolic Provider Name and Address Organization Details Last Updated DateTime 06/07/2024 86 /min 123/76 mm[Hg] Paula Paulson MD [address] [place] [address],[address] [facility], [place], [phone], [place] - [employer] 06/07/2024 14:51:00 Date Recorded Body temperature Oxygen saturation Oxygen saturation in Arterial blood by Pulse oximetry Body height Heart rate Respiratory rate Body weight Systolic And Diastolic Provider Name and Address Organization Details Last Updated DateTime 5 99.1 [degF] 96 % 96 % 154.94 cm 77 /min 18 /min 57937.5 6 g 139/74 mm[Hg] Not Available [facility] [employer] 5 14:03:22 Date Recorded Heart rate Respiratory rate Body weight Body temperature Oxygen saturation Oxygen saturation in Arterial blood by Pulse oximetry Body height Systolic And Diastolic Provider Name and Address Organization Details Last Updated DateTime 5 64 /min 16 /min 65970.3 76 g 98.4 [degF] 97 % 97 % 157.48 cm 162/82 mm[Hg] Not Available [facility] [employer] 5 21:04:24 Date Recorded Oxygen saturation Oxygen saturation in Arterial blood by Pulse oximetry Body temperature Heart rate Respiratory rate Systolic And Diastolic Provider Name and Address Organization Details Last Updated DateTime 3 98 % 98 % 98.1 [degF] 82 /min 18 /min 136/88 mm[Hg] Not Available [facility] [employer] 3 17:57:56 Date Recorded Oxygen saturation Oxygen saturation in Arterial blood by Pulse oximetry Body temperature Body height Respiratory rate Heart rate Body weight Systolic And Diastolic Provider Name and Address Organization Details Last Updated DateTime 4 97 % 97 % 99.1 [degF] 154.94 cm 18 /min 72 /min 26235.1 52 g 110/71 mm[Hg] Not Available [facility] - production 4 21:28:15 Date Recorded Body temperature Respiratory rate Oxygen saturation Oxygen saturation in Arterial blood by Pulse oximetry Heart rate Systolic And Diastolic Provider Name and Address Organization Details Last Updated DateTime 3 99.2 [degF] 16 /min 99 % 99 % 75 /min 130/82 mm[Hg] Not Available [facility] - production 3 15:40:47 Social History None recorded. Functional Status None recorded. Mental Status None recorded. Family History Nothing Reported. Medical History No medical history recorded. Gynecological HistoryNo gynecological history recorded. Obstetrics History GPAL:G 0 P 0 0 0 0 Past Encounters Encounter ID Performer Location Encounter Start Date Encounter Closed Date Diagnosis/Indication Diagnosis SNOMED-CT Code Diagnosis ICD10 Code Diagnosis Note [id number] Manas Swanson MD Main - [facility] [address] [place] [phone] 12/08/2022 14:34:52 12/09/2022 11:10:56 Headache 42182913 R51.9 [id number] [facility] [address] [place] [phone] 02/23/2023 17:57:45 02/26/2023 12:35:10 Viral upper respiratory tract infection 191128883 J06.9 Advised patient likely has COVID but [...] has a good Rx card for [facility]- [id number] THERESA ANDERSON MD Main - [facility] [address] [place] [phone] 04/21/2023 15:40:44 04/24/2023 17:03:22 Viral syndrome [id number] B34.9 [id number] Jason Ibrahim MD [facility] [address] [place] [phone] 02/26/2024 21:28:07 02/27/2024 12:02:54 Influenza-like illness [id number] B34.9 As noted, we were called to see this patient regarding concerns of fever and cough. Evaluation in the field was performed by my rural carrier associate colleague, as noted above, I provided real-time [...] symptoms, particular ly confusion, dyspnea, high fever [id number] Paula Paulson MD Main - [address] [phone] 06/07/2024 14:03:20 06/09/2024 15:01:25 Upper respiratory infection 98016164 J06.9 w/ dizziness ? BPV- trial meclizine/ [...] Continue Breo as directed NKDA/ Pharmacy verified [id number] Fidel Chau MD Main - [place] [phone] 07/09/2024 21:04:22 07/10/2024 12:22:57 Cough [id number] R05.9 Health Concerns Section Related Observation LastModified by Organization Leo ls LastModified Time None Recorded Concern Status LastModified by Organization Details LastModified Time None Recorded Advance Directives Directive None Recorded Payers Insurance Date Sequence Insurance Name Policy Number Policy Huang Covered Member ID Huang Member ID Guarantor Name 07/10/2024 1 [facility] - DOS ON OR AFTER 2022 - DUAL ELIGIBLE - GROUP HOME OPTIONS AND ONE CARE (MEDICARE REPLACEMENT/ADV ANTAGE - HMO) Mickie Hopper [id number] Mickie Ward Notes Date Note Type Note [...] COVID. ......................... ......................... ......................... ......................... ......................... ................ Production Line Operator Note From Hamzah Pereira: PT reports that [...] ......................... ................ Disposition: Fulfilled Paula Paulson MD [address] [place] [address],[address], [place], [address], [employer] 02/23/2023 22:47:51 3 text/html CRC Nursing Assessment: Reason For Request: Severe cough, ugly congestion, keeping her up at night>reporting fevers>headache>weakness> symptoms going on 4 days. Chief Complaints: Cough, Headache, Fever/Chills, Weakness/Lethargy, URI PMH: COPD/Asthma, Hypertension Allergies: No Known Comments: Referral taken via Mechanical Design Technician. Member calling in to place a [...] evaluated. ......................... ......................... ......................... ......................... ......................... ................ Production Line Operator Note From Marlon Moulton: Dispatched to the [...] ......................... ......................... ......................... ......................... ................ Disposition: Rochelle ANDERSON MD [address] [facility],[address], [place], [phone], [employer] 04/21/2023 16:06:33 4 text/html CRC Nurse Triage Notes (Chaitanya Skinner): Chief Complaints: Cough PMH: COPD/Asthma, Hypertension Allergies: Unknown Comments: Flight Operations Engineer verified the Pt.'s name//address and phone number. [...] - Pt is refusing ER - Declined Production Line Operator Organization Information for Garrett Fernandez Business Legal Name: [employer] Address: [address] [place] [address], [employer] Operator: Valerio Hunter MD CLIA No.: [id number] Production Line Operator POC Test Results from Garrett Fernandez Rapid influenza antigen (21:20:51) Flu: - Rapid COVID antigen (21:25:55) COVID: - Jason Ibrahim MD [address] [place] [address],[address], [place], [phone], [employer] 02/26/2024 21:45:30 5 text/html CRC Nurse Triage Notes (Chaitanya Skinner - RN): Reason For Request: *Pt's granddaughter unable to provide PCP detailsPt's granddaughterJessica reporting a cough, heave white congestion, fever going on 4 days Patient Reports: Increased work of breathing/labored with or without fever; Unable to speak in full sentences without distress; Needs to sleep sitting up, can t catch breath; Shortness of breath in setting of confusion; Cough, fever greater than 2 days ; Lower extremity swelling; History of asthma, increased use of inhaler; COPD; Sputum increase ; Cough; Shortness of breath with exertion; Pain with inspirationDenies: Discoloration of skin -cyanosis Chief Complaints: Cough, Fever/chillsPMH: COPD/Asthma, HypertensionPMH Reviewed at 06/07/2024:15Allergies Reviewed at 06/07/2024 - :15Comments: Flight Operations Engineer verified the Pt.'s name//address and phone number. [...] coughing. Concerns expressed and ER treatment declined. Production Line Operator Organization Information for Jenny Rock - [employer] Legal Name: [employer]. Address: [address] [place] [address], [facility] Director: Valerio Hunter [facility] No.: [id number] Production Line Operator POC Test Results from Jenny Rock [employer] Rapid COVID antigen (13:49:17)COVID: - Rapid [...] section. ......................... ......................... ......................... ......................... ......................... ................ Production Line Operator Note From Jenny Rock: Sent to a call for a pt complaining of cough. SC8 arrives on scene, pt is alert and oriented, airway is patent. Pt's primary language is Kiswahili. Family serves as precise winder. Pt has history of COPD, Asthma, and [...] covid/flu test: neg; Rapid strep test: neg; [facility] orders POC bloodwork. IV access/venous blood draw performed; Chem8+ results: uploaded to [employer]; [facility] orders Meclizine 12.5mg PO and Doxycycline 100mg PO. [facility] sends script to pt's pharmacy. Meclizine 12.5mg [...] questions. ......................... ......................... ......................... ......................... ......................... ................ [facility] Consulted: Paula Paulson ......................... ......................... ......................... ......................... ......................... ................ Disposition: Fulfilled LIZ MD: Patient denies headache, focal neuro-deficits, chest pain, palpitations, significant shortness of breath Paula Paulson MD [address] [place] [address],[address], [place], [phone], [employer] 06/08/2024 03:38:49 5 text/html HPI: rosalva Templeton who mbr gave verbal consent to speak w/ reports this 83 y.o. F w/ hx of COPD is c/o increased sob, initially starting ~1 mo ago w/ bronchitis. She was inpatient at [facility] 07/01-07/03 for asthma exac and flu, [...] family [facility] but she never received [...] for any changes. CCA CP is Sylvia Yina, email: [email or web address] (not found in [facility] database) ......................... ......................... ......................... ......................... ......................... ................ CRC Nurse Triage Notes (Chaitanya Skinner): Patient Reports: Increased work of breathing/labored with or without fever Denies: Unable to speak in full sentences without distress Discoloration of skin -cyanosis Needs to sleep sitting up, can t catch breath Shortness of breath in setting of confusion Chief Complaints: Breathing Problems PMH: COPD/Asthma, Hypertension, Anemia, Sleep Apnea, Myocardial Infarction, Chronic Kidney Disease PMH Reviewed at 07/09/2024 - 18:02 Allergies Reviewed at 07/09/2024 - 18:02 Comments: Reviewed [facility] Production Line Operator Organization Information for Mae Soto [employer] Business Legal Name: [employer]. Address: [address] [place] [address], [employer] Operator: Valerio Hunter MD CLIA No.: [id number] Production Line Operator POC Test Results from Mae Soto Rapid [...] GLU ......................... ......................... ......................... ......................... ......................... ................ Production Line Operator Note From Mae Soto: TXSusan makes pt contact. She is found laying [...] to evaluation and treatment at this time. [facility] obtains vital signs and pt is assessed. Lung sounds are wheezy and rhonchus throughout. Abdomen is soft and nontender. [facility] performs a basic neuro assessment and cranial nerves are grossly intact and pt is A&Ox4 and is able to process information regarding yesterday and tomorrow. Pt is swabbed for COVID/flu and she provides urine for urine dipstick analysis. [facility] contacts [facility] and discusses the above. [facility] orders duoneb for the pt and will attempt to facilitate obtaining a home nebulizer for the pt. [facility] administers duoneb to the pt via nebulizer mask at 8 lpm. Lung sounds remain rhonchus, however wheezing has dissipated. Pt endorses feeling much better . [facility] informs pt of concerns about her earlier s/s from today of feeling like she had a mini stroke. [facility] emphasized that w/o proper evaluation, she could have another stroke and . She stated her understanding and while TXSusan was packing up to leave, pt decided she was going to take a shower and allow her family to take her to the ED. Family thanks [facility] for coming. [facility] is clear. Report completed by EILEEN Soto [id number]. ......................... ......................... ......................... ......................... ......................... ................ [facility] Consulted: Fidel Chau ......................... ......................... ......................... ......................... ......................... ................ Disposition: Fulfilled Fidel Chau MD [address] [place] [address],[address] [facility], [place], [phone], [employer], [facility] 07/09/2024 23:19:24 OBGyn Episode No OBEpisode recorded.
--- OUTSIDE RECORDS SUMMARY | 2024-11-25 13:34 | XMS_ITS | Clinical Summary ---
Author Organization [facility] Address [address] [place] [address] Phone Care Team Providers Care Grinder Set Up Operator Internal Name Role Phone Pedro Ingram MD Primary [...] 90 06/07/2024 9:43 PM EST Temperature 37.2 C (99 F) 06/07/2024 9:43 PM EST Respiratory Rate 20 [...] Td or Tdap) 12/16/2024 12/16/2014 Influenza Vaccine (#1) 2025 , 05/03/2021, 05/29/2018, Additional history exists Hypertension/CHF/CAD Annual [...] LAB CHEMISTRY METHOD 03/30/2024 1:04 PM EST [facility] Potassium 3.6 3.5 - 5.5 mmol/L LAB CHEMISTRY METHOD 03/30/2024 1:04 PM EST [facility] Chloride 109 96 - 110 mmol/L LAB CHEMISTRY METHOD 03/30/2024 1:04 PM [facility] CO2 27 21 - 32 mmol/L LAB CHEMISTRY METHOD 03/30/2024 1:04 PM [facility] Anion Gap 5 3 - 11 LAB CHEMISTRY METHOD 03/30/2024 1:04 PM [facility] Glucose 98 70 - 100 mg/dL LAB CHEMISTRY METHOD 03/30/2024 1:04 PM [facility] BUN 7 5 - 25 mg/dL LAB CHEMISTRY METHOD 03/30/2024 1:04 PM [facility] Creatinine 0.79 0.50 - 1.10 mg/dL LAB CHEMISTRY METHOD 03/30/2024 1:04 PM [facility] eGFR 74 >=60 mL/min/1. 73m2 LAB CHEMISTRY METHOD 03/30/2024 1:04 PM [facility] Comment:Calculation based on the Chronic Kidney Disease Epidemiology Collaboration (CKD-EPI) equation refit without adjustment for race. BUN/Creatinine Ratio 8.9 LAB CHEMISTRY METHOD 03/30/2024 1:04 PM [facility] Calcium 8.9 8.5 - 10.5 mg/dL LAB CHEMISTRY METHOD 03/30/2024 1:04 PM [facility] Blood Venous blood specimen / Unknown Venipuncture / Unknown 03/30/2024 12:09 PM EST 03/30/2024 12:12 PM EST us Zulema Fuentes MD LAB BLOOD ORDERABLES Final Resul t [facility] [address] [place] [address], from Last 3 Months or Most Recently Relevant to Health Maintenance Insurance [facility] MEDICARE Member Subscriber Plan / Payer (Ef fective 2008-Present) Name:Mickie Hopper Relation to Subscriber:Self Name:Mickie Hopper Payer ID:[id number] Group ID:[id number] Type:Not on file Address: [place] [address] [address] [id number] Care Teams Grinder Set Up Operator Internal Relationship Specialty Start Date End Date Pedro Ingram MD [address] [place] [address] [place] [phone] PCP - General 11/23/09
== END 2024-11-25 14:10 | disposition home or self-care (01) ==
LOC: HO.HOS 12:42
PROVIDERS: PCP Internal Medicine; Visit Provider Physician Assistant
DX: M19.012 Primary osteoarthritis, left shoulder (principal)
CPT/HCPCS: 20610; 99213

== ENCOUNTER → 2024-11-25 13:01 | Outpatient (BNV) | payer OTHER, SELFPAY | PROVIDERS: Visit Provider Radiology Diagnostic Radiology | DX: M19.012 Primary osteoarthritis, left shoulder (principal) | CPT/HCPCS: 73030 ==

== ENCOUNTER 2025-02-21 09:46 | Outpatient (AMB) | payer OTHER, SELFPAY ==
--- OUTSIDE RECORDS SUMMARY | 2025-02-18 14:00 | XMS_ITS | Encounter Summary ---
Author Organization [employer] Address [address] [facility] [address] [place] [address] Care Team Providers Care Zinc Plate Grainer Name Role Phone Pedro Braxton MD Primary Care Provide r Reason for Visit * Reason Comments CHW - Office Visit Encounter Details Date Type Department Care Team (Latest Contact Info) Description 02/18/2025 2:00 PM EDT Office Visit [facility] [address] [place], [place] [phone] Pedro Braxton MD [address] [place] [address] Essential hypertension (Primary Dx); Primary osteoarthritis of left shoulder; Atherosclerosis of [place] coronary artery of [place] heart without angina pectoris; Venous (peripheral) insufficiency; Moderate persistent asthma without complication; Stress incontinence of urine; Encounter for immunization Social History Tobacco Use Types Packs/Day Years Used Date Smoking Tobacco: Never Passive Smoke Exposure: Never Smokeless Tobacco: Never Depression Answer Date Recorded Patient Health Questionnaire-9 Score 3 11/28/2023 Patient Health Questionnaire-9 Score 3 11/28/2023 Last PHQ-9: Questionnaire Data Not on file 0 11/28/2023 Housing Stability Answer Date Recorded What is your housing situation today? I have claire reba 11/17/[address] you li [...] AM EDT documented as of this encounter Last Filed Vital Signs Vital Sign Reading Time Taken Comments Blood Pressure 138/80 02/18/2025 2:32 PM EDT Pulse 68 02/18/2025 2:19 PM EDT Temperature 36.6 C (97.9 F) 02/18/2025 2:19 PM EDT Respiratory Rate 20 02/18/2025 2:19 PM EDT Oxygen Saturation 98% 02/18/2025 2:19 PM EDT Inhaled Oxygen Concentration - - Weight 74 kg (163 lb 3.2 oz) 02/18/2025 2:19 PM EDT Height 154.9 cm (5' 1 ) 02/18/2025 2:19 PM EDT Body Mass Index 30.84 02/18/2025 2:19 PM EDT documented in this encounter Progress Notes * Pedro Leiva MD - 02/18/2025 2:00 PM EDT LIU Hopper is a 84 y.o. female who presents for CHW - Office Visit. Hypertension This is a chronic problem. Pertinent negatives include no chest pain, headaches or shortness of breath. Review of Systems Constitutional: Negative for fever. HENT: Negative for sore throat. Respiratory: Negative for cough and shortness of breath. Cardiovascular: Negative for chest pain. Gastrointestinal: Negative for abdominal pain. Neurological: Negative for headaches. Allergies[1] OBJECTIVE Vitals: 02/18/25 1419 02/18/25 1432 BP: (!) 150/78 138/80 BP Location: Left arm Left arm Patient Position: Sitting Sitting BP Cuff Size: Adult Pulse: 68 Resp: 20 Temp: 97.9 ??F (36.6 ??C) TempSrc: Oral SpO2: 98% Weight: 163 lb 3.2 oz (74 kg) Height: 5' 1 (1.549 m) Physical Exam Vitals reviewed. Constitutional: Appearance: Normal appearance. HENT: Head: Normocephalic and atraumatic. Right Ear: External ear normal. Left Ear: External ear normal. Nose: Nose normal. Mouth/Throat: Mouth: Mucous membranes are moist. Eyes: Conjunctiva/sclera: Conjunctivae normal. Cardiovascular: Rate and Rhythm: Normal rate and regular rhythm. Pulmonary: Effort: Pulmonary effort is normal. Breath sounds: Normal breath sounds. Skin: General: Skin is warm. Neurological: Mental Status: She is alert. Mental status is at baseline. Assessment/Plan Problem List Items Addressed This Visit Essential hypertension - Primary Pt here for a f/u BP is [...] 0.78 07/09/2024 CREATININE 0.74 07/01/2024 Were wnl. Will repeat BMP patient advised to adhere to a low sodium diet, encouraged about medication compliance, counseled about weight loss. Relevant Orders Basic Metabolic Panel Primary osteoarthritis of left shoulder Seen by ortho 11/25/2024 received steroid injection with good results Atherosclerosis of coronary artery f/u with cardiology annually. Last seen 12/12/2024 Dr Jenkins recommended a stress ECHO Venous (peripheral) insufficiency Referred to Vascular surgery Continue wearing Compressive stockings, knee high medium compression Moderate persistent asthma without complication Patient with chronic cough, described as dry and intermittent wheezing Pt was unable to complete PFTs under the care of Dr Silva ( Physician Relations Specialist ) thinks she has Mod persistent asthma On Montelukast, Breo Elipa 100/25 chest x-ray 07/17/2019 Normal pt will continue to follow with him,has a follow up with him Stress incontinence of urine Pt needs diapers and pads No future appointments. [1] Allergies Allergen Reactions Cameron Inhibitors Cough documented in this encounter Miscellaneous Notes * Assessment & Plan Note - Pedro eLiva MD - 02/18/2025 2:36 PM EDT Associated Problem(s): Stress incontinence of urine Pt needs diapers and pads * Assessment & Plan Note - Pedro Leiva MD - 02/18/2025 2:35 PM EDT Associated Problem(s): Moderate persistent asthma without complication Patient with chronic cough, described as dry and intermittent wheezing Pt was unable to complete PFTs under the care of Dr Silva ( Physician Relations Specialist ) thinks she has Mod persistent asthma On Montelukast, Breo Elipa 100/25 chest x-ray 07/17/2019 Normal pt will continue to follow with him,has a follow up with him * Assessment & Plan Note - Pedro Leiva MD - 02/18/2025 2:30 PM EDT Associated Problem(s): Essential hypertension Pt here for a f/u BP is [...] 0.78 07/09/2024 CREATININE 0.74 07/01/2024 Were wnl. Will repeat BMP patient advised to adhere to a low sodium diet, encouraged about medication compliance, counseled about weight loss. * Assessment & Plan Note - Pedro Leiva MD - 02/18/2025 2:30 PM EDT Associated Problem(s): Venous (peripheral) insufficiency Referred to Vascular surgery Continue wearing Compressive stockings, knee high medium compression * Assessment & Plan Note - Pedro Leiva MD - 02/18/2025 2:29 PM EDT Associated Problem(s): Atherosclerosis of coronary artery f/u with cardiology annually. Last seen 12/12/2024 Dr Jenkins recommended a stress ECHO * Assessment & Plan Note - Pedro Leiva MD - 02/18/2025 2:27 PM EDT Associated Problem(s): Primary osteoarthritis of left shoulder Seen by ortho 11/25/2024 received steroid injection with good results * Addendum Note - Ga Garces RN - 02/18/2025 2:00 PM EDTAddended by: GA GARCES on: 02/18/2025 02:47 PM Modules accepted: Orders documented in this encounter Plan of Treatment Scheduled Orders Name Type Priority Associated Diagnoses Orde r Schedule Basic Metabolic Panel Lab Routine Essential hypertension Ordered: 02/18/2025 documented as of this encounter Visit Diagnoses Diagnosis Essential hypertension- Primary Unspecified essential hypertension Primary osteoarthritis of left shoulder Atherosclerosis of [place] coronary artery of [place] heart without angina pectoris Venous (peripheral) insufficiency Unspecified venous (peripheral) insufficiency Moderate persistent asthma without complication Stress incontinence of urine Encounter for immunization documented in this encounter Additional Health Concerns Assessment Noted Time PHQ-9 Depression Total Score: 3 11/28/19 24 2:27 PM EDT documented as of this encounter Care Teams Zinc Plate Grainer Relationship Specialty Start Date End Date Pedro Braxton MD [address] [place] [id number] PCP - General Internal Medicine 03/15/13 documented as of this encounter
[2025-02-21 09:47] VITALS: BP 128/62; PULSE 73; O2SAT 98; BMI 30.6
--- NOTE | 2025-02-21 09:47 | A.OFFVIS_ITS ---
Vital Signs 02/21/25 09:47 Height 5 ft 1 in Weight 162 lb 0.636 oz BMI 30.6 BP 128/62 Blood Pressure Location Lt brachial Position Sitting Pulse 73 Pulse Source Pulse Oximeter Pulse Oximetry (%) 98 Oxygen Delivery Method Room Air Intake Visit Reasons: Asthma/Pre Op Colonoscopy Accompanied by: Self / Same As Patient Allergies latex (Latex) Allergy (Severe, Verified 11/25/24 13:13) DIFFICULTY BREATHING RELATED TO EXACERBATION OF ASTHMA Cameron Inhibitors Allergy (Severe, Uncoded 11/25/24 13:13) cough From PERCOCET Allergy (Severe, Uncoded 11/25/24 13:13) RASH HPI Comments Details: The patient is a 84-year-old woman with known history of asthma, chronic rhinitis and KERON. Since we last spoke the patient has been getting allergy shots through ENT. She has multiple allergies. Unfortunately, her allergy shots had to be stopped due to the COVID-19 infections. She has been having issues with nasal congestion and also her asthma has been acting up. Her primary care doctor did give her an albuterol inhaler. She does not have any more Breo available. I will send her the Breo to the pharmacy and she is also going to be started on singular. She has been taking Claritin which will continue taking. In addition to that she has been using her CPAP. CPAP therapy has been affecting beneficial. She does uses CPAP for more than 4 hours a night. Sometimes her nose gets very congested and she needs to take off the machine. 04/23/2020 the patient is here for pulmonary follow-up visit. She still com plaining of her ongoing nasal congestion. Patient is no better. Complains of persistent postnasal drip and also with a associated cough. Moderate severity. Also has do with the fact that she stopped her allergy shots. The patient also has been having difficulties tolerating the CPAP the whole night. The did try to get a download from her [employer] but her machine is more than 10 years old and is not able to be downloaded. The patient will bring her CPAP during the next meeting so we can assess the machine and see if she needs any machine or further adjustments of her older 1. In regards of her asthma she has been having worsening shortness of breath and wheezing. She has been using her rescue inhaler several times a day. She did run out of her maintenance inhaler and also ran out of her allergy medicine. 07/23/2020 the patient is here for pulmonary follow-up visit. She is doing better from a respiratory status. She has been using her inhalers as prescribed in the seem to be maintaining asthma control. She denies having to use her rescue inhaler more than 2 times a week. In the meantime the CPAP therapy has been helpful for her. However her machine is more than 10 years old. She did bring it into the office. The secure digital card does not work anymore is not saving any information. The machine is set up a CPAP of 11 cm. The patient has been having some difficulties with falls smell from the water dish. She did get a new 1 but is still causes a fall spells well. At this point this machine is contaminated old and cannot safe any information therefore would need a new machine to replace her malfunctioning machine. I will submit an APAP prescription to her [facility], [employer] in order for her to get an updated Pap therapy 08/24/2020 the patient is here for pulmonary follow-up visit. She did undergo a home sleep study which we reviewed in the office. Her AHI was 3. Therefore the patient does not appear to have any significant sleep apnea at this time to treat with PAP therapy. The patient is happy about this. However, she does have a hard time sleeping. She has significant pain issues. Choose been given certain sleep medications in the past including tramadol and Ativan. Explained to the patient that these medications to do very at the active and do not provide good sleep. She also has tried trazodone in the past, but, more for d epression per I do believe gabapentin will be a better medication for her and due to her pain. Her asthma appears to be in good control and getting allergy shots. Otherwise patient is without any other complaints. 11/27/2020 the patient is here for pulmonary follow-up visit. Overall she is doing well from a respiratory status. She has not required any tissue respiratory medications. She has responded well to Breo in addition to this singular. She does have a rescue inhaler but she has not required. her sleep appears to better. She was prescribed come into the nighttime. Again, she has not require puff therapy based on recent sleep study demonstrating no evidence of any pathological sleep apnea. Major complaint is lower extremity edema. Patient is to use compression stockings. otherwise she is going to continue with respiratory therapy. 07/27/2021 the patient is doing well during this visit. She does have some increased dyspnea on exertion and fatigue as well as restless leg. Appears to be worsening. [id number] severity. She was documented to have anemia. She is following up closely with Hematology and is scheduled to receive an IV iron infusion. She gets constipated when she uses p.o. iron. From a respiratory status patient has been doing well otherwise. She does have a rescue inhaler that she does not require. She has been taking her maintenance inhaler which includes Breo and also has been taking Singulair and Claritin. This appears to be controlling her symptoms of allergies. She is sleeping well with the gabapentin. Although, sometimes she feels that does not help her 100%. I did recommend she increase the dose to 600 mg. I will send her enough medication to the pharmacy. This hopefully also will help with her aches and pains at nighttime and also with the rest of slight issue. We did review her last imaging study which was back in June 2020 demonstrating no acute disease. No need for a repeat imaging study at this time. Will follow-up in the fall, but, if any new issues arise she is to call our office for an earlier assessment. Also to note the patient has been without her CPAP and she has been doing well. She is not having any issues with daytime drowsiness at this time. 09/22/2022 the patient is here for pulmonary follow-up visit. She is having increased sinus discomfort with headaches and nasal congestion. Moderate severity. 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 It appears that she does have sinusitis. She was prescribed Claritin although has not been effective yet. She also has nasal rinsing. At this point will go ahead and start on doxycycline to treat her for sinusitis and hopefully does provide some relief. In the meantime she is using the Breo inhaler with good effect she is also using her Singulair. She has not required her rescue inhaler. No recent x-rays to review. Will follow-up in a year's time if any use arise she is to call the office for an earlier assessment. 02/21/2025 the patient is here for pulmonary follow-up visit. The patient overall has been doing well. She does have a scheduled colonoscopy pending. Right now she is able to proceed with anesthesia and her colonoscopy appointment. The patient does have insomnia and she is actually use gabapentin with good effect at nighttime. Does help her with her significant pain issues and also her sleep. She denies any significant drowsiness in the morning specially since she has been on this dose for awhile. The patient also has been off her inhalers. She is noticing increased shortness of breath chest tightness and wheezing. Hlea-du-mjlryblt severity. I will make sure to send her all the inhalers to the pharmacy. The patient also has been taking allergy medicines including cetirizine and Singulair. She should continue those as well. She had been sick back in June 2024 with the flu. She was briefly evaluated in the ER. The patient did have a chest x-ray which I personally reviewed without any acute disease. She healed well from that. This point she already got her flu shot. I did encourage her to get the RSV vaccine to make sure that the pneumonia shot is also up-to-date. The patient will follow-up in 6-8 months if she has any issues prior to this she can always call for an earlier assessment. And again, she may be able to proceed with anesthesia and her colonoscopy at this time. [facility] Medical History Axillary mass Memory loss Limb swelling History of eye prosthesis Murmur Anemia Dysphagia Hiatal hernia KERON on CPAP Asthma Abnormal colonoscopy (~01/2019) Environmental allergies HTN (hypertension) Acid reflux Surgical History History of throat surgery History of total right knee replacement (TKR) History of colonoscopy History of cholecystectomy History of hysterectomy Social History Household Members: Spouse and Family Housing: House Do you presently have visiting nurse or other home services: Yes ([employer]CR[employer]IST[employer] services) Alcohol intake: never Patient Tobacco Use Status: Never used Tobacco service: No Current occupational status: retired 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 handed Review of Systems Const Reports fatigue, Denies night sweats and Reports snoring ENT Denies change in voice, Denies lip swelling, Denies mouth pain, Reports nasal congestion, Reports nasal discharge and Denies tongue swelling Card Denies chest pain, Reports leg edema and Reports dyspnea on exertion Resp Reports cough, Reports dyspnea on exertion and Reports snoring GI Denies abdominal pain Musc Denies no additional complaints Neuro Denies Neuro-related abnormal movements and Reports memory loss Psych Denies no additional complaints and Reports memory loss Endo Reports fatigue Juan/Lymph Denies easy bleeding and Denies lymphadenopathy Aller/Immun Denies lip swelling and Denies tongue swelling Physical Exam Vital Signs: Last Vital Signs Pulse 73 02/21/25 09:47 BP 128/62 02/21/25 09:47 Pulse Ox 98 02/21/25 09:47 Oxygen Delivery Method Room Air 02/21/25 09:47 BMI result Body Mass Index 30.6 Const General: alert Neck Neck: Yes normal visual inspection, Yes full ROM and Yes no lymphadenopathy Chest Chest palpation & inspection: normal inspection of the chest Resp Auscultation: diminished lung sounds Cardio Rate: regular rate Rhythm: regular rhythm Heart sounds: S1 normal heart sound present and S2 normal heart sound present GI Palpation (GI): Soft to palpation and nontender Auscultation: normal bowel sounds Skin General skin exam: rashes and/or lesions noted Extrem General: No clubbing, No cyanosis and Yes edema Assessment & Plan Assessment & Plan (1) Pre-op chest exam: Code(s): Z01.811 - Encounter for preprocedural respiratory examination Category: Medical (2) Asthma: Code(s): J45.909 - Unspecified asthma, uncomplicated Category: Medical Qualifiers: Asthma complication type: uncomplicated Asthma persistence: persistent Asthma severity: moderate Qualified Code(s): J45.40 - Moderate persistent asthma, uncomplicated (3) Hiatal hernia: Code(s): K44.9 - Diaphragmatic hernia without obstruction or gangrene Category: Medical (4) Environmental allergies: Code(s): Z91.09 - Other allergy status, other than to drugs and biological substances Category: Medical Plan Proceed with anesthesia and colonoscopy Start Doxycycline x 7 days Continue Breo continue singular gabapentin 600mg at nighttime reflux diet sleep with the head bed elevated antihistamines as needed Continue using compression stocking during the day follow-up and 6-8 months Medications: Changed From montelukast 10 mg PO BEDTIME To montelukast 10 mg PO BEDTIME 30 tabs 3RF 30 days Refilled gabapentin 600 mg (2 x 300 mg) PO BEDTIME 60 caps 11RF albuterol sulfate 90 mcg/actuation 2 inhalations inhalation Q6H PRN 18 grams 12RF shortness of breath or wheezing 30 days J44.9 - Chronic obstructive pulmonary disease, unspecified fluticasone furoate-vilanterol 200-25 mcg/dose (Breo Ellipta) 1 ea inhalation DAILY 60 ea 11RF J45.909 - Unspecified asthma, uncomplicated Coding Level of Care Code Est Pt Level 4 (90438) Complex EM visit Add On G2211 Diagnoses Pre-op chest exam Z01.811 Moderate persistent asthma without complication J45.40 Asthma complication type: uncomplicated Asthma persistence: persistent Asthma severity: moderate Hiatal hernia K44.9 Environmental allergies Z91.09 Time Spent (min) 17
--- OUTSIDE RECORDS SUMMARY | 2025-02-21 10:30 | XMS_ITS | Encounter Summary ---
Author Organization [employer] Address [address] [facility] [address] [place] [address] Care Team Providers Care Staff Services Manager Name Role Phone Pedro Braxton MD Primary Care Provide r Encounter Details Date Type Department Care Team (Late st Contact Info) Description 09/27/2022 Orders Only [facility] [address] [place], [place] [phone] Sylvia Valentino LPN Social History Tobacco Use [...] on filedocumented in this encounter Care Teams Staff Services Manager Relationship Specialty Start Date End Date Pedro Braxton MD [address] [place] [id number] PCP - General Internal Medicine 03/15/13 documented as of this encounter
--- OUTSIDE RECORDS SUMMARY | 2025-02-21 10:30 | XMS_ITS | Encounter Summary ---
Author Organization [employer] Address [address] [facility] [address] [place] [address] Care Team Providers Care Drug Safety Scientist Name Role Phone Pedro Braxton MD Primary Care Provide r Encounter Details Date Type Department Care Team (Late st Contact Info) Description 12/06/[address] [facility] [address] [place] [address] Sylvia Valentino LPN Social History Tobacco Use [...] Date End Date Pedro Braxton MD [address] [place] [id number] PCP - General Internal Medicine 03/15/13 documented as of this encounter
--- OUTSIDE RECORDS SUMMARY | 2025-02-21 10:30 | XMS_ITS | Encounter Summary ---
Author Organization [employer] Address [address] [facility] [address] [place] [address] Care Team Providers Care Woodwind Instrument Repairer Name Role Phone Pedro Braxton MD Primary Care Provide r Encounter Details Date Type Department Care Team (Late st Contact Info) Description 09/05/2022 Orders Only [facility] MED & PEDS [address] [place] [address] Sylvia Valentino LPN Social History Tobacco Use [...] on filedocumented in this encounter Care Teams Woodwind Instrument Repairer Relationship Specialty Start Date End Date Pedro Braxton MD [address] [place] [phone] PCP - General Internal Medicine 03/15/13 documented as of this encounter
--- OUTSIDE RECORDS SUMMARY | 2025-02-21 10:30 | XMS_ITS | Encounter Summary ---
Author Organization [facility] [employer] Address [address] [facility] 7t [place] [address] Care Team Providers Care Pole Truck Driver Name Role Phone Pedro Braxton MD Primary Care Provide r Encounter Details Date Type Department Care Team (Latest Contact Info) Description 02/18/2025 Travel Social History Tobacco Use Types Packs/Day Years [...] documented as of this encounter Care Teams Pole Truck Driver Relationship Specialty Start Date End Date Pedro Braxton MD [address] [place] [address] PCP - General Internal Medicine 03/15/13 documented as of this encounter
--- OUTSIDE RECORDS SUMMARY | 2025-02-21 10:30 | XMS_ITS | Clinical Summary ---
Author Organization [employer] Address [address] [facility] 7t [place] [address] Care Team Providers Care Fibre Optics Jointer Name Role Phone Pedro Braxton MD Primary [...] 2 times daily. 15 g 023 Active linaCLOtide (Linzess) 72 MCG capsuleIndication s:Constipation, [...] split. 60 tablet 11 024 2024 Active dorzolamide-timol ol (Cosopt) 2-0.5 % ophthalmic solution Administer 1 drop into both eyes 2 times daily. 015 Active Ferrocite 324 MG tablet Take 1 tablet by mouth Once per day. Active gabapentin (Neurontin) 300 MG capsule Take 2 capsules by mouth at bedtime. Active losartan (Cozaar) 100 MG tablet Take 1 tablet by mouth at bedtime. Active meclizine (Antivert) 25 MG tablet Take 1 tablet by mouth if needed in the morning, at noon, and at bedtime for dizziness. Active ondansetron ODT (Zofran-ODT) 4 MG disintegrating tablet Take 1 tablet by mouth Every 6-8 hours as needed for nausea or vomiting. Active verapamil SR (Calan SR) 120 MG ER tablet TAKE 1 TABLET BY MOUTH EVERY MORNING 90 tablet 1 Active simethicone (Mylicon) 80 MG chewable tabletIndications :Flatulence CHEW AND SWALLOW 1 TABLET BY MOUTH THREE TIMES DAILY BEFORE MEALS NEEDED FOR GAS 90 tablet 3 Active Blood Pressure Monitoring kitIndications:Es sential hypertension Use once a week 1 kit Active Diclofenac Sodium 1 % gelIndications:Ot her headache syndrome APPLY 2 GRAMS TOPICALLY TO AFFECTED AREA(S) TWICE DAILY 100 g 2 Active docusate sodium (Colace) 100 MG capsuleIndication s:Constipation, unspecified constipation type TAKE 1 CAPSULE BY MOUTH TWICE DAILY IN THE MORNING AND IN THE EVENING NEEDED 60 capsule 5 Active cetirizine (ZyrTEC) 10 MG tablet TAKE 1 TABLET BY MOUTH EVERY MORNING 30 tablet 3 025 Active atorvastatin (Lipitor) 20 MG tablet TAKE 1 TABLET BY MOUTH EVERY EVENING 90 tablet 3 Active Aspirin Low Dose 81 MG EC tablet TAKE 1 TABLET BY MOUTH EVERY MORNING 90 tablet 3 025 Active fluticasone (Flonase) 50 MCG/ACT nasal spray USE 2 SPRAYS IN EACH NOSTRIL ONCE DAILY 16 g 3 025 Active albuterol 108 (90 Base) MCG/ACT inhalerIndication s:Moderate persistent asthma without complication INHALE 2 PUFFS BY MOUTH EVERY 6 HOURS NEEDED FOR WHEEZING OR SHORTNESS OF BREATH 18 g 3 025 Active senna (Senokot) 8.6 MG tabletIndications :Constipation, unspecified constipation type TAKE 2 TABLETS BY MOUTH EVERY DAY AT BEDTIME NEEDED 180 tablet 1 025 Active senna (Senokot) 8.6 MG tabletIndications :Constipation, unspecified constipation type TAKE 2 TABLETS BY MOUTH EVERY DAY AT BEDTIME NEEDED 180 tablet 1 025 2024 Discontinued Active Problems Problem Noted Date Diagnosed Date Venous (peripheral) insufficiency 11/05/2024 Assessment & Plan (02/18/2025 2:30 PM EDT): Referred to Vascular surgery Continue wearing Compressive stockings, knee high medium compression Assessment & Plan (11/05/2024 2:08 PM EDT): Bilateral, Will refer to Vascular surgery Compressive stockings, knee high medium compression Hospital discharge follow-up 07/23/2024 Constipation 03/19/2024 Assessment & Plan (11/05/2024 2:00 PM EDT): Last seen by GI 09/04/2024 Assessment & Plan (07/30/2024 1:20 PM EDT): [...] encouraged to discuss with her GI for long term acute care registered nurse use. -ER precautions discussed. Class 1 obesity [...] EST): Pt with chronic anemia. Seen by chargemaster specialist Dr Osiel Ye at [facility] last seen on 07/22/2021. GI work up included a EGD 2020 and Colonoscopy 2006. Moderate persistent asthma without complication 05/24/2022 Assessment & Plan (02/18/2025 2:35 PM EDT): Patient with chronic cough, described as dry and intermittent wheezing Pt was unable to complete PFTs under the care of Dr Silva ( Family Physician ) thinks she has Mod persistent asthma On Montelukast, Breo Elipa 100/25 chest x-ray 07/17/2019 Normal pt will continue to follow with him,has a follow up with him Assessment & Plan (11/28/2023 2:41 PM EDT): She has chronic cough, described as dry and intermittent wheezing. 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 Pt was unable to complete PFTs under the care of Dr Silva ( Family Physician ) thinks she has Mod persistent asthma On Montelukast, Breo Elipa 100/25 chest x-ray 07/17/2019 Normal pt will continue to follow with him, last seen September 2022 Assessment & Plan (12/22/2022 11:15 AM EDT): She has chronic cough, described as dry and intermittent wheezing. 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 Pt was unable to complete PFTs under the care of Dr Silva ( Family Physician ) thinks she has Mod persistent asthma On Montelukast, Breo Elipa 100/25 chest x-ray 07/17/2019 Normal pt will continue to follow with him, last seen September 2022 Assessment & Plan (05/24/2022 5:15 PM EST): She has chronic cough, described as dry and intermittent wheezing. 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 Pt was unable to complete PFTs under the care of Dr Silva ( Family Physician ) thinks she has Mod persistent asthma On Montelukast, Breo Elipa 100/25 chest x-ray 07/17/2019 Normal pt will continue to follow with him, last seen 07/27/2021 Stress incontinence of urine 05/24/2022 Assessment & Plan (02/18/2025 2:36 PM EDT): Pt needs diapers and pads Left hip pain 05/24/2022 Assessment & Plan (05/24/2022 5:08 PM EST): Hx of fall, CT 02/23/2022 was negative for fracture No further work up Pt not complaining at the moment Hx of total knee replacement, right 05/24/2022 Assessment & Plan (11/05/2024 2:02 PM EDT): Pt with OA right knee, 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 Assessment & Plan (11/05/2024 2:03 PM EDT): Pt here for a f/u [...] counseled about weight loss. Assessment & Plan (07/30/2024 1:19 PM EDT): [...] -24 hour BP monitor ordered -EKG -Called Herb Doctor, will plan for follow up appt in 1-2 months -ED precautions reviewed Assessment & Plan (05/24/2022 4:33 PM EST): Pt here for a f/u BP is controlled, She is on a regimen of: Verelan ER 120 mg po daily by cardiology and Diovan 80 mg po daily (she had been on Hctz before but this was Dced by [facility]) For now will continue with current [...] of coronary artery 02/13/2012 Assessment & Plan (02/18/2025 2:29 PM EDT): f/u with cardiology annually. Last seen 12/12/2024 Dr Jenkins recommended a stress ECHO Assessment & Plan (11/05/2024 2:03 PM EDT): denies any chest pain cont current med regimen Risk Factor modification f/u with cardiology annually. Last seen 10/29/2024 Assessment & Plan (05/24/2022 5:17 PM EST): denies any chest pain cont current med regimen Risk Factor modification f/u with cardiology annually. Last seen 05/11/2018 Cervical radiculopathy 02/13/2012 Gastroesophageal reflux disease 02/13/2012 Assessment & Plan (11/05/2024 2:11 PM EDT): Here for a f/u Seen by GI 09/04/2024 EGD 09/08/2020 showed: Videoendoscope was introduced with out difficulty and entered esophagus easily. Esophageal mucosa was normal. Small hiatal hernia. Stomach: Normal looking mucosa, no erythema. Duodenal bulb and duodenum were normal. Scope withdrawn Brief view of Arytenoid cartilages showed some flattening and edema. No involvement of the cords. Advised to continue Pepcid She also ordered a Barium Swallow for eval of globus sensation, that showed hiatal hernia, GERD Assessment & Plan (07/30/2024 1:18 PM EDT): [...] with a personal goal for weight loss. Primary osteoarthritis of left shoulder 02/13/20 12 Assessment & Plan (02/18/2025 2:27 PM EDT): Seen by ortho 11/25/2024 received steroid injection with good results Resolved Problems Problem Noted Date Diagnosed Date Resolved Date Ulcer of left ankle 01/26/2023 04/30/20 24 Assessment & Plan (01/26/2023 9:37 AM EDT): No evidence of superinfection. Unclear if it is dermatitis versuse other. Referral to electronics repair technician. ER precautions given. Encounters Date Type Department Care Team Description 02/18/2025 2:00 PM EDT Office [facility] [place] [address] Pedro Braxton MD Essential hypertension (Primary Dx); Primary osteoarthritis of left shoulder; Atherosclerosis of [place] coronary artery of [place] heart without angina pectoris; Venous (peripheral) insufficiency; Moderate persistent asthma without complication; Stress incontinence of urine; Encounter for immunization 02/18/2025 Travel 02/17/2025 Telephone [facility] [place] [address] Pedro Braxton MD chart prep 02/11/2025 Patient Outreach [facility] [place] [address] Pedro Braxton MD Pre-visit Planning ([facility] screening completed on 07/03/2024) 01/28/2025 Refill [facility] [place] [address] Pedro Braxton MD Constipation, unspecified constipation type 01/08/2025 Telephone [facility] [place] [address] Pedro Braxton MD Appointment Confirmation 12/10/2024 Refill [facility] [place] [address] Pedro Braxton MD Moderate persistent asthma without complication 12/01/2024 Refill [facility] [address] [facility], [place] [phone] Pedro Braxton MD 11/29/2024 Refill [facility] [address] [place] [address] Pedro Braxton MD Constipation, unspecified constipation type from Last 3 Months Immunizations Immunization Administration Dates Next Due Influenza High-dose Quadriva lent Preservative Free 02/03/2022 Influenza injectable quadriv alent IIV4 with preservative 01/25/2016,03/24/2015 Influenza injectable quadriv alent preservative free 05/03/2021,05/29/2018,04/25/2016 Influenza, High Dose Seasona l, Preservative Free 02/18/2025 Influenza, IIV3, injectable 04/04/2011 Influenza, Split (incl. [...] Mass Index 30.84 02/18/2025 2:19 PM EDT Plan of Treatment Health Maintenance Due Date Last Done Comments Hepatitis A Vaccines (1 of 2 - Risk 2-dose series) 09/25/1959 Hepatitis B Vaccines (1 of 3 - Risk 3-dose series) 2000 Zoster Vaccines (2 of 3) 02/10/2015 12/16/2014 RSV Patients and Patients Aged 60 years or older (1 - 1-dose 75+ series) 09/25/2015 Mammogram 09/17/2024 09/18/2023, 05/0 10/2023, 11/06/2020, Additional history exists Depression Screening 11/27/2024 11/28/2023, 11/28/19 24 DTaP/Tdap/Td Vaccines (2 - Td or Tdap) 12/16/2024 12/16/2014 COVID-19 Vaccine ( season) 2025 07/14/2021, 07/24/2020, 06/26/2020 Alcohol/Substance Use Screening 04/30/2025 04/30/2024 SDOH Screening 07/03/2025 07/03/2024 Tobacco Screening 02/18/2026 02/18/2025 Lipid Panel 05/02/2029 05/02/2024, 12/13, 05/31/2022, Additional history exists Pneumococcal Vaccine: 50+ Years Completed 03/24/2015, 06/03/2008 Influenza Vaccine Completed 02/18/2025, , 05/03/2021, Additional history exists HIB Vaccines Aged Out No longer eligi [...] Procedure Name Priority Date/Time Associated Diagnosis Comments LIPID PANEL, STANDARD Routine 05/02/2024 10:01 AM EST Mixed hyperlipidemia BI MAMMOGRAM SCREENING TOMOSYNTHESIS BILATERAL Routine 09/18/2023 2:30 PM EDT from Last 3 Months or Most Recently Relevant to Health Maintenance Results * Lipid Panel, Standard (05/02/2024 10:01 AM EST) Triglycerides 92 <150 mg/dL [facility] Comment:Desirable Triglyceri de: less than 150 mg/dLBorderline High Triglyceride 150-199 mg/dLHigh Triglyceride: 200-499 mg/dLVery High Triglyceride: greater than or equal to 5OO mg/dL Cholesterol 127 <200 mg/dL [facility] Comment:Desirable Cholestero l: less than 200 mg/dLBorderline High Cholesterol: 200-239 mg/dLHigh Cholesterol: greater than 239 mg/dL LDL Cholesterol Calculated 58 <100 mg/dL [facility] Comment:Desirable LDL: less than 100 mg/dLNear Optimal/Above Optimal LDL: 110- 129 mg/dLBorderline High LDL: 130-159 mg/dLHigh LDL: 160-189 mg/dLVery High LDL: greater than or equal to 190 mg/dL HDL Cholesterol 51 >40 mg/dL [facility] Comment:Desirable HDL: great er than 40 mg/dL Note: This HDL assay may give artificially low results in patients with liver disease. Blood Venous blood specimen / Unknown 05/02/2024 10:01 AM EST 05/02/2024 11:15 AM EST Pedro Leiva MD LAB BLOOD ORDERABLES Final Result [facility] [address] [place] [address] [phone] * BI Mammogram Screening Tomosynthesis Bilateral (09/18/2023 2:30 PM EDT) Anatomical Region Laterality Modality Breast Bilateral Mammography 09/18/2023 2:30 PM EDT Narrative 09/18/2023 4:18 PM EDT [facility] [address] [place] [address] Mammography Report Signed Patient: Mickie Hopper MR#: [id number] 27 : 1940 Acct:[id number] Age/Sex: 82 / F ADM Date: 09/18/23 Loc: [facility] Attending Dr: Sylvia Lennon DO Ordering Physician: Sylvia Lennon DO Results: 2B enign Findings Date of Service: 09/18/23 Follow Up: 1 Year From Orig inal Mammogram Procedure(s): MM tomosynthesis screening BI Accession Number(s): [id number] cc: Pedro Ingram MD; Sylvia Lennon DO [...] in OV> 09/18/23 1614 DD/ 1430 TD/TT: Manager Of Sustainability: Procedure Note Donotuseinterpreter, Image - 09/18/2023 [facility] [address] [place] [address] Mammography Report Signed Patient: Mickie HopperMR#: [id number] 27 : 1Acct:[id number] Age/Sex: 82 / FADM Date: 09/18/23 Loc: HO.MAMMO Attending Dr: Sylvia Lennon DO Ordering Physician: Sylvia Lennonults: 2B enign Findings Date of Service: 09/18/23Follow Up: 1 Year From Orig inal Mammogram Procedure(s): MM tomosynthesis screening BI Accession Number(s): [id number] cc: Pedro Ingram MD; Sylvia Lennon DO [...] cortical thickening, hyperemia, or loss of fatty haely. They have normal toy morphology. These may [...] in OV> 09/18/23 1614 DD/ 1430 TD/TT: Manager Of Sustainability: us Sylvia Lennon DO IMG BI PROCEDURES Final Resu lt from Last 3 Months or Most Recently Relevant to Health Maintenance Insurance [facility] OPT[facility] (HMO D-SNP) [place] [id number] Care Teams Fibre Optics Jointer Relationship Specialty Start Date End Date Pedro Braxton MD [address] [place] [phone] PCP - General Internal Medicine 03/15/13
--- OUTSIDE RECORDS SUMMARY | 2025-02-21 10:30 | XMS_ITS | Clinical Summary ---
Author Organization [facility] Address [address] [place] [address] Phone Care Team Providers Care Hotel General Manager Name Role Phone Pedro Ingram MD Primary [...] Vaccines (2 of 3) 02/10/2015 12/16/2014 RSV Immunization Adult Patients (1 - 1-dose 75+ series) 09/25/2015 Falls Risk Assessment 04/27/2022 Medicare Annual Wellness Visit 04/27/2022 Osteoporosis Screening (Bone Density Screening) 04/27/2022 Social Influencers of Health Screening 04/27/2022 Depression Screening 05/15/2024 DTaP,Tdap,and Td Vaccines (2 - Td or Tdap) 12/16/2024 12/16/2014 COVID-19 Vaccine (4 - season) 2025 07/14/2021, 07/24/2020, 06/26/2020 Influenza Vaccine (#1) 2025 , 05/03/2021, 05/29/2018, [...] LAB CHEMISTRY METHOD 03/30/2024 1:[address] [facility] Potassium 3.6 3.5 - 5.5 mmol/L LAB CHEMISTRY METHOD 03/30/2024 1:[address] [facility] Chloride 109 96 - 110 [...] [facility] Comment:Calculation based on the Chronic Kidney [...] MD LAB BLOOD ORDERABLES Final Resul t [facility] [address] [place] [address], from Last 3 Months or Most Recently Relevant to Health Maintenance Insurance [employer] MEDICARE Member Subscriber Plan / Payer (Ef fective 2008-Present) Name:Mickie Hopper Relation to Subscriber:Self Name:Mickie Hopper Payer ID:[id number] Group ID:[id number] Type:Not on file Address: [place] [address] [place] [id number] Care Teams Hotel General Manager Relationship Specialty Start Date End Date Pedro Ingram MD [address] [place] [address] [place] [phone] PCP - General 11/23/09
--- OUTSIDE RECORDS SUMMARY | 2025-02-21 10:30 | XMS_ITS | Encounter Summary ---
Author Organization [employer] Address [address] [facility] [address] [place] [address] Care Team Providers Care Head School Custodian Name Role Phone Pedro Braxton MD Primary Care Provide r Reason for Visit * Reason Onset Date Comments chart prep 02/17/2025 Encounter Details Date Type Department Care Team ([facility] st Contact Info) Description 02/17/2025 Telephone [facility] [address] [place], [place] [phone] Pedro Braxton MD [address] [place], [place] [phone] chart prep Social History Tobacco Use Types Packs/Day Years [...] encounter Miscellaneous Notes * Telephone Encounter - Leela Peters [place] - 02/17/2025 6:17 PM EDT Chart Prep Labs: not applicable Images: not applicable Referrals: not applicable Vaccines due: Covid, Flu, Tdap, Hep B, Hep A, RSV, and Zoster Screenings: mammogram Overdue care gaps: SBIRT, PHQ-9, and JC-7 documented in this encounter Plan of Treatment Not on file documented as of this encounter Visit Diagnoses Not on filedocumented in this encounter Additional Health Concerns Assessment Noted Time PHQ-9 Depression Total Score: 3 11/28/19 24 2:27 PM EDT documented as of this encounter Care Teams Head School Custodian Relationship Specialty Start Date End Date Pedro Braxton MD [address] [place] [id number] PCP - General Internal Medicine 03/15/13 documented as of this encounter
--- OUTSIDE RECORDS SUMMARY | 2025-02-21 10:30 | XMS_ITS | Encounter Summary ---
Author Organization [employer] Address 75 [facility] [address] [place] [address] Care Team Providers Care Shipping Clerk Packing Name Role Phone Pedro Braxton MD Primary Care Provide r Encounter Details Date Type Department Care Team (Late st Contact Info) Description 06/09/2022 Orders Only [facility]S [address] [place] [address] Sylvia Valentino LPN Social History Tobacco Use [...] on filedocumented in this encounter Care Teams Shipping Clerk Packing Relationship Specialty Start Date End Date Pedro Braxton MD [address] [place] [phone] PCP - General Internal Medicine 03/15/13 documented as of this encounter
--- OUTSIDE RECORDS SUMMARY | 2025-02-21 10:30 | XMS_ITS | Encounter Summary ---
Author Organization [employer] Address 75 [facility] 7t [place] [address] Care Team Providers Care Dental Appliance Repairer Name Role Phone Pedro Braxton MD Primary Care Provide r Encounter Details Date Type Department Care Team ([facility] st Contact Info) Description 04/01/2024 Orders Only [facility] [address] [place] [address] ProviderZulay MD Social History Tobacco Use Types [...] on file documented as of this encounter Procedures Procedure [...] Laterality Modality Head, Neck Computed Tomogra phy us Historical Provider MD FELIX CT PROCEDURES Final R esult documented in this encounter Visit Diagnoses Not on filedocumented in this encounter Additional Health Concerns Assessment Noted Time PHQ-9 Depression Total Score: 3 11/28/19 24 2:27 PM EDT documented as of this encounter Care Teams Dental Appliance Repairer Relationship Specialty Start Date End Date Pedro Braxton MD [address] [place] [address] PCP - General Internal Medicine 03/15/13 documented as of this encounter
== END 2025-02-21 10:09 | disposition home or self-care (01) ==
LOC: HO.HPS 09:46
PROVIDERS: Visit Provider Hospitalist
DX: Z01.811 Encounter for preprocedural respiratory examination (principal); J45.40 Moderate persistent asthma, uncomplicated; K44.9 Diaphragmatic hernia without obstruction or gangrene; Z91.09 Other allergy status, other than to drugs and biological substances
CPT/HCPCS: 99214; G2211

== ENCOUNTER → 2025-02-21 09:46 | Outpatient (BNVA) | payer OTHER, SELFPAY | PROVIDERS: Visit Provider Hospitalist | DX: Z01.811 Encounter for preprocedural respiratory examination (principal); J45.40 Moderate persistent asthma, uncomplicated; K44.9 Diaphragmatic hernia without obstruction or gangrene; Z91.09 Other allergy status, other than to drugs and biological substances | CPT/HCPCS: 99212 ==